=== PATIENT | female | born 1975 | race Caucasian/White ===

== ENCOUNTER 2022-05-28 02:51 | Emergency (ER) | payer OTHER, SELFPAY ==
[2022-05-28 02:59] VITALS: BP 114/67; PULSE 90; RESP 18; TEMP 36.9; O2SAT 96; BMI 31.3
[2022-05-28 05:40] VITALS: BP 116/68; PULSE 98; RESP 16; TEMP 37; O2SAT 97
--- NOTE | 2022-05-28 05:58 | ED.GENADULT ---
HPI - General Adult General Chief complaint: Skin/Abscess/Foreign Body Stated complaint: rash? itches/bumps Time Seen by Provider: 05/28/22 05:58 Source: patient Mode of arrival: ambulatory Limitations: no limitations History of Present Illness HPI narrative: pruritis all night, for 2 weeks. Patient only on albuterol. Patient recently changed laundry detergent. Onset (ago): week(s) Severity: mild Pain Consistency: intermittent Associated symptoms: denies other symptoms Related Data Previous Rx's Medication Instructions Recorded hydroxyzine HCl 25 mg tablet 25 mg PO BEDTIME #20 tabs 05/28/22 Allergies Allergy/AdvReac Type Severity Reaction Status Date / Time No Known Allergies Allergy Verified 05/28/22 02:58 [No Known Allergies*] Review of Systems Constitutional: Constitutional: Reports no additional constitutional complaints Eyes: Eyes: Reports no additional eye complaints ENT: Denies dizziness Cardiovascular: Cardiovascular: Reports no additional cardiovascular complaints Respiratory: Respiratory: Reports as per HPI Gastrointestinal: Gastrointestinal: Reports no additional gastrointestinal complaints Genitourinary: Genitourinary: Reports no additional female genitourinary complaints Musculoskeletal: Musculoskeletal: Reports no additional musculoskeletal complaints Integumentary/Breasts: Skin/Breast: Denies rash Neurologic: Reports system reviewed and no additional complaints, except as documented, Denies dizziness and Denies Sensory deficit (Neuro) Psychiatric: Psychiatric: Denies anxiety [facility] Social History Social History Advance Directives: No Physical Exam ED Vital Signs: Vital Signs - 24 hr 05/28/22 02:59 05/28/22 05:40 Temperature 98.4 F 98.6 F Pulse Rate 90 98 Respiratory Rate 18 16 Blood Pressure 114/67 116/68 Pulse Oximetry 96 97 Oxygen Delivery Method Room Air Room Air BMI result Body Mass Index 31.3 Const General: healthy appearing Nutritional Appearance: average body habitus Orientation/consciousness: oriented to person and patient oriented x3 Limitations: no limitations HENMT Head: Yes normal to inspection Ears: external ears normal General nose exam: Normal external nose present Mouth: Normal oral and palatal mucosa present and oropharynx normal Throat: Yes posterior oropharynx normal Eyes General: appearance normal, both eyes and all related structures Neck Neck: Yes normal visual inspection Chest Chest palpation & inspection: normal inspection of the chest Resp Auscultation: clear to auscultation bilaterally Cardio Jugular venous distension: no JVD Rate: regular rate Rhythm: regular rhythm Heart sounds: S1 normal heart sound present and S2 normal heart sound present GI Inspection: Yes normal to inspection Palpation (GI): Soft to palpation, nontender and No hepatosplenomegaly present Auscultation: normal bowel sounds General: Yes no CVA tenderness Back/Spine/Pelvis Back: no CVA tenderness Skin Other: scratch ohara but no lesion or erythema Neuro General: oriented to person and patient oriented x3 Cranial nerves: Yes CN's II-XII intact bilaterally Motor exam (neuro): 5/5 motor strength present throughout Sensory Exam: No Sensory deficit (Neuro) Extrem General: Yes normal to inspection Psych Appearance: grossly normal Course Reevaluation(s) Reevaluation #1: patient to have blood drawn and needs to be discharged will dc home on atarax Time: 06:07 Discharge Plan Discharge Clinical Impression: Pruritic condition Patient Disposition: Home, Self-Care Instructions: Itchy Skin (ED) Prescriptions: New hydroxyzine HCl 25 mg tablet 25 mg PO BEDTIME Qty: 20 0RF Referrals: Ranjith Leblanc MD [Primary Care Provider] - 1 week
[2022-05-28] MEDS: hydrOXYzine HCL 25 MG TABLET PO (06:21)
[2022-05-28 06:26] LABS: Appearance Urine Clear; Color Urine Yellow; Glucose Urine UA Negative (Negative); Leukocyte Esterase Urine Negative (Negative); Nitrite Urine Negative (Negative); Specific Gravity - Urine <= 1.005 (1.005-1.025); UMIC TRIGGER UACC YES; Urine Blood Negative (Negative); Urine Ketones Negative (Negative); Urine Protein Negative (Neg-Trace)
[2022-05-28 06:31] LABS: Bacteria Urine None Seen (None Seen); Hyaline Casts Urine 0-2 /LPF (0-2); RBC Urine 0-2 /HPF (0-2); Squamous Epithelial Cell Urine 0-2 /HPF (0-2); WBC Urine 0-5 /HPF (0-5)
[2022-05-28 06:50] LABS: Alanine Aminotransferase 16 U/L (0-31); Albumin Level 4.4 g/dL (3.5-5.0); Alkaline Phosphatase 98 U/L (39-117); Anion Gap 15 (12-20); Aspartate Amino Transferase 14 U/L (5-31); Bilirubin Total 0.4 mg/dL (0.0-1.0); Blood Urea Nitrogen 15 mg/dL (9-16); Calcium 9.2 mg/dL (8.4-10.2); Carbon Dioxide 24 mmol/L (22-29); Chloride 107 mmol/L (96-108); Creatinine Clr Calc Pharmacy 109.8; Estimated Glomerular Filt Rate > 60; Glucose Random 137 mg/dL (60-115); Potassium 4.5 mmol/L (3.3-5.1); Sodium 141 mmol/L (135-145); Total Protein 7.5 g/dL (6.5-8.0)
== END 2022-05-28 06:25 | disposition home or self-care (01) ==
PROVIDERS: Emergency Provider Emergency Medicine; PCP Internal Medicine
DX: L29.9 Pruritus, unspecified (principal)
CPT/HCPCS: 36415; 80053; 81001; 81003; 99283

== ENCOUNTER 2023-01-22 22:04 | Emergency (ER) | payer OTHER, SELFPAY ==
--- NOTE | ~2023-01-22 | US_ITS ---
EXAMINATION: US DIAGNOSTIC ULTRASOUND BREAST, RIGHT CLINICAL INFORMATION: 47-year-old ER patient with right breast lump, tender and warm. Patient on doxycycline for chronic skin infection. Prior history contralateral left breast cancer. COMPARISON: None available. TECHNIQUE: Ultrasound right breast is performed at time of emergency appointment. Grayscale imaging and color Doppler are performed, targeted to the area of patient symptoms. FINDINGS: The submitted images demonstrate scattered round and oval cysts in the targeted area 9:00 position. The cysts show thin wall with increased through-transmission of sound. The largest cyst resides 4 cm from the nipple 9:00 position and measures 2.8 x 1.1 x 1.1 cm. The next largest cyst measures 1.4 x 1.2 x 1.4 cm. There is no solid mass or architectural abnormality. No focal duct ectasia. No peripheral or internal color flow. No skin thickening or edema tracking in soft tissue planes. US/US breast RT limited IMPRESSION: Fibrocystic changes lateral right breast, largest cyst 2.8 cm. ASSESSMENT: BI-RADS 2: Benign RECOMMENDATION: 1. Patient should be managed based on the clinical impression. If clinically indicated, [facility] diagnostic [facility] and targeted follow-up ultrasound. 2. Otherwise, annual screening mammography. This patient's information was entered into a reminder system with a target due date for their next mammogram.
[2023-01-22 22:37] VITALS: BP 112/62; PULSE 77; RESP 16; TEMP 36.6; O2SAT 98; BMI 26.9
[2023-01-22 23:20] LABS: MANUAL DIFF FLAG NO
[2023-01-22 23:21] LABS: Basophils Absolute Auto 0.1 X10*3/uL (0.0-0.2); Basophils Percent Auto 0.7 % (0-2); Eosinophils Absolute Auto 0.1 X10*3/uL (0.0-0.4); Eosinophils Percent Auto 0.8 % (0-4); Hematocrit 46.5 % (37.0-47.0); Hemoglobin 15.4 g/dl (12.0-16.0); Imm Gran Abs Auto 0.04 X10*3/uL (0.00-0.03); Imm Gran Pct Auto 0.3 % (0.0-0.4); Lymphocytes Absolute Auto 2.5 X10*3/uL (1.2-4.9); Lymphocytes Percent Auto 16.8 % (20-40); Mean Corpuscular HGB Conc 33.1 g/dl (31.0-35.0); Mean Corpuscular Hemoglobin 29.7 pg (27.0-33.0); Mean Corpuscular Volume 89.8 fL (80.0-98.0); Mean Platelet Volume 10.9 fL (9.4-12.3); Monocytes Percent Auto 6.9 % (2-11); Neutrophils Absolute Auto 11.2 x10*3/uL (2.0-8.3); Neutrophils Percent Auto 74.5 % (45-73); Platelet Count 259 X10*3/uL (160-400); Red Blood Count 5.18 X10*6/uL (4.20-5.50); Red Cell Distribution Width 13.7 % (11.0-16.0)
[2023-01-22 23:33] LABS: Anion Gap 13 (12-20); Blood Urea Nitrogen 19 mg/dL (9-16); C Reactive Protein 0.53 mg/dL (< or = 0.50); Calcium 8.9 mg/dL (8.4-10.2); Carbon Dioxide 26 mmol/L (22-29); Chloride 104 mmol/L (96-108); Creatinine Clr Calc Pharmacy 95.7; Estimated Glomerular Filt Rate > 60; Glucose Random 144 mg/dL (60-115); Potassium 3.8 mmol/L (3.3-5.1); Sodium 139 mmol/L (135-145)
--- NOTE | 2023-01-22 23:57 | ED.GENADULT ---
HPI - General Adult General Chief complaint: General Medical Stated complaint: Huge lump on R breast, hot and painful Time Seen by Provider: 01/22/23 23:47 Source: patient Mode of arrival: ambulatory Limitations: no limitations History of Present Illness HPI narrative: Patient's history of left breast cancer on hormonal therapy comes here for lump in the right breast for last few days schedule for ultrasound but patient able to get it feels slightly more painful and mom and she came to the hospital. Patient on doxycycline and has history of polycythemia patient taking doxycycline for chronic skin infection Related Data Previous Rx's Medication Instructions Recorded hydroxyzine HCl 25 mg tablet 25 mg PO BEDTIME #20 tabs 05/28/22 Allergies Allergy/AdvReac Type Severity Reaction Status Date / Time No Known Allergies Allergy Verified 05/28/22 02:58 [No Known Allergies*] Review of Systems Review of Systems: Yes all other systems are reviewed and are negative [facility] Social History Social History Advance Directives: No Advance Directives Information Provided: Yes Physical Exam ED Vital Signs: Vital Signs - 24 hr 01/22/23 22:37 Temperature 97.9 F Pulse Rate 77 Respiratory Rate 16 Blood Pressure 112/62 Pulse Oximetry 98 Oxygen Delivery Method Room Air BMI result Body Mass Index 26.9 Const General: comfortable and no acute distress Chest Chest/axillae images: 1. Large cystic mass about 5 x 5 cm freely movable no significant tenderness slight skin erythema Medical Decision Making Medical Decision Making [facility] Narrative: Patient with cystic lesions in the right breast no signs of abscess per ultrasound discharge patient home advised to follow with breast specialist Lab Data [facility] Lab Attestation statement: I reviewed the patient's lab results. 01/22/23 22:59 01/22/23 22:59 Labs: Lab Results 01/22/23 01/22/23 01/22/23 Range/Units 22:59 22:59 22:59 WBC 15.0 H (4.8-10.8) X10*3/uL RBC 5.18 (4.20-5.50) X10*6/uL Hgb 15.4 (12.0-16.0) g/dl Hct 46.5 (37.0-47.0) % MCV 89.8 (80.0-98.0) fL MCH 29.7 (27.0-33.0) pg MCHC 33.1 (31.0-35.0) g/dl RDW 13.7 (11.0-16.0) % Plt Count 259 (160-400) X10*3/uL MPV 10.9 (9.4-12.3) fL Immature Gran % (Auto) 0.3 (0.0-0.4) % Neut % (Auto) 74.5 H (45-73) % Lymph % (Auto) 16.8 L (20-40) % [place] % (Auto) 6.9 (2-11) % Eos % (Auto) 0.8 (0-4) % Baso % (Auto) 0.7 (0-2) % Lymph # (Auto) 2.5 (1.2-4.9) X10*3/uL [place] # (Auto) 1.0 (0.1-1.2) X10*3/uL Eos # (Auto) 0.1 (0.0-0.4) X10*3/uL Baso # (Auto) 0.1 (0.0-0.2) X10*3/uL Abs Immat Gran (auto) 0.04 H (0.00-0.03) X10*3/uL Absolute Neuts (auto) 11.2 H (2.0-8.3) x10*3/uL Absolute Nucleated RBC 0.000 (0.0-0.012) X10*3/uL Nucleated RBC % (auto) 0.0 (0.0-0.2) /100WBC ESR 14 (0-20) MM/HR Sodium 139 (135-145) mmol/L Potassium 3.8 (3.3-5.1) mmol/L Chloride 104 (96-108) mmol/L Carbon Dioxide 26 (22-29) mmol/L Anion Gap 13 (12-20) BUN 19 H (9-16) mg/dL Creatinine 0.79 (0.5-1.4) mg/dL Estim Creat Clear Calc 95.7 Estimated GFR > 60 Random Glucose 144 H (60-115) mg/dL Calcium 8.9 (8.4-10.2) mg/dL C-Reactive Protein 0.53 H (< or = 0.50) mg/dL Discharge Plan Discharge Clinical Impression: Fibrocystic breast disease Patient Disposition: Home, Self-Care Instructions: Fibrocystic Breast Changes (ED) Additional Instructions: Follow-up with your breast specialist for further evaluation Prescriptions: No Action hydroxyzine HCl 25 mg tablet 25 mg PO BEDTIME Qty: 20 0RF
[2023-01-23 00:07] LABS: Erythrocyte Sedimentation Rate 14 MM/HR (0-20)
== END 2023-01-23 01:40 | disposition home or self-care (01) ==
PROVIDERS: Emergency Provider Internal Medicine; PCP Physician Assistant Medical
DX: N60.11 Diffuse cystic mastopathy of right breast (principal); Z79.899 Other long term (current) drug therapy
CPT/HCPCS: 36415; 76642; 80048; 85025; 85652; 86140; 99283; 99284

== ENCOUNTER 2025-01-23 19:29 | Emergency (ER) | payer OTHER, SELFPAY ==
--- NOTE | ~2025-01-23 | XR_ITS ---
CLINICAL HISTORY: chest pain 2 view chest x-ray Comparison: None Findings: The lungs are clear. Heart size is normal. No acute fracture. IMPRESSION: 1. No acute findings. This document has been electronically signed by: Dez Duran MD on 01/23/2025 20:41:32
[2025-01-23 19:32] VITALS: BP 121/71; PULSE 74; RESP 18; TEMP 36.3; O2SAT 100; BMI 28.6
--- NOTE | 2025-01-23 19:33 | ED_ITS ---
HPI - General Adult General Chief complaint: Dyspnea Stated complaint: trouble breathing Related Data Previous Rx's ?Medication ?Instructions ?Recorded hydroxyzine HCl 25 mg tablet 25 mg PO BEDTIME #20 tabs 05/28/22 Allergies Allergy/AdvReac Type Severity Reaction Status Date / Time No Known Allergies Allergy Verified 01/23/25 19:34 [No Known Allergies*] [facility] Social History Social History Smoked in Last 30 Days: Yes Use of substances other than those prescribed or required for medical reasons: Unknown Advance Directives: No Advance Directives Information Provided: Yes Do you have a plan to hurt others: No Plan Patient : No Physical Exam ED Vital Signs: BMI result Body Mass Index 28.6 Course Course Course Narrative: RME performed by Phyllis Carrington PA-C. Patient is a 49 year old assigned female at presenting to the emergency department with worsening shortness of breath. Patient's limited physical exam performed in triage showed an individual in no acute distress. Detailed physical exam and review of systems are deferred to the hyperbaric welder diver. EKG, labs, imaging, and swabs ordered. Patient placed back in the waiting room pending room availability and results. Patient left the department without completing treatment. Patient left the department before myself or any of the other emergency department clinicians could explain to or review with the patient; physical exam findings, test results, need or lack there of for additional testing, need or lack there of for a procedure to be performed, need or lack there of for hospital admission / transfer, need or lack there of for prescription medication, treatment options, or a treatment plan. Medical Decision Making Lab Data 01/23/25 20:18 01/23/25 20:18 Labs: Lab Results 01/23/25 Range/Units 20:18 WBC 7.9 (4.8-10.8) X10*3/uL RBC 4.90 (4.20-5.50) X10*6/uL Hgb 14.9 (12.0-16.0) g/dl Hct 44.3 (37.0-47.0) % MCV 90.4 (80.0-98.0) fL MCH 30.4 (27.0-33.0) pg MCHC 33.6 (31.0-35.0) g/dl RDW 13.7 (11.0-16.0) % Plt Count 275 (160-400) X10*3/uL MPV 10.8 (9.4-12.3) fL Immature Gran % (Auto) 0.4 (0.0-0.4) % Neut % (Auto) 52.1 (45-73) % Lymph % (Auto) 38.7 (20-40) % [place] % (Auto) 5.7 (2-11) % Eos % (Auto) 1.8 (0-4) % Baso % (Auto) 1.3 (0-2) % Lymph # (Auto) 3.0 (1.2-4.9) X10*3/uL [place] # (Auto) 0.5 (0.1-1.2) X10*3/uL Eos # (Auto) 0.1 (0.0-0.4) X10*3/uL Baso # (Auto) 0.1 (0.0-0.2) X10*3/uL Abs Immat Gran (auto) 0.03 (0.00-0.03) X10*3/uL Absolute Neuts (auto) 4.1 (2.0-8.3) x10*3/uL Absolute Nucleated RBC 0.000 (0.0-0.012) X10*3/uL Nucleated RBC % (auto) 0.0 (0.0-0.2) /100WBC PT 11.2 (10.9-12.4) SEC INR 1.0 (0.9-1.1) Sodium 142 (135-145) mmol/L Potassium 3.8 (3.3-5.1) mmol/L Chloride 108 (96-108) mmol/L Carbon Dioxide 25 (22-29) mmol/L Anion Gap 13 (12-20) BUN 8 L (9-16) mg/dL Creatinine 0.68 (0.5-1.4) mg/dL Estim Creat Clear Calc 111.9 Estimated GFR > 60 Random Glucose 94 (60-115) mg/dL Calcium 9.2 (8.4-10.2) mg/dL Magnesium 1.9 (1.6-2.6) mg/dL Total Bilirubin 0.3 (0.0-1.0) mg/dL AST 16 (5-31) U/L ALT 13 (0-31) U/L Alkaline Phosphatase 107 (39-117) U/L Troponin I High Sens < 2.7 (<3.5-17.0) ng/L Total Protein 6.9 (6.5-8.0) g/dL Albumin 4.1 (3.5-5.0) g/dL Influenza Type A (PCR) NEGATIVE (Negative) Influenza Type B (PCR) NEGATIVE (Negative) RSV RNA Qual (PCR) NEGATIVE (Negative) SARS-CoV-2 RNA (RT-PCR) NEGATIVE (Negative) Discharge Plan Discharge Clinical Impression: Chronic shortness of breath Patient Disposition: Left W/O Completing Treatment Prescriptions: No Action hydroxyzine HCl 25 mg tablet 25 mg PO BEDTIME Qty: 20 0RF Discharge Date/Time: 01/23/25 22:57
--- NOTE | 2025-01-23 19:34 | ECG_ITS ---
Test Reason : chest pain Blood Pressure : */* mmHG Vent. Rate : 69 BPM Atrial Rate : 69 BPM P-R Int : 164 ms QRS Dur : 92 ms QT Int : 426 ms P-R-T Axes : 37 86 55 degrees QTcB Int : 456 ms Normal sinus rhythm Normal ECG When compared with ECG of 23-Nov-2015 08:45, No significant change was found Referred By: Phyllis Carrington Electronically Signed By: CEDRICK GALLEGOS MD
[2025-01-23 20:35] LABS: MANUAL DIFF FLAG NO
[2025-01-23 20:37] LABS: Basophils Absolute Auto 0.1 X10*3/uL (0.0-0.2); Basophils Percent Auto 1.3 % (0-2); Eosinophils Absolute Auto 0.1 X10*3/uL (0.0-0.4); Eosinophils Percent Auto 1.8 % (0-4); Hematocrit 44.3 % (37.0-47.0); Hemoglobin 14.9 g/dl (12.0-16.0); Imm Gran Abs Auto 0.03 X10*3/uL (0.00-0.03); Imm Gran Pct Auto 0.4 % (0.0-0.4); Lymphocytes Percent Auto 38.7 % (20-40); Mean Corpuscular HGB Conc 33.6 g/dl (31.0-35.0); Mean Corpuscular Hemoglobin 30.4 pg (27.0-33.0); Mean Corpuscular Volume 90.4 fL (80.0-98.0); Mean Platelet Volume 10.8 fL (9.4-12.3); Monocytes Absolute Auto 0.5 X10*3/uL (0.1-1.2); Monocytes Percent Auto 5.7 % (2-11); Neutrophils Absolute Auto 4.1 x10*3/uL (2.0-8.3); Neutrophils Percent Auto 52.1 % (45-73); Platelet Count 275 X10*3/uL (160-400); Red Cell Distribution Width 13.7 % (11.0-16.0); White Blood Count 7.9 X10*3/uL (4.8-10.8)
[2025-01-23 20:42] LABS: Prothrombin Time 11.2 SEC (10.9-12.4)
[2025-01-23 20:54] LABS: Alanine Aminotransferase 13 U/L (0-31); Albumin Level 4.1 g/dL (3.5-5.0); Alkaline Phosphatase 107 U/L (39-117); Anion Gap 13 (12-20); Aspartate Amino Transferase 16 U/L (5-31); Bilirubin Total 0.3 mg/dL (0.0-1.0); Blood Urea Nitrogen 8 mg/dL (9-16); Calcium 9.2 mg/dL (8.4-10.2); Carbon Dioxide 25 mmol/L (22-29); Chloride 108 mmol/L (96-108); Creatinine Clr Calc Pharmacy 111.9; Estimated Glomerular Filt Rate > 60; Glucose Random 94 mg/dL (60-115); Magnesium 1.9 mg/dL (1.6-2.6); Potassium 3.8 mmol/L (3.3-5.1); Sodium 142 mmol/L (135-145); Total Protein 6.9 g/dL (6.5-8.0)
--- OUTSIDE RECORDS SUMMARY | 2025-01-23 20:58 | XMS_ITS | Clinical Summary ---
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 05/07/2023 Active tamoxifen (NOLVADEX) 10 mg tablet Take 1 Tablet by mouth daily for 360 days. 06/03/2024 05/29/20 25 Active triamcinolone (NASACORT) 55 mcg nasal inhaler 2 Sprays by Nasal route daily. 07/15/2023 Active LORazepam (ATIVAN) 1 mg tablet Take 1 Tablet by mouth Once. Take 30 minutes prior to MRI. 06/05/2023 Active lactulose (CHRONULAC) solution Take 30 mL by mouth daily. 06/05/2023 Active hydrOXYzine HCL (ATARAX) 10 mg tablet Take 1 tablet (10 mg total) by mouth 3 (three) times a day if needed. 07/15/2023 Active furosemide (LASIX) 20 mg tablet Take 1 Tablet by mouth daily. As needed for leg swelling 07/15/2023 Active doxycycline (VIBRAMYCIN) 50 mg capsule Take 1 capsule (50 mg total) by mouth 2 (two) times a day. 07/15/2023 Active cetirizine (ZyrTEC) 10 mg tablet Take 1 tablet (10 mg total) by mouth 1 (one) time each day. 07/15/2023 Active budesonide-form oteroL (Symbicort) 160-4.5 mcg/actuation inhaler Inhale 2 Puffs into the lungs every 12 hours. 07/15/2023 Active Active Problems Problem Noted Date Diagnosed Date Mass of lower inner quadrant of left breast 09/15 IFG (impaired fasting glucose) 07/24/2021 Mild persistent asthma without complication 05/2019 Abnormal CXR 03/23/2019 Leg swelling 01/28/2018 Hidradenitis 11/14/2016 Mixed hyperlipidemia 04/18/2015 Polycythemia 02/27/2015 Thyroid nodule 12/24/2010 Depression 11/19/2010 Encounters Date Type Department Care Team Description 01/22/2025 12:01 AM EDT - 01/22/2025 3:35 AM EDT Emergency [facility] Emergency [address] [place] [address] Shortness of breath (Primary Dx) Discharge Disposition: Home or Self Care from Last 3 Months Immunizations Name Administration Dates Next Due Hepatitis B (Rgnvbgb-I-Mpolo , Recombivax HB-Adult) 19yo and older 11/22/2010 Influenza Quadravalent, MDCK , 0.5ml, preservative free (Flucelvax) 6mo and older 07/24/2021,06/07/2019,08/31/2018 Influenza trivalent, 0.5mL, preservative free (Fluarix; FluLaval; Fluzone) ages 6mo and older (Afluria) 3 years and older 06/08/2015,06/15/2012,06/03/2009 PPD Test 11/19/2010 Pneumococcal conjugate 13 va lent (Prevnar 13, PCV13) 2mo and older 06/07/2019 Tdap Tetanus diptheria acell ular pertussis (Boostrix; Adacel) 7yo and older 07/21/2020,02/06/2010 Surgical History Surgery Date Site/Laterality Comments TUBAL LIGATION PROCEDURE: HISTORICAL TUBAL LIGATION OTHER SURGICAL HISTORY PROCEDURE: OH ADENOIDECTOMY PRIMARY AGE 13/> BREAST BIOPSY 2022 Bilateral PROCEDURE: BX BREAST; PERC NEEDLE CORE W/IMAG GUID Medical History Medical History Date Comments Tobacco abuse 02/06/2010 DX:Tobacco abuse Depression DX:Depression COPD (chronic obstructive pu lmonary disease) ([facility] V24, [facility] V28) Family History Medical History Relation Name Comments Breast cancer Aunt m Ovarian cancer Aunt m maternal, ova ramiro cancer, passed from [place] Coronary artery disease Father CABG at age 29 Diabetes Father CAD, CABG, colo n polyps >10 Lung cancer Maternal Grandfather hypothy roidism Breast cancer Maternal Grandmother ovaria n cancer, passed in 70s Hyperthyroidism Mother HTN, hyperch olesterolemia, rheumatoid arthritis Heart attack Paternal Grandfather diabete s Other: Lupus Paternal Grandmother rheumat oid arthritis Hyperthyroidism Sister Relation Name Status Comments Aunt m Father Alive Maternal Grandfather Maternal Grandmother Mother Alive Paternal Grandfather Paternal Grandmother Alive Sister Alive Social History Tobacco Use Types Packs/Day Years Used Date Smoking Tobacco: Every Day Cigarettes Smokeless Tobacco: Never Alcohol Use Standard Drinks/Week Comments No 0 (1 standard drink = 0.6 oz pur e alcohol) Comments Unknown Sex and Gender Information Value Date Recorded Sex Assigned at Not on file Legal Sex Female 3:11 PM EST Gender Identity Not on file Sexual Orientation Not on file Obstetrics History Last Filed Vital Signs Vital Sign Reading Time Taken Comments Blood Pressure 106/49 01/22/2025 3:19 AM EDT Pulse 75 01/22/2025 3:19 AM EDT Temperature 36.7 ??C (98 ??F) 01/22/2025 3:19 AM EDT Respiratory Rate 18 01/22/2025 3:19 AM EDT Oxygen Saturation 100% 01/22/2025 12: 48 AM EDT Inhaled Oxygen Concentration - - Weight 82.5 kg (181 lb 12.8 oz) 01/21/2025 6:59 PM EDT Height 170.2 cm (5' 7 ) 01/21/2025 6:59 PM EDT Body Mass Index 28.47 01/21/2025 6:59 PM EDT Plan of Treatment Health Maintenance Due Date Last Done Comments COVID-19 Vaccine (#1) 1981 Hepatitis B Vaccines (2 of 3 - 19+ 3-dose series) 12/20/2010 11/22/2010 Pneumococcal Vaccine: Pediatrics (0 to 5 Years) and At-Risk Patients (6 to 64 Years) (2 of 2 - PPSV23) 08/02/2019 06/07/2019 Cervical Cancer Screening: Pap Smear 01/10/2022 01/10/2017, 01/10/2017 Colorectal Cancer Screening: Colonoscopy 08/14/2022 Depression Screening 08/14/2022 HIV Screening 08/14/2022 Hepatitis C Screening 08/14/2022 Social Influencers of Health Screening 08/14/2022 Breast Cancer Screening 02/04/2025 02/05/20 24, 02/05/2024, 08/06/2023, Additional history exists Influenza Vaccine (Season Ended) 2025 07/24/2021, 06/07/2019, 08/31/2018, Additional history exists Cholesterol Screening (Lipid Panel) 07/15/2028 07/15/2023 DTaP,Tdap,and Td Vaccines (3 - Td or Tdap) 07/21/2030 07/21/2020, 02/06/2010 HIB Vaccines Aged Out No longer eligi ble based on patient's age to complete this topic HPV Vaccines Aged Out No longer eligi ble based on patient's age to complete this topic Hepatitis A Vaccines Aged Out No long er eligible based on patient's age to complete this topic IPV Vaccines Aged Out No longer eligi ble based on patient's age to complete this topic MMR Vaccines Aged Out No longer eligi ble based on patient's age to complete this topic Meningococcal ACWY Vaccine Aged Out N o longer eligible based on patient's age to complete this topic Meningococcal B Vaccine Aged Out No l onger eligible based on patient's age to complete this topic RSV Immunization Patients Under 20 months Aged Out No longer eligible based on patient's age to complete this topic Varicella Vaccines Aged Out No longer eligible based on patient's age to complete this topic Procedures Procedure Name Priority Date/Time Associated Diagnosis Comments CT ANGIO CHEST WO AND/OR W CONTRAST STAT 01/22/2025 1:54 AM EDT Shortness of breath B-TYPE NATRIURETIC PEPTIDE STAT 01/22/2025 1:05 AM EDT TROPONIN I HIGH SENSITIVITY STAT 01/21/2025 10:03 PM EDT POC , URINE DIAGNOSTIC STAT 01/21/2025 8:25 PM EDT XR CHEST 2 VIEWS STAT 01/21/2025 8:07 PM EDT CBC WITH AUTO DIFFERENTIAL STAT 01/21/2025 7:53 PM EDT MAGNESIUM STAT 01/21/2025 7:53 PM EDT LIPASE STAT 01/21/2025 7:53 PM EDT COMPREHENSIVE METABOLIC PANEL STAT 01/21/2025 7:53 PM EDT CBC AND DIFFERENTIAL STAT 01/21/2025 7:53 PM EDT TROPONIN I HIGH SENSITIVITY STAT 01/21/2025 7:53 PM EDT ECG 12-LEAD STAT 01/21/2025 6:52 PM EDT DIAGNOSTIC MAMMOGRAPHY INCLUDING CAD BILATERAL Routine 02/05/2024 3:49 PM EDT Other abnormal and inconclusive findings on diagnostic imaging of breast LIPID PANEL Routine 07/15/2023 HM HPV Routine 01/10/2017 from Last 3 Months or Most Recently Relevant to Health Maintenance Results * CT Angio Chest wo and/or w Contrast (01/22/2025 1:54 AM EDT) Anatomical Region Laterality Modality Body Computed Tomogra phy 01/22/2025 3:00 AM EDT Impressions 01/22/2025 3:00 AM EDT 1. Less than optimal pulmonary artery enhancement. No evidence of pulmonary embolism. 2. Bilateral pulmonary nodules with the largest measuring 9 mm. Follow-up per Fleischner criteria. 3. Mild mediastinal and right hilar lymphadenopathy. 4. Additional findings as above. This document has been electronically signed by: Edy Gonsalez MD on 01/22/2025 03:00:51 Narrative 01/22/2025 3:00 AM EDT INDICATION: perisstent sob x2-3 mos CTA chest with contrast. MIPs were obtained. Comparison: None FINDINGS: Heart is normal in size. Mild coronary artery calcification. No pericardial effusion. Normal aortic enhancement. No aneurysm or acute findings. Less than optimal pulmonary artery enhancement. No evidence of embolism. Esophagus is normal. Mild mediastinal and right hilar lymphadenopathy. 1.4 cm subcarinal and 1.3 cm right hilar lymph nodes. No acute soft tissue findings. Upper abdomen is unremarkable. Mild multilevel thoracic spine disc disease, small disc herniation at T7-8 and moderate-sized disc herniation at T9-10. No airway masses or bronchiectasis. Borderline bronchiectasis in the right middle lobe and lower lobes. Dependent atelectasis. No consolidation, masses or pleural effusions. Right apical paraseptal emphysema. Multiple bilateral pulmonary nodules with the largest measuring 9 mm in the posterior right lower lobe image 271 series 2. Procedure Note Edy Gonsalez MD - 01/22/2025 INDICATION: perisstent sob x2-3 mos CTA chest with contrast. MIPs were obtained. Comparison: None FINDINGS: Heart is normal in size. Mild coronary artery calcification. No pericardial effusion. Normal aortic enhancement. No aneurysm or acute findings. Less than optimal pulmonary artery enhancement. No evidence of embolism. Esophagus is normal. Mild mediastinal and right hilar lymphadenopathy.1.4 cm subcarinal and 1.3 cm right hilar lymph nodes. No acute soft tissue findings. Upper abdomen is unremarkable. Mild multilevel thoracic spine disc disease, small disc herniation atT7-8 and moderate-sized disc herniation at T9-10. No airway masses or bronchiectasis. Borderline bronchiectasis in theright middle lobe and lower lobes. Dependent atelectasis. No consolidation, masses or pleural effusions. Right apical paraseptal emphysema. Multiple bilateral pulmonary nodules with the largest measuring 9 mm in the posterior right lower lobe image 271 series 2. IMPRESSION: 1. Less than optimal pulmonary artery enhancement. No evidence of pulmonary embolism. 2. Bilateral pulmonary nodules with the largest measuring 9 mm.Follow-up per Fleischner criteria. 3. Mild mediastinal and right hilar lymphadenopathy. 4. Additional findings as above. This document has been electronically signed by: Edy Gonsalez MDon 01/22/2025 03:00:[address] PROCEDURES Final R esult * B-type natriuretic peptide (01/22/2025 1:05 AM EDT) [facility] BNP 25 <=100 pcg/mL LAB CHEMISTRY METHOD 01/22/2025 3:00 AM EDT [facility] Blood Venous blood specimen / Unknown Venipuncture / Unknown 01/22/2025 1:05 AM EDT 01/22/2025 2:12 AM EDT Isaac GAYTAN LAB BLOOD ORDERABLES [place] l Result Performing Organization Address [facility]/ZIP Co de Phone Number [facility] [address] [place] [address], * Troponin I high sensitivity (01/21/2025 10:03 PM EDT) Only the most recent of2 resultswithin the time period is included. [facility] High Sensitivity Troponin I 5 <=54 ng/L LAB CHEMISTRY METHOD 01/21/2025 10:49 PM EDT [facility] Blood Venous blood specimen / Unknown Venipuncture / Unknown 01/21/2025 10:03 PM EDT 01/21/2025 10:25 PM EDT Narrative [facility] - 01/21/2025 10:49 PM EDT High levels of biotin in samples may falsely decrease hsTroponin values. ??Use caution when interpreting hsTroponin results in patients taking biotin who exhibit renal impairment (eGFR <60) or in patients taking more than 20 mg/day of biotin. David White MD LAB BLOOD ORDERABLES Final Res ult Performing Organization Address [facility]/ZIP Co de Phone Number [facility] [address] [place] [address], * POC , urine manually resulted (01/21/2025 8:25 PM EDT) HCG, Ur POC Negative Negative POC hCG Int QC Pass? Yes Yes EXPIRATION DATE POC 06/28/2026 LOT NUMBER POC [id number] Urine Urine specimen obtained by clean catch procedure / Unknown 01/21/2025 8:25 PM EDT David White MD POINT OF CARE TEST ENTER/EDIT ORDERABLES Final Result * XR Chest 2 Views (01/21/2025 8:07 PM EDT) Anatomical Region Laterality Modality Body Radiographic Betina ging 01/22/2025 3:42 AM EDT Impressions 01/22/2025 3:43 AM EDT FINDINGS/IMPRESSION: No consolidation or effusion. ??No congestive heart failure. ??No acute fracture. -------- FINAL REPORT -------- Dictated By: Mikie West Dictated Date: 01/22/2025 03:42 ET Assigned Physician: Mikie West Reviewed and Electronically Signed By: Mikie West Signed Date: 01/22/2025 03:43 ET Workstation ID: [id number] Transcribed By: Self Edit Transcribed Date: 01/22/2025 03:42 ET Narrative 01/22/2025 3:43 AM EDT XR CHEST 2 VIEWS INDICATION: chest pain TECHNIQUE: XR CHEST 2 VIEWS COMPARISON: No priors available. Procedure Note Mikie West MD - 01/22/2025 XR CHEST 2 VIEWS INDICATION: chest pain TECHNIQUE: XR CHEST 2 VIEWS COMPARISON: No priors available. IMPRESSION: FINDINGS/IMPRESSION: No consolidation or effusion. No congestive heartfailure. No acute fracture. -------- FINAL REPORT -------- Dictated By: Mikie West Dictated Date: 01/22/2025 03:42 ET Assigned Physician: Mikie West Reviewed and Electronically Signed By: Mikie West Signed Date: 01/22/2025 03:43 ET Workstation ID: [id number] Transcribed By: Self Edit Transcribed Date: 01/22/2025 03:42 ET David White MD IMG XR PROCEDURES Final Result * (ABNORMAL) CBC auto differential (01/21/2025 7:53 PM EDT) [facility] WBC 8.5 4.8 - 10.8 K/mcL LAB HEMETOLOGY METHOD 01/21/2025 8:21 PM [facility] RBC 4.90(H) 3.80 - 4.80 M/mcL LAB HEMETOLOGY METHOD 01/21/2025 8:21 PM EDT [facility] Hemoglobin 14.8 11.5 - 16.0 g/dL LAB HEMETOLOGY METHOD 01/21/2025 8:21 PM [facility] Hematocrit 45.2 35.0 - 47.0 % LAB HEMETOLOGY METHOD 01/21/2025 8:[facility] PM [facility] MCV 91.7 79.0 - 98.0 FL LAB HEMETOLOGY METHOD 01/21/2025 8:21 PM [facility] MCH 30.0 27.0 - 32.0 pcg LAB HEMETOLOGY METHOD 01/21/2025 8:21 PM [facility] MCHC 32.7 32.0 - 37.0 g/dL LAB HEMETOLOGY METHOD 01/21/2025 8:21 PM [facility] RDW 13.6 11.0 - 15.0 % LAB HEMETOLOGY METHOD 01/21/2025 8:21 PM [facility] Platelets 267 130 - 400 K/mcL LAB HEMETOLOGY METHOD 01/21/2025 8:21 PM [facility] MPV 11.0 7.0 - 11.0 FL LAB HEMETOLOGY METHOD 01/21/2025 8:21 PM [facility] NRBC 0.0 <1.0 % LAB HEMETOLOGY METHOD 01/21/2025 8:21 PM [facility] NRBC Absolute 0.00 <0.10 K/mcL LAB HEMETOLOGY METHOD 01/21/2025 8:21 PM [facility] Neutrophils Relative 62.9 % LAB HEMETOLOGY METHOD 01/21/2025 8:21 PM [facility] Lymphocytes Relative 28.5 % LAB HEMETOLOGY METHOD 01/21/2025 8:21 PM [facility] Monocytes Relative 6.6 % LAB HEMETOLOGY METHOD 01/21/2025 8:21 PM [facility] Eosinophils Relative 0.7 % LAB HEMETOLOGY METHOD 01/21/2025 8:21 PM [facility] Basophils Relative 1.1 % LAB HEMETOLOGY METHOD 01/21/2025 8:21 PM [facility] Immature Granulocytes Relative 0.2 % LAB HEMETOLOGY METHOD 01/21/2025 8:21 PM [facility] Neutrophils Absolute 5.36 1.50 - 7.00 K/mcL LAB HEMETOLOGY METHOD 01/21/2025 8:21 PM [facility] Lymphocytes Absolute 2.43 1.00 - 5.00 K/mcL LAB HEMETOLOGY METHOD 01/21/2025 8:21 PM [facility] Monocytes Absolute 0.56 0.20 - 1.00 K/mcL LAB HEMETOLOGY METHOD 01/21/2025 8:21 PM [facility] Eosinophils Absolute 0.06 0.00 - 0.50 K/mcL LAB HEMETOLOGY METHOD 01/21/2025 8:21 PM [facility] Basophils Absolute 0.09 0.00 - 0.20 K/mcL LAB HEMETOLOGY METHOD 01/21/2025 8:21 PM [facility] Immature Granulocytes Absolute 0.02 0.00 - 0.03 K/mcL LAB HEMETOLOGY METHOD 01/21/2025 8:21 PM EDT [facility] Blood Venous blood specimen / Unknown Venipuncture / Unknown 01/21/2025 7:53 PM EDT 01/21/2025 8:12 PM EDT us David White MD LAB BLOOD ORDERABLES Final Res ult Performing Organization Address [facility]/ZIP Co de Phone Number [facility] [address] [place] [address], [place] [phone] * Magnesium (01/21/2025 7:53 PM EDT) Magnesium 1.9 1.9 - 2.6 mg/dL LAB CHEMISTRY METHOD 01/21/2025 8:44 PM EDT [facility] Blood Venous blood specimen / Unknown Venipuncture / Unknown 01/21/2025 7:53 PM EDT 01/21/2025 8:12 PM EDT us David White MD LAB BLOOD ORDERABLES Final Res ult Performing Organization Address [facility]/ZIP Co de Phone Number [facility] [address] [place] [address], [place] [phone] * Lipase (01/21/2025 7:53 PM EDT) Lipase 34 13 - 75 unit/L LAB CHEMISTRY METHOD 01/21/2025 8:44 PM EDT [facility] Blood Venous blood specimen / Unknown Venipuncture / Unknown 01/21/2025 7:53 PM EDT 01/21/2025 8:12 PM EDT us David White MD LAB BLOOD ORDERABLES Final Res ult [facility] [address] [place] [address], [place] [phone] * (ABNORMAL) Comprehensive metabolic panel (01/21/2025 7:53 PM EDT) [facility] Sodium 139 133 - 145 mmol/L LAB CHEMISTRY METHOD 01/21/2025 8:44 PM [facility] Potassium 4.0 3.5 - 5.5 mmol/L LAB CHEMISTRY METHOD 01/21/2025 8:44 PM [facility] Chloride 107 96 - 110 mmol/L LAB CHEMISTRY METHOD 01/21/2025 8:44 PM [facility] CO2 25 21 - 32 mmol/L LAB CHEMISTRY METHOD 01/21/2025 8:44 PM [facility] Anion Gap 7 3 - 11 LAB CHEMISTRY METHOD 01/21/2025 8:44 PM [facility] Glucose 119(H) 70 - 100 mg/dL LAB CHEMISTRY METHOD 01/21/2025 8:44 PM [facility] BUN 7 5 - 25 mg/dL LAB CHEMISTRY METHOD 01/21/2025 8:44 PM [facility] Creatinine 0.65 0.50 - 1.10 mg/dL LAB CHEMISTRY METHOD 01/21/2025 8:44 PM [facility] eGFR 109 >=60 mL/min/1. 73m2 LAB CHEMISTRY METHOD 01/21/2025 8:44 PM [facility] Comment:Calculation based on the Chronic Kidney Disease Epidemiology Collaboration (CKD-EPI) equation refit without adjustment for race. BUN/Creatinine Ratio 10.8 LAB CHEMISTRY METHOD 01/21/2025 8:44 PM [facility] Calcium 9.2 8.5 - 10.5 mg/dL LAB CHEMISTRY METHOD 01/21/2025 8:44 PM [facility] AST (SGOT) 8(L) 10 - 42 unit/L LAB CHEMISTRY METHOD 01/21/2025 8:44 PM [facility] ALT (SGPT) 16 10 - 60 unit/L LAB CHEMISTRY METHOD 01/21/2025 8:44 PM EDT [facility] Alkaline Phosphatase 126(H) 42 - 121 unit/L LAB CHEMISTRY METHOD 01/21/2025 8:44 PM EDT [facility] Total Protein 6.9 6.0 - 8.0 g/dL LAB CHEMISTRY METHOD 01/21/2025 8:44 PM EDT [facility] Albumin 3.7 3.2 - 5.0 g/dL LAB CHEMISTRY METHOD 01/21/2025 8:44 PM EDT [facility] Total Bilirubin 0.3 0.0 - 1.4 mg/dL LAB CHEMISTRY METHOD 01/21/2025 8:44 PM EDT [facility] Blood Venous blood specimen / Unknown Venipuncture / Unknown 01/21/2025 7:53 PM EDT 01/21/2025 8:12 PM EDT us David White MD LAB BLOOD ORDERABLES Final Res ult [facility] [address] [place] [address], * ECG 12 lead (01/21/2025 6:52 PM EDT) Ventricular Rate ECG 75 BPM GEMUSE Atrial Rate 75 BPM GEMUSE P-R Interval 194 ms GEMUSE QRS Duration 96 ms GEMUSE Q-T Interval 430 ms GEMUSE QTc 480 ms GEMUSE P Wave Edison 57 degrees GEMUSE R Edison 80 degrees GEMUSE T Edison 47 degrees GEMUSE ECG Interpretation Normal sinus rhythm Statement not found (#[id number]) Abnormal ECG When compared with ECG of 17-SEP-2014 11:15, No significant change was found Confirmed by PHUONG CASEY ([id number]) on 01/21/2025 10:24:03 PM GEMUSE 01/21/2025 6:52 PM EDT 01/21/2025 10:24 PM EDT us David White MD ECG ORDERABLES Final Result GEMUSE * DIAGNOSTIC MAMMOGRAPHY INCLUDING CAD BILATERAL (02/05/2024 3:49 PM EDT) Anatomical Region Laterality Modality Mammography 08/06/2023 4:04 PM EST Narrative 02/05/2024 4:08 PM EDT This is a summary report. The complete report is available in the patient's medical record. If you cannot access the medical record, please contact the sending organization for a detailed fax or copy. History: This is a second 6-month follow-up of multiple and bilateral grouped calcifications. Study: Diagnostic mammography with tomosynthesis and CAD Technique: Bilateral full-field digital diagnostic mammography is obtained and read in conjunction with computer aided detection. ??Tomosynthesis as well as 2D C- View imaging were obtained. ??Spot magnified compression views of both breasts were also obtained. Comparison: Comparison made to multiple prior, most recent bilateral diagnostic mammography on August 06, 2023, and most remote May 12, 2019. Breast composition: The breast tissue is heterogeneously dense, which may obscure small masses. Right breast: Diffuse and grouped calcifications are essentially unchanged from multiple prior studies, some of them layering on the 90 degrees images (which suggest benign milk of calcium). ??In particular, previously described grouped calcifications in the upper inner quadrant in the anterior and middle depth are unchanged from prior spot magnified compression views from September 2022. ??Tissue markers from previous needle core biopsies. ??No suspicious masses or other abnormalities are seen. Left breast: Diffuse and grouped calcifications are essentially unchanged from multiple prior studies. ??In particular, previously described grouped calcifications in the upper outer quadrant middle and posterior depth are unchanged from prior spot magnified compression views from September 2022. ??Tissue markers from previous needle core biopsies. ??No suspicious masses or other abnormalities are seen. IMPRESSION: Impression: Right breast: Multiple grouped calcifications, unchanged from September 2022. ??Probably benign. ??A 12-month follow-up is recommended with standard views and spot magnified compression views. Left breast: Multiple grouped calcifications, unchanged from September 2022. ??Probably benign. ??A 12-month follow-up is recommended with standard views and spot magnified compression views. BI-RADS: Category 3: Probably benign Findings and recommendations communicated to the patient via polysomnographic technologist. Procedure Note Darnell Macdonald MD - 05/03/2024 This is a summary report. The complete report is available in thepatient's medical record. If you cannot access the medical record, pleasecontact the sending organization for a detailed fax or copy. History: This is a second 6-month follow-up of multiple and bilateralgrouped calcifications. Study: Diagnostic mammography with tomosynthesis and CAD Technique: Bilateral full-field digital diagnostic mammography is obtainedand read in conjunction with computer aided detection. Tomosynthesis aswell as 2D C-View imaging were obtained. Spot magnified compression viewsof both breasts were also obtained. Comparison: Comparison made to multiple prior, most recent bilateraldiagnostic mammography on August 06, 2023, and most remote April. Breast composition: The breast tissue is heterogeneously dense, which mayobscure small masses. Right breast: Diffuse and grouped calcifications are essentially unchangedfrom multiple prior studies, some of them layering on the 90 degreesimages (which suggest benign milk of calcium). In particular, previouslydescribed grouped calcifications in the upper inner quadrant in theanterior and middle depth are unchanged from prior spot magnifiedcompression views from September 2022. Tissue markers from previous needlecore biopsies. No suspicious masses or other abnormalities are seen. Left breast: Diffuse and grouped calcifications are essentially unchangedfrom multiple prior studies. In particular, previously described groupedcalcifications in the upper outer quadrant middle and posterior depth areunchanged from prior spot magnified compression views from September 2022.Tissue markers from previous needle core biopsies. No suspicious massesor other abnormalities are seen. IMPRESSION: Impression: Right breast: Multiple grouped calcifications, unchanged from September2022. Probably benign. A 12-month follow-up is recommended with standardviews and spot magnified compression views. Left breast: Multiple grouped calcifications, unchanged from September 2022.Probably benign. A 12-month follow-up is recommended with standard viewsand spot magnified compression views. BI-RADS: Category 3: Probably benign Findings and recommendations communicated to the patient via mammographytechnologist. 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
--- OUTSIDE RECORDS SUMMARY | 2025-01-23 20:59 | XMS_ITS | Encounter Summary ---
Author Organization [facility] Address [address] [place] [address] Care Team Providers Care Informal Waiter/Waitress Name Role Phone Jerod Lopez Primary Care Provider [phone] Reason for Referral * Imaging (Routine) - Pending Review Specialty Diagnoses / Procedures Referred By Alphonse t Referred To Contact Cardiology Procedures Stress echocardiogram (TTE) exercise with contrast, bubble, strain, and 3D PRN order panel NJ ECHOCARDIOGRAPHY TRANSTHORACIC 2D REST & STRESS W INTERPRETATION/REPORT NJ ECHOCARDIOGRAPHY TRANSTHORACIC 2D REST & STRESS W/M-MODE NJ DOPPLER ECHO COMPLETE NJ ECHOCARDIOGRAPHY DOPPLER COLOR FLOW MAPPING NJ CV TMST/BIKE MAX/SUBMAX CONTINUOUS ECG MON/PHARM STRESS SUPVSR ONLY NJ TEST STRESS CARDIOVASCULAR TRACING ONLY NJ CV STRESS TEST/BIKE CONT ECG MON/PHARM STRESS INTERP & REPORT ONLY Isaac Rodríguez PA [address] [place] [address] Phone: tel: fax: [facility] Referral ID Status Reason Start Date Expiration Date V isits Requested Visits Authorized [id number] Pending Review 01/22/2025 01/22/2026 1 1 * Consultation (Routine) - Pending Review Specialty Diagnoses / Procedures Referred By Alphonse t Referred To Contact Cardiology Isaac Rodríguez PA [address] [place] [id number] Phone: tel: fax: Referral ID Status Reason Start Date Expiration Date Visits Requested Visits Authorized [id number] Pending Review Specialty Services Required 01/22/2025 01/22/2026 1 1 Reason for Visit * Reason Comments Shortness of Breath Sob x1 month worse t odayL shoulder/neck pain Encounter Details Date Type Department Care Team (Late st Contact Info) Description 01/22/2025 12:01 AM EDT - 01/22/2025 3:35 AM EDT Emergency [facility] Emergency [address] [place] [id number] Shortness of breath (Primary Dx) Discharge Disposition: Home or Self Care Social History Tobacco Use Types Packs/Day Years [...] on file Sexual Orientation Not on file documented as of this encounter Last Filed Vital Signs Vital Sign Reading [...] Mass Index 28.47 01/21/2025 6:59 PM EDT documented in this encounter Functional Status * Are you deaf or do you have serious difficulty hearing? Answer Date of Assessment Author No 01/22/2025 1:11 AM EDT Rain Boland RN * Are you blind or do you have serious difficulty seeing, even when wearing glasses? Answer Date of Assessment Author No 01/22/2025 1:11 AM EDT Rain Boland RN * Do you have serious difficulty walking or climbing stairs? Answer Date of Assessment Author No 01/22/2025 1:11 AM Rain Adams RN * Do you have serious difficulty dressing or bathing? Answer Date of Assessment Author No 01/22/2025 1:11 AM Rain Adams RN * Because of a physical, mental, or emotional condition, do you have serious difficulty doing errandsalone such as visiting the doctor? Answer Date of Assessment Author No 01/22/2025 1:11 AM Rain Adams RN documented as of this encounter Mental Status * Because of a physical, mental, or emotional condition, do you have serious difficulty concentrating, remembering, or making decisions? (5 years old or older) Answer Entry Date Author No 01/22/2025 1:11 AM Rain Adams RN documented in this encounter Discharge Instructions * Discharge Instructions* LUCILA Chase - 01/22/2025 3:17 AM EDT Your physical exam was normal. Blood work did not show any concerning findings. EKG and cardiac enzymes (troponin levels) were normal. This does not appear to be related to your heart. CT exam showed some pulmonary nodules. You should talk your primary care doctor about this and havea repeat CAT scan periodically to reassess. No evidence of a blood clot however. I have given you a referral to cardiology. Call the cardiology office to make an appointment with them to have an echocardiogram and stress test completed. Return to the ER with any new or worsening symptoms. * Attachments The following attachments cannot be sent through Care Everywhere. * SOB (Shortness of Breath) (Rwandan) documented in this encounter Medications at Time of Discharge albuterol HFA (Ventolin HFA) 90 mcg/actuation inhaler Inhale 2 Puffs into the lungs every 4 hours as needed for Cough or Wheezing. 05/07/2023 budesonide-formo teroL (Symbicort) 160-4.5 mcg/actuation inhaler Inhale 2 Puffs into the lungs every 12 hours. 07/15/2023 cetirizine (ZyrTEC) 10 mg tablet Take 1 tablet (10 mg total) by mouth 1 (one) time each day. 07/15/2023 doxycycline (VIBRAMYCIN) 50 mg capsule Take 1 capsule (50 mg total) by mouth 2 (two) times a day. 07/15/2023 furosemide (LASIX) 20 mg tablet Take 1 Tablet by mouth daily. As needed for leg swelling 07/15/2023 hydrOXYzine HCL (ATARAX) 10 mg tablet Take 1 tablet (10 mg total) by mouth 3 (three) times a day if needed. 07/15/2023 lactulose (CHRONULAC) solution Take 30 mL by mouth daily. 06/05/2023 LORazepam (ATIVAN) 1 mg tablet Take 1 Tablet by mouth Once. Take 30 minutes prior to MRI. 06/05/2023 tamoxifen (NOLVADEX) 10 mg tablet Take 1 Tablet by mouth daily for 360 days. 06/03/2024 05/29/2025 triamcinolone (NASACORT) 55 mcg nasal inhaler 2 Sprays by Nasal route daily. 07/15/2023 documented as of this encounter Discharge Disposition Disposition Code Departure Means Destination Comment s Home or Self Care documented in this encounter Progress Notes * Chelle Bosch RN - 01/21/2025 6:55 PM EDT Pt C/O SOB, new onset nausea, posterior neck aching, chest tightness and pressure, and left arm pain. Pt denies sick contacts, cardiac hx. Pt states hx of COPD. * LUCILA Chase - 01/21/2025 6:44 PM EDT [facility] Emergency Department Encounter Note Patient Name: Shaan Schneider Initial Evaluation: 01/21/2025 : 1975 Patient's PCP: LUCILA West Emergency Physician: LUCILA Virgen History of Present Illness Chief Complaint: Chief Complaint Patient presents with Shortness of Breath Sob x1 month worse today L shoulder/neck pain HPI: Shaan is a 49-year-old female with reported history of COPD, intermittent lower extremity edema on furosemide prn; presents for evaluation of progressive shortness of breath now with chest heaviness. She has felt short of breath with intermittent nonproductive coughing fits at rest but especially with exertion for the last few months now. She expresses great concern because she has a significant family history of CAD. She herself denies any personal history of CAD or hypercoagulability. Her dyspnea does not respond to usual COPD inhaler treatments. Review of EMR shows last echocardiogram from 09/29/2020 showing normal ventricular chamber size, regional wall motion, with EF 55-60%. No valvular abnormalities. ROS: I have performed a ROS with the pertinent positives and negatives documented in the history ofpresent illness. Previous History Past Medical History: Diagnosis Date COPD (chronic obstructive pulmonary disease) ([facility] V24, [facility] V28) Depression DX:Depression Tobacco abuse 02/06/2010 DX:Tobacco abuse Past Surgical History: Procedure Laterality Date BREAST BIOPSY Bilateral 2022 PROCEDURE: BX BREAST; PERC NEEDLE CORE W/IMAG GUID OTHER SURGICAL HISTORY PROCEDURE: NJ ADENOIDECTOMY PRIMARY AGE 13/> TUBAL LIGATION PROCEDURE: HISTORICAL TUBAL LIGATION Social History Tobacco Use Smoking status: Every Day Current packs/day: 1.00 Types: Cigarettes Smokeless tobacco: Never Vaping Use Vaping status: Some Days Substance Use Topics Alcohol use: No Drug use: No Family History Problem Relation Name Age of Onset Hyperthyroidism Mother HTN, hypercholesterolemia, rheumatoid arthritis Diabetes Father CAD, CABG, colon polyps >10 Coronary artery disease Father CABG at age 29 Hyperthyroidism Sister Breast cancer Maternal Grandmother 37.00 ovarian cancer, passed in 70s Lung cancer Maternal Grandfather 55.00 hypothyroidism Other (Other: Lupus) Paternal Grandmother rheumatoid arthritis Heart attack Paternal Grandfather 42.00 diabetes Breast cancer Aunt m Ovarian cancer Aunt m maternal, ovarian cancer, passed from [place] has No Known Allergies. No current facility-administered medications on file prior to encounter. Current Outpatient Medications on File Prior to Encounter Medication Sig Dispense Refill albuterol HFA (Ventolin HFA) 90 mcg/actuation inhaler Inhale 2 Puffs into the lungs every 4 hours as needed for Cough or Wheezing. budesonide-formoteroL (Symbicort) 160-4.5 mcg/actuation inhaler Inhale 2 Puffs into the lungs every12 hours. cetirizine (ZyrTEC) 10 mg tablet Take 1 tablet (10 mg total) by mouth 1 (one) time each day. doxycycline (VIBRAMYCIN) 50 mg capsule Take 1 capsule (50 mg total) by mouth 2 (two) times a day. furosemide (LASIX) 20 mg tablet Take 1 Tablet by mouth daily. As needed for leg swelling hydrOXYzine HCL (ATARAX) 10 mg tablet Take 1 tablet (10 mg total) by mouth 3 (three) times a day ifneeded. lactulose (CHRONULAC) solution Take 30 mL by mouth daily. LORazepam (ATIVAN) 1 mg tablet Take 1 Tablet by mouth Once. Take 30 minutes prior to MRI. tamoxifen (NOLVADEX) 10 mg tablet Take 1 Tablet by mouth daily for 360 days. triamcinolone (NASACORT) 55 mcg nasal inhaler 2 Sprays by Nasal route daily. Physical Exam ED Triage Vitals [01/21/25 1859] Temp Heart Rate Resp BP 36.5 ??C (97.7 ??F) 73 16 128/72 SpO2 Temp Source Heart Rate Source Patient Position 100 % Oral -- Sitting BP Location FiO2 (%) Right arm;Upper -- GENERAL: Non-toxic appearing, no acute distress. SKIN: [place], warm, dry. HEENT: EOMI. NECK: Supple, full ROM. CARDIOVASCULAR: 1+ pitting edema of the bilateral feet/ankles. Heart regular rate and rhythm. No discernible MRG. PULMONARY: Breathing adequately on room air. CTAB. ABDOMINAL: Soft, nondistended, nontender throughout. MUSCULOSKELETAL: Nonpainful and purposeful movements of all extremities bilaterally, equal strengthbilaterally NEURO: AOx3 PSYCHIATRIC: Normal affect, fluid speech, good eye contact and appropriate demeanor. Results Labs Reviewed COMPREHENSIVE METABOLIC PANEL - Abnormal Result Value Sodium 139 Potassium 4.0 Chloride 107 CO2 25 Anion Gap 7 Glucose 119 (*) BUN 7 Creatinine 0.65 eGFR 109 BUN/Creatinine Ratio 10.8 Calcium 9.2 AST (SGOT) 8 (*) ALT (SGPT) 16 Alkaline Phosphatase 126 (*) Total Protein 6.9 Albumin 3.7 Total Bilirubin 0.3 CBC WITH AUTO DIFFERENTIAL - Abnormal WBC 8.5 RBC 4.90 (*) Hemoglobin 14.8 Hematocrit 45.2 MCV 91.7 MCH 30.0 MCHC 32.7 RDW 13.6 Platelets 267 MPV 11.0 NRBC 0.0 NRBC Absolute 0.00 Neutrophils Relative 62.9 Lymphocytes Relative 28.5 Monocytes Relative 6.6 Eosinophils Relative 0.7 Basophils Relative 1.1 Immature Granulocytes Relative 0.2 Neutrophils Absolute 5.36 Lymphocytes Absolute 2.43 Monocytes Absolute 0.56 Eosinophils Absolute 0.06 Basophils Absolute 0.09 Immature Granulocytes Absolute 0.02 TROPONIN I HIGH SENSITIVITY - Normal High Sensitivity Troponin I 3 Narrative: High levels of biotin in samples may falsely decrease hsTroponin values. Use caution when interpreting hsTroponin results in patients taking biotin who exhibit renal impairment (eGFR <60) or in patients taking more than 20 mg/day of biotin. TROPONIN I HIGH SENSITIVITY - Normal High Sensitivity Troponin I 5 Narrative: High levels of biotin in samples may falsely decrease hsTroponin values. Use caution when interpreting hsTroponin results in patients taking biotin who exhibit renal impairment (eGFR <60) or in patients taking more than 20 mg/day of biotin. LIPASE - Normal Lipase 34 MAGNESIUM - Normal Magnesium 1.9 B-TYPE NATRIURETIC PEPTIDE - Normal BNP 25 POC , URINE DIAGNOSTIC - Normal HCG, Ur POC Negative POC hCG Int QC Pass? Yes EXPIRATION DATE POC 06/28/2026 LOT NUMBER POC 262320 CBC AND DIFFERENTIAL Narrative: The following orders were created for panel order CBC and differential. Procedure Abnormality Status --------- ------ CBC auto differential[[id number]] Abnormal Final result Please view results for these tests on the individual orders. Abnormal Labs Reviewed COMPREHENSIVE METABOLIC PANEL - Abnormal; Notable for the following components: Result Value Glucose 119 (*) AST (SGOT) 8 (*) Alkaline Phosphatase 126 (*) All other components within normal limits CBC WITH AUTO DIFFERENTIAL - Abnormal; Notable for the following components: RBC 4.90 (*) All other components within normal limits CT Angio Chest wo and/or w Contrast Final Result 1. Less than optimal pulmonary artery enhancement. No evidence of pulmonary embolism. 2. Bilateral pulmonary nodules with the largest measuring 9 mm. Follow-up per Fleischner criteria. 3. Mild mediastinal and right hilar lymphadenopathy. 4. Additional findings as above. This document has been electronically signed by: Edy Gonsalez MD on 01/22/2025 03:00:51 XR Chest 2 Views (Results Pending) I have discussed the incidental/abnormal imaging and/or lab abnormalities with the patient and haveinstructed them the need for further evaluation and workup with their primary care doctor. I have provided the patient with a paper copy of the abnormality. The laboratory results, imaging results and other diagnostic exam results were reviewed in the EMR. EKG Interpretation Critical Care Time None Differential Diagnosis COPD exacerbation Bacterial pneumonia-less likely Viral syndrome-less likely ACS/WA Heart failure PE ? Medical Decision Making On my exam is NAD, nontoxic-appearing, hemodynamically stable and afebrile. Overall she is clinically well-appearing. Physical exam is rather unremarkable. CXR without significant findings by my independent assessment. Laboratory workup reassuring as well. EKG nonischemic, no evidence STEMI with negative cardiac enzymes. Will add on BNP, however her mild lower extremity edema does seem consistent with what is documented in her chart, and she is prescribed Lasix as needed for this. That being said, with symptoms ongoing for several months now, unable to PERC her out because of the lower extremity edema, while well score is 0. Shared decision making at bedside, will proceed with CTA of the chest to definitively rule out pulmonary embolism. ED Course as of 01/22/25318 Sat January 22, 2025318 CTA shows no evidence of PE, some pulmonary nodules. Discussed these results, she did have routine CT monitoring. Discussed with PCP. Referral to cardiology for consideration of echocardiogram, stress test. Strict return precautions were discussed. Medically and hemodynamically stable, safe for discharge. Discussed this plan with the patient who is agreeable. Red flag symptoms and return precautions discussed, all questions asked and answered, plan for discharge with outpatient follow-up. *All documented times are approximate and may not reflect exact time of care rendered or intervention.* [RO] ED Course User Index [RO] LUCILA Chase Clinical Impressions as of 01/22/25318 Shortness of breath Medications albuterol 2.5 mg /3 mL (0.083 %) nebulizer solution 2.5 mg (2.5 mg nebulization Given 01/21/252156) nitroglycerin (NITROSTAT) SL tablet 0.4 mg (0.4 mg sublingual Given 01/22/25 0104) sodium chloride 0.9 % flush 10 mL (10 mL intravenous Given 01/22/25146) iopamidoL (ISOVUE-370) 370 mg iodine /mL (76 %) injection 90 mL (90 mL intravenous Given 01/22/25146) Procedures Procedures Diagnosis 1. Shortness of breath CT Angio Chest wo and/or w Contrast CT Angio Chest wo and/or w Contrast Disposition Discharge ED Prescriptions None Physician Attestation Electronically signed by LUCILA Virgen PA 01/22/2550 LUCILA Chase 01/22/259 Cosigned by Vicki Donovan MD at 01/22/2025 7:46 AM EDT documented in this encounter Plan of Treatment Scheduled Orders Name Type Priority Associated Diagnoses Order Schedule Stress echocardiogram (TTE) exercise with contrast, bubble, strain, and 3D PRN order panel Stress Echocardiography Routine 1 Occurrences starting 01/22/2025 until 01/22/2026 Scheduled Referrals Name Type Priority Associated Diagnoses Order Schedule Ambulatory referral to Cardiology Outpatient Referral Routine 1 Occurrence s starting 01/22/2025 until 01/22/2026 documented as of this encounter Procedures Procedure Name Priority Date/Time Associated Diagnosis Comments CT ANGIO CHEST WO AND/OR W CONTRAST STAT 01/22/2025 1:54 AM EDT Shortness of breath B-TYPE NATRIURETIC PEPTIDE STAT 01/22/2025 1:05 AM EDT TROPONIN I HIGH SENSITIVITY STAT 01/21/2025 10:03 PM EDT POC , URINE DIAGNOSTIC STAT 01/21/2025 8:25 PM EDT XR CHEST 2 VIEWS STAT 01/21/2025 8:07 PM EDT TROPONIN I HIGH SENSITIVITY STAT 01/21/2025 7:53 PM EDT CBC WITH AUTO DIFFERENTIAL STAT 01/21/2025 7:53 PM EDT CBC AND DIFFERENTIAL STAT 01/21/2025 7:53 PM EDT MAGNESIUM STAT 01/21/2025 7:53 PM EDT LIPASE STAT 01/21/2025 7:53 PM EDT COMPREHENSIVE METABOLIC PANEL STAT 01/21/2025 7:53 PM EDT ECG 12-LEAD STAT 01/21/2025 6:52 PM EDT documented in this encounter Results * CT Angio Chest wo and/or [...] This document has been electronically signed by: Charley Kidd 01/22/2025 03:00:[address] PROCEDURES Final R esult * B-type natriuretic peptide (01/22/2025 1:05 AM EDT) BNP 25 <=100 pcg/mL LAB CHEMISTRY METHOD 01/22/2025 3:[address] [facility] Blood Venous blood specimen / Unknown Venipuncture / Unknown 01/22/2025 1:05 AM EDT 01/22/2025 2:12 AM EDT Isaac GAYTAN LAB BLOOD ORDERABLES [place] l Result [facility] [address] [place] [address], [place] [phone] * Troponin I high sensitivity (01/21/2025 10:03 PM EDT) [facility] High Sensitivity Troponin I 5 <=54 ng/L LAB CHEMISTRY METHOD 01/21/2025 10:[address] [facility] Blood Venous blood specimen / Unknown Venipuncture / Unknown 01/21/2025 10:03 PM EDT 01/21/2025 10:[address] [facility] - 01/21/2025 10:49 PM EDT High levels of biotin in samples may falsely decrease hsTroponin values. ??Use caution when interpreting hsTroponin results in patients taking biotin who exhibit renal impairment (eGFR <60) or in patients taking more than 20 mg/day of biotin. us David White MD LAB BLOOD ORDERABLES Final Res ult [facility] [address] [place] [address], [place] [phone] * POC , urine manually resulted (01/21/2025 8:25 PM EDT) [facility] HCG, Ur POC Negative Negative POC hCG Int QC Pass? Yes Yes EXPIRATION DATE POC 06/28/2026 LOT NUMBER POC [id number] Urine Urine specimen obtained by clean catch procedure / Unknown 01/21/2025 8:25 PM EDT us David White MD POINT OF CARE TEST [...] Signed Date: 01/22/2025 03:43 ET Workstation ID: [id number] Transcribed By: Self Edit Transcribed Date: 01/22/2025 [...] Signed Date: 01/22/2025 03:43 ET Workstation ID: [id number] Transcribed By: Self Edit Transcribed Date: 01/22/2025 03:42 ET David White MD IMG XR PROCEDURES Final Result * (ABNORMAL) CBC auto differential (01/21/2025 7:53 PM EDT) [facility] WBC 8.5 4.8 - 10.8 K/mcL LAB HEMETOLOGY METHOD 01/21/2025 8:[address] [facility] RBC 4.90(H) 3.80 - 4.80 M/mcL LAB HEMETOLOGY METHOD 01/21/2025 8:[address] [facility] Hemoglobin 14.8 11.5 - 16.0 g/dL LAB HEMETOLOGY METHOD 01/21/2025 8:[address] [facility] Hematocrit 45.2 35.0 - 47.0 % LAB HEMETOLOGY METHOD 01/21/2025 8:[address] [facility] MCV 91.7 79.0 - 98.0 FL LAB [facility]OLOGY [facility] MCH 30.0 27.0 - 32.0 pcg LAB HEMETOLOGY METHOD 01/21/2025 8:21 PM [facility] MCHC 32.7 32.0 - 37.0 g/dL LAB HEMETOLOGY METHOD [facility]/21[facility]2025 [facility] RDW 13.6 11.0 - 15.0 % LAB HEMETOLOGY METHOD 01/21/2025 8:21 PM [facility] Platelets 267 130 - 400 K/mcL LAB HEMETOLOGY METHOD 01/21/2025 8:21 PM [facility] MPV 11.0 7.0 - 11.0 FL LAB HEMETOLOGY METHOD 01/21/2025 8:21 PM [facility] NRBC 0.0 <1.0 % LAB HEMETOLOGY METHOD 01/21/2025 8:21 PM [facility] NRBC Absolute 0.00 <0.10 K/mcL LAB HEMETOLOGY METHOD 01/21/2025 8:21 PM [facility] Neutrophils Relative 62.9 % LAB HEMETOLOGY METHOD 01/21/2025 8:21 PM [facility] Lymphocytes Relative 28.5 % LAB HEMETOLOGY METHOD 01/21/2025 8:21 PM [facility] Monocytes Relative 6.6 % LAB HEMETOLOGY METHOD 01/21/2025 8:21 PM [facility] Eosinophils Relative 0.7 % LAB HEMETOLOGY METHOD 01/21/2025 8:21 PM [facility] Basophils Relative 1.1 % LAB HEMETOLOGY METHOD 01/21/2025 8:[address] [facility] Immature Granulocytes Relative 0.2 % LAB HEMETOLOGY METHOD 01/21/2025 8:[address] [facility] Neutrophils Absolute 5.36 1.50 - 7.00 K/mcL LAB HEMETOLOGY METHOD 01/21/2025 8:[address] [facility] Lymphocytes Absolute 2.43 1.00 - 5.00 K/mcL LAB HEMETOLOGY METHOD 01/21/2025 8:[address] [facility] Monocytes Absolute 0.56 0.20 - 1.00 K/mcL LAB HEMETOLOGY METHOD 01/21/2025 8:[address] [facility] Eosinophils Absolute 0.06 0.00 - 0.50 K/mcL LAB HEMETOLOGY METHOD 01/21/2025 8:[address] [facility] Basophils Absolute 0.09 0.00 - 0.20 K/mcL LAB HEMETOLOGY METHOD 01/21/2025 8:[address] [facility] Immature Granulocytes Absolute 0.02 0.00 - 0.03 K/mcL LAB HEMETOLOGY METHOD [facility]21[facility]2025 [facility] Venous blood specimen / Unknown Venipuncture / Unknown 01/21/2025 7:53 PM EDT 01/21/2025 8:12 PM EDT us David White MD LAB BLOOD ORDERABLES Final Res ult [facility] [address] [place] [address], * Magnesium (01/21/2025 7:53 PM EDT) Magnesium 1.9 1.9 - 2.6 mg/dL LAB CHEMISTRY METHOD 01/21/2025 8:[address] [facility] Blood Venous blood specimen / Unknown Venipuncture / Unknown 01/21/2025 7:53 PM EDT 01/21/2025 8:12 PM EDT us David White MD LAB BLOOD ORDERABLES Final Res ult Performing Organization Address City/[facility]/ZIP Co de Phone Number [facility] [address] [place] [address], [place] [phone] * Lipase (01/21/2025 7:53 PM EDT) Lipase 34 13 - 75 unit/L LAB CHEMISTRY METHOD 01/21/2025 8:[address] [facility] Blood Venous blood specimen / Unknown Venipuncture / Unknown 01/21/2025 7:53 PM EDT 01/21/2025 8:12 PM EDT us David White MD LAB BLOOD ORDERABLES Final Res ult Performing Organization Address City/[facility]/ZIP Co de Phone Number [facility] [address] [place] [address], [place] [phone] * (ABNORMAL) Comprehensive metabolic panel (01/21/2025 7:53 PM EDT) Pathologist [facility] Sodium 139 133 - 145 mmol/L LAB CHEMISTRY METHOD 01/21/2025 8:[address] [facility] Potassium 4.0 3.5 - 5.5 mmol/L LAB CHEMISTRY METHOD 01/21/2025 8:[address] [facility] Chloride 107 96 - 110 mmol/L LAB CHEMISTRY METHOD 01/21/2025 8:[address] [facility] CO2 25 21 - 32 mmol/L LAB CHEMISTRY METHOD 01/21/2025 8:[address] [facility] Anion Gap 7 3 - 11 LAB CHEMISTRY METHOD 01/21/2025 8:44 PM [facility] Glucose 119(H) 70 - 100 mg/dL LAB CHEMISTRY METHOD 01/21/2025 8:44 PM [facility] BUN 7 5 - 25 mg/dL LAB CHEMISTRY METHOD 01/21/2025 8:44 PM [facility] Creatinine 0.65 0.50 - 1.10 mg/dL LAB CHEMISTRY METHOD 01/21/2025 8:44 PM [facility] eGFR 109 >=60 mL/min/1. 73m2 LAB CHEMISTRY METHOD 01/21/2025 8:44 PM [facility] Comment:Calculation based on the Chronic Kidney Disease Epidemiology Collaboration (CKD-EPI) equation refit without adjustment for race. BUN/Creatinine Ratio 10.8 LAB CHEMISTRY METHOD 01/21/2025 8:44 PM [facility] Calcium 9.2 8.5 - 10.5 mg/dL LAB CHEMISTRY METHOD 01/21/2025 8:44 PM [facility] AST (SGOT) 8(L) 10 - 42 unit/L LAB CHEMISTRY METHOD 01/21/2025 8:44 PM [facility] ALT (SGPT) 16 10 - 60 unit/L LAB CHEMISTRY METHOD 01/21/2025 8:44 PM [facility] Alkaline Phosphatase 126(H) 42 - 121 unit/L LAB CHEMISTRY METHOD 01/21/2025 8:44 PM [facility] Total Protein 6.9 6.0 - 8.0 g/dL LAB CHEMISTRY METHOD 01/21/2025 8:44 PM [facility] Albumin 3.7 3.2 - 5.0 g/dL LAB CHEMISTRY METHOD 01/21/2025 8:44 PM [facility] Total Bilirubin 0.3 0.0 - 1.4 mg/dL LAB CHEMISTRY METHOD 01/21/2025 8:44 PM [facility] Blood Venous blood specimen / Unknown Venipuncture / Unknown 01/21/2025 7:53 PM EDT 01/21/2025 8:12 PM EDT us David White MD LAB BLOOD ORDERABLES Final Res ult Performing Organization Address [facility] de Phone Number [facility] [address] [place] [address], * Troponin I high sensitivity (01/21/2025 7:53 PM EDT) [facility] High Sensitivity Troponin I 3 <=54 ng/L LAB CHEMISTRY METHOD 01/21/2025 8:[address] [facility] Blood Venous blood specimen / Unknown Venipuncture / Unknown 01/21/2025 7:53 PM EDT 01/21/2025 8:[address] [facility] - 01/21/2025 8:46 PM EDT High levels of biotin in samples may falsely decrease hsTroponin values. ??Use caution when interpreting hsTroponin results in patients taking biotin who exhibit renal impairment (eGFR <60) or in patients taking more than 20 mg/day of biotin. us David White MD LAB BLOOD ORDERABLES Final Res ult Performing Organization Address [facility] de Phone Number [facility] [address] [place] [address], * ECG 12 lead (01/21/2025 6:52 PM EDT) Ventricular Rate ECG 75 BPM GEMUSE Atrial Rate 75 BPM GEMUSE P-R Interval 194 ms GEMUSE QRS Duration 96 ms GEMUSE Q-T Interval 430 ms GEMUSE QTc 480 ms GEMUSE P Wave Emery 57 degrees GEMUSE R Emery 80 degrees GEMUSE T Emery 47 degrees GEMUSE ECG Interpretation Normal sinus rhythm Statement not found (#1146) Abnormal ECG When compared with ECG of 17-SEP-2014 11:15, No significant change was found Confirmed by PHUONG CASEY ([id number]) on 01/21/2025 10:24:03 PM GEMUSE 01/21/2025 6:52 PM EDT 01/21/2025 10:24 PM EDT us David White MD ECG ORDERABLES Final Result GEMUSE documented in this encounter Visit Diagnoses Diagnosis Shortness of breath- Primary documented in this encounter Administered Medications Inactive Administered Medications - up to 3 most recent administrations Medication Order MAR Action Action Date Dose Rate Site albuterol 2.5 mg /3 mL (0.083 %) nebulizer solution 2.5 mg 2.5 mg, nebulization, Once as needed, wheezing, Starting on Fri01/21/25 at 2154, For 1 dose Given 01/21/2025 9:57 PM EDT 2.5 mg iopamidoL (ISOVUE-370) 370 mg iodine /mL (76 %) injection 90 mL 90 mL, intravenous, Once in imaging, Starting on 01/22/25 at 0147, For 1 dose Given 01/22/2025 1:47 AM EDT 90 mL nitroglycerin (NITROSTAT) SL tablet 0.4 mg 0.4 mg, sublingual, Once, On 01/22/25 at 0053, For 1 dose, Give every 5 minutes as needed for chest pain to a maximum of 3 doses. Notify MD to obtain an order for an EKG if no relief after 3 doses or chest pain recurs. HOLD and notify MD if SBP less than 90 mmHg. Do not give if nitroglycerin infusion running concurrently. Do not give within 24 hours of sildenafil citrate (Viagra) or vardenafil (Levitra) use, or within 48 hours of tadalafil (Cialis) use. Given 01/22/2025 1:04 AM EDT 0.4 mg sodium chloride 0.9 % flush 10 mL 10 mL, intravenous, Once, On 01/22/25 at 0148, For 1 dose Given 01/22/2025 1:47 AM EDT 10 mL documented in this encounter Active and Recently Administered Medications Times are shown in EDT. Scheduled Medication Order 01/20/2025 01/21/2025 01/22/2025 iopamidoL (ISOVUE-370) 370 mg iodine /mL (76 %) injection 90 mL (COMPLETED) 90 mL, intravenous, Once in imaging, Starting on 01/22/25 at 0147, For 1 dose 0147 (Given - Provid er: Sayda Luke) nitroglycerin (NITROSTAT) SL tablet 0.4 mg (COMPLETED) 0.4 mg, sublingual, Once, On 01/22/25 at 0053, For 1 dose, Give every 5 minutes as needed for chest pain to a maximum of 3 doses. Notify MD to obtain an order for an EKG if no relief after 3 doses or chest pain recurs. HOLD and notify MD if SBP less than 90 mmHg. Do not give if nitroglycerin infusion running concurrently. Do not give within 24 hours of sildenafil citrate (Viagra) or vardenafil (Levitra) use, or within 48 hours of tadalafil (Cialis) use. 0104 (Given - Provid er: Sara Aburto RN) sodium chloride 0.9 % flush 10 mL (COMPLETED) 10 mL, intravenous, Once, On 01/22/25 at 0148, For 1 dose 0147 (Given - Provid er: Sayda Luke) PRN Medication Order 01/20/2025 01/21/2025 01/22/2025 albuterol 2.5 mg /3 mL (0.083 %) nebulizer solution 2.5 mg (COMPLETED) 2.5 mg, nebulization, Once as needed, wheezing, Starting on 01/21/25 at 2154, For 1 dose 2157 (Given - Provider: Liliana Bosch, EVA) documented in this encounter Care Teams Informal Waiter/Waitress Relationship Specialty Start Date End Date Jerod Lopez PA [address] [place] [id number] PCP - General Internal Medicine 07/24/21 documented as of this encounter
[2025-01-23 21:10] LABS: Troponin-I High Sensitivity < 2.7 ng/L (<3.5-17.0)
[2025-01-23 21:17] LABS: Influenza A PCR NEGATIVE (Negative); Influenza B PCR NEGATIVE (Negative); Resp Syncy Virus RNA Qual PCR NEGATIVE (Negative); SARS COV2 PCR INHOUSE NEGATIVE (Negative)
== END 2025-01-23 22:57 | disposition left against medical advice (07) ==
PROVIDERS: Physician Assistant Medical; Emergency Provider Emergency Medicine
DX: R06.02 Shortness of breath (principal); R07.89 Other chest pain; Z03.818 Encounter for observation for suspected exposure to other biological agents ruled out
CPT/HCPCS: 0241U; 71046; 80053; 83735; 84484; 85025; 85610; 93005; 99283; 99284

== ENCOUNTER → 2025-01-23 19:34 | Outpatient (BNV) | payer OTHER, SELFPAY | PROVIDERS: Emergency Provider Emergency Medicine; Visit Provider Internal Medicine Cardiovascular Disease | DX: R07.9 Chest pain, unspecified (principal) | CPT/HCPCS: 93010 ==

== ENCOUNTER → 2025-01-23 19:34 | Outpatient (BNV) | payer OTHER, SELFPAY | PROVIDERS: Visit Provider Student in an Organized Health Care Education/Training Program | DX: R06.02 Shortness of breath (principal) | CPT/HCPCS: 71046 ==

== ENCOUNTER 2025-03-23 21:02 | Emergency (ER) | payer OTHER, SELFPAY ==
[2025-03-23 21:09] VITALS: BP 115/70; PULSE 74; RESP 20; TEMP 36.3; O2SAT 97; BMI 28.7
--- NOTE | 2025-03-23 22:09 | PC.NURSE ---
Saw pt outside prior to them leaving, stated its going to take too long Ambulated to parking lot with steady gait in no acute distress.
--- OUTSIDE RECORDS SUMMARY | 2025-03-23 22:15 | XMS_ITS | Clinical Summary ---
Author Organization [facility] Address [address] [place] [address] Phone Care Team Providers Care Or Manager Name Role Phone Jerod Lopez Primary Care Provider [phone] Allergies No known active allergies Medications tamoxifen (NOLVADEX) 10 mg tablet Take 1 Tablet by mouth daily for 360 days. 06/03/20 24 025 Active LORazepam (ATIVAN) 1 mg tablet Take 1 Tablet by mouth Once. Take 30 minutes prior to MRI. 06/05/20 23 Active hydrOXYzine HCL (ATARAX) 10 mg tablet Take 1 tablet (10 mg total) by mouth 3 (three) times a day if needed. 07/15/20 23 Active lactulose (CHRONULAC) solution Take 30 mL (20 g total) by mouth 1 (one) time each day. Take 30 mL by mouth daily. 900 mL 02/02/20 25 Active albuterol HFA (Ventolin HFA) 90 mcg/actuation inhaler Inhale 2 puffs by mouth every 4 (four) hours if needed for wheezing. 6.7 g 02/02/20 Active doxycycline (VIBRAMYCIN) 50 mg capsule Take 1 capsule (50 mg total) by mouth 2 (two) times a day. 180 capsule 02/02/20 25 Active fluticasone furoate-vilan teroL (Breo Ellipta) 100-25 mcg/dose inhaler Inhale 1 puff by mouth 1 (one) time each day. 1 each 02/02/20 25 Active furosemide (LASIX) 20 mg tablet Take 1 tablet (20 mg total) by mouth 1 (one) time each day. 90 tablet 3 02/02/20 25 Active inhalational spacing device (Aerochamber MV) inhaler Use as instructed 1 each 02/02/20 25 Active Allergy Relief, cetirizine, 10 mg tablet Take 1 tablet by mouth once daily 90 tablet 02/26/20 25 Active atorvastatin (LIPITOR) 40 mg tablet Take 1 tablet (40 mg total) by mouth 1 (one) time each day. 30 each 11 03/14/20 25 Active umeclidinium (Incruse Ellipta) 62.5 mcg/actuation inhalationInd ications:SOB (shortness of breath) Inhale 1 puff by mouth 1 (one) time each day. 3 each 4 03/14/20 25 Active ipratropium-a lbuteroL (DUONEB) 0.5-2.5 mg/3 mL nebulizer solutionIndic ations:SOB (shortness of breath) Take 3 mL by nebulization every 6 (six) hours. 360 mL 1 03/14/20 25 Active Symbicort 160-4.5 mcg/actuation inhaler INHALE 2 PUFFS BY MOUTH EVERY 12 HOURS 11 g 03/17/20 25 Active triamcinolone (NASACORT) 55 mcg nasal inhaler USE 2 SPRAY(S) INTRANASALLY ONCE DAILY 51 g 03/23/20 25 Active triamcinolone (NASACORT) 55 mcg nasal inhaler 2 Sprays by Nasal route daily. 07/15/20 025 Discontinued cetirizine (ZyrTEC) 10 mg tablet Take 1 tablet (10 mg total) by mouth 1 (one) time each day. 07/15/20 025 Discontinued budesonide-fo rmoteroL (Symbicort) 160-4.5 mcg/actuation inhaler Inhale 2 Puffs into the lungs every 12 hours. 07/15/20 025 Discontinued predniSONE (DELTASONE) 20 mg tablet Take 3 tabs (60mg) daily for 3 days, then take 2 tabs (40mg) daily for 3 days, then take 1 tab (20mg) daily for 3 days. 18 tablet 02/15/20 25 025 triamcinolone (NASACORT) 55 mcg nasal inhaler USE 2 SPRAY(S) INTRANASALLY ONCE DAILY 17 g 02/26/20 25 025 Discontinued(R eorder) triamcinolone (NASACORT) 55 mcg nasal inhaler USE 2 SPRAY(S) INTRANASALLY ONCE DAILY 17 g 03/23/20 25 025 Discontinued(R eorder) Active Problems Problem Noted Date Diagnosed Date Chest pressure 03/14/2025 Claudication (CMS/HCC V24) 03/14/2025 History of smoking 03/14/2025 Chronic shortness of breath 03/08/2025 Mass of lower inner quadrant of left breast 09/15 IFG (impaired fasting glucose) 07/24/2021 Mild persistent asthma without complication 05/2019 Abnormal CXR 03/23/2019 Leg swelling 01/28/2018 Hidradenitis 11/14/2016 Mixed hyperlipidemia 04/18/2015 Polycythemia 02/27/2015 Thyroid nodule 12/24/2010 Depression 11/19/2010 Encounters Date Type Department Care Team Description 03/23/2025 Telephone Adult Medicine [address] [phone] Jerod Lopez PA Respiratory Distress 03/23/[address] [phone] Madeleine Pizano NP [facility] [address] [phone] Mariam Doll MA nebulizer, acapella, over night 03/14/2025 3:10 PM EDT Consult [address] [phone] Madeleine Pizano NP SOB (shortness of breath) (Primary Dx); Unilateral emphysema (CMS/HCC V24, CMS/HCC V28); Polycythemia; History of smoking; Overweight (BMI 25.0-29.9) 03/14/2025 12:30 PM EDT Clinical Support Pulmonolgy - [place] 175 [facility] [address] [place] [phone] SOB (shortness of breath) 03/14/2025 11:30 AM EDT Lab Draw Station [address] Mixed hyperlipidemia; Chronic shortness of breath; Chest pressure; Claudication (CMS/HCC V24); History of smoking; SOB (shortness of breath); Impaired fasting blood sugar 03/14/2025 8:20 AM EDT [facility] Visit [facility] [address] [facility] [address] [place] [phone] Moises Finley MD Chest pressure (Primary Dx); Mixed hyperlipidemia; Chronic shortness of breath; Claudication (CMS/HCC V24); History of smoking 03/14/2025 Telephone [facility] 154 300 [facility] [address] [place] [phone] Moises Finley MD hospital procedure (cath) 02/18/2025 12:21 PM EDT - 02/18/2025 11:59 PM EDT Hospital Encounter [facility] [address] [place] [phone] Discharge Disposition: Home or Self Care 02/14/2025 Telephone Adult Medicine [address] [phone] Jerod Lopez PA referral 02/14/2025 Telephone [facility] Cardiology [address] [place] [phone] Jerod Lopez PA Scheduling 02/10/2025 Telephone Adult Medicine [address] [phone] Jerod Lopez PA Med Refill 02/09/2025 2:30 PM EDT Ancillary Procedure [facility] [address] [facility] [address] [place] [address] Shortness of breath 02/01/2025 2:00 PM EDT Office Visit Adult Medicine [address] [phone] Jerod Lopez PA Hospital discharge follow-up (Primary Dx); SOB (shortness of breath); Impaired fasting blood sugar; Mild persistent asthma without complication 01/24/2025 Telephone Adult Medicine [address] [phone] Jerod Lopez PA Hospital Follow-up 01/22/2025 12:01 AM EDT - 01/22/2025 3:35 AM EDT Emergency [facility] Emergency [address] [place] [address] Shortness of breath (Primary Dx) Discharge Disposition: Home or Self Care from Last 3 Months Immunizations Name Administration Dates Next Due Hepatitis B (Tnhfmpk-[id number]-Kgwsd , Recombivax HB-Adult) 19yo and older 11/22/2010 [...] HISTORICAL TUBAL LIGATION OTHER SURGICAL HISTORY PROCEDURE: NM ADENOIDECTOMY PRIMARY AGE 13/> BREAST BIOPSY 2022 Bilateral PROCEDURE: BX BREAST; PERC NEEDLE CORE W/IMAG GUID Medical History Medical History Date Comments Tobacco abuse 02/06/2010 DX:Tobacco abuse Depression DX:Depression COPD (chronic obstructive pu lmonary disease) ([facility] V24, [facility] V28) Family History Medical History Relation Name Comments Breast cancer Aunt m Ovarian cancer Aunt m maternal, ova ramiro cancer, passed from [place] Coronary artery disease Father CABG at age [...] Tobacco: Every Day Cigarettes Smokeless Tobacco: Never Tobacco Cessation:Ready to Q uit: Not Asked; Counseling Given: Not Answered Alcohol Use Standard Drinks/Week Comments No 0 (1 standard drink = 0.6 oz pur e alcohol) Comments Unknown Sex and Gender Information Value Date Recorded Sex Assigned at Not on file Legal Sex Female 3:11 PM EST Gender Identity Not on file Sexual Orientation Not on file Obstetrics History Last Filed Vital Signs Vital Sign Reading Time Taken Comments Blood Pressure 120/60 03/14/2025 2:53 PM EDT Pulse 70 03/14/2025 2:53 PM EDT Temperature 35.8 C (96.4 F) 03/14/2025 2:53 PM EDT Respiratory Rate 16 03/14/2025 2:53 PM EDT Oxygen Saturation 96% 03/14/2025 2:53 PM EDT Inhaled Oxygen Concentration - - Weight 83.4 kg (183 lb 12.8 oz) 03/14/2025 2:53 PM EDT Height 170.2 cm (5' 7 ) 03/14/2025 2:53 PM EDT Body Mass Index 28.79 03/14/2025 2:53 PM EDT Plan of Treatment Upcoming Encounters Date Type Department Care Team (Late st Contact Info) Description 04/14/2025 7:00 AM EDT Ancillary Procedure [facility] [address] [place] [address] 04/19/2025 12:40 PM EDT Office Visit [facility] [address] [place] [phone] Keren Ortega, DENYS [address] [place] [address] 05/03/2025 10:10 AM EDT Office Visit Pulmonolgy - [place] [address] [facility] [address] [place] [phone] Madeleine Pizano NP [address] [facility] [address] [place] [address] Health Maintenance Due Date Last Done Comments Hepatitis B Vaccines (2 of 3 - 19+ 3-dose series) 12/20/2010 11/22/2010 Pneumococcal Vaccine: Pediatrics (0 to 5 Years) and At-Risk Patients (6 to 49 Years) (2 of 2 - PPSV23) 08/02/2019 06/07/2019 Cervical Cancer Screening: Pap Smear 01/10/2022 01/10/2017, 01/10/2017 Colorectal Cancer Screening: Colonoscopy 08/14/2022 Depression Screening 08/14/2022 HIV Screening 08/14/2022 Hepatitis C Screening 08/14/2022 Social Influencers of Health Screening 08/14/2022 COVID-19 Vaccine ( season) 2024 Breast Cancer Screening 02/04/2025 02/05/20 24, 02/05/2024, 08/06/2023, Additional history exists Influenza Vaccine (#1) 2025 , 06/07/2019, 08/31/2018, Additional history exists Cholesterol Screening [...] Procedure Name Priority Date/Time Associated Diagnosis Comments OVERNIGHT PULSE OXIMETRY Routine 03/17/2025 12:00 AM EDT SOB (shortness of breath) SIX MINUTE WALK TEST Routine 03/14/2025 4:55 PM EDT SOB (shortness of breath) CBC WITH AUTO DIFFERENTIAL Routine 03/14/2025 11:46 AM EDT Mixed hyperlipidemia Chronic shortness of breath Chest pressure Claudication (CMS/HCC V24) History of smoking HEMOGLOBIN A1C Routine 03/14/2025 11:46 AM EDT SOB (shortness of breath) Impaired fasting blood sugar BASIC METABOLIC PANEL Routine 03/14/2025 11:46 AM EDT Mixed hyperlipidemia Chronic shortness of breath Chest pressure Claudication (CMS/HCC V24) History of smoking CBC AND DIFFERENTIAL Routine 03/14/2025 11:46 AM EDT Mixed hyperlipidemia Chronic shortness of breath Chest pressure Claudication (CMS/HCC V24) History of smoking PROTHROMBIN TIME WITH INR Routine 03/14/2025 11:46 AM EDT Mixed hyperlipidemia Chronic shortness of breath Chest pressure Claudication (CMS/HCC V24) History of smoking HC SPIROMETRY BRONCHODILATION RESPONSIVENESS PRE/POST BRONCHODILATOR ADMINISTRATION Routine 02/18/2025 1:34 PM EDT SOB (shortness of breath) STRESS ECHOCARDIOGRAM EXERCISE Routine 02/09/2025 3:19 PM EDT Shortness of breath ECG ANNOTATED 01/24/2025 CT ANGIO CHEST WO AND/OR W CONTRAST [...] Recently Relevant to Health Maintenance Results * Overnight Pulse Oximetry (03/17/2025 12:00 AM EDT) Madeleine Piazno ASSISTANT DIRECTOR OF RESIDENCE LIFE RESPIRATORY CARE ORDERA BLES Edited Result - Final * 6 minute walk test (03/14/2025 4:55 PM EDT) Rodriguez Dempsey MD - 03/14/2025 4:55 PM EDT Walked six minutes covering (152m/500ft) without Leg Fatigue, Mild SOB Lowest oxygen saturation was 95%. Returned to PFT lab for Rest & Recovery. After 1 min RaSpO2 = 97% HR = 70; After 2 min RaSpO2 = 98% HR = 64. No indication for supplemental Oxygen for activity. Madeleine Pizano ASSISTANT DIRECTOR OF RESIDENCE LIFE IN CLINIC/BEDSIDE ORDER VENKATESH Final Result * (ABNORMAL) CBC auto differential (03/14/2025 11:46 AM EDT) Only the most recent of2 resultswithin the time period is included. WBC 11.6(H) 4.8 - 10.8 K/mcL LAB HEMETOLOGY METHOD 03/14/2025 2:59 PM EDT [facility] RBC 4.90(H) 3.80 - 4.80 M/mcL LAB HEMETOLOGY METHOD 03/14/2025 2:59 PM EDT [facility] Hemoglobin 14.8 11.5 - 16.0 g/dL LAB HEMETOLOGY METHOD 03/14/2025 2:59 PM EDT [facility] Hematocrit 45.2 35.0 - 47.0 % LAB HEMETOLOGY METHOD 03/14/2025 2:59 PM EDT [facility] MCV 92.1 79.0 - 98.0 FL LAB HEMETOLOGY METHOD 03/14/2025 2:59 PM EDT [facility] MCH 30.1 27.0 - 32.0 pcg LAB HEMETOLOGY METHOD 03/14/2025 2:59 PM EDT [facility] MCHC 32.7 32.0 - 37.0 g/dL LAB HEMETOLOGY METHOD 03/14/2025 2:59 PM EDT [facility] RDW 13.3 11.0 - 15.0 % LAB HEMETOLOGY METHOD 03/14/2025 2:59 PM EDT [facility] Platelets 274 130 - 400 K/mcL LAB HEMETOLOGY METHOD 03/14/2025 2:59 PM [facility] MPV 11.4(H) 7.0 - 11.0 FL LAB HEMETOLOGY METHOD 03/14/2025 2:59 PM [facility] NRBC 0.0 <1.0 % LAB HEMETOLOGY METHOD 03/14/2025 2:59 PM [facility] NRBC Absolute 0.00 <0.10 K/mcL LAB HEMETOLOGY METHOD 03/14/2025 2:59 PM [facility] Neutrophils Relative 70.7 % LAB HEMETOLOGY METHOD 03/14/2025 2:59 PM [facility] Lymphocytes Relative 21.4 % LAB HEMETOLOGY METHOD 03/14/2025 2:59 PM [facility] Monocytes Relative 4.8 % LAB HEMETOLOGY METHOD 03/14/2025 2:59 PM [facility] Eosinophils Relative 1.9 % LAB HEMETOLOGY METHOD 03/14/2025 2:59 PM [facility] Basophils Relative 0.9 % LAB HEMETOLOGY METHOD 03/14/2025 2:59 PM [facility] Immature Granulocytes Relative 0.3 % LAB HEMETOLOGY METHOD 03/14/2025 2:59 PM [facility] Neutrophils Absolute 8.16(H) 1.50 - 7.00 K/mcL LAB HEMETOLOGY METHOD 03/14/2025 2:59 PM [facility] Lymphocytes Absolute 2.47 1.00 - 5.00 K/mcL LAB HEMETOLOGY METHOD 03/14/2025 2:59 PM EDT [facility] Monocytes Absolute 0.56 0.20 - 1.00 K/mcL LAB HEMETOLOGY METHOD 03/14/2025 2:59 PM EDT [facility] Eosinophils Absolute 0.22 0.00 - 0.50 K/[facility] LAB HEMETOLOGY METHOD 03/14/2025 2:59 PM EDT [facility] Basophils Absolute 0.10 0.00 - 0.20 K/[facility] LAB HEMETOLOGY METHOD 03/14/2025 2:59 PM EDT [facility] Immature Granulocytes Absolute 0.04(H) 0.00 - 0.03 K/[facility] LAB HEMETOLOGY METHOD 03/14/2025 2:59 PM EDT [facility] Blood Venous blood specimen / Unknown Venipuncture / Unknown 03/14/2025 11:46 AM EDT 03/14/2025 11:46 AM EDT us Moises Finley MD LAB BLOOD ORDERABLES Final Resu lt [facility] [address] [place] [address], * Protime-INR (03/14/2025 11:46 AM EDT) Protime 11.9 10.6 - 13.9 sec LAB COAGULATION METHOD 03/14/2025 3:13 PM EDT [facility] INR 0.9 LAB COAGULATION METHOD 03/14/2025 3:13 PM EDT [facility] Blood Venous blood specimen / Unknown Venipuncture / Unknown 03/14/2025 11:46 AM EDT 03/14/2025 11:46 AM EDT us Moises Finley MD LAB BLOOD ORDERABLES Final Resu lt [facility] [address] [place] [address], * Hemoglobin A1c (03/14/2025 11:46 AM EDT) [facility] Hemoglobin A1C 5.8 <6.5 % LAB CHEMISTRY METHOD 03/14/2025 9:07 PM EDT [facility] Mean Bld Glu Estim. 120 mg/dL LAB CHEMISTRY METHOD 03/14/2025 9:07 PM EDT [facility] Blood Venous blood specimen / Unknown Venipuncture / Unknown 03/14/2025 11:46 AM EDT 03/14/2025 11:46 AM EDT Jerod GAYTAN LAB BLOOD ORDERABLES [place] l Result [facility] [address] [place] [address], * Basic metabolic panel (03/14/2025 11:46 AM EDT) [facility] Sodium 139 133 - 145 mmol/L LAB CHEMISTRY METHOD 03/14/2025 3:20 PM [facility] Potassium 3.8 3.5 - 5.5 mmol/L LAB CHEMISTRY METHOD 03/14/2025 3:20 PM [facility] Chloride 104 96 - 110 mmol/L LAB CHEMISTRY METHOD 03/14/2025 3:20 PM T [facility] CO2 27 21 - 32 mmol/L LAB CHEMISTRY METHOD 03/14/2025 3:20 PM T [facility] Anion Gap 8 3 - 11 LAB CHEMISTRY METHOD 03/14/2025 3:20 PM [facility] Glucose 88 70 - 100 mg/dL LAB CHEMISTRY METHOD 03/14/2025 3:20 PM [facility] BUN 9 5 - 25 mg/dL LAB CHEMISTRY METHOD 03/14/2025 3:20 PM EDT [facility] Creatinine 0.79 0.50 - 1.10 mg/dL LAB CHEMISTRY METHOD 03/14/2025 3:20 PM EDT [facility] eGFR 92 >=60 mL/min/1. 73m2 LAB CHEMISTRY METHOD 03/14/2025 3:20 PM EDT [facility] Comment:Calculation based on the Chronic Kidney Disease Epidemiology Collaboration (CKD-EPI) equation refit without adjustment for race. BUN/Creatinine Ratio 11.4 LAB CHEMISTRY METHOD 03/14/2025 3:20 PM EDT [facility] Calcium 8.7 8.5 - 10.5 mg/dL LAB CHEMISTRY METHOD 03/14/2025 3:20 PM EDT [facility] Blood Venous blood specimen / Unknown Venipuncture / Unknown 03/14/2025 11:46 AM EDT 03/14/2025 11:46 AM EDT us Moises Finley MD LAB BLOOD ORDERABLES Final Resu lt [facility] [address] [place] [address], * Pulmonary function testing: Spirometry with Bronchodilator, Spirometry (02/18/2025 1:34 PM EDT) Narrative Rodriguez Garg MD - 02/22/2025 5:38 PM EDT Table formatting from the original result was not included. Images from the original result were not included. [facility] [address] [place] [address] Pulmonary Functions Report Date of service: 02/18/25 Patient Name: Kim Schneider Date of : 1975 Age: 49 y.o. Gender: female Ordering Provider: LUCILA Sorensen Diagnosis listed on Order: SOB (shortness of breath) Reason for Exam: Order Questions Answers Reason for Exam: PFTs Which PFTs would you like to perform? Spirometry with Bronchodilator,Spirometry SPIROMETRY: FEV1 is 100 % predicted and an FVC is 101 % predicted. The FEV1/FVC ratio is 100% of normal, no response to bronchodilators noted. LUNG VOLUMES: Total lung capacity (TLC): 91% predicted. Residual volume (RV): 92% predicted RV/TLC ratio is 102% of normal DIFFUSION CAPACITY: DLCO 74% predicted. DlCO/VA 78% of predicted COMPARISONS: INTERPRETATION: This pulmonary function test shows Normal spirometry with slight acid reduction diffusion capacity. The diffusion impairment could be due to the patient's smoking history, please correlate clinically Rodriguez Garg MD Jerod GAYTAN PFT ORDERABLES Final Res ult * STRESS ECHOCARDIOGRAM EXERCISE (02/09/2025 3:19 PM EDT) BSA 1.99 m2 CV PACS STRESS Exercise/inject ion duration (min) 9 CV PACS STRESS Exercise/inject ion duration (sec) 0 CV PACS STRESS Peak SBP 140 mmHg CV PACS STRESS Peak DBP 60 mmHg CV PACS STRESS Peak HR 133 bpm CV PACS STRESS Baseline HR 76 bpm CV PACS STRESS Baseline SBP 90 mmHg CV PACS STRESS Baseline DBP 50 mmHg CV PACS STRESS Estimated workload 10.1 METS CV PACS STRESS Percent HR 77 % CV PACS STRESS Rate Pressure Product 18,620.0 mmHg*bpm CV PACS STRESS Target HR 146 [address] CV PACS STRESS [address] Depression (mm) 0 mm CV PACS STRESS Anatomical Region Laterality Modality Ultrasound 02/09/2025 2:44 PM EDT 02/09/2025 3:21 PM EDT Narrative 02/28/2025 12:03 PM EDT Exercise stress test was performed. Exercise capacity was average. Normal blood pressure response. Stress: Heart rate demonstrated a blunted response not on AV node blocking therapy. Only achieved 77% MPHR. The patient reported dyspnea during the stress test that resolved quickly in recovery. ECG: The result of the stress ECG was negative for ischemia but at a submaximal heart rate achieved- 77% MPHR. There was no evidence of ischemia at a submaximal heart rate. The patient did exercise well going for just over 9 minutes. LV contractility improved in all wall segments and cavity dimensions decreased appropriately. Left Ventricle Left ventricle cavity size is normal. Wall thickness is normal. Systolic function is normal with an ejection fraction of 55-60%. There are no regional LV wall motion abnormalities. Unable to assess diastolic function. Right Ventricle Right ventricle cavity appears normal. Systolic function is normal. Left Atrium Left atrium cavity size is normal. Right Atrium Right atrium cavity is normal. Mitral Valve Mitral valve structure is normal. There is trace regurgitation. There is no evidence of mitral valve stenosis. Tricuspid Valve Tricuspid valve structure is normal. There is no regurgitation or stenosis. Aortic Valve Number of aortic valve cusps cannot be determined. There is no regurgitation or stenosis. Pulmonic Valve Pulmonic valve not assessed due to limited exam. Pulmonic valve stenosis not assessed due to limited exam. Ascending Aorta The aorta was not well visualized. Pericardium Pericardium appears normal. Study Details Overall the study quality was adequate. Stress Findings A Jorge protocol stress test was performed. Overall, the patient's exercise capacity was average. Total stress time was 9 min and 0 sec. The test was stopped because the patient experienced fatigue/ unable to keep up on treadmill. The patient's hemodynamic response was adequate for diagnosis. Blood pressure demonstrated a normal response. Heart rate demonstrated a blunted response not on AV node blocking therapy. Only achieved 77% MPHR. The patient reported dyspnea during the stress test that resolved quickly in recovery. ECG 49 yo female with shortness of breath. Hx of smoking and asthma. The ECG shows normal sinus rhythm. There were no arrhythmias during stress. There is no ST segment changes during stress. There were no arrhythmias during recovery. The result of the stress ECG was negative for ischemia but at a submaximal heart rate achieved- 77% MPHR. Echo Post Stress Left ventricular cavity size decreased from baseline. Left ventricular systolic function improved from baseline. us Isaac GAYTAN CV ECHO PROCEDURES Final Result * ECG-Annotated (01/24/2025) us Provider Onbase MD ECG ORDERABLES Final Result * CT Angio Chest wo and/or w [...] B-type natriuretic peptide (01/22/2025 1:05 AM EDT) [facility] BNP 25 <=100 pcg/mL LAB CHEMISTRY METHOD 01/22/2025 3:00 AM EDT [facility] Blood Venous blood specimen / Unknown Venipuncture / Unknown 01/22/2025 1:05 AM EDT 01/22/2025 2:12 AM EDT Isaac GAYTAN LAB BLOOD ORDERABLES [place] l Result [facility] [address] [place] [address], * Troponin I high sensitivity (01/21/2025 10:03 PM EDT) Only the most recent of2 resultswithin the time period is included. [facility] High Sensitivity Troponin I 5 <=54 ng/L LAB CHEMISTRY METHOD 01/21/2025 10:49 PM EDT [facility] Blood Venous blood specimen / Unknown Venipuncture / Unknown 01/21/2025 10:03 PM EDT 01/21/2025 10:25 PM EDT Narrative [facility] - 01/21/2025 10:49 PM EDT High levels of biotin in samples may falsely decrease hsTroponin values. Use caution when interpreting hsTroponin results in patients taking biotin who exhibit renal impairment (eGFR <60) or in patients taking more than 20 mg/day of biotin. us David White MD LAB BLOOD ORDERABLES Final Res ult [facility] ([facility]) [facility] [address] [place] [address], [place] [phone] * POC , urine manually resulted (01/21/2025 8:25 PM EDT) HCG, Ur POC Negative Negative POC hCG Int QC Pass? Yes Yes EXPIRATION DATE POC 06/28/2026 LOT NUMBER POC [id number] Urine Urine specimen obtained by clean catch procedure / Unknown 01/21/2025 8:25 PM EDT us David White MD POINT OF CARE TEST ENTER/EDIT ORDERABLES Final Result * XR Chest 2 Views (01/21/2025 8:07 PM EDT) Anatomical Region Laterality Modality Body Radiographic Betina ging 01/22/2025 3:42 AM EDT Impressions 01/22/2025 3:43 AM EDT FINDINGS/IMPRESSION: No consolidation or effusion. No congestive heart failure. No acute fracture. -------- FINAL REPORT -------- Dictated By: Mikie West Dictated Date: 01/22/2025 03:42 ET Assigned Physician: Mikie West Reviewed and Electronically Signed By: Mikie West Signed Date: 01/22/2025 03:43 ET Workstation ID: [id number] Transcribed By: Self Edit Transcribed Date: 01/22/2025 [...] Signed Date: 01/22/2025 03:43 ET Workstation ID: [id number] Transcribed By: Self Edit Transcribed Date: 01/22/2025 03:42 ET us David White MD IMG XR PROCEDURES Final Result * Magnesium (01/21/2025 7:53 PM EDT) [facility] Magnesium 1.9 1.9 - 2.6 mg/dL LAB CHEMISTRY METHOD 01/21/2025 8:44 PM EDT [facility] Blood Venous blood specimen / Unknown Venipuncture / Unknown 01/21/2025 7:53 PM EDT 01/21/2025 8:12 PM EDT David White MD LAB BLOOD ORDERABLES Final Res ult Performing Organization Address [facility]/ZIP Co de Phone Number [facility] [address] [place] [address], [place] [phone] * Lipase (01/21/2025 7:53 PM EDT) Pathologist [facility] [place] Lipase 34 13 - 75 unit/L LAB CHEMISTRY METHOD 01/21/2025 8:44 PM EDT [facility] Blood Venous blood specimen / Unknown Venipuncture / Unknown 01/21/2025 7:53 PM EDT 01/21/2025 8:12 PM EDT us David White MD LAB BLOOD ORDERABLES Final Res ult Performing Organization Address City/[facility]/ZIP Co de Phone Number [facility] [address] [place] [address], [place] [phone] * (ABNORMAL) Comprehensive metabolic panel (01/21/2025 7:53 PM EDT) [facility] Signature Sodium 139 133 - 145 mmol/L LAB CHEMISTRY METHOD 01/21/2025 8:44 PM [facility] Potassium 4.0 3.5 - 5.5 mmol/L LAB CHEMISTRY METHOD 01/21/2025 8:44 PM [facility] Chloride 107 96 - 110 mmol/L LAB CHEMISTRY METHOD 01/21/2025 8:44 PM [facility] CO2 25 21 - 32 mmol/L LAB CHEMISTRY METHOD 01/21/2025 8:44 PM [facility] Anion Gap 7 3 - 11 LAB CHEMISTRY METHOD 01/21/2025 8:44 PM [facility] Glucose 119(H) 70 - 100 mg/dL LAB CHEMISTRY METHOD 01/21/2025 8:44 PM [facility] BUN 7 5 - 25 mg/dL LAB CHEMISTRY METHOD 01/21/2025 8:44 PM [facility] Creatinine 0.65 0.50 - 1.10 mg/dL LAB CHEMISTRY METHOD 01/21/2025 8:44 PM [facility] eGFR 109 >=60 mL/min/1. 73m2 LAB CHEMISTRY METHOD 01/21/2025 8:44 PM [facility] Comment:Calculation based on the Chronic Kidney Disease Epidemiology Collaboration (CKD-EPI) equation refit without adjustment for race. BUN/Creatinine Ratio 10.8 LAB CHEMISTRY METHOD 01/21/2025 8:44 PM [facility] Calcium 9.2 8.5 - 10.5 mg/dL LAB CHEMISTRY METHOD 01/21/2025 8:44 PM [facility] AST (SGOT) 8(L) 10 - 42 unit/L LAB CHEMISTRY METHOD 01/21/2025 8:44 PM [facility] ALT (SGPT) 16 10 - 60 unit/L LAB CHEMISTRY METHOD 01/21/2025 8:44 PM EDT [facility] Alkaline Phosphatase 126(H) 42 - 121 unit/L LAB CHEMISTRY METHOD 01/21/2025 8:44 PM EDT [facility] Total Protein 6.9 6.0 - 8.0 g/dL LAB CHEMISTRY METHOD 01/21/2025 8:44 PM EDT [facility] Albumin 3.7 3.2 - 5.0 g/dL LAB CHEMISTRY METHOD 01/21/2025 8:44 PM EDT [facility] Total Bilirubin 0.3 0.0 - 1.4 mg/dL LAB CHEMISTRY METHOD 01/21/2025 8:44 PM EDT [facility] Blood Venous blood specimen / Unknown Venipuncture / Unknown 01/21/2025 7:53 PM EDT 01/21/2025 8:12 PM EDT us David White MD LAB BLOOD ORDERABLES Final Res ult [facility] [address] [place] [address], * ECG 12 lead (01/21/2025 6:52 PM EDT) Ventricular Rate ECG 75 BPM GEMUSE Atrial Rate 75 BPM GEMUSE P-R Interval 194 ms GEMUSE QRS Duration 96 ms GEMUSE Q-T Interval 430 ms GEMUSE QTc 480 ms GEMUSE P Wave [place] 57 degrees GEMUSE R [place] 80 degrees GEMUSE T [place] 47 degrees GEMUSE ECG Interpretation Normal sinus [...] in conjunction with computer aided detection. Tomosynthesis as well as 2D C-View imaging were obtained. Spot magnified compression views of both breasts were [...] images (which suggest benign milk of calcium). In particular, previously described grouped calcifications in the upper inner quadrant in the anterior and middle depth are unchanged from prior spot magnified compression views from September 2022. Tissue markers from previous needle core biopsies. No suspicious masses or other abnormalities are seen. Left breast: Diffuse and grouped calcifications are essentially unchanged from multiple prior studies. In particular, previously described grouped calcifications in the upper outer quadrant middle and posterior depth are unchanged from prior spot magnified compression views from September 2022. Tissue markers from previous needle core biopsies. No suspicious masses or other abnormalities are seen. IMPRESSION: Impression: Right breast: Multiple grouped calcifications, unchanged from September 2022. Probably benign. A 12-month follow-up is recommended with standard views and spot magnified compression views. Left breast: Multiple grouped calcifications, unchanged from September 2022. Probably benign. A 12-month follow-up is recommended with standard views and spot magnified compression views. BI-RADS: Category 3: Probably benign Findings and recommendations communicated to the patient via ocular care technologist. Procedure Note Darnell Macdonald MD - [...] the patient via mammographytechnologist. us Jerod GAYTAN IMKenya BI PROCEDURES Final R esult * (ABNORMAL) Lipid panel (07/15/2023) LDL/HDL Ratio 6(A) 0 - 4 Triglycerides 196(A) 0 - 150 mg/dL Cholesterol 231(A) 0 - 200 mg/dL HDL 40 >=40 mg/dL LDL Cholesterol 150(A) 0 - 100 mg/dL Blood Venous blood specimen / Unknown us Historical Provider MD LAB BLOOD ORDERABLES [place] l Result * Cervical Cancer Screening: HPV (01/10/2017) Cervical Cancer Screening: HPV negative abstracted us Historical Provider HEALTH MAINTENANCE Final Result from Last 3 Months or Most Recently Relevant to Health Maintenance Insurance [facility] [place] [address] Care Teams Or Manager Relationship Specialty Start Date End Date Jerod Loepz PA [address] [place] [id number] PCP - General Internal Medicine 07/24/21
== END 2025-03-23 22:13 | disposition left against medical advice (07) ==
PROVIDERS: Emergency Provider Emergency Medicine
DX: S40.022A Contusion of left upper arm, initial encounter (principal); X58.XXXA Exposure to other specified factors, initial encounter; Y93.9 Activity, unspecified; Y92.9 Unspecified place or not applicable; Y99.8 Other external cause status
CPT/HCPCS: 99281

== ENCOUNTER 2025-04-12 02:43 | Emergency (ER) | payer OTHER, SELFPAY ==
--- NOTE | ~2025-04-12 | CT_ITS ---
EXAMINATION: CT HEAD WITHOUT CONTRAST CLINICAL INFORMATION: headaches, blurred vision, left arm tingling COMPARISON: None available. TECHNIQUE: Contiguous axial imaging was performed from the skull base to vertex without intravenous administration of contrast. This CT examination was performed using dose optimization techniques as appropriate, variously including the following: *Automated exposure control *Adjustment of mA and/or kV according to patient size (this includes techniques or standardized protocols for targeted exams where dose is matched to indication/reason for exam; i.e. extremities or head) *Use of iterative reconstruction technique DLP: 661 mGy-cm FINDINGS: No acute intracranial hemorrhage, mass effect, midline shift, hydrocephalus or herniation. Prominence of the extra-axial CSF spaces cerebral sulci involving bifrontoparietal lobes. Ortiz-white matter differentiation is normal. Posterior cranial fossa contents demonstrated no acute intracranial hemorrhage or mass effect. Sellar/suprasellar region demonstrated no gross masses. Normal position of the cerebellar tonsils. No air-fluid levels in the paranasal sinuses. Tympanic cavities and mastoid air cells are aerated with poor pneumatization of the mastoid air cells. 2 mm calcification superficial right parotid gland. Old traumatic deformity, nasal bones. CT/CT head/brain wo IV con IMPRESSION: No acute brain abnormality by CT. Bifrontal biparietal lobe atrophy, mild. Probable sialolithiasis, superficial right parotid gland. Electronically signed by: Ranjit Fitzgerald MD 04/12/2025 09:28 AM EDT
--- NOTE | ~2025-04-12 | XR_ITS ---
EXAMINATION: XR CHEST CLINICAL INFORMATION: SOB COMPARISON: January 23, 2025. TECHNIQUE: 2 views of the chest were obtained. FINDINGS: Pulmonary reticular pattern. Hyperinflated lungs. No consolidation, pleural effusion or pneumothorax. Cardiomediastinal silhouette size is normal. Multilevel thoracic process. XR/XR chest 2V IMPRESSION: Concerning chronic interstitial lung disease without acute airspace disease. Electronically signed by: Ranjit Fitzgerald MD 04/12/2025 09:17 AM EDT
[2025-04-12 02:45] VITALS: BP 137/62; PULSE 71; RESP 18; TEMP 36.2; O2SAT 98; BMI 28.2
[2025-04-12 03:09] LABS: MANUAL DIFF FLAG NO
[2025-04-12 03:10] LABS: Hematocrit 42.5 % (37.0-47.0); Hemoglobin 14.6 g/dl (12.0-16.0); Imm Gran Abs Auto 0.02 X10*3/uL (0.00-0.03); Imm Gran Pct Auto 0.3 % (0.0-0.4); Lymphocytes Absolute Auto 2.4 X10*3/uL (1.2-4.9); Mean Corpuscular HGB Conc 34.4 g/dl (31.0-35.0); Mean Corpuscular Hemoglobin 30.7 pg (27.0-33.0); Mean Corpuscular Volume 89.5 fL (80.0-98.0); NRBC Abs Auto 0.000 X10*3/uL (0.0-0.012); NRBC Pct Auto 0.0 /100WBC (0.0-0.2); Platelet Count 272 X10*3/uL (160-400); Red Blood Count 4.75 X10*6/uL (4.20-5.50); White Blood Count 7.6 X10*3/uL (4.8-10.8)
[2025-04-12 03:25] LABS: Alanine Aminotransferase 17 U/L (0-31); Albumin Level 4.2 g/dL (3.5-5.0); Alkaline Phosphatase 84 U/L (39-117); Anion Gap 13 (12-20); Aspartate Amino Transferase 15 U/L (5-31); Blood Urea Nitrogen 8 mg/dL (9-16); Calcium 8.6 mg/dL (8.4-10.2); Carbon Dioxide 24 mmol/L (22-29); Chloride 109 mmol/L (96-108); Creatinine Clr Calc Pharmacy 98.4; Estimated Glomerular Filt Rate > 60; Potassium 3.8 mmol/L (3.3-5.1); Sodium 142 mmol/L (135-145); Total Protein 6.8 g/dL (6.5-8.0)
[2025-04-12 03:54] VITALS: BP 117/69; PULSE 70; RESP 16; TEMP 36
--- NOTE | 2025-04-12 03:59 | ECG_ITS ---
Test Reason : CP Blood Pressure : */* mmHG Vent. Rate : 66 BPM Atrial Rate : 66 BPM P-R Int : 172 ms QRS Dur : 96 ms QT Int : 428 ms P-R-T Axes : 62 85 69 degrees QTcB Int : 448 ms Normal sinus rhythm Normal ECG When compared with ECG of 23-Jan-2025 20:09, No significant change was found Referred By: Generic ED Physician Electronically Signed By: CEDRICK GALLEGOS MD
[2025-04-12 04:28] LABS: Troponin-I High Sensitivity < 2.7 ng/L (<3.5-17.0)
--- OUTSIDE RECORDS SUMMARY | 2025-04-12 06:07 | XMS_ITS ---
Author Name [facility] Organization Unknown Care Team Organization Name Specialty Phone Email Start Date End Da jadiel [facility] Jerod Lopez Primary Care 07/23/2022
--- OUTSIDE RECORDS SUMMARY | 2025-04-12 06:07 | XMS_ITS | Encounter Summary ---
Author Organization [facility] Address [address] [place] [address] Care Team Providers Care Hogshead Inspector Name Role Phone Jerod Lopez Primary Care Provider [phone] Reason for Visit * Reason Onset Date Comments Respiratory Distress 03/23/2025 Encounter Details Date Type Department Care Team (Late st Contact Info) Description 03/23/2025 Telephone Adult Medicine [facility] [address] [place] [address] Jerod Lopez PA [address], [place] [phone] Respiratory Distress Social History Tobacco Use Types Packs/Day Years [...] on file documented as of this encounter Functional Status * Are you deaf or do you have serious difficulty hearing? 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 Patient Active Problem List Diagnosis Thyroid nodule Polycythemia Mixed hyperlipidemia Mild persistent asthma without complication Mass of lower inner quadrant of left breast Leg swelling IFG (impaired fasting glucose) Hidradenitis Depression Abnormal CXR Chronic shortness of breath Chest pressure Claudication (CMS/HCC V24) History of smoking Patient has no known allergies. We spoke about the dander from cats and , suggestions to remedy around the house, wear a mask and gloves when brushing the cats, and cleaning, such as dusting or mopping the floors. She also spoke talking to a therapist,? Anxiety. She will call her ins co. To see where she can be seen. If referral needed she will call * LUCILA Sorensen - 03/23/2025 8:57 PM EDT Looks like sleep study is recommended by pulmonary we can see what allergy says as well * Ramonita Mcallister RN - 03/23/2025 3:46 PM EDT Spoke with the pt 01/20 sent to pulmo and cardiology Cardiac cath Both say its not heart and not lungs Was doing ok in the hospital but now that she is back home she is having difficulty again. Took some zyrtec and gargles with salt water and using allergy nasal sprays and not helping. Started the salt water today Asking if there is something else she can do Stating that nasacort needs to be a 3 month supply Referral to allergy was sent yesterday Coughing up a lot of thick mucous, problem is mostly during the day. Is ok at night when sleeping * Elyse Rosado - 03/23/2025 3:34 PM EDT Patient call requires triage: Symptoms patient is presenting: c/o difficulty breathing she would like to speak with triage and she states no I do not need to go to the hospital its probably allergies How long has patient had these symptoms?: months For ALL patients calling to schedule any appointment (routine, sick visit, follow up, consult, etc.) in the outpatient setting please ask the following questions: Do you have fever of higher than 101, sore throat with difficulty swallowing or severe shortness ofbreath? no If YES to any of these above symptoms, send a message to triage and do not book. Red dot. If no, an audio or video visit should be booked. Have you had close contact with someone with Coronavirus in the last 14 days? no Have you traveled abroad? no Have you traveled recently to another state outside of [place], [place], [place], [place], [place], [place], [place]? no o If yes, did you quarantine for 14 days or have a negative covid test? no If yes to any of the above, patient is not to be scheduled in office until after 14 day quarantine or negative covid test. If pain or injury related was it due to an accident at work or from a motor vehicle accident? If yes, date of accident/Injury: No If yes, gather 3rd alliance party insurance information Third Libertarian Information: not applicable PCP: LUCILA West Payor: [facility] PLAN / Plan: [facility] MEDICAID / Product Type: *No Product type* / documented in this encounter Plan of Treatment Upcoming Encounters Date Type Department Care Team (Late st Contact Info) Description 04/19/2025 12:40 PM EDT Office Visit [facility] Cardiology [facility] [address] [facility] [address] [place] [phone] Keren Ortega NP [address] [place] [address] 04/22/2025 11:15 AM EDT Office Visit Adult Medicine [facility] [address], [place] [phone] Ping King PA [address] [place], [place] 05/03/2025 10:10 AM EDT Office Visit Pulmonolgy - [place] [address] [facility] [address] [place] [phone] Madeleine Pizano NP [address] [facility] [address] [place] [address] 06/07/2025 7:00 AM EDT Ancillary Procedure [facility] Cardiology [facility] [address] [facility] [address] [place] [phone] documented as of this encounter Visit Diagnoses Not on filedocumented in this encounter Discontinued Medications Medication Sig Discontinue Reason Start Date End Da te triamcinolone (NASACORT) 55 mcg nasal inhaler USE 2 SPRAY(S) INTRANASALLY ONCE DAILY Reorder 03/23/2025 03/23/2025 documented as of this encounter Care Teams Hogshead Inspector Relationship Specialty Start Date End Date Jerod Lopez PA [address] [place] [address] PCP - General Internal Medicine 07/24/21 documented as of this encounter
[2025-04-12 07:34] VITALS: BP 117/58; PULSE 68; RESP 16; O2SAT 98
--- NOTE | 2025-04-12 07:36 | PC.NURSE ---
Spoke at length with this patient. She has had lab work and Cardiac cath recently for her sxs. SHe describes anxiety like sxs but is requesting several dx testing. Pt is awaiting provider assessment
--- NOTE | 2025-04-12 08:10 | ED_ITS ---
HPI - General Adult General Chief complaint: General Medical Stated complaint: Anxiety/Panic Attack Time Seen by Provider: 04/12/25 08:05 Source: patient Mode of arrival: ambulatory Limitations: no limitations History of Present Illness ED Provider: Angelica Aldana PA-C HPI narrative: 50 yo female with history of emphysema, active smoker who presents to the ER for evaluation of 2 weeks of anxiety and panic attacks. Patient presents with her daughter who helps provide history. They report that about 2 weeks ago patient started having involuntary screaming episodes where she would scream uncontrollably into a pillow. Patient states she could not control this and has never had anything happen like this before. Her daughter describes it as a ?mental breakdown. ? Patient started her menstrual cycle on of last week and thinks it may be related. She saw her primary care doctor and had multiple hormonal studies done. She was also seen in the [facility] ER where she had a negative CTA of the chest. She has been reporting chest tightness and shortness of Breath for the duration of the symptoms. She has been trying to quit smoking, so started vaping instead. She has been on Breo with no relief. She states for the last 2 nights she has been unable to sleep at all and is desperate for some relief or answers. Denies any associated chest pain. Patient does endorse headaches and intermittent vision changes. She reports she needs to get new glasses. She states she has had blurred vision in both eyes that has been consistent, mild, does not very or change. She also reports left arm tingling and left shoulder pain. She has had some gait instability and periods where she zones out and can not talk. These episodes last about 40 seconds and then resolve. She recalls them and has no memory loss. She is not suicidal or homicidal. She denies any hallucinations. She denies any substance or alcohol use. No history of similar episodes in the past. She was seen by [facility] on Friday who told her it was all anxiety. complaint: mental health evaluation Onset (ago): week(s) Pain Consistency: intermittent Relieving factors: none Exacerbating factors: none Treatments prior to arrival: none Related Data Previous Rx's ?Medication ?Instructions ?Recorded hydroxyzine HCl 25 mg tablet 25 mg PO BEDTIME #20 tabs 05/28/22 hydroxyzine HCl 10 mg tablet 10 mg PO Q8H PRN anxiety #14 tabs 04/12/25 Allergies Allergy/AdvReac Type Severity Reaction Status Date / Time No Known Allergies (No Known Allergy Verified 04/12/25 02:47 Allergies*) Review of Systems 2 Review of Systems: Yes all other systems are reviewed and are negative Physical Exam ED Exam Exam: Appearance: Alert. Oriented X3. No acute distress. Head: normocephalic, atraumatic. Eyes: Pupils equal, round and reactive to light. ENT: Pharynx normal. No tonsillar swelling or exudate. Neck: Normal inspection. Neck supple. CVS: Normal heart rate and rhythm. Pulses normal. Respiratory: No respiratory distress. Breath sounds normal. Abdomen: Soft and nontender. +BS x4 Skin: Skin warm and dry. Normal skin color. Normal skin turgor. No rashes. Extremities: No lower extremity edema. No joint swelling. Neuro/psych: Oriented X 3. No motor deficit. No sensory deficit. CN II-XII intact. Nonfocal. Normal speech and cognition. Good insight and judgment. Anxious. Vital Signs: Vital Signs - 24 hr 04/12/25 02:45 04/12/25 03:54 04/12/25 07:34 Temperature 97.1 F 96.8 F Pulse Rate 71 70 68 Respiratory Rate 18 16 16 Blood Pressure 137/62 117/69 117/58 L Pulse Oximetry 98 98 Oxygen Delivery Method Room Air Room Air Room Air 04/12/25 10:02 04/12/25 11:34 Temperature 97.4 F 97.4 F Pulse Rate 66 66 Respiratory Rate 18 18 Blood Pressure 110/59 L 110/59 L Pulse Oximetry 98 98 Oxygen Delivery Method Room Air Room Air BMI result Body Mass Index 28.2 Course Reevaluation(s) Reevaluation #1: Physician observation discontinued. Patient was seen by the crisis team and determined not to require inpatient level of care. Partial hospitalization program was recommended along with [facility]. Patient is agreement with this. She is requesting some anxiety medication, will prescribe low-dose hydroxyzine. She will follow up with her primary care doctor for possible Wellbutrin or Chantix to help her stop smoking. Recommend follow-up with outpatient Gynecology for further evaluation of possible hormonal disturbances, premenstrual dysphoric disorder is a possibility. She has a primary care doctor she can also follow up with. She does not required medical admission to the hospital at this time and she is stable for discharge home with her daughter. Patient agrees with plan all questions were answered. Time: 11:14 Medications Administered Discontinued Medications Generic Name Dose Route Start Last Admin Trade Name Shelly PRN Reason Stop Dose Admin Hydroxyzine HCl 10 mg 04/12/25 08:42 04/12/25 09:15 Hydroxyzine Hcl 10 Mg Tablet PO 04/12/25 08:43 10 mg ONCE ONE Administration Medical Decision Making Medical Decision Making [facility] Narrative: 50-year-old female presents to the ER for evaluation of multiple complaints including anxiety, panic, insomnia, shortness of breath, headaches, visual disturbances, and ?mental breakdown. ? she has been seen by her PCP and had multiple hormonal studies that were drawn and largely unremarkable. She has also seen at [facility] ER and had a complete workup for her shortness of breath including a negative CTA. On arrival to the ER she is hemodynamically stable, her physical exam is unremarkable. She is neurologically intact. She has good insight and judgment. CT scan of her head was done to rule out organic cause in her brain which is unremarkable. Her labs are normal. Her symptoms are overall resolving as her mental cycle is progressing. Concern this may be hormonal related. She does not have a speech pathology teacher. She is requesting to see crisis for further evaluation. Physician observation started at 04/12 @ 10am. . Patient placed in physician observation because patient is awaiting CARE team evaluation for the possible need of inpatient psych admission. At the time observation was started patient's vital signs were stable. Patient is alert and oriented. Neuro exam is non-focal. CV: RRR and lungs are clear. Will continue to monitor. Differential Diagnosis Differential Diagnoses: The differential diagnosis associated with the presentation includes substance induced mood disorder, acute psychosis, organic central cause, major depression with psychotic features, hormonal imbalance, PMDD Admission/Observation Consideration of admission/observation: Escalation of care including admission/observation considered Lab Data [facility] Lab Attestation statement: I reviewed the patient's lab results. Negative troponin, no major metabolic derangement 04/12/25 02:56 04/12/25 02:56 Labs: Lab Results 04/12/25 Range/Units 02:56 WBC 7.6 (4.8-10.8) X10*3/uL RBC 4.75 (4.20-5.50) X10*6/uL Hgb 14.6 (12.0-16.0) g/dl Hct 42.5 (37.0-47.0) % MCV 89.5 (80.0-98.0) fL MCH 30.7 (27.0-33.0) pg MCHC 34.4 (31.0-35.0) g/dl RDW 13.0 (11.0-16.0) % Plt Count 272 (160-400) X10*3/uL MPV 10.2 (9.4-12.3) fL Immature Gran % (Auto) 0.3 (0.0-0.4) % Neut % (Auto) 55.4 (45-73) % Lymph % (Auto) 31.4 (20-40) % [place] % (Auto) 8.6 (2-11) % Eos % (Auto) 2.6 (0-4) % Baso % (Auto) 1.7 (0-2) % Lymph # (Auto) 2.4 (1.2-4.9) X10*3/uL [place] # (Auto) 0.7 (0.1-1.2) X10*3/uL Eos # (Auto) 0.2 (0.0-0.4) X10*3/uL Baso # (Auto) 0.1 (0.0-0.2) X10*3/uL Abs Immat Gran (auto) 0.02 (0.00-0.03) X10*3/uL Absolute Neuts (auto) 4.2 (2.0-8.3) x10*3/uL Absolute Nucleated RBC 0.000 (0.0-0.012) X10*3/uL Nucleated RBC % (auto) 0.0 (0.0-0.2) /100WBC Sodium 142 (135-145) mmol/L Potassium 3.8 (3.3-5.1) mmol/L Chloride 109 H (96-108) mmol/L Carbon Dioxide 24 (22-29) mmol/L Anion Gap 13 (12-20) BUN 8 L (9-16) mg/dL Creatinine 0.76 (0.5-1.4) mg/dL Estim Creat Clear Calc 98.4 Estimated GFR > 60 Random Glucose 115 (60-115) mg/dL Calcium 8.6 D (8.4-10.2) mg/dL Total Bilirubin 0.4 (0.0-1.0) mg/dL Direct Bilirubin 0.1 (0.0-0.5) mg/dL AST 15 (5-31) U/L ALT 17 (0-31) U/L Alkaline Phosphatase 84 (39-117) U/L Troponin I High Sens < 2.7 (<3.5-17.0) ng/L Total Protein 6.8 (6.5-8.0) g/dL Albumin 4.2 (3.5-5.0) g/dL Independent Interpretation I performed an independent interpretation of an: CT Scan Interpretation: CT head without acute edema, no mass Radiology Impression Discussion of test interpretation with radiology: I have reviewed the radiologist's reading. Radiologist Impression: CT/CT head/brain wo IV con IMPRESSION: No acute brain abnormality by CT. Bifrontal biparietal lobe atrophy, mild. Probable sialolithiasis, superficial right parotid gland. Independent Historian Clinical information obtained from an independent historian. History obtained from or confirmed by: Other (adult daughter at the bedside ) External Record Review External record reviewed: Outpatient record, Prior outpatient labs, Prior outpatient radiology and Outside ED record Prescription Management I considered prescription management with: Pain Medication and Other (anxiolytic ) Discharge Plan Discharge Clinical Impression: Anxiety Patient Disposition: Home, Self-Care Instructions: Anxiety (ED) Additional Instructions: Your medical workup today was unremarkable and reassuring. Recommend taking the prescribed hydroxyzine as needed for anxiety, you can cut this in half if you need to. It is a very low dose Recommend partial program as recommended by the crisis team here. Recommend following up with a therapist. Recommend following up with gynecology for further evaluation of possible hormonal issues related with your menstrual cycle. Recommend following up with an leather goods ii assembler for additional hormonal workup. Follow-up with your primary care doctor as soon as possible. If you develop new or worsening symptoms call 911 or come back to the ER for further evaluation. Prescriptions: New hydroxyzine HCl 10 mg tablet 10 mg PO Q8H PRN (Reason: anxiety) Qty: 14 0RF No Action hydroxyzine HCl 25 mg tablet 25 mg PO BEDTIME Qty: 20 0RF Referrals: [facility] Endocrinology [Provider Group] [facility] Women's Services [Provider Group] Stand Alone Forms: Work/School Release Interventions: ED Discharge Assessment Last Done: 04/12/25 11:34 Discharge Date/Time: 04/12/25 11:34 Print Language: Croatian
--- NOTE | 2025-04-12 09:05 | PC.NURSE ---
Patient away for CT scan. Will administer ordered medication (Hydroxyzine Hydrochloride 10mg PO) upon return. Visitor (daughter) remains at bedside.
[2025-04-12 10:02] VITALS: BP 110/59; PULSE 66; RESP 18; TEMP 36.3; O2SAT 98
--- NOTE | 2025-04-12 10:21 | PC.NURSE ---
Ana (CARE team) at bedside speaking with patient & daughter at this time.
--- NOTE | 2025-04-12 11:29 | MHC.CARE ---
Patient evaluated by the CARE Team, she does not need an inpatient psychiatric admission for symptom management and is clear to discharge with resources. Provider LUCILA Whitmore consulted and in agreement with plan.
[2025-04-12 11:34] VITALS: BP 110/59; PULSE 66; RESP 18; TEMP 36.3; O2SAT 98
--- NOTE | 2025-04-12 15:15 | MHC.CARE ---
RAD Team sent referral for PHP and [facility] for this pt, will follow up tomorrow
== END 2025-04-12 11:34 | disposition home or self-care (01) ==
PROVIDERS: Emergency Provider Emergency Medicine
DX: F41.9 Anxiety disorder, unspecified (principal); R07.9 Chest pain, unspecified; R06.02 Shortness of breath; H53.8 Other visual disturbances; Z79.899 Other long term (current) drug therapy
CPT/HCPCS: 36415; 70450; 71046; 80048; 80076; 84484; 85025; 93005; 99284; S9485

== ENCOUNTER → 2025-04-12 03:59 | Outpatient (BNV) | payer OTHER, SELFPAY | PROVIDERS: Emergency Provider Emergency Medicine; Visit Provider Internal Medicine Cardiovascular Disease | DX: R07.89 Other chest pain (principal) | CPT/HCPCS: 93010 ==

== ENCOUNTER → 2025-04-12 08:42 | Outpatient (BNV) | payer OTHER, SELFPAY | PROVIDERS: Emergency Provider Emergency Medicine; Visit Provider Radiology Diagnostic Radiology | DX: G31.1 Senile degeneration of brain, not elsewhere classified (principal); R06.02 Shortness of breath | CPT/HCPCS: 70450; 71046 ==

== ENCOUNTER 2025-05-16 06:37 | Emergency (ER) | payer OTHER, SELFPAY ==
--- OUTSIDE RECORDS SUMMARY | 2025-05-02 08:30 | XMS_ITS | Encounter Summary ---
Author Organization [facility] Address [address] [place] [address] Care Team Providers Care Telephone Operators Supervisor Name Role Phone Jerod Lopez Primary Care Provider [phone] Reason for Referral * Imaging (Routine) - Pending Review Specialty Diagnoses / Procedures Referred By Contac t Referred To Contact Radiology Diagnoses Thyroid nodule Procedures US Head Neck Soft Tissue Norma Vee MD [address] [place] [address] Phone: tel: fax: [address] Phone: tel: Referral ID Status Reason Start Date Expiration Date V isits Requested Visits Authorized [id number] Pending Review 05/13/2025 05/13/2026 1 1 * Imaging (Routine) - Pending Review Specialty Diagnoses / Procedures Referred By Contcarlos t Referred To Contact Radiology Diagnoses Thyroid nodule Procedures US Head Neck Soft Tissue Norma Vee MD [address] [place] [address] Phone: tel: fax: [address] Phone: tel: Referral ID Status Reason Start Date Expiration Date V isits Requested Visits Authorized [id number] Pending Review 05/02/2025 05/02/2026 1 1 Reason for Visit * Reason Comments Thyroid Problem Consult for thyroid nodules * Consultation (Routine) - Closed Specialty Diagnoses / Procedures Referred By Contac t Referred To Contact Endocrinology Diagnoses Thyroid nodule Depression, unspecified depression type Jerod Lopez, PA [address] [place] [address] Phone: tel: fax: Referral ID Status Reason Start Date Expiration Date V isits Requested Visits Authorized [id number] Closed Specialty Services Required 04/12/2025 04/12/2026 1 1 Encounter Details Date Type Department Care Team (Late st Contact Info) Description 05/02/2025 8:30 AM EDT Consult Endocrinology - [address] [id number] Norma Vee MD [address] [place] [id number] Thyroid nodule Social History Tobacco Use Types Packs/Day Years Used Date Smoking Tobacco: Every Day Cigarettes Smokeless Tobacco: Never Alcohol Use Standard Drinks/Week Comments No 0 (1 standard drink = 0.6 oz pur e alcohol) Housing Instability Answer Date Recorde d Are you worried that in the next 2 months you may not have stable housing? No 04/28/2025 Food Access & Nutrition Answer Date Rec orded Do you have access to a vari ety of food including fruits and vegetables? Yes 04/28/2025 Health Literacy Answer Date Recorded How often do you need to hav e someone help you when you read instructions, pamphlets, or other written material from your doctor or pharmacy? Never 04/28/2025 Caregiver: How often do you need to have someone help you when you read instructions, pamphlets, or other written material from your doctor or pharmacy? Not on file 04/28/2025 Financial Risk Answer Date Recorded How hard is it for you to pa y for the very basics like food, housing, medical care, and air conditioning / heating? Not very hard 04/28/2025 Transportation Answer Date Recorded Has the lack of transportati on kept you from meetings, work, or from getting things needed for daily living? No Has the lack of transportati on kept you from medical appointments or from getting medications? No 04/28/2025 Social Isolation Answer Date Recorded How often do you feel lonely or isolated from th ose around you? Never 04/28/2025 Food Risk Answer Date Recorded Within the past 12 months we worried whether our food would run out before we got money to buy more. Never true 04/28/2025 Within the past 12 months th e food we bought just didn t last and we didn t have money to get more. Not on file 04/28/2025 Dependent Care Answer Date Recorded Do you need help finding or paying for care for your loved ones. For example, child day care provider or elderly care for an older adult? No 04/28/2025 Education Answer Date Recorded Do you think completing more education or training, like finishing a GED, going to college, or learning a trade, would be helpful for you? No 04/28/2025 Employment and Income Answer Date Recor ded During the last four weeks, have you been actively looking for work? No 04/28/2025 Living Situation Answer Date Recorded What is your living situation? 0 04/28/2025 Comments No Sex and Gender Information Value Date Recorded Sex Assigned at Female 05/03/2025 2:38 PM EDT Legal Sex Female 3:11 PM EST Gender Identity Female 05/03/2025 2:38 PM EDT Sexual Orientation Straight 05/03/2025 2: 38 PM EDT documented as of this encounter Last Filed Vital Signs Vital Sign Reading Time Taken Comments Blood Pressure 91/54 05/02/2025 8:26 AM EDT Pulse 74 05/02/2025 8:26 AM EDT Temperature - - Respiratory Rate 13 05/02/2025 8:26 AM EDT Oxygen Saturation - - Inhaled Oxygen Concentration - - Weight 81.2 kg (179 lb) 05/02/2025 8:26 AM EDT Height 170.2 cm (5' 7 ) 05/02/2025 8:26 AM EDT Body Mass Index 28.04 05/02/2025 8:26 AM EDT documented in this encounter Functional Status [...] of Assessment Author No 01/22/2025 1:11 AM EDRain Talley RN * Do you have serious difficulty [...] Rain Adams RN documented in this encounter Progress Notes * Norma Vee MD - 05/02/2025 8:30 AM EDT Schedule US thyroid. * Norma Vee MD - 05/02/2025 8:30 AM EDTAddended by: NORMA VEE on: 05/13/2025 08:06 AM Modules accepted: Orders * Norma Vee MD - 05/02/2025 8:30 AM EDT CHIEF COMPLAINT: Thyroid Problem (Consult for thyroid nodules) IDENTIFIER: Shaan Schneider is a 50 y.o. old female. REFERRING PROVIDER: Jerod Lopez PA HPI: Pt referred for question of thyroid nodules. Without thyroid medication on board Has complaints tightness on neck, some difficulty swallowing, since 01/22/2025. She had an anxiety attck? Per pt but neck sx have persisted. She did have an US thyroid in 2019, no nodules. Has PND, no GERD. Compressive sx: as noted above. FH is positive for thyroid disorder, multiple family members have hypothyroidism. No h/o thyroid CA. 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[facility] V24) 04/28/2025 Vision disturbance 04/28/2025 Current every day smoker 04/28/2025 Coronary artery disease involving campo coronary artery of campo heart without angina pectoris 04/19/2025 Chest pressure 03/14/2025 Claudication ([facility] V24) 03/14/2025 History of smoking 03/14/2025 Chronic shortness of breath 03/08/2025 Mass of lower inner quadrant of left breast 09/25/2022 IFG (impaired fasting glucose) 07/24/2021 Mild persistent asthma without complication 03/23/2019 Abnormal CXR 03/23/2019 Leg swelling 01/28/2018 Hidradenitis 11/14/2016 Mixed hyperlipidemia 04/18/2015 Polycythemia 02/27/2015 Thyroid nodule 12/24/2010 Depression 11/19/2010 Past Surgical History: Procedure Laterality Date BREAST BIOPSY Bilateral 2022 PROCEDURE: BX BREAST; PERC NEEDLE CORE W/IMAG GUID CARDIAC CATHETERIZATION DONE ON 03/22/2025 AT [facility] INDICATIONS: Chest tightness and Shortness of breath. OTHER SURGICAL HISTORY PROCEDURE: IA ADENOIDECTOMY PRIMARY AGE 13/> TUBAL LIGATION PROCEDURE: HISTORICAL TUBAL LIGATION SOCIAL HISTORY: Social History Tobacco Use Smoking status: Every Day Current packs/day: 1.00 Types: Cigarettes Smokeless tobacco: Never Substance Use Topics Alcohol use: No FAMILY HISTORY: Family History Problem Relation Name Age of [...] Aunt m maternal, ovarian cancer, passed from [place] Family Status Relation Name Status Mother Alive Father Alive Sister Alive MGM MGF PGM Alive PGF Aunt m No partnership data on file MEDICATIONS DISCONTINUED/REORDERED: There are no discontinued medications. ACTIVE MEDICATIONS: Outpatient Medications Marked as Taking for the 05/02/25 encounter (Consult) with Norma Vee MD Medication Sig Dispense Refill albuterol HFA (Ventolin HFA) 90 mcg/actuation inhaler Inhale 2 puffs by mouth every 4 (four) hours if needed for wheezing. 6.7 g 11 Allergy Relief, cetirizine, 10 mg tablet Take 1 tablet by mouth once daily 90 tablet 0 atorvastatin (LIPITOR) 40 mg tablet Take 1 tablet (40 mg total) by mouth 1 (one) time each day. 30 each 11 fluticasone furoate-vilanteroL (Breo Ellipta) 100-25 mcg/dose inhaler Inhale 1 puff by mouth 1 (one) time each day. 1 each 12 furosemide (LASIX) 20 mg tablet Take 1 tablet (20 mg total) by mouth 1 (one) time each day. 90 tablet 3 hydrOXYzine HCL (ATARAX) 10 mg tablet Take 1 tablet (10 mg total) by mouth 3 (three) times a day ifneeded. ipratropium-albuteroL (DUONEB) 0.5-2.5 mg/3 mL nebulizer solution Take 3 mL by nebulization every 6(six) hours. 360 mL 1 lactulose (CHRONULAC) solution Take 30 mL (20 g total) by mouth 1 (one) time each day. Take 30 mL by mouth daily. 900 mL 11 sertraline (ZOLOFT) 25 mg tablet Take 0.5 tablets (12.5 mg total) by mouth 1 (one) time each day. ALLERGIES: No Known Allergies PHYSICAL EXAM: Visit Vitals BP 91/54 Pulse 74 Resp 13 Ht 1.702 m (67 ) Wt 81.2 kg (179 lb) BMI 28.04 kg/m?? OB Status Perimenopausal Smoking Status Every Day BSA 1.93 m?? APPEARANCE: Alert and in no acute distress EYES: EOMI HEART: RRR with normal S1 and S2, no murmurs, no gallops, NECK: Thyroid is palpable. no adenopathy. LUNG: clear to auscultation ABDOMEN: Soft, non-tender NEURO: Awake, alert. LABS: Lab Results Component Value Date TSH 0.68 04/11/2025 No results found for: FT4 IMAGING: @VALERIA@ IMPRESSION: 1. Thyroid nodule PLAN: Had a detailed discussion, has a h/o thyroid nodule? Last US 6 years ago did not show any nodules. Plan to repeat US thyroid, discussed possible results and plan afterwards. All questions answered. Medication and lab orders: Orders Placed This Encounter Procedures US Head Neck Soft Tissue Other orders: AMB REFERRAL TO ENDOCRINOLOGY US HEAD NECK SOFT TISSUE Norma Vee MD on 05/02/2025 at 8:51 AM EDT documented in this encounter Plan of Treatment Upcoming Encounters Date Type Department Care Team (Late st Contact Info) Description 06/07/2025 7:00 AM EDT Ancillary Procedure [facility] [address] [place] [address] [place] [phone] 06/09/2025 1:15 PM EDT Office Visit Adult Medicine [facility] [address] [place] [id number] Ping King PA [address] [place] [phone] 08/04/2025 10:15 AM EST Appointment [facility] [address] [place] [address] Scheduled Orders Name Type Priority Associated Diagnoses Orde r Schedule US Head Neck Soft Tissue Imaging Routine Thyroid nodule Expected: 11/12/2025, Expires: 05/13/2026 documented as of this encounter Results * US Head Neck Soft Tissue (05/02/2025 5:02 PM EDT) Anatomical Region Laterality Modality Head and Neck Ultrasound 05/02/2025 5:10 PM EDT Narrative 05/02/2025 5:12 PM EDT Thyroid ultrasound. HISTORY: Rule out thyroid nodule. Comparison with previous study from 05/12/2019. Thyroid gland was visualized with normal flow on color Doppler examination and normal echogenicity. Right thyroid lobe measures 5 x 1.6 x 1.7 cm. There is circumscribed mixed echogenicity nodule in the upper pole measuring 0.5 x 0.3 x 0.4 cm. There is arm hypoechoic nodule in the lower pole measuring 0.3 x 0.4 x 0.3 cm. Left thyroid lobe was visualized measuring 5.2 x 1.3 x 1.6 cm. No focal abnormalities were identified in the left thyroid lobe. Isthmus measures 5 mm. CONCLUSIONS: 2 small nodules in the right thyroid lobe as detailed, new since previous study. -------- FINAL REPORT -------- Dictated By: Eli Mortensen Dictated Date: 05/02/2025 17:10 ET Assigned Physician: Eli Mortensen Reviewed and Electronically Signed By: Eli Mortensen Signed Date: 05/02/2025 17:12 ET Workstation ID: [id number] Transcribed By: Self Edit Transcribed Date: 05/02/2025 17:10 ET Procedure Note Eli Mortensen MD - 05/02/2025 Thyroid ultrasound. HISTORY: Rule out thyroid nodule. Comparison with previous study from 05/12/2019. Thyroid gland was visualized with normal flow on color Doppler examinationand normal echogenicity. Right thyroid lobe measures 5 x 1.6 x 1.7 cm. There is circumscribed mixedechogenicity nodule in the upper pole measuring 0.5 x 0.3 x 0.4 cm. Thereis arm hypoechoic nodule in the lower pole measuring 0.3 x 0.4 x 0.3 cm. Left thyroid lobe was visualized measuring 5.2 x 1.3 x 1.6 cm. No focalabnormalities were identified in the left thyroid lobe. Isthmus measures 5 mm. CONCLUSIONS: 2 small nodules in the right thyroid lobe as detailed, newsince previous study. -------- FINAL REPORT -------- Dictated By: Eli Mortensen Dictated Date: 05/02/2025 17:10 ET Assigned Physician: Eli Mortensen Reviewed and Electronically Signed By: Eli Mortensen Signed Date: 05/02/2025 17:12 ET Workstation ID: [id number] Transcribed By: Self Edit Transcribed Date: 05/02/2025 17:10 ET us Norma Vee MD IMG US PROCEDURES Final Result documented in this encounter Visit Diagnoses Diagnosis Thyroid nodule Nontoxic uninodular goiter Thyroid nodule Nontoxic uninodular goiter documented in this encounter Orders Outpatient Referral Count Last Ordered Date Fir st Ordered Date AMB REFERRAL TO ENDOCRINOLOGY 1 05/02/2025 documented in this encounter Additional Health Concerns Assessment Noted Time PHQ-9 Depression Total Score: 17 025 9:25 AM EDT documented as of this encounter Care Teams Telephone Operators Supervisor Relationship Specialty Start Date End Date Jerod Lopez PA [address] [place] [address] PCP - General Internal Medicine 07/24/21 documented as of this encounter
--- NOTE | 2025-05-16 | ECG_ITS ---
Test Reason : SOB Blood Pressure : */* mmHG Vent. Rate : 62 BPM Atrial Rate : 62 BPM P-R Int : 194 ms QRS Dur : 96 ms QT Int : 444 ms P-R-T Axes : 47 79 40 degrees QTcB Int : 450 ms Normal sinus rhythm Normal ECG When compared with ECG of 12-Apr-2025 04:00, No significant change was found Referred By: Alisha Woodall Electronically Signed By: El Newell
--- NOTE | ~2025-05-16 | XR_ITS ---
CLINICAL HISTORY: cough Chest radiograph AP view Comparison: CR/SR - XR CHEST 2 VIEWS - 04/12/25 09:15 EDT Findings: Cardiomediastinal silhouette normal. No consolidations. No pleural effusion. No pneumothorax. No acute fracture. Soft tissue is unremarkable. Impression: No acute cardiopulmonary finding. This document has been electronically signed by: Nila Caba MD on 05/16/2025 08:14:31
[2025-05-16 06:57] VITALS: BP 113/65; PULSE 69; RESP 18; TEMP 36.1; O2SAT 98; BMI 30.2
--- OUTSIDE RECORDS SUMMARY | 2025-05-16 07:10 | XMS_ITS | Clinical Summary ---
Author Organization [facility] Address [address] [place] [address] Phone Care Team Providers Care Childcare Aide Name Role Phone Jerod Lopez Primary Care Provider [phone] Allergies No known active allergies Medications hydrOXYzine HCL (ATARAX) 10 mg tablet Take 1 tablet (10 mg total) by mouth 3 (three) times a day if needed. 07/15/20 23 Active lactulose (CHRONULAC) solution Take 30 mL (20 g total) by mouth 1 (one) time each day. Take 30 mL by mouth daily. 900 mL 11 02/02/20 25 Active albuterol HFA (Ventolin HFA) 90 mcg/actuation inhaler Inhale 2 puffs by mouth every 4 (four) hours if needed for wheezing. 6.7 g 11 02/02/20 25 Active doxycycline (VIBRAMYCIN) 50 mg capsule Take 1 capsule (50 mg total) by mouth 2 (two) times a day. 180 capsule 02/02/20 25 Active Additional Information Patient not taking.Reported on 05/02/2025 fluticasone furoate-vilan teroL (Breo Ellipta) 100-25 mcg/dose inhaler Inhale 1 puff by mouth 1 (one) time each day. 1 each 12 02/02/20 25 05 026 Active furosemide (LASIX) 20 mg tablet Take 1 tablet (20 mg total) by mouth 1 (one) time each day. 90 tablet 3 02/02/20 25 Active atorvastatin (LIPITOR) 40 mg tablet Take 1 tablet (40 mg total) by mouth 1 (one) time each day. 30 each 11 03/14/20 25 026 Active ipratropium-a lbuteroL (DUONEB) 0.5-2.5 mg/3 mL nebulizer solutionIndic ations:SOB (shortness of breath) Take 3 mL by nebulization every 6 (six) hours. 360 mL 1 03/14/20 25 026 Active blood pressure test kit-medium (WatchBP Home BP Monitor) kit 1 kit 1 (one) time each day if needed (symptoms). 1 kit 05/03/20 25 Active cetirizine (Allergy Relief, cetirizine,) 10 mg tablet Take 1 tablet (10 mg total) by mouth 1 (one) time each day. 90 tablet 1 05/06/20 25 Active triamcinolone (NASACORT) 55 mcg nasal inhaler USE 2 SPRAY(S) INTRANASALLY ONCE DAILY 51 g 1 05/06/20 25 Active tamoxifen (NOLVADEX) 10 mg tablet 06/03/20 24 025 Discontinued(N on-compliance) inhalational spacing device (Aerochamber MV) inhaler Use as instructed 1 each 02/02/20 25 025 Discontinued(N on-compliance) Allergy Relief, cetirizine, 10 mg tablet Take 1 tablet by mouth once daily 90 tablet 02/26/20 25 025 Discontinued(R eorder) umeclidinium (Incruse Ellipta) 62.5 mcg/actuation inhalationInd ications:SOB (shortness of breath) Inhale 1 puff by mouth 1 (one) time each day. 3 each 4 03/14/20 25 025 Discontinued(A lternate therapy) Symbicort 160-4.5 mcg/actuation inhaler INHALE 2 PUFFS BY MOUTH EVERY 12 HOURS 11 g 03/17/20 25 025 Discontinued(T herapy completed) triamcinolone (NASACORT) 55 mcg nasal inhaler USE 2 SPRAY(S) INTRANASALLY ONCE DAILY 51 g 03/23/20 25 025 Discontinued(R eorder) sertraline (ZOLOFT) 25 mg tablet Take 1 tablet (25 mg total) by mouth 1 (one) time each day. 30 each 5 04/14/20 25 025 Discontinued sertraline (ZOLOFT) 25 mg tablet Take 0.5 tablets (12.5 mg total) by mouth 1 (one) time each day. 04/28/20 25 025 Discontinued(P rescriber Discontinued) Active Problems Problem Noted Date Diagnosed Date Frontoparietal cerebral atrophy (CMS/HCC V24) Vision disturbance 04/28/2025 Current every day smoker 04/28/2025 Coronary artery disease invo lving [place] coronary artery of [place] heart without angina pectoris 04/19/2025 Overview (04/19/2025): - cardiac catheterization 03/22/2025 which showed ostial left main 30%, minimal luminal regularities of the LAD and circumflex, mid RCA mid subsection 40% stenosis, therefore no obstructive cardiac lesions to explain her symptoms and recommendation for evaluation of non-cardiac symptoms. Assessment & Plan (04/19/2025 1:14 PM EDT): The patient continues with constant chest discomfort. Her cardiac catheterization does not show any obstructive CAD. She does have measurable CAD despite her young age, likely combination of her hyperlipidemia and smoking. We discussed this today. We discussed how smoking affects her vasculature and as always, the recommendation for smoking cessation. Once her anxiety is improved, she certainly has the goal to quit smoking. I commended her for any effort towards reducing her smoking. In terms of her hyperlipidemia, we discussed how medications like her atorvastatin help to reduce plaque and protect her blood vessels. After she left the office, I noticed that her lipid profile is outdated. I have sent her a Consumer Agent Portal (CAP) message requesting that she update her cholesterol at her convenience. It does not have to be fasting as we can measure her direct LDL. Would consider noncardiac causes of her chest discomfort aside from her anxiety. Certainly, her anxiety could explain her discomfort in her chest. Hopefully, with longer duration on her Zoloft and her therapy, her symptoms improve. Should they not, would recommend PCP evaluation and consideration for other etiologies. Chest pressure 03/14/2025 Overview (04/19/2025): Non-cardiac Nonobstructive CAD on cardiac catheterization Assessment & Plan (04/19/2025 1:12 PM EDT): See below under CAD Claudication (CMS/HCC V24) 03/14/2025 History of smoking 03/14/2025 Chronic shortness of breath 03/08/2025 Mass of lower inner quadrant of left breast 09/15 IFG (impaired fasting glucose) 07/24/2021 Mild persistent asthma without complication 05/2019 Abnormal CXR 03/23/2019 Leg swelling 01/28/2018 Hidradenitis 11/14/2016 Mixed hyperlipidemia 04/18/2015 Overview (04/19/2025): Goal LDL less than 70, closer to 55 if able Assessment & Plan (04/19/2025 1:15 PM EDT): The patient does have nonobstructive CAD at a young age. As such, would be aggressive and modifying her cholesterol. She is on moderate to high intensity statin with Lipitor 40 mg daily. I noticed after she left our office visit today that her cholesterol profile is outdated. Have asked that she update her cholesterol profile as soon as she can. Certainly, would drive her LDL as close to 70 as possible, ideally less than 55 has been shown through the literature to be helpful in mitigating future coronary events. Polycythemia 02/27/2015 Thyroid nodule 12/24/2010 Depression 11/19/2010 Encounters Date Type Department Care Team Description 05/10/2025 9:00 AM EDT Ancillary Procedure [facility] - [address] [place] [address] Palpitations 05/02/2025 4:52 PM EDT - 05/02/2025 11:59 PM EDT Hospital Encounter Radiology Department - [facility] [address] [place] [phone] Thyroid nodule Discharge Disposition: Home or Self Care 05/02/2025 8:30 AM EDT Consult Endocrinology - [address] [phone] Laurence Vee MD Thyroid nodule 04/29/2025 Telephone [facility] - [facility] [address] [facility] 154 [place] [phone] Moises Finley MD 04/29/2025 Telephone Adult [address] [phone] Jerod Lopez, PA 04/28/2025 9:30 AM EDT Office Visit [address] [phone] Luci Mcmahan PA Throat irritation (Primary Dx); Dysphagia, unspecified type; Current every day smoker; Mild persistent asthma without complication; Chronic obstructive pulmonary disease, unspecified COPD type (CMS/HCC V24, CMS/HCC V28); Vision disturbance; Frontoparietal cerebral atrophy (CMS/HCC V24); Anxiety and depression 04/27/[address] [phone] Jerod Lopez PA 04/19/2025 12:40 PM EDT Office Visit [facility] [address] [facility] 102 [place] [phone] Keren Ortega NP Mixed hyperlipidemia (Primary Dx); Coronary artery disease involving [place] coronary artery of [place] heart without angina pectoris; Chest pressure 04/14/2025 8:30 AM EDT Office Visit [address] [phone] Ping King PA Anxiety and depression (Primary Dx) 04/13[facility]20[facility] 200 [place] [phone] Madeleine Pizano NP 04/11/2025 Nurse Triage [address] [phone] Jerod Lopez LUCILA 04/08/2025 Telephone [facility]monolgy - [place] [address] [phone] Madeleine Pizano NP 03/25/2025 Telephone [facility] - [place] [address] [phone] Mariam Doll [place] 03/24/2025 Telephone [facility] - [place] [address] [phone] Madeleine Pizano NP 03/23/2025 Telephone Adult Medicine [address] [phone] Jerod Lopez PA 03/23/2025 Telephone [facility]mon[facility] - [place] [address] [phone] Madeleine Pizano NP 03/16/2025 Telephone [facility] - [place] [address] [phone] Mariam Doll [place] 03/14/2025 3:10 PM EDT Consult Pulmonol - [address] [phone] Madeleine Pizano, DENYS SOB (shortness of breath) (Primary Dx); Unilateral emphysema (CMS/HCC V24, CMS/HCC V28); Polycythemia; History of smoking; Overweight (BMI 25.0-29.9) 03/14/2025 12:30 PM EDT Clinical Support [address] [address] SOB (shortness of breath) 03/14/2025 11:30 AM EDT Lab Draw Station - [address] Mixed hyperlipidemia; Chronic shortness of breath; Chest pressure; Claudication (CMS/HCC V24); History of smoking; SOB (shortness of breath); Impaired fasting blood sugar 03/14/2025 8:20 AM EDT Office Visit [facility] - [address] [place] [phone] Moises Finley MD Chest pressure (Primary Dx); Mixed hyperlipidemia; Chronic shortness of breath; Claudication (CMS/HCC V24); History of smoking 03/14/2025 Telephone [facility] [address] [place] [phone] Moises Finley MD 02/18/2025 12:21 PM EDT - 02/18/2025 11:59 PM EDT Hospital Encounter [facility] [address] [place] [address] Discharge Disposition: Home or Self Care 02/14/2025 Telephone Adult Medicine [facility] [address] [place] [address] Jerod Lopez, PA 02/14/[address] [facility] [address] [place] [phone] Jerod Lopez, PA from Last 3 Months Immunizations Name Administration Dates Next Due Hepatitis B ([id number]-Afbxb , Recombivax HB-Adult) 19yo and older 11/22/2010 [...] HISTORICAL TUBAL LIGATION OTHER SURGICAL HISTORY PROCEDURE: MT ADENOIDECTOMY PRIMARY AGE 13/> BREAST BIOPSY 2022 Bilateral PROCEDURE: BX BREAST; PERC NEEDLE CORE W/IMAG GUID CARDIAC CATHETERIZATION DONE ON 03/22/2025 AT [facility] INDICATIONS: Chest tightness and Shortness of breath. Medical History Medical History Date Comments Tobacco abuse 02/06/2010 DX:Tobacco abuse Depression DX:Depression COPD (chronic obstructive pu lmonary disease) ([facility] V24, [facility] V28) Family History Medical History Relation Name Comments Breast cancer Aunt m Ovarian cancer Aunt m maternal, ova ramiro cancer, passed from [place] Coronary artery disease Father CABG at age [...] care for your loved ones. For example, director child or elderly care for an older adult? [...] Orientation Straight 05/03/2025 2: 38 PM EDT Obstetrics History Last Filed Vital Signs Vital Sign Reading Time Taken Comments Blood Pressure 91/54 05/02/2025 8:26 AM EDT Pulse 74 05/02/2025 8:26 AM EDT Temperature 36.6 C (97.8 F) 04/28/2025 9:25 AM EDT Respiratory Rate 13 05/02/2025 8:26 AM EDT Oxygen Saturation 97% 04/28/2025 9:25 AM EDT Inhaled Oxygen Concentration - - Weight 81.2 kg (179 lb) 05/02/2025 8:26 AM EDT Height 170.2 cm (5' 7 ) 05/02/2025 8:26 AM EDT Body Mass Index 28.04 05/02/2025 8:26 AM EDT Plan of Treatment Upcoming Encounters Date Type Department Care Team (Late st Contact Info) Description 06/07/2025 7:00 AM EDT Ancillary Procedure [facility] - [address] [place] [phone] 06/09/2025 1:15 PM EDT Office Visit Adult Medicine [facility] [address] [place] [address] Ping King PA [address], [place] 08/04/2025 10:[address] [facility] [address] [place] [phone] Health Maintenance Due Date Last Done Comments Hepatitis B Vaccines (2 of 3 - 19+ 3-dose series) 12/20/2010 11/22/2010 Pneumococcal Vaccine: Pediatrics (0 to 5 Years) and At-Risk Patients (6 to 49 Years) (2 of 2 - PPSV23) 08/02/2019 06/07/2019 Cervical Cancer Screening: Pap Smear 01/10/2022 01/10/2017, 01/10/2017 Colorectal Cancer Screening: Colonoscopy 08/14/2022 HIV Screening 08/14/2022 Hepatitis C Screening 08/14/2022 COVID-19 Vaccine ( season) 2024 Breast Cancer Screening 02/04/2025 02/05/20 24, 02/05/2024, 08/06/2023, Additional history exists Influenza Vaccine (#1) 2025 , 06/07/2019, 08/31/2018, Additional history exists Hypertension/CHF/CAD Annual BMP Blood Test 04/11/2026 04/11/2025, 03/14/2025, 01/21/2025, Additional history exists Social Influencers of Health Screening 04/28/2026 04/28/2025 Cholesterol Screening (Lipid Panel) 07/15/2028 07/15/2023 DTaP,Tdap,and Td Vaccines (3 - Td or Tdap) 07/21/2030 07/21/2020, 02/06/2010 Depression Screening Completed 04/28/2025 HIB Vaccines Aged Out No longer eligi [...] Procedure Name Priority Date/Time Associated Diagnosis Comments US HEAD NECK SOFT TISSUE Routine 05/02/2025 5:02 PM EDT Thyroid nodule CBC WITH AUTO DIFFERENTIAL Routine 04/11/2025 2:50 PM EDT Thyroid nodule Polycythemia Mixed hyperlipidemia Mild persistent asthma without complication Chronic shortness of breath CBC AND DIFFERENTIAL Routine 04/11/2025 2:50 PM EDT Thyroid nodule Polycythemia Mixed hyperlipidemia Mild persistent asthma without complication Chronic shortness of breath COMPREHENSIVE METABOLIC PANEL Routine 04/11/2025 2:50 PM EDT Thyroid nodule Polycythemia Mixed hyperlipidemia Mild persistent asthma without complication Chronic shortness of breath VITAMIN B12 Routine 04/11/2025 2:50 PM EDT Thyroid nodule Polycythemia Mixed hyperlipidemia Mild persistent asthma without complication Chronic shortness of breath VITAMIN D 25 HYDROXY Routine 04/11/2025 2:50 PM EDT Thyroid nodule Polycythemia Mixed hyperlipidemia Mild persistent asthma without complication Chronic shortness of breath IRON AND TIBC Routine 04/11/2025 2:50 PM EDT Thyroid nodule Polycythemia Mixed hyperlipidemia Mild persistent asthma without complication Chronic shortness of breath MAGNESIUM Routine 04/11/2025 2:50 PM EDT Thyroid nodule Polycythemia Mixed hyperlipidemia Mild persistent asthma without complication Chronic shortness of breath ESTRADIOL Routine 04/11/2025 2:50 PM EDT Menopause TESTOSTERONE, TOTAL Routine 04/11/2025 2 :50 PM EDT Menopause LUTEINIZING HORMONE Routine 04/11/2025 2 :50 PM EDT Menopause FOLLICLE STIMULATING HORMONE Routine 04/11/2025 2:50 PM EDT Menopause THYROID STIMULATING HORMONE WITH REFLEX TO FREE T4 AND FREE T3 Routine 04/11/2025 2:50 PM EDT Menopause PROLACTIN Routine 04/11/2025 2:50 PM EDT Menopause OVERNIGHT PULSE OXIMETRY Routine 03/17/2025 12:00 AM [...] 1:34 PM EDT SOB (shortness of breath) DIAGNOSTIC MAMMOGRAPHY INCLUDING CAD BILATERAL Routine 02/05/2024 3:49 PM EDT Other abnormal and inconclusive findings on diagnostic imaging of breast LIPID PANEL Routine 07/15/2023 HM HPV Routine 01/10/2017 from Last 3 Months or Most Recently Relevant to Health Maintenance Results * US Head Neck Soft Tissue [...] Signed Date: 05/02/2025 17:12 ET Workstation ID: [id number] Transcribed By: Self Edit Transcribed Date: 05/02/2025 [...] Signed Date: 05/02/2025 17:12 ET Workstation ID: [id number] Transcribed By: Self Edit Transcribed Date: 05/02/2025 17:10 ET Laurence Vee MD IMG US PROCEDURES Final Result * Thyroid stimulating hormone with reflex to free t4 and free t3 (04/11/2025 2:50 PM EDT) TSH 0.68 0.40 - 4.00 mcIU/mL LAB CHEMISTRY METHOD 04/11/2025 8:35 PM EDT [facility] Blood Venous blood specimen / Unknown Venipuncture / Unknown 04/11/2025 2:50 PM EDT 04/11/2025 2:50 PM EDT Jerod GAYTAN LAB BLOOD ORDERABLES [place] hernadez Result [facility] [address] [place] [address], [place] [phone] * CBC auto differential (04/11/2025 2:50 PM EDT) Only the most recent of2 resultswithin the time period is included. [facility] Signature WBC 7.1 4.8 - 10.8 K/mcL LAB HEMETOLOGY METHOD 04/11/2025 4:21 PM EDT [facility] RBC 4.70 3.80 - 4.80 M/mcL LAB [facility] Hemoglobin 14.3 11.5 - 16.0 g/dL LAB HEMETOLOGY METHOD 04/11/2025 4:21 PM [facility] Hematocrit 42.0 35.0 - 47.0 % LAB HEMETOLOGY METHOD 04/11/2025 4:21 PM [facility] MCV 90.3 79.0 - 98.0 FL LAB HEMETOLOGY METHOD [facility]2025 [facility] MCH 30.8 27.0 - 32.0 pcg LAB HEMETOLOGY METHOD 04/11/2025 4:21 PM [facility] MCHC 34.0 32.0 - 37.0 g/dL LAB HEMETOLOGY METHOD 04/11/2025 4:21 PM [facility] RDW 13.1 11.0 - 15.0 % LAB HEMETOLOGY METHOD 04/11/2025 4:21 PM [facility] Platelets 290 130 - 400 K/mcL LAB HEMETOLOGY METHOD 04/11[facility]2025 4[facility] MPV 10.6 7.0 - 11.0 FL LAB HEMETOLOGY METHOD 04/11/2025 4:[facility] NRBC 0.0 <1.0 % LAB HEMETOLOGY METHOD 04/11/2025 4:21 PM [facility] NRBC Absolute 0.00 <0.10 K/mcL LAB HEMETOLOGY METHOD 04/11/2025 4:21 PM [facility] Neutrophils Relative 49.6 % LAB HEMETOLOGY METHOD 04/11/2025 4:21 PM [facility] Lymphocytes Relative 38.5 % LAB HEMETOLOGY METHOD 04/11/2025 4:21 PM [facility] Monocytes Relative 8.0 % LAB HEMETOLOGY METHOD 04/11/2025 4:21 PM [facility] Eosinophils Relative 1.8 % LAB HEMETOLOGY METHOD 04/11/2025 4:21 PM [facility] Basophils Relative 1.8 % LAB HEMETOLOGY METHOD 04/11/2025 4:21 PM [facility] Immature Granulocytes Relative 0.3 % LAB HEMETOLOGY METHOD 04/11/2025 4:21 PM [facility] Neutrophils Absolute 3.51 1.50 - 7.00 K/mcL LAB HEMETOLOGY METHOD 04/11/2025 4:21 PM [facility] Lymphocytes Absolute 2.73 1.00 - 5.00 K/mcL LAB HEMETOLOGY METHOD 04/11/2025 4:21 PM [facility] Monocytes Absolute 0.57 0.20 - 1.00 K/mcL LAB HEMETOLOGY METHOD 04/11/2025 4:21 PM [facility] Eosinophils Absolute 0.13 0.00 - 0.50 K/mcL LAB HEMETOLOGY METHOD 04/11/2025 4:21 PM [facility] Basophils Absolute 0.13 0.00 - 0.20 K/mcL LAB HEMETOLOGY METHOD 04/11/2025 4:21 PM [facility] Immature Granulocytes Absolute 0.02 0.00 - 0.03 K/mcL LAB HEMETOLOGY METHOD 04/11/2025 4:21 PM EDT [facility] Blood Venous blood specimen / Unknown Venipuncture / Unknown 04/11/2025 2:50 PM EDT 04/11/2025 2:50 PM EDT Jerod GAYTAN LAB BLOOD ORDERABLES [place] l Result [facility] [address] [place] [address], [place] [phone] * Iron and TIBC (04/11/2025 2:50 PM EDT) [facility] Iron 68 40 - 150 mcg/dL LAB CHEMISTRY METHOD 04/11/2025 7:22 PM EDT [facility] TIBC 259 250 - 450 mcg/dL LAB CHEMISTRY METHOD 04/11/2025 7:22 PM EDT [facility] Iron Saturation 26 15 - 50 % LAB CHEMISTRY METHOD 04/11/2025 7:22 PM EDT [facility] Blood Venous blood specimen / Unknown Venipuncture / Unknown 04/11/2025 2:50 PM EDT 04/11/2025 2:50 PM EDT Jerod GAYTAN LAB BLOOD ORDERABLES [place] l Result Performing Organization Address City/[facility]/ZIP Co de Phone Number [facility] [address] [place] [address], [place] [phone] * Vitamin D 25 hydroxy (04/11/2025 2:50 PM EDT) Vit D, 25-Hydroxy 40.7 30.0 - 80.0 ng/mL LAB CHEMISTRY METHOD 04/11/2025 8:34 PM EDT [facility] Blood Venous blood specimen / Unknown Venipuncture / Unknown 04/11/2025 2:50 PM EDT 04/11/2025 2:50 PM EDT Jerod GAYTAN LAB BLOOD ORDERABLES [place] l Result Performing Organization Address [facility]/ZIP Co de Phone Number [facility] [address] [place] [address], [place] [phone] * Prolactin (04/11/2025 2:50 PM EDT) [facility] Prolactin 10.00 See Comment ng/mL LAB CHEMISTRY METHOD 04/11/2025 7:22 PM EDT [facility] Comment: Prolactin Reference Ranges (ng/mL) Non 2.2 - 30.3 8.1 - 347.6 Postmenopausal 0.7 - 31.5 Blood Venous blood specimen / Unknown Venipuncture / Unknown 04/11/2025 2:50 PM EDT 04/11/2025 2:50 PM EDT Jerod GAYTAN LAB BLOOD ORDERABLES [place] l Result Performing Organization Address [facility]/ZIP Co de Phone Number [facility] [address] [place] [address], [place] [phone] * Estradiol (04/11/2025 2:50 PM EDT) [facility] Estradiol 36 See below pcg/mL LAB CHEMISTRY METHOD 04/11/2025 7:22 PM EDT [facility] Comment: ESTRADIOL REFERENCE RANGES (PG/ML) FEMALES NORMALLY MENSTRUATING: FOLLICULAR PHASE 21.4 - 164.8 MIDCYCLE PEAK 49.9 - 367.2 LUTEAL PHASE 40.2 - 259.0 POSTMENOPAUSAL: ON HRT <11 - 462.1 UNTREATED <11 - 58.3 Fulvestrant has been shown to cross-react with the estradiol assay and cause falsely elevated results. For patients being treated with fulvestrant, Estradiol ultrasensitive should be ordered. This test is performed by LC/MS and is not expected to show cross reactivity to fulvestrant. Blood Venous blood specimen / Unknown Venipuncture / Unknown 04/11/2025 2:50 PM EDT 04/11/2025 2:50 PM EDT [facility] Cassie Lopez [place] LAB BLOOD ORDERABLES [place] l Result Performing Organization Address City/[facility]/ZIP Co de Phone Number [facility] [address] [place] [address], [place] [phone] * Testosterone, total (04/11/2025 2:50 PM EDT) Testosterone 24 9 - 48 ng/dL LAB CHEMISTRY METHOD 04/11/2025 8:34 PM EDT [facility] Blood Venous blood specimen / Unknown Venipuncture / Unknown 04/11/2025 2:50 PM EDT 04/11/2025 2:50 PM EDT [facility] Cassie Lopez [place] LAB BLOOD ORDERABLES [place] l Result Performing Organization Address [facility]/ZIP Co de Phone Number [facility] [address] [place] [address], [place] [phone] * Magnesium (04/11/2025 2:50 PM EDT) Pathologist [facility] Magnesium 2.1 1.9 - 2.6 mg/dL LAB CHEMISTRY METHOD 04/11/2025 7:00 PM EDT [facility] Blood Venous blood specimen / Unknown Venipuncture / Unknown 04/11/2025 2:50 PM EDT 04/11/2025 2:50 PM EDT [facility] Cassie Lopez [place] LAB BLOOD ORDERABLES [place] l Result [facility] [address] [place] [address], [place] [phone] * Luteinizing hormone (04/11/2025 2:50 PM EDT) Pathologist [facility] Luteinizing Hormone 6.3 See Comment mIU/mL LAB CHEMISTRY METHOD 04/11/2025 7:22 PM EDT [facility] Blood Venous blood specimen / Unknown Venipuncture / Unknown 04/11/2025 2:50 PM EDT 04/11/2025 2:50 PM EDT Narrative [facility] - 04/11/2025 7:22 PM EDT LH REFERENCE RANGES (MIU/ML) FEMALES NORMALLY MENSTRUATING: FOLLICULAR PHASE 1.9 - 12.8 MIDCYCLE PEAK 22.8 - 76.1 LUTEAL PHASE 0.6 - 13.5 POSTMENOPAUSAL: ON HRT 1.1 - 52.4 UNTREATED 8.6 - 61.8 Jerod GAYTAN LAB BLOOD ORDERABLES [place] l Result Performing Organization Address City/[facility]/ZIP Co de Phone Number [facility] [address] [place] [address], [place] [phone] * Follicle stimulating hormone (04/11/2025 2:50 PM EDT) [facility] Children Follicle Stimulating Hormone 9.5 See Comment mIU/mL LAB CHEMISTRY METHOD 04/11/2025 7:22 PM EDT [facility] Comment: FSH REFERENCE RANGES (MIU/ML) FEMALES NORMALLY MENSTRUATING: FOLLICULAR PHASE 2.3 - 12.6 MIDCYCLE PEAK 5.2 - 17.5 LUTEAL PHASE 1.7 - 9.5 POSTMENOPAUSAL: ON HRT 5.9 - 72.8 UNTREATED 12.7 - 132.2 Blood Venous blood specimen / Unknown Venipuncture / Unknown 04/11/2025 2:50 PM EDT 04/11/2025 2:50 PM EDT Jerod GAYTAN LAB BLOOD ORDERABLES [place] l Result Performing Organization Address City/[facility]/ZIP Co de Phone Number [facility] [address] [place] [address], [place] [phone] * Vitamin B12 (04/11/2025 2:50 PM EDT) Pathologist [facility] Vitamin B-12 646 250 - 900 pcg/mL LAB CHEMISTRY METHOD 04/11/2025 7:22 PM [facility] Blood Venous blood specimen / Unknown Venipuncture / Unknown 04/11/2025 2:50 PM EDT 04/11/2025 2:50 PM EDT Jerod GAYTAN LAB BLOOD ORDERABLES India l Result [facility] [address] [place] [address], [place] [phone] * (ABNORMAL) Comprehensive metabolic panel (04/11/2025 2:50 PM EDT) [facility] Sodium 138 133 - 145 mmol/L LAB CHEMISTRY METHOD 04/11/2025 7:22 PM [facility] Potassium 4.0 3.5 - 5.5 mmol/L LAB CHEMISTRY METHOD 04/11/2025 7:22 PM [facility] Chloride 106 96 - 110 mmol/L LAB CHEMISTRY METHOD 04/11/2025 7:22 PM [facility] CO2 28 21 - 32 mmol/L LAB CHEMISTRY METHOD 04/11/2025 7:22 PM [facility] Anion Gap 4 3 - 11 LAB CHEMISTRY METHOD 04/11/2025 7:22 PM [facility] Glucose 122(H) 70 - 100 mg/dL LAB CHEMISTRY METHOD 04/11/2025 7:22 PM [facility] BUN 10 5 - 25 mg/dL LAB CHEMISTRY METHOD 04/11/2025 7:22 PM [facility] Creatinine 0.84 0.50 - 1.10 mg/dL LAB CHEMISTRY METHOD [facility] e[facility] 85 >=60 mL/min/1. 73m2 LAB CHEMISTRY METHOD 04/11/2025 7:22 PM [facility] Comment:Calculation based on the Chronic Kidney Disease Epidemiology Collaboration (CKD-EPI) equation refit without adjustment for race. BUN/Creatinine Ratio 11.9 LAB CHEMISTRY METHOD 04/11/2025 7:22 PM [facility] Calcium 9.4 8.5 - 10.5 mg/dL LAB CHEMISTRY METHOD 04/11/2025 7:22 PM [facility] AST (SGOT) 5(L) 10 - 42 unit/L LAB CHEMISTRY METHOD 04/11/2025 7:22 PM [facility] ALT (SGPT) 26 10 - 60 unit/L LAB CHEMISTRY METHOD 04/11/2025 7:22 PM [facility] Alkaline Phosphatase 91 42 - 121 unit/L LAB CHEMISTRY METHOD 04/11/2025 7:22 PM [facility] Total Protein 6.8 6.0 - 8.0 g/dL LAB CHEMISTRY METHOD 04/11/2025 7:22 PM [facility] Albumin 3.9 3.2 - 5.0 g/dL LAB CHEMISTRY METHOD 04/11/2025 7:22 PM [facility] Total Bilirubin 0.4 0.0 - 1.4 mg/dL LAB CHEMISTRY METHOD 04/11/2025 7:22 PM [facility] Blood Venous blood specimen / Unknown Venipuncture / Unknown 04/11/2025 2:50 PM EDT 04/11/2025 2:50 PM EDT us Jerod GAYTAN LAB BLOOD ORDERABLES [place] hernadez Result [facility] [address] [place] [address], * Overnight Pulse Oximetry (03/17/2025 12:00 AM EDT) Madeleine iPzano FIRE ALARM TECHNICIAN RESPIRATORY CARE ORDERA BLES Edited Result - [...] for supplemental Oxygen for activity. Madeleine Pizano FIRE ALARM TECHNICIAN IN CLINIC/BEDSIDE ORDER VENKATESH Final Result * Protime-INR (03/14/2025 11:46 AM EDT) [facility] Protime 11.9 10.6 - 13.9 sec LAB COAGULATION METHOD 03/14/2025 3:13 PM EDT [facility] INR 0.9 LAB COAGULATION METHOD 03/14/2025 3:13 PM EDT [facility] Blood Venous blood specimen / Unknown Venipuncture / Unknown 03/14/2025 11:46 AM EDT 03/14/2025 11:46 AM EDT Moises Finley MD LAB BLOOD ORDERABLES Final Resu lt [facility] [address] [place] [address], [place] [phone] * Hemoglobin A1c (03/14/2025 11:46 AM EDT) [facility] Hemoglobin A1C 5.8 <6.5 % LAB CHEMISTRY METHOD 03/14/2025 9:07 PM EDT [facility] Mean Bld Glu Estim. 120 mg/dL LAB CHEMISTRY METHOD 03/14/2025 9:07 PM EDT [facility] Blood Venous blood specimen / Unknown Venipuncture / Unknown 03/14/2025 11:46 AM EDT 03/14/2025 11:46 AM EDT Jerod GAYTAN LAB BLOOD ORDERABLES [place] l Result [facility] [address] [place] [address], * Basic metabolic panel (03/14/2025 11:46 AM EDT) Sodium 139 133 - 145 mmol/L LAB CHEMISTRY METHOD 03/14/2025 3:20 PM [facility] Potassium 3.8 3.5 - 5.5 mmol/L LAB CHEMISTRY METHOD 03/14/2025 3:20 PM [facility] Chloride 104 96 - 110 mmol/L LAB CHEMISTRY METHOD 03/14/2025 3:20 PM [facility] CO2 27 21 - 32 mmol/L LAB CHEMISTRY METHOD 03/14/2025 3:20 PM [facility] Anion Gap 8 3 - 11 LAB CHEMISTRY METHOD 03/14/2025 3:20 PM [facility] Glucose 88 70 - 100 mg/dL LAB CHEMISTRY METHOD 03/14/2025 3:20 PM [facility] BUN 9 5 - 25 mg/dL LAB CHEMISTRY METHOD 03/14/2025 3:20 PM [facility] Creatinine 0.79 0.50 - 1.10 mg/dL LAB CHEMISTRY METHOD 03/14/2025 3:20 PM [facility] eGFR 92 >=60 mL/min/1. 73m2 LAB CHEMISTRY METHOD 03/14/2025 3:20 PM [facility] Comment:Calculation based on the Chronic Kidney Disease Epidemiology Collaboration (CKD-EPI) equation refit without adjustment for race. BUN/Creatinine Ratio 11.4 LAB CHEMISTRY METHOD 03/14/2025 3:20 PM EDT [facility] Calcium 8.7 8.5 - 10.5 mg/dL LAB CHEMISTRY METHOD 03/14/2025 3:20 PM EDT [facility] Blood Venous blood specimen / Unknown Venipuncture / Unknown 03/14/2025 11:46 AM EDT 03/14/2025 11:46 AM EDT us Moises Finley MD LAB BLOOD ORDERABLES Final Resu lt [facility] [address] [place] [address], * Pulmonary function testing: Spirometry with Bronchodilator, Spirometry (02/18/2025 1:34 PM EDT) Narrative Rodriguez Garg MD - 02/22/2025 5:38 PM EDT Table formatting from the original result was not included. Images from the original result were not included. [facility] [address] [place] [address] Pulmonary Functions Report Date of service: 02/18/25 [...] history, please correlate clinically Rodriguez Garg MD us Jerod GAYTAN PFT ORDERABLES Final Res ult * DIAGNOSTIC MAMMOGRAPHY INCLUDING CAD BILATERAL (02/05/2024 [...] and recommendations communicated to the patient via cardiovascular technologist. Procedure Note Darnell Macdonald MD - [...] recommendations communicated to the patient via mammographytechnologist. Jerod GAYTAN IM BI PROCEDURES Final R esult * (ABNORMAL) Lipid panel (07/15/2023) LDL/HDL Ratio 6(A) 0 - 4 Triglycerides 196(A) 0 - 150 mg/dL Cholesterol 231(A) 0 - 200 mg/dL HDL 40 >=40 mg/dL LDL Cholesterol 150(A) 0 - 100 mg/dL Blood Venous blood specimen / Unknown us Historical Provider LAB BLOOD ORDERABLES [place] l Result * Cervical Cancer Screening: HPV (01/10/2017) Pathologist [facility] Cervical Cancer Screening: HPV negative abstracted Historical Provider HEALTH MAINTENANCE Final Result from Last 3 Months or Most Recently Relevant to Health Maintenance Insurance [facility] [employer] Care Teams Childcare Aide Relationship Specialty Start Date End Date Jerod Lopez PA [address] [place] [address] PCP - General Internal Medicine 07/24/21
--- OUTSIDE RECORDS SUMMARY | 2025-05-16 07:10 | XMS_ITS | Encounter Summary ---
Author Organization [facility] Address [address] [place] [address] Care Team Providers Care Science Writer Name Role Phone Jerod Lopez Primary Care Provider [phone] Reason for Referral * Consultation (Routine) - Closed Specialty Diagnoses / Procedures Referred By Contac t Referred To Contact Obstetrics and Gynecology Diagnoses Perimenopause Jerod Lopez PA [address] [place] [address] Phone: tel: fax: Carson Barrett MD [address] [place] [phone] Phone: tel: fax: Referral ID Status Reason Start Date Expiration Date V isits Requested Visits Authorized [id number] Closed Specialty Services Required 04/29/2025 04/29/2026 1 1 Reason for Visit * Reason Onset Date Comments Referral 04/29/2025 Dr Carson Shah ald - OBGYN Encounter Details Date Type Department Care Team (Late st Contact Info) Description 04/29/2025 Telephone Adult Medicine [facility] [address] [place] [phone] Jerod Lopez PA [address] [place] [address] Social History Tobacco Use Types Packs/Day Years [...] care for your loved ones. For example, care process manager or elderly care for an older adult? [...] PM EDT documented as of this encounter Functional Status [...] documented in this encounter Progress Notes * Haritha Malave MA - 05/11/2025 2:00 PM EDT Letter faxed to dr barrett office as requested * LUCILA Sorensen - 05/11/2025 11:30 AM EDT Okay I will try again * Haritha Malave MA - 05/11/2025 11:04 AM EDT Jak please redo letter as there is information missing below as stated in pt s message * LUCILA Sorensen - 04/29/2025 8:15 PM EDT Will print plz fax * Rigo Myles RN - 04/29/2025 2:03 PM EDT Called and spoke with pt. Pt sts has been having on going sob chest pressure and anxiety has seen cardiology pulmonary and psych and everyone keeps telling her perimenopause. Pt sts spoke with dr barrett office and advised doesn't need referral needs a letter from pcp stating urgency for pt to be seen And needs to state new patient and faxed to [phone]. Please review and advise * Lily Crisostomo - 04/29/2025 1:18 PM EDT Patient wants to speak to Nurse * Rigo Myles RN - 04/29/2025 11:52 AM EDT Pt seen yesterday ov sts follow with a therapist Pt requesting urgent referral * Malu Coto - 04/29/2025 11:32 AM EDT Patient states she called [facility] and was told they will only see patient's by referral. Patient states Jak told her she could just call any office and make an appt but found that that wasn'tthe case. States she would need this referral to be marked as URGENT stating she is per-menopause and is having some psyche issues along with it. Referral Request: What insurance does the patient have today? [facility] / Plan: [facility] MEDICAID/ Product Type: *No Product type* / Referrals cannot be processed if the insurance is not accurate. If the insurance listed above in red is NO BILLING INFORMATION FOUND FOR THIS ENCOUTNER The patients correct insurance must be obtained and registered in [facility] or their referral can not be processed. Who is calling to request this referral? The patient If the caller is not the patient, what is their name? not applicable Ask the patient WHO referred them to this specialty: Patient saw Jak lopez at [facility] for the problem and was told if symptoms did not resolve or worsen they would refer them to this specialty FIRST and LAST NAME of SPECIALIST PATIENT is seeing: Dr Carson Barrett What specialty is this? obgyn DIAGNOSIS Patient is being seen for (Not a body part or a procedure): [place]-menopause Have you seen this SPECIALIST for this PROBLEM/DX before? If YES, when? No Have you checked REVIEW or the APPT DESK to see if this referral has already been done or has visits left? yes Is this visit: Initial Visit Address of Specialist: [address] [place] [address] Phone # of Specialist: [phone] Fax #: (if applicable): [phone] Does patient have an appointment scheduled?: no Date of appointment- (including a retro-request): to be determined Is this appointment related to: n/a documented in this encounter Plan of Treatment Upcoming Encounters Date Type Department Care Team (Late st Contact Info) Description 06/07/2025 7:00 AM EDT Ancillary Procedure [facility] [address] [place] [phone] 06/09/2025 1:15 PM EDT Office Visit Adult Medicine [address] [phone] Ping King PA [address] [place] [address] 08/04/2025 10:15 AM EST Appointment [facility] [address] [place] [address] Scheduled Referrals Name Type Priority Associated Diagnoses Order Schedule Ambulatory referral to Obstetrics / Gynecology Outpatient Referral Routine Perimenopause 1 Occurrences starting 04/29/2025 until 04/29/2026 documented as of this encounter Visit Diagnoses Diagnosis Perimenopause- Primary Symptomatic menopausal or female climacteric states documented in this encounter Additional Health Concerns Assessment Noted Time PHQ-9 Depression Total Score: 17 025 9:25 AM EDT documented as of this encounter Care Teams Science Writer Relationship Specialty Start Date End Date Jerod Lopez PA [address] [place] [address] PCP - General Internal Medicine 07/24/21 documented as of this encounter
--- NOTE | 2025-05-16 07:37 | ED.GENADULT ---
HPI - General Adult General Chief complaint: General Medical Stated complaint: sob + Dizziness Time Seen by Provider: 05/16/25 07:37 Source: patient, RN notes reviewed and old records reviewed Mode of arrival: ambulatory Limitations: no limitations History of Present Illness ED Provider: Talisha Brito PA-C HPI narrative: 50-year-old female with medical history of anxiety presents to the ED due to multiple complaints. Patient states she started experiencing some shortness of breath approximately 1 month ago while on a phone call with her family member that her cousin had . Since then patient states shortness of breath and chest heaviness occurs around events that give her anxiety. Patient follows therapy and PCP who has prescribed sertraline for management of PEARL however patient states she started experiencing ?bright lights in my head? and knew she had to ?stop taking this medication immediately? as ?something was wrong? and stopped taking this medication 3 days ago. Patient also states she recently saw her obgyn hospitalist physician who started her on progesterone for perimenopause, however patient is questionable of this as she states the doctor did not test her hormones and stopped taking the medication 1 week after being prescribed. Patient states she has had increased life stressors including her adult children moving out of the house, finding out there has been infidelity in her relationship of 30 years. Additionally patient states she has severe postnasal drip, takes Nasacort but feels as if she has a lot of phlegm. Denies chest pain, abdominal pain, vomiting, diarrhea, SI, HI, headache, visual changes, cough, Related Data Previous Rx's ?Medication ?Instructions ?Recorded hydroxyzine HCl 25 mg tablet 25 mg PO BEDTIME #20 tabs 05/28/22 hydroxyzine HCl 10 mg tablet 10 mg PO Q8H PRN anxiety #14 tabs 04/12/25 lorazepam 1 mg tablet (Ativan) 1 mg PO DAILY PRN anxiety #10 tabs 05/16/25 Allergies Allergy/AdvReac Type Severity Reaction Status Date / Time No Known Allergies (No Known Allergy Verified 05/16/25 06:58 Allergies*) Review of Systems Review of Systems: CONST: Negative for fever, body aches and chills. HENT: Negative for neck pain/stiffness, headache, congestion, sore throat, swelling. EYES: Negative for discharge/pain or vision changes. RESP: Negative for cough/hemoptysis and shortness of breath. CV: Negative chest pain, difficulty breathing, palpitations. POS difficulty breathing ABD: Negative pain, nausea, vomiting. : Negative increase frequency, dysuria, blood in urine or stool. MUSC: Negative for muscle aches, edema. SKIN: Negative rash, lesions/sores. NEURO: Negative headache, dizziness, weakness. PSYCH: POS anxiety Yes all other systems are reviewed and are negative Physical Exam ED Vital Signs: Vital Signs - 24 hr 05/16/25 06:57 05/16/25 09:01 05/16/25 10:21 Temperature 97 F Pulse Rate 69 66 64 Respiratory Rate 18 16 23 H Blood Pressure 113/65 101/51 L 109/49 L Pulse Oximetry 98 99 94 Oxygen Delivery Method Room Air Room Air Room Air 05/16/25 12:20 Temperature 97.6 F Pulse Rate 64 Respiratory Rate 20 Blood Pressure 109/49 L Pulse Oximetry 94 Oxygen Delivery Method Room Air BMI result Body Mass Index 30.2 GENERAL APPEARANCE: ?AxOx4, generally well-appearing, no acute distress. HEENT: ?NC, AT. MMM. EOMI, clear conjunctiva, oropharynx clear. NECK: ?Supple without lymphadenopathy.? No stiffness or restricted ROM. HEART:? Normal rate and regular rhythm, normal S1/S2, no m/r/g LUNGS:? CTAB, moving air well. No crackles or wheezes are heard. ABDOMEN: ?Soft, nontender, nondistended with good bowel sounds heard. BACK: No CVAT, no obvious deformity. EXTREMITIES: ?Without cyanosis, clubbing or edema. NEUROLOGICAL: ?Grossly nonfocal. Alert and oriented, moving all 4 extremities. Observed to ambulate with normal gait. Skin: ?Warm and dry without any rash. PSYCH: increased anxiety, no SI/HI/AH/VH Medications Administered Discontinued Medications Generic Name Dose Route Start Last Admin Trade Name Freq PRN Reason Stop Dose Admin Lorazepam 1 mg 05/16/25 08:17 05/16/25 08:39 Lorazepam 1 Mg Tablet PO 05/16/25 08:18 1 mg ONCE ONE Administration Medical Decision Making Medical Decision Making [facility] Narrative: 50-year-old female with medical history of anxiety comes into the department with multiple complaints today, with most significant shortness of breath and difficulty breathing so which started 1 month ago while on the phone with a family member finding out that her cousin had . Patient states she has history of anxiety, has felt her anxiety worsening over the past few months. Patient is very concerned as she does not want to be on medication to control her anxiety. Patient explains that her life has increased stressors including her adult children moving out of the house, and infidelity in her relationship of 30 years. Patient states her primary care doctor has tried to control her anxiety using sertraline, however patient did not want to take this medication as she is afraid these meds will harm her. Patient states she has had a hard time controlling and managing her anxiety over the past few months. Plan: Labs, EKG, UA, BURKETT, CXR, viral serology Course 12:30- Labs revealed leukocytosis of 14.0, H&H stable, no electrolyte abnormality. EKG reveals normal sinus rhythm without ST-elevation/depression, T-wave abnormality, arrhythmia, patient without chest pain, initial troponin undetectable at <2.7- less likely ACS. UA negative for blood or infection, BURKETT negative. Viral serology negative. CXR without cardiomegaly, pleural effusions, pulmonary edema, infiltrates or consolidations- less likely viral illness I had a [id number] with the patient, patient states she has had increased anxiety after multiple life stressors including her grown children leaving the house, and finding out infidelity in her 30 year relationship. Patient has had challenging time managing her anxiety with therapist, and her primary care doctor. Patient states her primary care doctor who started her on sertraline for management of anxiety however she has been very afraid of this medication and feels like these medications are going to ?kill her?. Patient states her father was medicated for psychiatric issues and developed tardive dyskinesia and she is very concerned about developing this herself. Patient states she does not want to be on medications for anxiety and hopes that the anxiety we will just go away. I counseled patient to follow up with her primary care doctor and voices concerns with them for closer observation and management of her anxiety medications. I counseled patient that SSRIs like sertraline can take 4-6 weeks before symptoms are relieved, and sometimes it takes different trials of medications to find something that is effective. Patient seemed responsive to our conversation. I was not able to find an emergent cause for her symptoms today. I counseled patient to follow up with her primary care provider for referral for Psychiatry. Patient states she feels okay to go home for self-care, I counseled patient on strict return precautions including decompensating mental health. Differential Diagnosis Differential Diagnoses: The differential diagnosis associated with the presentation includes ACS Dysrhythmia Electrolyte abnormality Pneumonia viral illness Anxiety Admission/Observation Consideration of admission/observation: Escalation of care including admission/observation considered Lab Data MDM Lab Attestation statement: I reviewed the patient's lab results. 05/16/25 08:21 05/16/25 08:21 Labs: Lab Results 05/16/25 05/16/25 05/16/25 Range/Units 07:56 08:21 10:40 WBC 14.0 H (4.8-10.8) X10*3/uL RBC 4.95 (4.20-5.50) X10*6/uL Hgb 15.4 (12.0-16.0) g/dl Hct 43.9 (37.0-47.0) % MCV 88.7 (80.0-98.0) fL MCH 31.1 (27.0-33.0) pg MCHC 35.1 H (31.0-35.0) g/dl RDW 13.0 (11.0-16.0) % Plt Count 283 (160-400) X10*3/uL MPV 10.3 (9.4-12.3) fL Immature Gran % (Auto) 0.4 (0.0-0.4) % Neut % (Auto) 76.8 H (45-73) % Lymph % (Auto) 15.8 L (20-40) % Gooding % (Auto) 5.8 (2-11) % Eos % (Auto) 0.5 (0-4) % Baso % (Auto) 0.7 (0-2) % Lymph # (Auto) 2.2 (1.2-4.9) X10*3/uL Gooding # (Auto) 0.8 (0.1-1.2) X10*3/uL Eos # (Auto) 0.1 (0.0-0.4) X10*3/uL Baso # (Auto) 0.1 (0.0-0.2) X10*3/uL Abs Immat Gran (auto) 0.06 H (0.00-0.03) X10*3/uL Absolute Neuts (auto) 10.7 H (2.0-8.3) x10*3/uL Absolute Nucleated RBC 0.000 (0.0-0.012) X10*3/uL Nucleated RBC % (auto) 0.0 (0.0-0.2) /100WBC Sodium 143 (135-145) mmol/L Potassium 4.0 (3.3-5.1) mmol/L Chloride 108 (96-108) mmol/L Carbon Dioxide 25 (22-29) mmol/L Anion Gap 14 (12-20) BUN 8 L (9-16) mg/dL Creatinine 0.68 (0.5-1.4) mg/dL Estim Creat Clear Calc 102.3 Estimated GFR > 60 Random Glucose 98 (60-115) mg/dL Calcium 9.5 D (8.4-10.2) mg/dL Magnesium 1.9 (1.6-2.6) mg/dL Total Bilirubin 0.4 (0.0-1.0) mg/dL AST 18 (5-31) U/L ALT 9 (0-31) U/L Alkaline Phosphatase 87 (39-117) U/L Ammonia 20 (13-55) umol/L Troponin I High Sens < 2.7 (<3.5-17.0) ng/L Total Protein 6.8 (6.5-8.0) g/dL Albumin 4.3 (3.5-5.0) g/dL Urine Color Yellow Urine Appearance Clear Urine pH 5.5 (5.0-9.0) Ur Specific [place] 1.010 (1.005-1.025) Urine Protein Negative (Neg-Trace) mg/dL Urine Glucose (UA) Negative (Negative) mg/dL Urine Ketones Negative (Negative) mg/dL Urine Blood Negative (Negative) Urine Nitrite Negative (Negative) Ur Leukocyte Esterase Negative (Negative) Urine RBC 0-2 (0-2) /HPF Urine WBC 0-5 (0-5) /HPF Ur Squamous Epith Cells 0-2 (0-2) /HPF Urine Bacteria None Seen (None Seen) Hyaline Casts 0-2 (0-2) /LPF Urine Opiates Screen Not Detected (Not Detect) Ur Buprenorphine Scrn Not Detected (Not Detect) ng/mL Ur Oxycodone Screen Not Detected (Not Detect) ng/mL Urine Methadone Screen Not Detected (Not Detect) ng/mL Urine Fentanyl Screen Not Detected (Not Detect) Ur Barbiturates Screen Not Detected (Not Detect) Ur Phencyclidine Scrn Not Detected (Not Detect) Ur Amphetamines Screen Not Detected (Not Detect) U Benzodiazepines Scrn Not Detected (Not Detect) Urine Cocaine Screen Not Detected (Not Detect) U Marijuana (THC) Screen Not Detected (Not Detect) Ethyl Alcohol < 10 mg/dL COVID-19 (STONE) Negative (Negative) COVID-19 Clin Com See Note Influenza Type A (TEJAL) Negative (Negative) Influenza Type B (TEJAL) Negative (Negative) Influenza A & B Note See Note Independent Interpretation I performed an independent interpretation of an: EKG Interpretation: I personally interpreted the EKG which reveals normal sinus rhythm without ST-elevation/depression, T-wave abnormality Vent. Rate : 62 BPM Atrial Rate : 62 BPM P-R Int : 194 ms QRS Dur : 96 ms QT Int : 444 ms P-R-T Axes : 47 79 40 degrees QTcB Int : 450 ms Normal sinus rhythm Normal ECG When compared with ECG of 12-Apr-2025 04:00, No significant change was found I personally interpreted the CXR which did not reveal cardiomegaly, pleural effusions, pulmonary edema, infiltrates, consolidation, I agree with the radiologist's interpretation Radiology Impression Discussion of test interpretation with radiology: I have reviewed the radiologist's reading. Radiologist Impression: CXR Findings: Cardiomediastinal silhouette normal. No consolidations. No pleural effusion. No pneumothorax. No acute fracture. Soft tissue is unremarkable. Impression: No acute cardiopulmonary finding. This document has been electronically signed by: Nila Caba MD on 05/16/2025 08:14:31 Dictated By: Nila Caba MD Signed By: <Electronically signed by Nila Caba MD in OV> 05/16/25 0815 External Record Review External record reviewed: Inpatient record, Office record and Outpatient record Chronic Conditions Patient?s care impacted by: Other (Anxiety) Discharge Plan Discharge Clinical Impression: Anxiety Patient Disposition: Home, Self-Care Instructions: Panic Disorder (ED), Anxiety (ED) Additional Instructions: You were evaluated in the ED today due to difficulty breathing, chest discomfort. Your lab work did have a mild elevation in white blood cells of 14 however this could be elevated due to stress, or postnasal drip. There was no evidence of electrolyte abnormality. Your EKG revealed a normal sinus rhythm, normal EKG without emergent cardiac abnormalities. Your troponin which is an enzyme that the heart gives off when under stress or damage was undetectable at <2.7. Your chest x-ray was negative for infection, masses or nodules. Your urine was negative for blood or infection. Your flu/COVID tests were negative. You were medicated with 1 mg of Ativan today which had good effect on your symptoms. After our discussion today, I clinically suspect anxiety is causing your symptoms. I encourage you to contact your primary care doctor for further evaluation and management of your anxiety. I encourage you to stay on any of the medications that your primary care doctor trials with you for at least 4-6 weeks as this is how long it takes for the medications to get into your system and provide relief. I also recommend that you follow up with your primary care doctor to ensure that your white blood cell count returns back to normal. You stated you were having difficulty with postnasal drip even using Nasacort, I encourage you to take a daily Zyrtec or Claritin as this can help dry up postnasal drip. I will prescribe you 10 pills of Ativan that you can use in extreme cases of anxiety. This medication is a benzodiazepine, it has a risks of dependence, and can make you drowsy. Only use this medication extreme moments of anxiety/panic attack. I encourage you to follow up with your therapist for additional help in managing your anxiety. If you have trouble finding a therapist you can reach out to [address] [phone] The National Suicide and Crisis Lifeline can be reached 7 days a week 24 hours a day.? Call 988 to speak with someone.? Please return to the emergency department if you experience fevers over 100.4?, worsening shortness of breath or difficulty breathing, worsening anxiety symptoms, feelings of harming or killing yourself or others, worsening mental health or any new/concerning/worsening symptoms. Prescriptions: New lorazepam [Ativan] 1 mg tablet 1 mg PO DAILY PRN (Reason: anxiety) Qty: 10 0RF No Action hydroxyzine HCl 25 mg tablet 25 mg PO BEDTIME Qty: 20 0RF hydroxyzine HCl 10 mg tablet 10 mg PO Q8H PRN (Reason: anxiety) Qty: 14 0RF Interventions: ED Discharge Assessment Last Done: 05/16/25 12:20 Discharge Date/Time: 05/16/25 12:21 Print Language: Greenlandic
--- NOTE | 2025-05-16 08:00 | PC.NURSE ---
ambulated with steady gait to bathroom to provide urine sample. provider at bedside
[2025-05-16 08:05] LABS: Appearance Urine Clear; Glucose Urine UA Negative (Negative); PH 5.5 (5.0-9.0); Specific Gravity - Urine 1.010 (1.005-1.025)
[2025-05-16 08:20] LABS: Cannabinoid Screen Urine Not Detected (Not Detect)
[2025-05-16 08:27] LABS: MANUAL DIFF FLAG NO
[2025-05-16 08:28] LABS: Hematocrit 43.9 % (37.0-47.0); Hemoglobin 15.4 g/dl (12.0-16.0); Imm Gran Abs Auto 0.06 X10*3/uL (0.00-0.03); Imm Gran Pct Auto 0.4 % (0.0-0.4); Lymphocytes Absolute Auto 2.2 X10*3/uL (1.2-4.9); Mean Corpuscular HGB Conc 35.1 g/dl (31.0-35.0); Mean Corpuscular Hemoglobin 31.1 pg (27.0-33.0); Mean Corpuscular Volume 88.7 fL (80.0-98.0); NRBC Abs Auto 0.000 X10*3/uL (0.0-0.012); NRBC Pct Auto 0.0 /100WBC (0.0-0.2); Platelet Count 283 X10*3/uL (160-400); Red Blood Count 4.95 X10*6/uL (4.20-5.50); White Blood Count 14.0 X10*3/uL (4.8-10.8)
[2025-05-16 09:01] VITALS: BP 101/51; PULSE 66; RESP 16; O2SAT 99
[2025-05-16 09:14] LABS: Alanine Aminotransferase 9 U/L (0-31); Albumin Level 4.3 g/dL (3.5-5.0); Alkaline Phosphatase 87 U/L (39-117); Anion Gap 14 (12-20); Aspartate Amino Transferase 18 U/L (5-31); Blood Urea Nitrogen 8 mg/dL (9-16); Calcium 9.5 mg/dL (8.4-10.2); Carbon Dioxide 25 mmol/L (22-29); Chloride 108 mmol/L (96-108); Creatinine Clr Calc Pharmacy 102.3; Estimated Glomerular Filt Rate > 60; Magnesium 1.9 mg/dL (1.6-2.6); Potassium 4.0 mmol/L (3.3-5.1); Sodium 143 mmol/L (135-145); Total Protein 6.8 g/dL (6.5-8.0)
--- NOTE | 2025-05-16 09:14 | ECG_ITS ---
Test Reason : DIZZINESS Blood Pressure : */* mmHG Vent. Rate : 76 BPM Atrial Rate : 76 BPM P-R Int : 158 ms QRS Dur : 94 ms QT Int : 406 ms P-R-T Axes : 56 73 46 degrees QTcB Int : 456 ms Normal sinus rhythm Normal ECG When compared to the previous EKG of No significant changes seen Referred By: Alisha Woodall Electronically Signed By: El Newell
[2025-05-16 09:15] LABS: Troponin-I High Sensitivity < 2.7 ng/L (<3.5-17.0)
[2025-05-16 09:23] LABS: COVID-19 Test Negative (Negative); IDNOW Serial# 55D5AD1C
[2025-05-16 09:24] LABS: IDNOW Serial# 58CA691E; Influenza B2 Negative (Negative)
[2025-05-16 10:21] VITALS: BP 109/49; PULSE 64; RESP 23; O2SAT 94
[2025-05-16 11:01] LABS: Ammonia 20 umol/L (13-55)
[2025-05-16 12:20] VITALS: BP 109/49; PULSE 64; RESP 20; TEMP 36.4; O2SAT 94
== END 2025-05-16 12:21 | disposition home or self-care (01) ==
PROVIDERS: Emergency Provider Emergency Medicine
DX: F41.9 Anxiety disorder, unspecified (principal); R06.02 Shortness of breath; R05.9 Cough, unspecified; R42 Dizziness and giddiness
CPT/HCPCS: 71045; 80053; 80307; 81001; 82140; 83735; 84484; 85025; 87502; 87635; 93005; 99284

== ENCOUNTER → 2025-05-16 07:10 | Outpatient (BNV) | payer OTHER, SELFPAY | PROVIDERS: Emergency Provider Emergency Medicine; Visit Provider Radiology Diagnostic Radiology | DX: R05.9 Cough, unspecified (principal) | CPT/HCPCS: 71045 ==

== ENCOUNTER → 2025-05-16 09:25 | Outpatient (BNV) | payer OTHER, SELFPAY | PROVIDERS: Emergency Provider Emergency Medicine; Visit Provider Internal Medicine Cardiovascular Disease | DX: R06.02 Shortness of breath (principal); R42 Dizziness and giddiness | CPT/HCPCS: 93010 ==

== ENCOUNTER 2025-07-18 08:38 | Outpatient (AMB) | payer OTHER, SELFPAY ==
[2025-07-18 08:47] VITALS: BP 118/76; PULSE 79; RESP 16; O2SAT 99; BMI 27.4
--- NOTE | 2025-07-18 08:47 | A.OFFVIS_ITS ---
Vital Signs 07/18/25 08:47 Height 5 ft 7 in Weight 175 lb BMI 27.4 BP 118/76 Blood Pressure Location Lt brachial Position Sitting Respiration 16 Pulse 79 Pulse Source Pulse Oximeter Pulse Oximetry (%) 99 Oxygen Delivery Method Room Air Intake Visit Reasons: headache and vision disturbance Allergies No Known Allergies (No Known Allergies*) Allergy (Verified 05/16/25 06:58) HPI Comments Details: Naresh is a 50-year-old female patient with a past medical history of anxiety, depression, asthma, and COPD who is here today for an evaluation of several new neurological symptoms. She presents to [facility] Emergency room on 04/12/2025 reporting headaches, blurred vision, and left arm tingling. 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 Her routine eye exams has been up-to-date. According to the patient today, in March, not long after recieving some horroble news , she had an event where she fell to the ground and was screaming and was confused. She was home alone at the time of her initial fall and when her daughter found her, she was still screaming and confused. She went to the ER and she developed a headache and double vision as well as chest pain. Since her time in the emergency department, she has had intermittent episodes of headache, double vision, dizziness, and chest pains. She also has been crying intermittently throughout the day for a few sec at a time which is seemingly unprovoked. She also mentions a few times throughout the day smelling smoke as if there has been a campfire. She also endorses some light sensitivity and halos in her vision. She feels a sense of generalized weakness. Over the course of the last couple of months, she has also noticed some difficulty in swallowing solid foods. She has no difficulty swallowing liquids and has no difficulty with speech or drooling. Her symptoms are often worse in the morning. She did have a recent sleep study with [facility]. Her home sleep study was negative for LENA though there was note of nocturnal hypoxia. Prior workup: CT brain March 2025: No acute findings, bifrontal parietal atrophy noted (I did review the imaging and agree with the report) Sleep study 05/02/2025: Nocturnal hypoxemia but no sleep apnea Was started on sertraline and Buproprion for presumed psychiatric symptoms and this caused flashes of light and vertigo. She denies any prior history or family history of epilespy She does mentioned that her father has a history of psychological or perhaps a neurological disorder. She can not elaborate on this. 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 Tobacco: 2-3 packs per day ETOH- None PFSH Medical History (Updated 07/18/25 @ 09:19 by Genesis Buckner CNP) Vision disturbance Headache Depression Polycythemia Thyroid nodule Review of Systems Const All systems reviewed & are unremarkable except as noted in HPI and below Physical Exam Vital Signs: Last Vital Signs Pulse 79 07/18/25 08:47 Resp 16 07/18/25 08:47 BP 118/76 07/18/25 08:47 Pulse Ox 99 07/18/25 08:47 Oxygen Delivery Method Room Air 07/18/25 08:47 BMI result Body Mass Index 27.4 Const General: cooperative, healthy appearing, comfortable and no acute distress Nutritional Appearance: well nourished Orientation/consciousness: patient oriented x3 Limitations: no limitations HEENT Head: Yes normal to inspection and Yes normocephalic Eyes General: appearance normal, both eyes and all related structures Visual Camilo: normal visual camilo by confrontation Alignment and Position: alignment normal Periorbital: periorbital findings normal Eyelids: Yes eyelids normal Conjunctivae: conjunctivae normal Sclerae: sclerae normal Neck Neck: Yes normal visual inspection and Yes full ROM General: Yes no CVA tenderness Back/Spine/Pelvis Back: no CVA tenderness Cervical Spine: normal cervical lordosis Thoracic/Lumbar Spine: thoracic and lumbar spine normal to inspection Neuro General: patient oriented x3, tone normal and deep tendon reflexes 2+ bilaterally Cranial nerves: Yes CN's II-XII intact bilaterally and Yes Facial sensation intact/muscles of mastication intact Cognition (Neuro): normal cognition Gait exam (Neuro): Normal gait present Motor exam (neuro): 5/5 motor strength present throughout and no tremor noted Sensory Exam: double simultaneous stimulation for sensation normal Romberg Test: Negative Pupils: Normal pupillary reactivity/response: bilateral Psych Other: Intermittent, sudden, and seemingly unprovoked episodes of crying that lasts a few seconds and resolves. Affect: Anxious affect present Assessment & Plan Assessment & Plan (1) Phantosmia: Code(s): R44.2 - Other hallucinations Category: Medical (2) Worsening headaches: Code(s): R51.9 - Headache, unspecified Category: Medical (3) Vertigo: Code(s): R42 - Dizziness and giddiness Category: Medical (4) Crying for unknown reason: Code(s): R45.83 - Excessive crying of child, adolescent or adult Category: Medical Plan Naresh is a 50-year-old female patient with a past medical history of anxiety, depression, asthma, and COPD who is here today for an evaluation of several new neurological symptoms. These symptoms seemingly occurred after an event that happened in March which she describes as sudden screaming and change in moods, confusion, and falling to the floor. She can not recall much of this event though does note that this was the start of her continued symptoms which have included dizziness, changes in vision, headaches, phantosmia, and sudden episodes of unprovoked crying episodes. This all happened not long after she received some ?horrible news?. She does not elaborate on this further. In general, she is somewhat of a poor historian. She is accompanied by her and son today who do help in providing some of the history though are also somewhat vague on what she has been experiencing. Based on what she has shared with me today, I can not exclude the possibility of seizure disorder. I will obtain an EEG. I did recommend an MRI of the brain with and without contrast however she has had reactions to MRI contrast in the past and therefore we can proceed without contrast for now. We did discuss the possibility of her symptoms being related to her mental health/other psychiatric causes though we must rule out neurological causes. Unprovoked and inappropriate episodes of crying has been associated with neurological conditions such as epilepsy and ALS. Her physical neurological exam was overall reassuring I did advise against driving until her workup has been completed. She agrees to hold off on driving until we can rule out seizure activity. -MRI brain with and without -routine EEG Orders: Orders MR head/brain wo con Today R42 - Dizziness and giddiness, R44.2 - Other hallucinations, R45.83 - Excessive crying of child, adolescent or adult, R51.9 - Headache, unspecified EEG Routine Today R42 - Dizziness and giddiness, R44.2 - Other hallucinations, R45.83 - Excessive crying of child, adolescent or adult, R51.9 - Headache, unspecified Coding Level of Care Code New Pt Level 4 (05762) Diagnoses Phantosmia R44.2 Worsening headaches R51.9 Vertigo R42 Crying for unknown reason R45.83
== END 2025-07-18 09:37 | disposition home or self-care (01) ==
LOC: HO.HSM 08:39
PROVIDERS: Visit Provider Nurse Practitioner
DX: R44.2 Other hallucinations (principal); R51.9 Headache, unspecified; R42 Dizziness and giddiness; R45.83 Excessive crying of child, adolescent or adult
CPT/HCPCS: 99204

== ENCOUNTER → 2025-07-18 08:38 | Outpatient (BNVA) | payer OTHER, SELFPAY | PROVIDERS: Visit Provider Nurse Practitioner | DX: R44.2 Other hallucinations (principal); R51.9 Headache, unspecified; R42 Dizziness and giddiness; R45.83 Excessive crying of child, adolescent or adult | CPT/HCPCS: 99202 ==

== ENCOUNTER 2025-08-03 13:12 | Emergency (ER) | payer OTHER, SELFPAY ==
--- NOTE | 2025-08-03 13:16 | MHC.CARE ---
Pt seen by [facility] for crisis assessment in the community and will be a inpatient Adult bed search.
[2025-08-03 13:37] VITALS: BP 120/70; PULSE 85; O2SAT 99; BMI 28.2
[2025-08-03 14:00] VITALS: BP 110/76; PULSE 78; RESP 18; TEMP 36.1; O2SAT 100
--- NOTE | 2025-08-03 14:20 | ED.PSYCH ---
HPI - Psych General Chief Complaint: Psychiatric Symptoms Stated Complaint: Crisis Eval: Depression Time Seen by Provider: 08/03/25 13:58 Source: patient Mode of arrival: ambulatory Limitations: no limitations History of Present Illness ED Provider: DR. Stewart HPI Narrative: 50-year-old female PMH ex anxiety, depression, asthma, and COPD, active cigarette smoker, patient has been diagnosed with anxiety since last March with multiple ED visit related to her anxiety symptoms, patient also has been evaluated by neurologist and in the process of getting MRI of the brain and EEG, returned today for period of crying and screaming and feeling depressed, no SI, no HI, but patient feel very anxious and panicky. Patient's symptoms was precipitated few months ago after she found out that her partner was cheating on her. Patient declined using any recreational drug or using alcohol. Related Data Home Medications ?Medication ?Instructions ?Recorded ?Confirmed albuterol sulfate 90 mcg/actuation 2 puff inhalation Q4H PRN wheezing 08/03/25 08/04/25 aerosol inhaler (Ventolin HFA) escitalopram oxalate 5 mg tablet 5 mg PO DAILY 08/03/25 08/04/25 cetirizine 10 mg tablet 10 mg PO DAILY 08/04/25 08/04/25 diclofenac sodium 1 % topical gel 4 g topical TID PRN pain 08/04/25 08/04/25 (Arthritis Pain (diclofenac)) estradiol 0.01% (0.1 mg/gram) 1 g vaginal 2XW 08/04/25 08/04/25 vaginal cream furosemide 20 mg tablet 20 mg PO DAILY PRN Swelling 08/04/25 08/04/25 lactulose 10 gram/15 mL oral 30 ml PO DAILY PRN Constipation 08/04/25 08/04/25 solution lorazepam 0.5 mg tablet 0.5 mg PO DAILY PRN anxiety 08/04/25 08/04/25 multivitamin 1 tab PO DAILY 08/04/25 08/04/25 triamcinolone acetonide 55 mcg 2 spray intranasal DAILY 08/04/25 08/04/25 nasal spray aerosol Allergies Allergy/AdvReac Type Severity Reaction Status Date / Time No Known Allergies (No Known Allergy Verified 08/03/25 13:40 Allergies*) Review of Systems Review of Systems: All other systems are reviewed and are negative Constitutional: Reports as per HPI and Reports no additional constitutional complaints Eyes: Reports as per HPI and Reports no additional eye complaints Reports system reviewed and no additional complaints, except as documented Cardiovascular: Reports as per HPI and Reports no additional cardiovascular complaints Respiratory: Reports as per HPI and Reports no additional respiratory complaints Gastrointestinal: Reports as per HPI and Reports no additional gastrointestinal complaints Genitourinary: Reports no additional female genitourinary complaints Musculoskeletal: Reports no additional musculoskeletal complaints Skin/Breast: Reports system reviewed and no additional complaints, except as docu Psychiatric: Reports no additional psychiatric complaints Endocrine: Reports no additional endocrine complaints Hematologic/Lymphatic: Reports no additional hematologic/lymphatic complaints Allergic/Immunologic: Reports no additional allergic/immunologic complaints Reports system reviewed and no additional complaints, except as documented and Reports Abnormal speech present [facility] Past Medical History Medical History Vision disturbance Headache Depression Polycythemia Thyroid nodule Social History Social History Advance Directives: No Advance Directives Information Provided: Yes Do you have a plan to hurt others: No Plan Patient : No Physical Exam Vital Signs: Vital Signs: Last Vital Signs Temp 97.9 F 08/04/25 04:51 Pulse 73 08/04/25 04:51 Resp 16 08/04/25 04:51 BP 107/60 08/04/25 04:51 Pulse Ox 98 08/04/25 04:51 O2 Del Method Room Air 08/04/25 04:51 BMI result Body Mass Index 28.2 Vital signs have been reviewed and appear to be correct. Blood pressure elevated. Heart rate normal. Respiratory rate normal. Temperature normal. Oxygen saturation normal. Appearance: Alert. Oriented X3. No acute distress. Head: Normal external exam. Normocephalic. Atraumatic. No Cottrell signs noted. No raccoon eyes noted Eyes: PERRLA. EOMI. Conjunctiva and sclera normal. Eyelids normal. ENT: TM's Normal. Pharynx normal. Uvula midline. Moist mucous membranes. No trismus noted. No drooling noted. No muffled voice noted. Neck: Normal inspection. Neck supple. FROM. No adenopathy. Thyroid Normal. No meningeal signs. No neck mass noted. CVS: Normal heart rate and rhythm. Heart sound normal. No murmurs noted. Pulses normal throughout. Respiratory: No respiratory distress. Painless inspiration. Breath sounds normal. No wheezes/rales/rhonchi noted. Chest nontender. No accessory muscle usage noted or decreased air movement noted. Abdomen: Soft and nontender. Bowel sounds normal in all 4 quadrants. No distention noted. No organomegaly noted. No visible injury noted. Back: No CVA tenderness. Full range of motion noted. Skin: Skin warm and dry. Normal skin color. Normal skin turgor. No rashes/lesions/lacerations noted. Extremities: No lower extremity edema. Extremities exhibit normal range of motion. Extremities nontender. Neuro: Mental status: Normal attention, orientation, memory, and affect. Cranial nerves: Pupils are equal, round and reactive to light, EOMI, visual camilo are fall, face is symmetric, facial sensations are normal. Motor examination normal muscle tone, strength to 4 extremities. DTR are +2, planter's are flexor. Sensory exam; normal coordination, no ataxia, gait stable. Cerebellar exam: Pruunh-ru-[id number] and mclg-xu-xklo is normal. Extrapyramidal system: No tremors, no rigidity with normal facial expressions. Pronator drift not present. Mental exam: Patient Orientation: Person, Place, Time and Situation, okay hygiene and grooming. Fair eye contact, attentive, no tics or tremors. Level of Consciousness: Awake, Appropriate and Alert Patient Behavior: Appropriate, Guarded, Cooperative and Anxious Mood Description: Constricted, Blunted and Apprehensive Affect Description: Constricted, Blunted and Apprehensive Patient Cognition Impaired: No Ability to Follow Directions: Excellent Speech Pattern: Clear, Appropriate and Spontaneous Speech, nonpressured, spontaneous with regular rate and rhythm, normal volume and prosody. No dysarthria. Memory Description: Intact, Immediate Intact and Short Term Intact Hallucinations: None Delusions: Not Present Thought Process: Intact Thought Content: positive for Intact, positive for Logical, denies Suicidal Ideation and denies Homicidal Ideation. Depressive Symptoms: Not present. Judgement and Insight: Limited but adequate. Course Reevaluation(s) Reevaluation #1: 50-year-old female recently diagnosed with new onset of anxiety presented with feeling anxious and depressed, no active SI or HI, reviewed the labs mild heme concentration patient is willing to drink oral fluids, otherwise medically cleared now, will start physician observation, await for care team evaluation. Time: 14:31 Reevaluation #2: Time: 08:14 Date: 08/04/25 Provider: Vish Lopez MD Patient in physician observation for psychiatric evaluation.? No acute events reported overnight. No current complaints. VS stable.? Patient is in bed search status. Will continue to monitor. Reevaluation #3: Time: 13:32 Date: 08/04/25 Provider: Vish Lopez MD Physician observation ended at 13:30. Arrangements has been made for the patient to be transferred to a psychiatric hospital for ongoing inpatient care. The patient will be transferred by ambulance to Medications Administered Generic Name Dose Route Start Last Admin Trade Name Freq PRN Reason Stop Dose Admin Escitalopram Oxalate 5 mg 08/04/25 09:00 08/04/25 08:52 Escitalopram Oxalate 5 Mg Tablet PO 5 mg DAILY TANYA Administration Loratadine 10 mg 08/04/25 09:00 08/04/25 08:52 Loratadine 10 Mg Tablet PO 10 mg DAILY TANYA Administration Nicotine Polacrilex 2 mg 08/03/25 18:31 08/04/25 12:37 Nicotine Polacrilex 2 Mg Gum BUCCAL 2 mg Q2H PRN Administration Nicotine Cravings Discontinued Medications Generic Name Dose Route Start Last Admin Trade Name Freq PRN Reason Stop Dose Admin Acetaminophen 650 mg 08/04/25 04:47 08/04/25 04:51 Acetaminophen 325 Mg Tablet PO 08/04/25 04:48 650 mg ONCE ONE Administration Lorazepam 2 mg 08/03/25 14:19 08/03/25 14:38 Lorazepam 1 Mg Tablet PO 08/03/25 14:20 2 mg ONCE ONE Administration Lorazepam 1 mg 08/04/25 08:54 08/04/25 09:11 Lorazepam 1 Mg Tablet PO 08/04/25 08:55 1 mg ONCE ONE Administration Nicotine 21 mg 08/03/25 18:30 08/03/25 18:40 Nicotine 21 Mg Patch.Td24 TRANSDERMA 08/03/25 18:31 21 mg ONCE ONE Administration Medical Decision Making Differential Diagnosis Differential Diagnoses: The differential diagnosis associated with the presentation includes (SI, HI, hallucination, acute psychosis, medical clearance, severe anemia, electrolyte derangement.) Admission/Observation Consideration of admission/observation: Escalation of care including admission/observation considered Lab Data [facility] Lab Attestation statement: I reviewed the patient's lab results. 08/03/25 14:13 08/03/25 14:13 Labs: Lab Results 08/03/25 08/03/25 Range/Units 13:56 14:13 WBC 9.8 (4.8-10.8) X10*3/uL RBC 5.29 (4.20-5.50) X10*6/uL Hgb 16.1 H (12.0-16.0) g/dl Hct 47.7 H (37.0-47.0) % MCV 90.2 (80.0-98.0) fL MCH 30.4 (27.0-33.0) pg MCHC 33.8 (31.0-35.0) g/dl RDW 13.3 (11.0-16.0) % Plt Count 278 (160-400) X10*3/uL MPV 11.0 (9.4-12.3) fL Immature Gran % (Auto) 0.2 (0.0-0.4) % Neut % (Auto) 62.4 (45-73) % Lymph % (Auto) 31.0 (20-40) % [place] % (Auto) 4.8 (2-11) % Eos % (Auto) 0.8 (0-4) % Baso % (Auto) 0.8 (0-2) % Lymph # (Auto) 3.0 (1.2-4.9) X10*3/uL [place] # (Auto) 0.5 (0.1-1.2) X10*3/uL Eos # (Auto) 0.1 (0.0-0.4) X10*3/uL Baso # (Auto) 0.1 (0.0-0.2) X10*3/uL Abs Immat Gran (auto) 0.02 (0.00-0.03) X10*3/uL Absolute Neuts (auto) 6.1 (2.0-8.3) x10*3/uL Absolute Nucleated RBC 0.000 (0.0-0.012) X10*3/uL Nucleated RBC % (auto) 0.0 (0.0-0.2) /100WBC Sodium 139 (135-145) mmol/L Potassium 4.1 (3.3-5.1) mmol/L Chloride 104 (96-108) mmol/L Carbon Dioxide 28 (22-29) mmol/L Anion Gap 11 L (12-20) BUN 11 (9-16) mg/dL Creatinine 0.75 (0.5-1.4) mg/dL Estim Creat Clear Calc 99.7 Estimated GFR > 60 Random Glucose 105 (60-115) mg/dL Calcium 9.2 (8.4-10.2) mg/dL Total Bilirubin 0.4 (0.0-1.0) mg/dL AST 14 (5-31) U/L ALT 14 (0-31) U/L Alkaline Phosphatase 90 (39-117) U/L Total Protein 7.1 (6.5-8.0) g/dL Albumin 4.5 (3.5-5.0) g/dL Urine Color Dark Yellow Urine Appearance Turbid Urine pH 5.5 (5.0-9.0) Ur Specific [place] >= 1.030 H (1.005-1.025) Urine Protein Trace (Neg-Trace) mg/dL Urine Glucose (UA) Negative (Negative) mg/dL Urine Ketones Trace (Negative) mg/dL Urine Blood Negative (Negative) Urine Nitrite Negative (Negative) Ur Leukocyte Esterase Trace H (Negative) Urine RBC 0-2 (0-2) /HPF Urine WBC 6-10 H (0-5) /HPF Ur Squamous Epith Cells >20 (0-2) /HPF Urine Bacteria 1+ (None Seen) Hyaline Casts 3-5 (0-2) /LPF Urine Test NEGATIVE (NEGATIVE) Urine Opiates Screen Not Detected (Not Detect) Ur Buprenorphine Scrn Not Detected (Not Detect) ng/mL Ur Oxycodone Screen Not Detected (Not Detect) ng/mL Urine Methadone Screen Not Detected (Not Detect) ng/mL Urine Fentanyl Screen Not Detected (Not Detect) Ur Barbiturates Screen Not Detected (Not Detect) Ur Phencyclidine Scrn Not Detected (Not Detect) Ur Amphetamines Screen Not Detected (Not Detect) U Benzodiazepines Scrn Not Detected (Not Detect) Urine Cocaine Screen Not Detected (Not Detect) U Marijuana (THC) Screen Not Detected (Not Detect) Ethyl Alcohol 12 mg/dL Discharge Plan Discharge Clinical Impression: Acute anxiety Patient Disposition: Xfer Psychiatric Hosp Transfer Details: Prescriptions: No Action albuterol sulfate [Ventolin HFA] 90 mcg/actuation HFA aerosol inhaler 2 puff INHALATION Q4H PRN (Reason: wheezing) escitalopram oxalate 5 mg tablet 5 mg PO DAILY cetirizine 10 mg tablet 10 mg PO DAILY lorazepam 0.5 mg tablet 0.5 mg PO DAILY PRN (Reason: anxiety) triamcinolone acetonide 55 mcg aerosol,spray 2 spray intranasal DAILY furosemide 20 mg tablet 20 mg PO DAILY PRN (Reason: Swelling) lactulose 10 gram/15 mL solution 30 ml PO DAILY PRN (Reason: Constipation) diclofenac sodium [Arthritis Pain (diclofenac)] 1 % gel 4 g topical TID PRN (Reason: pain) multivitamin Tablet 1 tab PO DAILY estradiol 0.01 % (0.1 mg/gram) cream 1 g vaginal 2XW Interventions: Early-Suicide Risk Severity Scale Last Done: 08/03/25 13:59 Print Language: Khmer
[2025-08-03 14:21] LABS: MANUAL DIFF FLAG NO
[2025-08-03 14:22] LABS: Hematocrit 47.7 % (37.0-47.0); Hemoglobin 16.1 g/dl (12.0-16.0); Imm Gran Abs Auto 0.02 X10*3/uL (0.00-0.03); Imm Gran Pct Auto 0.2 % (0.0-0.4); Lymphocytes Absolute Auto 3.0 X10*3/uL (1.2-4.9); Mean Corpuscular HGB Conc 33.8 g/dl (31.0-35.0); Mean Corpuscular Hemoglobin 30.4 pg (27.0-33.0); Mean Corpuscular Volume 90.2 fL (80.0-98.0); NRBC Abs Auto 0.000 X10*3/uL (0.0-0.012); NRBC Pct Auto 0.0 /100WBC (0.0-0.2); Platelet Count 278 X10*3/uL (160-400); Red Blood Count 5.29 X10*6/uL (4.20-5.50); White Blood Count 9.8 X10*3/uL (4.8-10.8)
[2025-08-03 14:38] LABS: Cannabinoid Screen Urine Not Detected (Not Detect); UPreg QC Valid YES
[2025-08-03 14:45] LABS: Alanine Aminotransferase 14 U/L (0-31); Albumin Level 4.5 g/dL (3.5-5.0); Alkaline Phosphatase 90 U/L (39-117); Anion Gap 11 (12-20); Aspartate Amino Transferase 14 U/L (5-31); Blood Urea Nitrogen 11 mg/dL (9-16); Calcium 9.2 mg/dL (8.4-10.2); Carbon Dioxide 28 mmol/L (22-29); Chloride 104 mmol/L (96-108); Creatinine Clr Calc Pharmacy 99.7; Estimated Glomerular Filt Rate > 60; Potassium 4.1 mmol/L (3.3-5.1); Sodium 139 mmol/L (135-145); Total Protein 7.1 g/dL (6.5-8.0)
[2025-08-03 15:42] LABS: Appearance Urine Turbid; Glucose Urine UA Negative (Negative); PH 5.5 (5.0-9.0); Specific Gravity - Urine >= 1.030 (1.005-1.025); UMIC TRIGGER UACC YES
[2025-08-03 16:01] LABS: UACC Culture Trigger YES
[2025-08-03] MEDS: Nicotine 21 MG PATCH.TD24 TRANSDERMA (18:40)
--- NOTE | 2025-08-03 23:45 | PC.NURSE ---
Took over care at 23:00. Pt requesting tv off, blanket and pillow, medication to settle down.
--- NOTE | 2025-08-04 02:20 | PC.NURSE ---
took over care at 23:00, pt sleeping at this time. no sign of distress.
[2025-08-04 04:51] VITALS: BP 107/60; PULSE 73; RESP 16; TEMP 36.6; O2SAT 98
--- NOTE | 2025-08-04 04:54 | PC.NURSE ---
pt medicated per nov for headache.
--- NOTE | 2025-08-04 07:29 | PC.NURSE ---
Assumed care of patient at 0645, patient appears to be in no apparent distress this am, calm and cooperative, offering no complaints to this RN. Continue plan of care for IPLOC
--- NOTE | 2025-08-04 11:23 | PHA.MEDREC ---
Addendum entered by Luisa Flores [facility] 08/04/25 11:42: REVIEWED BY PHARMACIST Original Note: Pharmacy Consult ? Medication Reconciliation Pharmacy reviewed med rec done by nursing. Spoke with pt and she confirmed her medications. Pt just started the Escitalopram 5mg tabs once daily 3 days ago; claims has it written 06/16 for 30 daily, she states she has the Estradiol cream but states she us unsure how she is suppose to be taking it, pt never started the Breo Ellipta; stating she was scared to try it, she uses Furosemide only as needed for fluid retention/swelling, and she is taking a Magnesium and Vitamin D3 tabs once daily but doesn't remember the dose of them at this time.
--- NOTE | 2025-08-04 13:03 | MHC.CARE ---
Pt has been accepted to [facility]. ETA is anytime after 4pm. No n2n is required. The accepting provider is Dr. Boogie and the address is [address] [place] [address]. CARE team has been notified and will do the 12.
[2025-08-04 14:00] VITALS: BP 117/74; PULSE 71; RESP 16; TEMP 36.4; O2SAT 100
[2025-08-04] MEDS: Nicotine 21 MG PATCH.TD24 TRANSDERMA (16:17)
[2025-08-04 17:58] VITALS: BP 117/74; PULSE 71; RESP 16; TEMP 36.4; O2SAT 100
== END 2025-08-04 17:59 ==
PROVIDERS: Emergency Provider Emergency Medicine; PCP Physician Assistant Medical
DX: F41.9 Anxiety disorder, unspecified (principal); F32.A Depression, unspecified; J45.909 Unspecified asthma, uncomplicated; J44.9 Chronic obstructive pulmonary disease, unspecified; F17.200 Nicotine dependence, unspecified, uncomplicated; Z79.899 Other long term (current) drug therapy; Z71.6 Tobacco abuse counseling
CPT/HCPCS: 36415; 80053; 80307; 81001; 81025; 85025; 87086; 99285; S9485

== ENCOUNTER → 2025-08-21 11:24 | Outpatient (BNV) | payer OTHER, SELFPAY | PROVIDERS: PCP Physician Assistant Medical; Visit Provider Radiology Diagnostic Radiology | DX: G31.9 Degenerative disease of nervous system, unspecified (principal) | CPT/HCPCS: 70551 ==

== ENCOUNTER 2025-08-21 11:27 | Outpatient (REF) | payer OTHER, SELFPAY ==
--- NOTE | ~2025-08-21 | MR_ITS ---
EXAMINATION: MR BRAIN WITHOUT CONTRAST CLINICAL INFORMATION: R 44.2. Other hallucinations. Worsening headache. COMPARISON: Correlated to CT dated April 03, 2025. TECHNIQUE: MRI of the brain was obtained using routine sequences without contrast. FINDINGS: No restricted diffusion. No acute intracranial hemorrhage, mass effect, midline shift, hydrocephalus or herniation. Ortiz-white matter differentiation is normal. Posterior cranial fossa contents demonstrated no signal abnormality or mass effect. Craniocervical junction is intact with normal position of the cerebellar tonsils. Sellar/suprasellar region is normal. Flow-void signal within the main cerebral vessels is normal. Mild prominence of the extra-axial CSF spaces cerebral sulci in the bifrontal biparietal lobes. MR/MR head/brain wo con IMPRESSION: No acute brain abnormality. Bifrontal parietal lobe atrophy, mild. Electronically signed by: Ranjit Fitzgerald MD 08/22/2025 06:40 AM EST
--- OUTSIDE RECORDS SUMMARY | 2025-08-21 11:31 | XMS_ITS | Encounter Summary ---
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 Name Role Phone José Manuel Reyez MD Unavailable [phone] Jerod Lopez PA-C Primary Care Provider [phone] Jerod Lopez PA-C Primary Care Provider [phone] Reason for Visit * Reason Onset Date Comments refill request 06/20/2021 Encounter Details Date Type Department Care Team Description 06/20/2021 Refill Pulmonology - [place] [address] [phone] Madeleine Pizano APRN [address] [phone] refill request Social History Tobacco Use Types Packs/Day Years Used Date Smoking Tobacco: Every Day Cigarettes 1 28 Smokeless Tobacco: Never Alcohol Use Standard Drinks/Week Comments No 0 (1 standard drink = 0.6 oz pur e alcohol) Sex Assigned at Date Recorded Not on file Job Start Date Occupation Industry Not on file Not on file Not on file documented as of this encounter Miscellaneous Notes * Telephone Encounter - Lorraine Bone - 06/20/2021 3:16 PM EDT Patient would like script to be: E-PRESCRIBED/FAXED TO PHARMACY WHEN WAS THE PATIENT'S LAST APPOINTMENT IN ADULT MEDICINE? 12/08/20 WHEN WAS THE LAST TIME THE PATIENT SAW THEIR PCP? Same as above Does patient have an upcoming appointment? Yes 08/27/21 (THE MEDICATION REQUESTED IS ON THE MED LIST ABOVE) All of the medications requested were on the CURRENT MEDS list Did you check the Pharmacy information above?: YES Patient wants: 30 -day supply Is this a mail order prescription request ? NO If the refill is from a FAXED refill request what is the RX # listed on the fax? 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
--- OUTSIDE RECORDS SUMMARY | 2025-08-21 11:32 | XMS_ITS | Encounter Summary ---
Author Organization [facility] Prior to 07/16/2024 Address [address] [place] [address] Care Team Providers Care Drug Safety Specialist Name Role Phone Ranjith Leblanc MD Primary Care Provider [phone] José Manuel Reyez MD Unavailable [phone] Jerod Lopez PA-C Primary Care Provider [phone] Jerod Lopez PA-C Primary Care Provider [phone] Reason for Visit * Reason Comments E-prescribe Rx Request Encounter Details Date Type Department Care Team Description 12/09/2017 Refill Adult Medicine [facility] [address] [place] [address] Ranjith Leblanc MD [address] [place] [address] E-prescribe Rx Request Social History Tobacco Use Types Packs/Day Years Used Date Smoking Tobacco: Every Day Cigarettes 1 28 Smokeless Tobacco: Current Comments:she is advised she should stop smoking. Alcohol Use Standard Drinks/Week Comments No 0 (1 standard drink = 0.6 oz pur e alcohol) Sex Assigned at Date Recorded Not on file Job Start Date Occupation Industry Not on file Not on file Not on file documented as of this encounter Miscellaneous Notes * Telephone Encounter - Lia Sterling - 12/09/2017 2:17 PM EDT Patient would like script to be: E-PRESCRIBED/FAXED TO PHARMACY WHEN WAS THE PATIENT'S LAST APPOINTMENT IN ADULT MEDICINE? 03/14/2017 WHEN WAS THE LAST TIME THE PATIENT SAW THEIR PCP? Has never seen pcp Does patient have an upcoming appointment? Yes 01/28/2018 (THE MEDICATION REQUESTED IS ON THE MED LIST ABOVE) All of the medications requested were on the CURRENT MEDS list Did you check the Pharmacy information above?: YES Patient wants: 30 -day supply Is this a mail order prescription request ? NO Patients current insurance carrier is: Payor: [employer] PL[employer] / Plan: [employer] $0 [id number] / Product Type: MEDICAID [id number] documented in this encounter Plan of Treatment Not on file documented as of this encounter Visit Diagnoses Not on filedocumented in this encounter Care Teams Drug Safety Specialist Relationship Specialty Start Date End Date Ranjith Leblanc MD [address] [place] [address] PCP - General Internal Medicine 08/27/11 11/15/20 Jerod Lopez PA-C [address] [place] [address] PCP - General Internal Medicine 11/16/20 07/23/21 Jerod Lopez PA-C [address] [place] [address] PCP - General Internal Medicine 07/24/21 José Manuel Reyez MD Medical [facility] [address] [place] [address] Specialist Cardiovascular Disease 10/05/20 documented as of this encounter
--- OUTSIDE RECORDS SUMMARY | 2025-08-21 11:32 | XMS_ITS | Encounter Summary ---
Author Organization [facility] Prior to 07/16/[address] [place] [address] Care Team Providers Care Freelance Designer Name Role Phone José Manuel Reyez MD Unavailable [phone] Jerod Lopez PA-C Primary Care Provider [phone] Encounter Details Date Type Department Care Team Description 06/05/2023 Orders Only General Surgery - [place] 175 [facility] [address] [place] [phone] Yanci Pitts MD [address] [facility] 110 [facility] [place] [address] Social History Tobacco Use Types Packs/Day Years Used Date Smoking Tobacco: Every Day Cigarettes 1 28 Smokeless Tobacco: Never Alcohol Use Standard Drinks/Week Comments No 0 (1 standard drink = 0.6 oz pur e alcohol) Sex Assigned at Date Recorded Not on file Job Start Date Occupation Industry Not on file Not on file Not on file documented as of this encounter Plan of Treatment Not on file documented as of this encounter Visit Diagnoses Not on filedocumented in this encounter Care Teams Freelance Designer Relationship Specialty Start Date End Date Jerod Lopez PA-C [address] [place] [address] PCP - General Internal Medicine 07/24/21 José Manuel Reyez MD [address] [place] [address] Specialist Cardiovascular Disease 10/05/20 documented as of this encounter
--- OUTSIDE RECORDS SUMMARY | 2025-08-21 11:32 | XMS_ITS | Encounter Summary ---
Author Organization [facility] Prior to 07/16/2024 Address [address] [place] [address] Care Team Providers Care Deli Cook Name Role Phone José Manuel Reyez MD Unavailable [phone] Jerod Lopez PA-C Primary Care Provider [phone] Reason for Visit * Reason Onset Date Comments radiology 05/08/2023 Mri guiided biop sy order cancelled Encounter Details Date Type Department Care Team Description 05/08/2023 Telephone Radiology - [place] [address] [place] [address] Yanci Pitts MD [address] [place] [address] [address] [facility] [place] [address] radiology (Mri guiided biopsy order cancelled) Social History Tobacco Use Types Packs/Day Years Used Date Smoking Tobacco: Every Day Cigarettes 1 28 Smokeless Tobacco: Never Alcohol Use Standard Drinks/Week Comments No 0 (1 standard drink = 0.6 oz pur e alcohol) Sex Assigned at Date Recorded Not on file Job Start Date Occupation Industry Not on file Not on file Not on file COVID-19 Exposure Response Date Recorded In the last 10 days, have yo u been in contact with someone who was confirmed or suspected to have Coronavirus/COVID-19? No / Unsure 04/22/2023 2:44 PM EDT documented as of this encounter Miscellaneous Notes * Telephone Encounter - Tamera Antoine M.A. - 06/04/2023 9:[address] Pitts spoke with the radiologist, this patient should be scheduled. Thank you * Telephone Encounter - Jada Chan - 05/08/2023 12:21 PM EDT The radiologists, Dr. Main and Dr. Moore are stating this is not necessary. In the order of events in her care the area was biopsied under ultrasound on March 07. The addendum listed as reason for exam was from February 25. Please contact either radiologist if you have any questions Jose David [phone] Oscar [phone] Thank you documented in this encounter Plan of Treatment Not on file documented as of this encounter Visit Diagnoses Not on filedocumented in this encounter Care Teams Deli Cook Relationship Specialty Start Date End Date Jerod Lopez PA-C [address] [place] [address] PCP - General Internal Medicine 07/24/21 José Manuel Reyez MD Medical [facility] [address] [place] [address] Specialist Cardiovascular Disease 10/05/20 documented as of this encounter
--- OUTSIDE RECORDS SUMMARY | 2025-08-21 11:32 | XMS_ITS | Encounter Summary ---
Author Organization [facility] [employer] [facility] [employer] [facility] Prior to 07/16/2024 Address [address] [place] [address] Care Team Providers Care Tow Motor Driver Name Role Phone Ranjith Leblanc MD Primary Care Provider + [phone] José Manuel Reyez MD Unavailable [phone] Jerod Lopez PA-C Primary Care Provider [phone] Jerod Lopez PA-C Primary Care Provider +[phone] Reason for Visit * Reason Comments E-prescribe Rx Request Encounter Details Date Type Department Care Team Description 10/19/2017 Refill Adult Medicine [address] [phone] Jerod Lopez PA-C [address] [place] [address] [phone] E-prescribe Rx Request Social History Tobacco Use [...] encounter Miscellaneous Notes * Telephone Encounter - Senia Webb - 10/20/2017 3:24 PM EST Patient would like script to be: E-PRESCRIBED/FAXED TO PHARMACY WHEN WAS THE PATIENT'S LAST APPOINTMENT IN ADULT MEDICINE? 03/14/17 WHEN WAS THE LAST TIME THE PATIENT SAW THEIR PCP? 04/18/15 Does patient have an upcoming appointment? Yes 11/10/17 (THE MEDICATION REQUESTED IS ON THE MED LIST ABOVE) All of the medications requested were on the CURRENT MEDS list Did you check the Pharmacy information above?: YES Patient wants: 30 -day supply Is this a mail order prescription request ? NO Patients current insurance carrier is: Payor: [employer] / Plan: [employer] $0 TRINY [id number] / Product Type: MEDICAID [id number] documented in this encounter Plan of Treatment Not on file documented as of this encounter Visit Diagnoses Diagnosis Mixed hyperlipidemia Hidradenitis Tobacco abuse Tobacco use disorder documented in this encounter Care Teams Tow Motor Driver Relationship Specialty Start Date End Date Ranjith Leblanc MD [address] [place] [address] PCP - General Internal Medicine 08/27/11 11/15/20 Jerod Lopez PA-C [address] [place] [address] 49178 PCP - General Internal Medicine 11/16/20 07/23/21 Jerod Lopez PA-C [address] [place] [address] 40858 PCP - General Internal Medicine 07/24/21 José Manuel Reyez MD [address] [place] [address] [place] [address] Specialist Cardiovascular Disease 10/05/20 documented as of this encounter
--- OUTSIDE RECORDS SUMMARY | 2025-08-21 11:32 | XMS_ITS | Encounter Summary ---
Author Organization [facility] Prior to 07/16/[address] [place] [address] Care Team Providers Care Onion Tier Name Role Phone José Manuel Reyez MD Unavailable [phone] Jerod Lopez PA-C Primary Care Provider [phone] Reason for Visit * Reason Comments E-prescribe Rx Request Encounter Details Date Type Department Care Team Description 10/11/2021 Refill Pulmonology - [place] 175 [facility] [address] [place] [address] Rodriguez Garg MD [address] [place] [address] E-prescribe Rx Request Social History Tobacco Use [...] * Telephone Encounter - Lorraine Bone - 10/12/2021 2:51 PM EST Patient would like script to be: E-PRESCRIBED/FAXED TO PHARMACY WHEN WAS THE PATIENT'S LAST APPOINTMENT IN ADULT MEDICINE? 08/27/21 WHEN WAS THE LAST TIME THE PATIENT SAW THEIR PCP? Same as above Does patient have an upcoming appointment? No, unable to leave voicemail. Ring then busy. Appt due 02/25/22 (THE MEDICATION REQUESTED IS ON THE MED [...] N/A Patients current insurance carrier is: Payor: [email or web address] FFS / Plan: [employer] [place] / Product Type: MEDICAID RISK documented in this encounter Plan of Treatment Not on file documented as of this encounter Visit Diagnoses Not on filedocumented in this encounter Care Teams Onion Tier Relationship Specialty Start Date End Date Jerod Lopez PA-C [address] [place] [address] PCP - General Internal Medicine 07/24/21 José Manuel Reyez MD [address] [place] [address] Specialist Cardiovascular Disease 10/05/20 documented as of this encounter
--- OUTSIDE RECORDS SUMMARY | 2025-08-21 11:32 | XMS_ITS | Encounter Summary ---
Author Organization [facility] Prior to 07/16/[address] [place] [address] Care Team Providers Care Waterproofer Helper Name Role Phone José Manuel Reyez MD Unavailable [phone] Jerod Lopez PA-C Primary Care Provider [phone] Encounter Details Date Type Department Care Team Description 01/21/2023 Telephone Adult Medicine [address] [address] Jerod Lopez PA-C [address] [place] [address] Social History Tobacco Use Types Packs/Day Years [...] suspected to have Coronavirus/COVID-19? No / Unsure 01/24/2023 11:27 AM EDT documented as of this encounter Miscellaneous Notes * Telephone Encounter - Belle Dominique - 01/21/2023 10:35 AM EDT documented in this encounter Plan of Treatment Not on file documented as of this encounter Visit Diagnoses Not on filedocumented in this encounter Care Teams Waterproofer Helper Relationship Specialty Start Date End Date Jerod Lopez PA-C [address] [place] [address] PCP - General Internal Medicine 07/24/21 José Manuel Reyez MD Medical [facility] [address] [place] [address] Specialist Cardiovascular Disease 10/05/20 documented as of this encounter
--- OUTSIDE RECORDS SUMMARY | 2025-08-21 11:32 | XMS_ITS | Encounter Summary ---
Author Organization [facility] Prior to 07/16/2024 Address [address] [place] [address] Care Team Providers Care Electromechanical Assembly Technician Name Role Phone Ranjith Leblanc MD Primary Care Provider + [phone] José Manuel Reyez MD Unavailable [phone] Jerod Lopez PA-C Primary Care Provider [phone] Jerod Lopez PA-C Primary Care Provider [phone] Reason for Visit * Reason Comments E-prescribe Rx Request Encounter Details Date Type Department Care Team Description 08/16/2016 Refill Adult Medicine [facility] [address] [place] [address] Ranjith Leblanc MD [address] [place] [address] E-prescribe Rx Request Social History Tobacco Use [...] encounter Miscellaneous Notes * Telephone Encounter - Beata Heredia - 08/16/2016 9:17 AM EST Patient would like script to be: E-PRESCRIBED/FAXED TO PHARMACY WHEN WAS THE PATIENT'S LAST APPOINTMENT IN ADULT MEDICINE? 04/18/15 WHEN WAS THE LAST TIME THE PATIENT SAW THEIR PCP? Same as above Does patient have an upcoming appointment? No-[facility] due to refill request. Appt due aug 2016 (THE MEDICATION REQUESTED IS ON THE MED LIST ABOVE) All of the medications requested were on the CURRENT MEDS list Did you check the Pharmacy information above?: YES Patient wants: 30 -day supply Is this a mail order prescription request ? NO Patients current insurance carrier is: No billing information found for this encounter. documented in this encounter Plan of Treatment Not on file documented as of this encounter Visit Diagnoses Not on filedocumented in this encounter Care Teams Electromechanical Assembly Technician Relationship Specialty Start Date End Date Ranjith Leblanc MD [address] [place] [address] PCP - General Internal Medicine 08/27/11 11/15/20 Jerod Lopez PA-C [address] [place] [address] PCP - General Internal Medicine 11/16/20 07/23/21 Jerod Lopez PA-C [address] [place] [address] PCP - General Internal Medicine 07/24/21 José Manuel Reyez MD Medical [facility] [address] [place] [address] Specialist Cardiovascular Disease 10/05/20 documented as of this encounter
--- OUTSIDE RECORDS SUMMARY | 2025-08-21 11:32 | XMS_ITS | Encounter Summary ---
Author Organization [facility] Prior to 07/16/2024 Address [address] [place] [address] Care Team Providers Care Printing Plate Clerk Name Role Phone Ranjith Leblanc MD Primary Care Provider + [phone] José Manuel Reyez MD Unavailable [phone] Jerod Lopez PA-C Primary Care Provider [phone] Jerod Lopez PA-C Primary Care Provider [phone] Encounter Details Date Type Department Care Team Description 12/03/2019 Telephone Adult Medicine [address] [address] Ranjith Leblanc MD [address] [place] [address] [phone] Social History Tobacco Use Types Packs/Day Years [...] on filedocumented in this encounter Care Teams Printing Plate Clerk Relationship Specialty Start Date End Date Ranjith Leblanc MD [address] [place] [address] PCP - General Internal Medicine 08/27/11 11/15/20 Jerod Lopez PA-C [address] [place] [address] PCP - General Internal Medicine 11/16/20 07/23/21 Jerod Lopez PA-C [address] [place] [address] PCP - General Internal Medicine 07/24/21 José Manuel Reyez MD [address] [place] [address] Specialist Cardiovascular Disease 10/05/20 documented as of this encounter
--- OUTSIDE RECORDS SUMMARY | 2025-08-21 11:32 | XMS_ITS | Encounter Summary ---
Author Organization [facility] Prior to 07/16/[address] [place] [address] Care Team Providers Care Hose Stripper Name Role Phone José Manuel Reyez MD Unavailable [phone] Jerod Lopez PA-C Primary Care Provider [phone] Encounter Details Date Type Department Care Team Description 02/21/2023 Orders Only Radiology - [place] [address] [place] [address] Jacqueline Main MD [address] [place] [address] Social History Tobacco Use Types Packs/Day Years [...] suspected to have Coronavirus/COVID-19? No / Unsure 02/21/2023 12:40 PM EDT documented as of this encounter Plan of Treatment Not on file documented as of this encounter Visit Diagnoses Not on filedocumented in this encounter Care Teams Hose Stripper Relationship Specialty Start Date End Date Jerod Lopez PA-C [address] [place] [address] PCP - General Internal Medicine 07/24/21 José Manuel Reyez MD [address] [place] [address] Specialist Cardiovascular Disease 10/05/20 documented as of this encounter
--- OUTSIDE RECORDS SUMMARY | 2025-08-21 11:32 | XMS_ITS | Encounter Summary ---
Author Organization [facility] Prior to 07/16/[address] [place] [address] Care Team Providers Care Director Of Business Operations Name Role Phone José Manuel Reyez MD Unavailable [phone] Jerod Lopez PA-C Primary Care Provider [phone] Reason for Visit * Reason Onset Date Comments Breast Lump 01/20/2023 Encounter Details Date Type Department Care Team Description 01/20/2023 Telephone Adult Medicine [address] [address] Jerod Lopez PA-C [address] [place] [address] [phone] Breast Lump Social History Tobacco Use Types Packs/Day Years [...] Recorded In the last 10 days, have nabeel u been in contact with someone who was confirmed or suspected to have Coronavirus/COVID-19? No / Unsure 01/21/2023 2:37 PM EDT documented as of this encounter Miscellaneous Notes * Telephone Encounter - Libertad Duarte RN - 01/20/2023 1:10 PM EDT I left a message for the patient to return my call. * Telephone Encounter - Emilie Mariee - 01/20/2023 12:20 PM EDT Symptoms patient is presenting: Patient state she has a lump on both her breast, states it has beenin pain for the last week, please advise. For ALL patients calling to schedule any appointment (routine, sick visit, follow up, consult, etc.) in the outpatient setting please ask the following questions: ?? Do you have fever of higher than 101, sore throat with difficulty swallowing or severe shortnessof breath? NO If YES to any of these above symptoms, send a message to triage and do not book. Red dot. If no, an audio or video visit should be booked. ?? Have you had close contact with someone with Coronavirus in the last 14 days? NO ?? Have you traveled abroad? NO ?? Have you traveled recently to another state outside of [place], [place], [place], [place], [place], [place], [place]? NO o If yes, did you quarantine for 14 days or have a negative covid test? NO If yes to any of the above, patient is not to be scheduled in office until after 14 day quarantine or negative covid test. If pain or injury related was it due to an accident at work or from a motor vehicle accident? NO If yes, gather 3rd constitution party insurance information Date of accident/Injury: How long has patient had these symptoms?: 1 week PCP: Jerod Lopez Payor: [facility] FFS / Plan: [facility] [employer] / Product Type: MEDICAID RISK documented in this encounter Plan of Treatment Not on file documented as of this encounter Visit Diagnoses Not on filedocumented in this encounter Care Teams Director Of Business Operations Relationship Specialty Start Date End Date Jerod Lopez PA-C [address] [place] [address] PCP - General Internal Medicine 07/24/21 José Manuel Reyez MD [address] [place] [address] Specialist Cardiovascular Disease 10/05/20 documented as of this encounter
--- OUTSIDE RECORDS SUMMARY | 2025-08-21 11:32 | XMS_ITS | Encounter Summary ---
Author Organization [facility] Prior to 07/16/2024 Address [address] [place] [address] Care Team Providers Care City Bus Driver Name Role Phone Edy Still MD Primary Care Provider [phone] Ranjith Leblanc MD Primary Care Provider + [phone] José Manuel Reyez MD Unavailable [phone] Jerod Lopez PA-C Primary Care Provider [phone] Jerod Lopez PA-C Primary Care Provider [phone] Encounter Details Date Type Department Care Team Description 08/22/2011 Release of Information Medical Records [address] [place] [address] Abstract, Provider Social History Tobacco Use Types Packs/Day Years Used Date Smoking Tobacco: Every Day Cigarettes 1.5 Smokeless Tobacco: Never Comments:she is advised she should stop smoking. [...] on filedocumented in this encounter Care Teams City Bus Driver Relationship Specialty Start Date End Date Edy Still MD [address] [place] [address] [phone] PCP - General 02/27/09 08/26/11 Ranjith Leblanc MD [address] [place] [address] [phone] PCP - General Internal Medicine 08/27/11 11/15/20 Jerod Lopez PA-C [address] [place] [address] PCP - General Internal Medicine 11/16/20 07/23/21 Jerod Lopez PA-C [address] [place] [address] PCP - General Internal Medicine 07/24/21 José Manuel Reyez MD [address] [place] [address] [place] [address] Specialist Cardiovascular Disease 10/05/20 documented as of this encounter
--- OUTSIDE RECORDS SUMMARY | 2025-08-21 11:32 | XMS_ITS | Encounter Summary ---
Author Organization [facility] [employer] [facility] Prior to 07/16/2024 Address [address] [place] [address] Care Team Providers Care Charge Entry Specialist Name Role Phone Ranjith Leblanc MD Primary Care Provider + [phone] José Manuel Reyez MD Unavailable [phone] Jerod Lopez PA-C Primary Care Provider [phone] Jerod Lopez PA-C Primary Care Provider [phone] Encounter Details Date Type Department Care Team Description 02/24/2019 Telephone Adult Medicine [address] [phone] Luci Mcmahan PA [address] [place] [address] [phone] Social History Tobacco Use Types Packs/Day Years [...] encounter Miscellaneous Notes * Telephone Encounter - LUCILA Nunez - 02/24/2019 3:01 PM EDT Foster thank you. * Telephone Encounter - Edith Farrell M.A. - 02/24/2019 10:17 AM EDT Patient called / offered to transfer patient to [facility] to schedule mammo and ultrasound but she declined / states she will call back nicholas to Luci * Telephone Encounter - LUCILA Nunez - 02/24/2019 8:11 AM EDT At office visit on 02/22/19 patient stated she did not need me to order Mammo as her OB had already done this. It looks like patient missed Mammo appointment on 02/11. Please follow up with her and ensure she will follow up with OB for Mammo and routine screening. Thank you. documented in this encounter Plan of Treatment Not on file documented as of this encounter Visit Diagnoses Not on filedocumented in this encounter Care Teams Charge Entry Specialist Relationship Specialty Start Date End Date Ranjith Leblanc MD [address] [place] [address] PCP - General Internal Medicine 08/27/11 11/15/20 Jerod Lopez PA-C [address] [place] [address]85 PCP - General Internal Medicine 11/16/20 07/23/21 Jerod Lopez PA-C [address] [place] [address]77 PCP - General Internal Medicine 07/24/21 José Manuel Reyez MD [address] [place] [address] Specialist Cardiovascular Disease 10/05/20 documented as of this encounter
--- OUTSIDE RECORDS SUMMARY | 2025-08-21 11:32 | XMS_ITS | Encounter Summary ---
Author Organization [facility] Prior to 07/16/2024 Address [address] [place] [address] Care Team Providers Care Animal Stunner Name Role Phone Ranjith Leblanc MD Primary Care Provider + [phone] José Manuel Reyez MD Unavailable [phone] Jerod Lopez PA-C Primary Care Provider [phone] Jerod Lopez PA-C Primary Care Provider [phone] Reason for Visit * Reason Comments Encounter Details Date Type Department Care Team Description 01/31/2012 Telephone Adult Medicine [address] [phone] Virginia Polk PA-C Social History Tobacco Use Types Packs/Day Years [...] as of this encounter Visit Diagnoses Diagnosis Hyperlipidemia- Primary Other and unspecified hyperlipidemia documented in this encounter Care Teams Animal Stunner Relationship Specialty Start Date End Date Ranjith Leblanc MD [address] [place] [address] [phone] PCP - General Internal Medicine 08/27/11 11/15/20 Jerod Lopez PA-C [address] [place] [address] [phone] PCP - General Internal Medicine 11/16/20 07/23/21 Jerod Lopez PA-C [address] [place] [address] PCP - General Internal Medicine 07/24/21 José Manuel Reyez MD Medical [facility] [address] [place] [address] Specialist Cardiovascular Disease 10/05/20 documented as of this encounter
--- OUTSIDE RECORDS SUMMARY | 2025-08-21 11:32 | XMS_ITS | Encounter Summary ---
Author Organization [facility] Prior to 07/16/[address] [place] [address] Care Team Providers Care Bulk Station Agent Name Role Phone José Manuel Reyez MD Unavailable [phone] Jerod Lopez PA-C Primary Care Provider [phone] Reason for Visit * Reason Comments E-prescribe Rx Request Encounter Details Date Type Department Care Team Description 08/11/2021 Refill Pulmonology - [place] 175 [facility] [address] [place] [phone] Rodriguez Garg MD [address] [place] [address] E-prescribe Rx Request Social History [...] Exposure Response Date Recorded In the last month, have you been in contact with someone who was confirmed or suspected to have Coronavirus / COVID-19? No / Unsure 07/24/2021 11:20 AM EST documented as of this encounter Miscellaneous Notes * Telephone Encounter - Hal Velez - 08/13/2021 11:08 AM EST BERTO 12/08/20 NOV 08/27/21 documented in this encounter Plan of Treatment Not on file documented as of this encounter Visit Diagnoses Not on filedocumented in this encounter Care Teams Bulk Station Agent Relationship Specialty Start Date End Date Jerod Lopez PA-C [address] [place] [address] PCP - General Internal Medicine 07/24/21 José Manuel Reyez MD Medical [facility] [address] [place] [address] Specialist Cardiovascular Disease 10/05/20 documented as of this encounter
--- OUTSIDE RECORDS SUMMARY | 2025-08-21 11:32 | XMS_ITS | Encounter Summary ---
Author Organization [facility] Prior to 07/16/2024 Address [address] [place] [address] Care Team Providers Care Warehouse Material Handler Name Role Phone Ranjith Leblanc MD Primary Care Provider + [phone] José Manuel Reyez MD Unavailable [phone] Jerod Lopez PA-C Primary Care Provider [phone] Jerod Lopez PA-C Primary Care Provider [phone] Reason for Visit * Reason Onset Date Comments refill request 07/17/2020 Encounter Details Date Type Department Care Team Description 07/17/2020 Refill Pulmonology - [place] 175 [facility] [address] [place] [address] Joshua Bennett MD [address] [facility] [address] [place] [address] refill request Social History Tobacco Use Types [...] encounter Miscellaneous Notes * Telephone Encounter - Fay Braga - 07/17/2020 1:32 PM EST Patient would like script to be: E-PRESCRIBED/FAXED TO PHARMACY WHEN WAS THE PATIENT'S LAST APPOINTMENT WITH THE PRESCRIBING PROVIDER? 12-07-2019 Does patient have an upcoming appointment? Yes 08-02-2020 (THE MEDICATION REQUESTED IS ON THE MED LIST ABOVE) Did you check the Pharmacy information above?: YES Patient wants: 90 -day supply Is this a mail order prescription request ? NO Patients current insurance carrier is: Payor: [employer] FFS / Plan: [employer] / Product Type: MEDICAID RISK documented in this encounter Plan of Treatment Not on file documented as of this encounter Visit Diagnoses Not on filedocumented in this encounter Care Teams Warehouse Material Handler Relationship Specialty Start Date End Date Ranjith Leblanc MD [address] [place] [address] PCP - General Internal Medicine 08/27/11 11/15/20 Jerod Lopez PA-C [address] [place] [address] PCP - General Internal Medicine 11/16/20 07/23/21 Jerod Lopez PA-C [address] [place] [address] PCP - General Internal Medicine 07/24/21 José Manuel Reyez MD [address] [place] [address] Specialist Cardiovascular Disease 10/05/20 documented as of this encounter
--- OUTSIDE RECORDS SUMMARY | 2025-08-21 11:32 | XMS_ITS | Encounter Summary ---
Author Organization [facility] Prior to 07/16/2024 Address [address] [place] [address] Care Team Providers Care Adjunct Professor Name Role Phone José Manuel Reyez MD Unavailable [phone] Jerod Lopez PA-C Primary Care Provider [phone] Jerod Lopez PA-C Primary Care Provider [phone] Reason for Visit * Reason Onset Date Comments refill request 03/15/2021 Encounter Details Date Type Department Care Team Description 03/15/2021 Refill Pulmonology - [place] [address] [address] Joshua Bennett MD [address] [address] refill request Social History Tobacco Use [...] encounter Miscellaneous Notes * Telephone Encounter - Callie Huddleston - 03/15/2021 9:31 AM EDT Patient would like script to be: E-PRESCRIBED/FAXED TO PHARMACY WHEN WAS THE PATIENT'S LAST APPOINTMENT IN ADULT MEDICINE? 12/08/20 WHEN WAS THE LAST TIME THE PATIENT SAW THEIR PCP? Same as above Does patient have an upcoming appointment? Yes 03/29/21 (THE MEDICATION REQUESTED IS ON THE MED [...] N/A Patients current insurance carrier is: Payor: [employer] / Plan: [employer] / Product Type: MEDICAID RISK documented in this encounter Plan of Treatment Not on file documented as of this encounter Visit Diagnoses Not on filedocumented in this encounter Care Teams Adjunct Professor Relationship Specialty Start Date End Date Jerod Lopez PA-C [address] [place] [address] PCP - General Internal Medicine 11/16/20 07/23/21 Jerod Lopez PA-C [address] [place] [address] PCP - General Internal Medicine 07/24/21 José Manuel Reyez MD [address] [place] [address] Specialist Cardiovascular Disease 10/05/20 documented as of this encounter
--- OUTSIDE RECORDS SUMMARY | 2025-08-21 11:32 | XMS_ITS | Clinical Summary ---
Author Organization [facility] Prior to 07/16/2024 Address [address] [place] [address] Care Team Providers Care Delivery Helper Name Role Phone José Manuel Reyez MD Unavailable [phone] Jerod Lopez PA-C Primary Care Provider [phone] Allergies No known active allergies Medications Medication Sig Dispensed Refills Start Date End Date Status Ventolin HFA 108 (90 Base) MCG/ACT Aero Soln Inhale 2 Puffs into the lungs every 4 hours as needed for Cough or Wheezing. 8.5 g 5 05/07/2023 Active lorazepam (Ativan) 1 MG tablet Take 1 Tablet by mouth Once. Take 30 minutes prior to MRI. 1 Tablet 0 06/05/2023 Active albuterol (PROVENTIL) (2.5 MG/3ML) 0.083% nebulizer solutionIndication s:Asthma-COPD overlap syndrome (HCC) Take 1 Vial by nebulization every 6 hours as needed for Wheezing or Shortness of Breath for up to 180 days. 270 mL 5 06/05/2023 Active lactulose (CHRONULAC) 10 GM/15ML solution Take 30 mL by mouth daily. 300 mL 4 06/05/2023 Active doxycycline (VIBRAMYCIN) 50 MG capsuleIndications :Mixed hyperlipidemia,Tob acco abuse,Hidradenitis Take 1 Capsule by mouth 2 times daily. 60 Capsule 2 07/15/2023 Active Symbicort 160-4.5 MCG/ACT inhalerIndications :Tobacco abuse,Asthma-COPD overlap syndrome (HCC),Post-nasal drainage Inhale 2 Puffs into the lungs every 12 hours. 6.9 g 5 07/15/2023 Active furosemide (LASIX) 20 MG tablet Take 1 Tablet by mouth daily. As needed for leg swelling 90 Tablet 1 07/15/2023 Active Triamcinolone Acetonide 55 MCG/ACT AerosolIndications :Tobacco abuse,Post-nasal drainage 2 Sprays by Nasal route daily. 1 g 5 07/15/2023 Active cetirizine (ZYRTEC) 10 MG tablet Take 1 Tablet by mouth daily. 90 Tablet 1 07/15/2023 Active hydrOXYzine (ATARAX) 10 MG tablet Take 1 Tablet by mouth 3 times daily as needed for Anxiety. 30 Tablet 0 07/15/2023 Active tamoxifen (NOLVADEX) 10 MG tablet Take 1 Tablet by mouth daily for 360 days. 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 09/25/2022 IFG (impaired fasting glucose) Mild persistent asthma without complicat ion 03/23/2019 Abnormal CXR 03/23/2019 Leg swelling 01/28/2018 Hidradenitis 11/14/2016 Mixed hyperlipidemia 04/18/2015 Polycythemia 02/27/2015 Thyroid nodule 12/24/2010 Depression 11/19/2010 Tobacco abuse 02/06/2010 Resolved Problems Problem Noted Date Resolved Date COPD suggested by initial evaluation 03/23/2019 06/07/2019 Immunizations Name Administration Dates Next Due Hepatitis B > 19yrs 11/22/2010 Influenza (> 6 Months) 06/15/2012,06/03/2009 Influenza (>6 Months) Split Preservative Free 06/08/2015 Influenza Vaccine-preservati ve Free-quadrivalent 4 Years 07/24/2021,06/07/2019,08/31/2018 PPD-RBMG 11/19/2010 Pneumococcal Conjugate PCV-13 06/07/2019 Tdap 07/21/2020,02/06/2010 Family History Medical History Relation Name Comments CA Breast Aunt m CA Ovarian Aunt m maternal, ovari an cancer, passed from [place] CAD Father CABG at age 29 Diabetes Father CAD, CABG, colo n polyps >10 Cancer of the Lung Maternal Grandfather h ypothyroidism CA Breast Maternal Grandmother ovarian cancer, passed in 70s Hypothyroid Mother HTN, hyperchole sterolemia, rheumatoid arthritis PR Paternal Grandfather diabete s Lupus Paternal Grandmother rheumat oid arthritis Hypothyroid Sister Relation Name Status Comments Aunt m Father Alive Maternal Grandfather Maternal Grandmother Mother Alive Paternal Grandfather Paternal Grandmother Alive Sister Alive Social History Tobacco Use Types Packs/Day Years Used Date Smoking Tobacco: Every Day Cigarettes 1 28 Smokeless Tobacco: Never Tobacco Cessation:Ready to Q uit: Not Asked; Counseling Given: Not Answered Alcohol Use Standard Drinks/Week Comments No 0 (1 standard drink = 0.6 oz pur e alcohol) Sex Assigned at Date Recorded Not on file Job Start Date Occupation Industry Not on file Not on file Not on file Last Filed Vital Signs Vital Sign Reading Time Taken Comments Blood Pressure 110/76 02/24/2024 3:45 PM EDT Pulse 64 02/24/2024 3:45 PM EDT Temperature 36.2 C (97.2 F) 02/24/2024 3:45 PM EDT Respiratory Rate 16 07/15/2023 3:06 PM EDT Oxygen Saturation 97% 07/15/2023 3:06 PM EDT Inhaled Oxygen Concentration - - Weight 79.8 kg (176 lb) 02/24/2024 3:45 PM EDT Height 170.2 cm (5' 7 ) 07/15/2023 3:06 PM EDT Body Mass Index 27.57 07/15/2023 3:06 PM EDT Plan of Treatment Health Maintenance Due Date Last Done Comments Covid-19 Vaccine (#1) 1975 CERVICAL CANCER SCREENING 01/11/2020 01/10/2017, BASELINE HEALTH EXAM 40-64 07/24/202307/24, 07/21/2020, 02/22/2019, Additional history exists TOBACCO CHECK/ADVISE 11/18/2023 11/17/2021, 10/22/2021, 10/11/2021, Additional history exists BMI CHECK/ADVISE 09/15/2024 07/15/2023, 02/2022, 08/27/2021, Additional history exists DEPRESSION SCREENING/FOLLOWUP 09/15/2024, 12/19/2021, 12/19/2021, Additional history exists SOCIAL NEEDS SCREENING 09/15/2024 , 07/15/2023, 07/24/2021 (Completed), Additional history exists MAMMOGRAM 02/04/2025 02/05/2024, 07/17, 03/07/2023, Additional history exists INFLUENZA (#1) 2025 07/24/2021, 05/17, 08/31/2018, Additional history exists CHOLESTEROL SCREENING 07/15/2028 07/15/2023 , 12/19/2021, 12/07/2020, Additional history exists DTAP/TDAP/TD (3 - Td or Tdap) 07/21/2030 (Completed), 07/21/2020, 02/06/2010 PNEUMOCOCCAL VACCINE FOR HIG H RISK PATIENTS (#2) 2041 06/07/2019 Care Teams Delivery Helper Relationship Specialty Start Date End Date Jerod Lopez PA-C [address], [place] PCP - General Internal Medicine 07/24/21 José Manuel Reyez MD Medical [facility] [address] [place] [address] Specialist Cardiovascular Disease 10/05/20
== END 2025-08-21 11:28 | disposition home or self-care (01) ==
LOC: HO.MRI 11:27
PROVIDERS: PCP Physician Assistant Medical; Visit Provider Nurse Practitioner
DX: R44.2 Other hallucinations (principal); R51.9 Headache, unspecified; R42 Dizziness and giddiness; R45.83 Excessive crying of child, adolescent or adult
CPT/HCPCS: 70551

== ENCOUNTER 2025-08-22 09:01 | Outpatient (AMB) | payer OTHER, SELFPAY ==
--- NOTE | 2025-08-22 09:01 | MHC.OFFVIS ---
Vital Signs 08/22/25 09:07 Height 5 ft 7 in Weight 170 lb BMI 26.6 BP 116/70 Blood Pressure Location Rt brachial Position Sitting Respiration 16 Pulse 69 Pulse Source Pulse Oximeter Pulse Oximetry (%) 98 Oxygen Delivery Method Room Air Intake Visit Reasons: 1M Accompanied by: Spouse Allergies No Known Allergies (No Known Allergies*) Allergy (Verified 08/22/25 09:11) HPI Comments Details: Naresh is a 50-year-old female patient with a past medical history of anxiety, depression, asthma, and COPD who is here today for a follow up visit regarding several new arising neurological symptoms. She presented to [facility] Emergency room on 04/12/2025 reporting headaches, blurred vision, and left arm tingling. A CT of her head did not show any acute findings however did show bifrontal parietal atrophy . Her routine eye exams has been up-to-date. In March, not long after recieving some horroble news , she had an event where she fell to the ground and was screaming and was confused. She was home alone at the time of her initial fall and when her daughter found her, she was still screaming and confused. She went to the ER and she developed a headache and double vision as well as chest pain. Since her time in the emergency department, she has had intermittent episodes of headache, double vision, dizziness, and chest pains. She also has been crying intermittently throughout the day for a few sec at a time which is seemingly unprovoked. She also mentioned throughout the day smelling smoke as if there has been a campfire. She has also been experiencing some light sensitivity and sensation weakness. She also mentioned some difficulties with swallowing solid foods but denied any difficulty swallowing liquids. She noted no difficulties speech or drooling. Her symptoms are often worse in the morning. She did have a recent sleep study with [facility]. Her home sleep study was negative for LENA though there was note of nocturnal hypoxia. Prior workup: CT brain March 2025: No acute findings, bifrontal parietal atrophy noted (I did review the imaging and agree with the report) Sleep study 05/02/2025: Nocturnal hypoxemia but no sleep apnea Was started on sertraline and Buproprion for presumed psychiatric symptoms and this caused flashes of light and vertigo. She tells me today that overall symptoms has been perhaps better but still ongoing as described above. Her has been also notes that her symptoms in general are less severe than what she described at last visit. She recently (yesterday) started on Lexapro. At time of last visit, I did order an MRI of the brain. This was performed 08/21/2025 noting once again that she does have bifrontotemporal atrophy. I did review these images with Dr. Gant. Both of us agree that areas of atrophy are most pronounced in the parietal lobes high cortically but no obvious significant frontal atrophy. She did have to cancel her initial EEG appointment and it is rescheduled for 10/03/2024. 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 Tobacco: 2-3 packs per day ETOH- None PFSH Medical History Vision disturbance Headache Depression Polycythemia Thyroid nodule Review of Systems Const All systems reviewed & are unremarkable except as noted in HPI and below Physical Exam Vital Signs: Last Vital Signs Pulse 69 08/22/25 09:07 Resp 16 08/22/25 09:07 BP 116/70 08/22/25 09:07 Pulse Ox 98 08/22/25 09:07 Oxygen Delivery Method Room Air 08/22/25 09:07 BMI result Body Mass Index 26.6 Const General: cooperative, healthy appearing, comfortable and no acute distress Nutritional Appearance: well nourished Orientation/consciousness: patient oriented x3 Limitations: no limitations HEENT Head: Yes normal to inspection and Yes normocephalic Eyes General: appearance normal, both eyes and all related structures Visual Camilo: normal visual camilo by confrontation Alignment and Position: alignment normal Periorbital: periorbital findings normal Eyelids: Yes eyelids normal Conjunctivae: conjunctivae normal Sclerae: sclerae normal Neck Neck: Yes normal visual inspection and Yes full ROM General: Yes no CVA tenderness Back/Spine/Pelvis Back: no CVA tenderness Cervical Spine: normal cervical lordosis Thoracic/Lumbar Spine: thoracic and lumbar spine normal to inspection Neuro General: patient oriented x3, tone normal and deep tendon reflexes 2+ bilaterally Cranial nerves: Yes CN's II-XII intact bilaterally and Yes Facial sensation intact/muscles of mastication intact Cognition (Neuro): normal cognition Gait exam (Neuro): Normal gait present Motor exam (neuro): 5/5 motor strength present throughout and no tremor noted Sensory Exam: double simultaneous stimulation for sensation normal Romberg Test: Negative Pupils: Normal pupillary reactivity/response: bilateral Psych Affect: Anxious affect present Assessment & Plan Assessment & Plan (1) Memory change: Code(s): R41.3 - Other amnesia Category: Medical (2) Memory change: Code(s): R41.3 - Other amnesia Category: Medical Plan Naresh is a 50-year-old female patient with a past medical history of anxiety, depression, asthma, and COPD who is here today for a follow up visit regarding several new arising neurological symptoms. Most concerning are her behavioral changes that seemed to be fluctuating and very sudden and at times she will have of crying for no provoked reason. She does have some atrophy on her imaging including both the CT scan and MRI notably to her parietal areas bilaterally high cortically. There was mentioned of frontal atrophy though this is not evident from what I can see. We are awaiting an EEG for concern of possible epilepsy. She does also have an abnormal sleep study which was performed at her home. We will follow up with an in-lab sleep study as her previous study was negative for LENA but did show some possible nighttime hypoxia. Memory seems to be somewhat of a concern and therefore we will order a TSH level, B12 level and include an amyloidosis interpretation given the areas of atrophy seen on her imaging. -labs: TSH, B12, and amyloid doses interpretation (these orders were printed and provided to the patient as she does have labs she will beginning today at [facility] and wishes to do them all in 1 place) -sleep study in lab here at [facility] -EEG is scheduled for 10/03/2024 -Follow-up after EEG Orders: Orders Vitamin B12 Today R41.3 - Other amnesia ABeta 42/40 p-tau 217 Eval Today R41.3 - Other amnesia TSH reflex Free T4 Today R41.3 - Other amnesia Coding Level of Care Code Est Pt Level 4 (14921) Diagnoses Memory change R41.3
[2025-08-22 09:07] VITALS: BP 116/70; PULSE 69; RESP 16; O2SAT 98; BMI 26.6
== END 2025-08-22 09:44 | disposition home or self-care (01) ==
LOC: HO.HSM 09:01
PROVIDERS: PCP Physician Assistant Medical; Visit Provider Nurse Practitioner
DX: R41.3 Other amnesia (principal)
CPT/HCPCS: 99214

== ENCOUNTER → 2025-08-22 09:01 | Outpatient (BNVA) | payer OTHER, SELFPAY | PROVIDERS: PCP Physician Assistant Medical; Visit Provider Nurse Practitioner | DX: R41.3 Other amnesia (principal) | CPT/HCPCS: 99212 ==

== ENCOUNTER 2025-08-25 08:25 | Outpatient (REF) | payer OTHER, SELFPAY ==
--- NOTE | 2025-08-25 10:00 | EEG_ITS ---
History: 50-year-old female patient with a past medical history of anxiety, depression, asthma, and COPD who is here today for a follow up visit regarding several new arising neurological symptoms. Most concerning are her behavioral changes that seemed to be fluctuating and very sudden and at times she will have of crying for no provoked reason. She does have some atrophy on her imaging including both the CT scan and MRI notably to her parietal areas bilaterally high cortically. Medication: albuterol sulfate, cetirizine, diclofenac sodium, escitalopram oxalate, estradiol, furosemide, lactulose, lorazepam, multivitamin, triamcinolone acetonide Technical Description Photic Stimulation: completed Hyperventilation: omitted Behavioral State: pleasant, cooperative, moments of brief emotional changes State of Consciousness: awake and drowsy Skull Defect: none Sedation: none Handedness: right Duration: 31 min 18 sec Web Development Intern Comments Last Meal: 08/24/25 Time / date of last symptom: during recording Description: This is a 16 channel EEG with an EKG lead. Patient is reported awake and drowsy during the tracing. Background EEG rhythm is mixed theta beta with occasional asymmetric right hemispheric sharply controlled theta range slowing. Rare left frontotemporal sharp waves were also noted. Photic stimulation did not produce any significant driving. Hyperventilation was not performed. Cardiac lead did not reveal any significant abnormality. 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
== END 2025-08-25 08:26 | disposition home or self-care (01) ==
LOC: HO.NEURO 08:25
PROVIDERS: PCP Physician Assistant Medical; Visit Provider Nurse Practitioner
DX: R44.2 Other hallucinations (principal); R45.83 Excessive crying of child, adolescent or adult; R42 Dizziness and giddiness; R51.9 Headache, unspecified
CPT/HCPCS: 95816

== ENCOUNTER → 2025-08-25 10:00 | Outpatient (BNV) | payer OTHER, SELFPAY | PROVIDERS: PCP Physician Assistant Medical; Visit Provider Psychiatry & Neurology Neurology | DX: R44.2 Other hallucinations (principal) | CPT/HCPCS: 95816 ==

== ENCOUNTER 2025-09-05 17:44 | Observation (INO) | payer OTHER, SELFPAY ==
--- OUTSIDE RECORDS SUMMARY | 2025-09-05 09:20 | XMS_ITS | Encounter Summary ---
Author Organization [facility] Address [address] [place] [address] Care Team Providers Care Bowling Alley Mechanic Name Role Phone Jerod Lopez Primary Care Provider [phone] Reason for Visit * Imaging (Routine) - Authorized Specialty Diagnoses / Procedures Referred By Alphonse armando Referred To Contact Radiology Diagnoses Mass of breast, unspecified laterality Procedures MG Mammo Digital Diagnostic w Franky bilat MG Mammo Digital Diagnostic bilJerod Pinedo PA [address] [place] [phone] Phone: tel: fax: [address] Phone: tel: Referral ID Status Reason Start Date Expiration Date V isits Requested Visits Authorized [id number] Authorized 08/01/2025 08/01/2026 1 1 Encounter Details Date Type Department Care Team (Latest Contact Info) Description 09/05/2025 9:20 AM [facility] Encounter Radiology Department - [address] [phone] Mass of breast, unspecified laterality Social History Tobacco Use Types Packs/Day Years Used Date Smoking Tobacco: Former Cigarettes Smokeless Tobacco: Never Alcohol Use Standard [...] for your loved ones. 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 [...] Date Recorded What is your living situation? Unrecognized valu e 04/28/2025 Comments No Sex and Gender Information [...] Rain Adams RN documented in this encounter Plan of Treatment Upcoming Encounters Date Type Department Care Team (Late st Contact Info) Description 09/12/2025 4:25 PM EST Office Visit Pulmonology - [place] [address] [facility] [address] [place] [phone] Madeleine Pizano NP [address] [place] [phone] 09/13/2025 3:20 PM EST Consult Gastroenterology - [address] [facility] [address] [facility] [address] [place] [phone] Mary Alfonso PA [address] [facility] [address] [place] [address] 10/03/2025 3:30 PM EST Office Visit [facility] Hematology Oncology [address] [place] [phone] Suzanne Mejia PA [address] [place] [address] 03/06/2026 1:45 PM EDT Appointment Radiology Department - [address] [phone] documented as of this encounter Procedures Procedure Name Priority Date/Time Associated Diagnosis Comments MG MAMMO DIGITAL DIAGNOSTIC W FRANKY BILAT Routine 09/05/2025 9:59 AM EST Mass of breast, unspecified laterality documented in this encounter Results * MG Mammo Digital Diagnostic w Franky bilat (09/05/2025 9:59 AM EST) Anatomical Region Laterality Modality Breast Bilateral Mammography 09/05/2025 10:0 1 AM EST Impressions 09/05/2025 10:17 AM EST 1. Left: No mammographic evidence of malignancy, no sonographic abnormality in area of clinical concern 2. Right: Area of clinical concern corresponds to 9:00 retroareolar probably benign lesion 3. Heterogeneously dense Findings and recommendations were conveyed to the patient. BI-RADS CATEGORY: 3 - PROBABLY BENIGN RECOMMENDATION: Diagnostic Ultrasound in 6 Months is recommended for the Right Breast. Diagnostic Ultrasound in 6 Months is recommended for the Right Breast. Targeted right breast ultrasound at 9:00 retroareolar in 6 months Mammo Location: [facility], [address] [place] [address], [address], . -------- FINAL REPORT -------- Dictated By: Leonardo Moore Dictated Date: 09/05/2025 10:01 ET Assigned Physician: Leonardo Moore Reviewed and Electronically Signed By: Leonardo Moore Signed Date: 09/05/2025 10:17 ET Workstation ID: [id number] Transcribed By: Self Edit Transcribed Date: 09/05/2025 10:10 ET Narrative 09/05/2025 10:17 AM EST BILATERALDIGITAL DIAGNOSTIC 3D MAMMOGRAPHY HISTORY: Workup for bilateral retroareolar palpable abnormalities as per patient. Follow-up for bilateral breast calcifications. Personal history of breast cancer in grandmother and aunt COMPARISON: Multiple mammograms dating back to 05/12/2019 Technique: Bilateral CC and MLO magnification views, bilateral ML magnification views FINDINGS: Right: Multiple groups of upper inner anterior/middle depth calcifications are morphologically stable No new suspicious masses, microcalcifications or areas of architectural distortion. Lateral breast biopsy markers. Left: Upper outer posterior depth calcifications at middle depth calcifications are grossly stable. No new suspicious masses, microcalcifications or areas of architectural distortion. Multiple lateral breast biopsy markers BREAST DENSITY: C - The breasts are heterogeneously dense which may obscure small masses. EXAM: BILATERAL BREAST TARGETED ULTRASOUND EVALUATION HISTORY: Workup for bilateral palpable abnormalities/pulling sensation in the retroareolar region as per patient TECHNIQUE: Ultrasonographic examination is performed using a linear array transducer. Targeted bilateral breast ultrasound in the retroareolar region to correspond to area of clinical concern. Real-time sonographic scanning was also performed by the radiologist FINDINGS: Right: At retroareolar 12:00, there is an anechoic thin-walled cyst measuring 1.4 x 1.2 x 0.7 cm. At retroareolar 9:00, there is an ovoid cystic lesion with a solid portion measuring 0.5 x 0.6 x 0.5 cm with posterior acoustic enhancement and no vascularity which is probably benign. Left: Within the retroareolar region, no focal abnormality or sonographic evidence of malignancy is present to correspond to area of clinical concern. Procedure Note Leonardo Moore MD - 09/05/2025 BILATERALDIGITAL DIAGNOSTIC 3D MAMMOGRAPHY HISTORY: Workup for bilateral retroareolar palpable abnormalities as perpatient. Follow-up for bilateral breast calcifications. Personal historyof breast cancer in grandmother and aunt COMPARISON: Multiple mammograms dating back to 05/12/2019 Technique: Bilateral CC and MLO magnification views, bilateral MLmagnification views FINDINGS: Right: Multiple groups of upper inner anterior/middle depth calcifications aremorphologically stable No new suspicious masses, microcalcifications or areas of architecturaldistortion. Lateral breast biopsy markers. Left: Upper outer posterior depth calcifications at middle depth calcificationsare grossly stable. No new suspicious masses, microcalcifications or areas of architecturaldistortion. Multiple lateral breast biopsy markers BREAST DENSITY: C - The breasts are heterogeneously dense which mayobscure small masses. EXAM: BILATERAL BREAST TARGETED ULTRASOUND EVALUATION HISTORY: Workup for bilateral palpable abnormalities/pulling sensation inthe retroareolar region as per patient TECHNIQUE: Ultrasonographic examination is performed using a linear arraytransducer. Targeted bilateral breast ultrasound in the retroareolarregion to correspond to area of clinical concern. Real-time sonographicscanning was also performed by the radiologist FINDINGS: Right: At retroareolar 12:00, there is an anechoic thin-walled cyst measuring 1.4x 1.2 x 0.7 cm. At retroareolar 9:00, there is an ovoid cystic lesion with a solid portionmeasuring 0.5 x 0.6 x 0.5 cm with posterior acoustic enhancement and novascularity which is probably benign. Left: Within the retroareolar region, no focal abnormality or sonographicevidence of malignancy is present to correspond to area of clinicalconcern. IMPRESSION: 1. Left: No mammographic evidence of malignancy, no sonographicabnormality in area of clinical concern 2. Right: Area of clinical concern corresponds to 9:00 retroareolarprobably benign lesion 3. Heterogeneously dense Findings and recommendations were conveyed to the patient. BI-RADS CATEGORY: 3 - PROBABLY BENIGN RECOMMENDATION: Diagnostic Ultrasound in 6 Months is recommended for the Right Breast.Diagnostic Ultrasound in 6 Months is recommended for the Right Breast.Targeted right breast ultrasound at 9:00 retroareolar in 6 months Mammo Location: [facility], [address] [place] [address], [id number], . -------- FINAL REPORT -------- Dictated By: Leonardo Moore Dictated Date: 09/05/2025 10:01 ET Assigned Physician: Leonardo Moore Reviewed and Electronically Signed By: Leonardo Moore Signed Date: 09/05/2025 10:17 ET Workstation ID: [id number] Transcribed By: Self Edit Transcribed Date: 09/05/2025 10:10 ET Jerod GAYTAN IMG BI PROCEDURES Final R esult documented in this encounter Visit Diagnoses Diagnosis Mass of breast, unspecified laterality documented in this encounter Additional Health Concerns Assessment Noted Time PHQ-9 Depression Total Score: 17 04/28/ 025 9:25 AM EDT documented as of this encounter Care Teams Bowling Alley Mechanic Relationship Specialty Start Date End Date Jerod Lopez, LUCILA [address] [place] [address] PCP - General Internal Medicine 07/24/21 documented as of this encounter
--- OUTSIDE RECORDS SUMMARY | 2025-09-05 09:20 | XMS_ITS | Encounter Summary ---
Author Organization [facility] Address [address] [place] [address] Care Team Providers Care Music Instructor Name Role Phone Jerod Lopez Primary Care Provider [phone] Reason for Referral * Imaging (Routine) - Authorized Specialty Diagnoses / Procedures Referred By Contac t Referred To Contact Radiology Diagnoses Breast lump Procedures US Breast Limited Jerod Dyson PA [address] [place] [phone] Phone: tel: fax: [facility] Referral ID Status Reason Start Date Expiration Date V isits Requested Visits Authorized [id number] Authorized 08/01/2025 08/01/2026 1 1 Reason for Visit * Imaging (Routine) - Authorized Specialty Diagnoses / Procedures Referred By Contac t Referred To Contact Radiology Diagnoses Breast lump Procedures US Breast Limited Jerod Dyson PA [address] [place] [id number] Phone: tel: fax: [facility] Referral ID Status Reason Start Date Expiration Date V isits Requested Visits Authorized [id number] Authorized 08/01/2025 08/01/2026 1 1 Encounter Details Date Type Department Care Team (Late st Contact Info) Description 09/05/2025 9:20 AM EST Hospital Encounter Radiology Department - [facility] [address] [place] [phone] Breast lump Social History Tobacco Use Types Packs/Day Years [...] care for your loved ones. For example, children's institution attendant or elderly care for an older adult? [...] 4:25 PM EST Office Visit Pulmonology - [facility] [address] [facility] [address] [place] [address] Madeleine Pizano NP [address] [place] [phone] 09/13/2025 3:20 PM EST Consult Gastroenterology - [address] [place] [address] Mary Alfonso PA [address] [facility] [address] [place] [address] 10/03/2025 3:30 PM EST Office Visit [facility] Hematology Oncology [address] [place] [address] Suzanne Mejia PA [address] [place] [address] 03/06/2026 1:45 PM EDT Appointment Radiology Department - [address] [phone] documented as of this encounter Procedures Procedure Name Priority Date/Time Associated Diagnosis Comments US BREAST LIMITED BILAT Routine 09/05/2025 10:05 AM EST Breast lump documented in this encounter Results * US Breast Limited bilat (09/05/2025 10:05 AM EST) Anatomical Region Laterality Modality Breast Bilateral Ultrasound 09/05/2025 10:0 1 AM EST Impressions 09/05/2025 [...] 9:00 retroareolar in 6 months Mammo Location: [facility], [address] [place] [address], [phone], . -------- FINAL REPORT -------- Dictated By: Leonardo Moore Dictated Date: 09/05/2025 10:01 ET Assigned Physician: Leonardo Moore Reviewed and Electronically Signed By: Leonardo Moore Signed Date: 09/05/2025 10:17 ET Workstation ID: [id number] Transcribed By: Self Edit Transcribed Date: 09/05/2025 [...] 9:00 retroareolar in 6 months Mammo Location: [facility], [address] [place] [address], [id number], . -------- FINAL REPORT -------- Dictated By: Leonardo Moore Dictated Date: 09/05/2025 10:01 ET Assigned Physician: Leonardo Moore Reviewed and Electronically Signed By: Leonardo Moore Signed Date: 09/05/2025 10:17 ET Workstation ID: [id number] Transcribed By: Self Edit Transcribed Date: 09/05/2025 10:10 ET us Jerod GAYTAN IMG US PROCEDURES Final R esult documented in this encounter Visit Diagnoses Diagnosis Breast lump Lump or mass in breast documented in this encounter Additional Health Concerns Assessment Noted Time PHQ-9 Depression Total Score: 17 04/28/ 025 9:25 AM EDT documented as of this encounter Care Teams Music Instructor Relationship Specialty Start Date End Date Jerod Lopez PA [address] [place] [address] PCP - General Internal Medicine 07/24/21 documented as of this encounter
[2025-09-05 17:47] VITALS: BP 133/72; PULSE 72; RESP 18; TEMP 36.6; O2SAT 98; BMI 27.1
--- NOTE | 2025-09-05 17:54 | ED.GENADULT ---
HPI - General Adult General Chief complaint: General Medical Stated complaint: allergic reaction Time Seen by Provider: 09/05/25 21:38 Source: patient and family Mode of arrival: ambulatory Limitations: no limitations History of Present Illness ED Provider: Dr. Sinai Freitas HPI narrative: Patient comes to the emergency room complaining of neurological symptoms that have been ongoing for about 5 months now and now complaining of neck weakness complaining of leg weakness. Patient states that the weakness started a proximally a week ago. Patient has had for the last month intermittent symptoms including behavioral changes, crying for unknown reason, for several months patient has had intermittent headaches, blurred vision, arm tingling. Related Data Home Medications ?Medication ?Instructions ?Recorded ?Confirmed albuterol sulfate 90 mcg/actuation 2 puff inhalation Q4H PRN wheezing 08/03/25 09/06/25 aerosol inhaler (Ventolin HFA) cetirizine 10 mg tablet 10 mg PO DAILY 08/04/25 09/06/25 diclofenac sodium 1 % topical gel 4 g topical TID PRN pain 08/04/25 09/06/25 (Arthritis Pain (diclofenac)) furosemide 20 mg tablet 20 mg PO DAILY PRN Swelling 08/04/25 09/06/25 lactulose 10 gram/15 mL oral 30 ml PO DAILY PRN Constipation 08/04/25 09/06/25 solution lorazepam 0.5 mg tablet 0.5 mg PO BID PRN anxiety 08/04/25 09/06/25 multivitamin 1 tab PO DAILY 08/04/25 09/06/25 triamcinolone acetonide 55 mcg 2 spray intranasal DAILY 08/04/25 09/06/25 nasal spray aerosol doxycycline hyclate 50 mg capsule 50 mg PO BID PRN cysts 09/06/25 09/06/25 hydroxyzine pamoate 50 mg capsule 50 mg PO Q6H PRN anxiety 09/06/25 09/06/25 nicotine (polacrilex) 2 mg gum 2 mg PO Q2H PRN Nicotine Cravings 09/06/25 09/06/25 nicotine 14 mg/24 hr daily 1 patch topical DAILY 09/06/25 09/06/25 transdermal patch Allergies Allergy/AdvReac Type Severity Reaction Status Date / Time iodine Allergy Unknown Verified 09/05/25 17:50 Review of Systems Review of Systems: Constitutional : No Weight loss, No Fever, No Chills, No Night Sweats, No Fatigue, No Malaise ENT/Mouth : No Hearing loss, No Ear Pain, No Nasal Congestion, No Sinus Pain, No Hoarseness, No sore throat, No Rhinorrhea, No Swallowing Difficulty Eyes: No Eye Pain, No Swelling, No Redness, No Foreign Body, No Discharge, No Vision Changes Cardiovascular : No Chest Pain, No SOB, No Dyspnea on Exertion, No Orthopnea, No Edema, No Palpitations Respiratory : No Cough, No Sputum, No Wheezing, No Smoke Exposure, No Dyspnea Gastrointestinal : No Nausea, No Vomiting, No Diarrhea, No Constipation, No abdominal Pain, No Hematochezia, No Melena Genitourinary : no irregular bleeding, No Dysuria, No Urinary Frequency, No Hematuria, No Urinary Incontinence, No Urgency, No Flank Pain, No Urinary Flow Changes, No Hesitancy Musculoskeletal : Complaining of neck weakness and leg weakness No Myalgias, No Joint Swelling Skin : No Skin Lesions, No rash Neuro : No Weakness, No Numbness, No Paresthesias, No Loss of Consciousness, No Dizziness, No Headache Psych : No Anxiety/Panic, No Depression, No SI/HI/AH/VH, No Social Issues, Heme/Lymph: No Bruising, No Bleeding,No Lymphadenopathy Endocrine : No Polyuria, No Polydipsia, No Temperature Intolerance [facility] Past Medical History Medical History Vision disturbance Headache Depression Polycythemia Thyroid nodule Social History Social History Patient Tobacco Use Status: Current everyday Tobacco user Tobacco use type: Cigarette Cigarette Packs Per Day: 1 Cigarettes Per Day: 20.0 Years Smoked: many e-Cigarette/Vaping Use: Never Used Second Hand Smoke Exposure: No service: No Physical Exam ED Exam Exam: Appearance: Alert. Oriented X3. No acute distress. Eyes: Pupils equal, round and reactive to light. ENT: Pharynx normal. Neck: Normal inspection. Neck supple. No lymph nodes noted. No crepitus CVS: Normal heart rate and rhythm. Pulses normal. Normal S1 and S2 Respiratory: No respiratory distress. Breath sounds normal. No Wheezing. No rales Abdomen: Soft and nontender. No rigidity. No distention. Skin: Skin warm and dry. Normal skin color. Normal skin turgor. Extremities: No lower extremity edema patient is ambulatory with normal steady gait. Of note, when patient was wandering in the hallway, she had normal steady gait and patient was holding her head fairly well of right. However, when I went to the physical examined the patient's room, patient was holding her head in an awkward position Neuro: Oriented X 3. No motor deficit. No sensory deficit. Moving all extremities. No slurred speech. CN 2 through 12 grossly intact Psych: Anxious, crying Vital Signs: Vital Signs - 24 hr 09/05/25 17:47 09/05/25 18:03 09/05/25 20:21 Temperature 98 F 98.1 F Pulse Rate 72 71 76 Respiratory Rate 18 18 18 Blood Pressure 133/72 119/79 101/49 L Pulse Oximetry 98 98 96 Oxygen Delivery Method Room Air Room Air Room Air BMI result Body Mass Index 27.1 Course Course Course Narrative: RmE: 50-year-old female presents to ED for inability to hold up her neck since being on lamotrigine which she started this past Friday. Patient states slowly her neck muscles has began a week ago but now she is leaning her head to the left side due to inability to hold up neck. Her neurologist and P told her it might be due to medication. Patient presents to ED brought back to the ER. Medications Administered Discontinued Medications Generic Name Dose Route Start Last Admin Trade Name Inocencioq PRN Reason Stop Dose Admin Baclofen 10 mg 09/05/25 23:10 09/06/25 07:47 Baclofen 10 Mg Tablet PO Not Given BID TANYA Diphenhydramine HCl 50 mg 09/05/25 21:58 09/05/25 22:55 Diphenhydramine Hcl 50 Mg/Ml Vial IVPUSH 09/05/25 21:59 50 mg ONCE ONE Administration Enoxaparin Sodium 40 mg 09/05/25 23:15 09/05/25 23:42 Enoxaparin Sodium 40 Mg/0.4 Ml Syringe SUBCUT 40 mg Q24H TANYA Administration Nicotine 14 mg 09/05/25 23:10 09/06/25 07:47 Nicotine 14 Mg Patch.Td24 TRANSDERMA 14 mg DAILY TANYA Administration Senna 17.2 mg 09/05/25 23:10 09/05/25 23:42 Sennosides 8.6 Mg Tablet PO 17.2 mg BEDTIME TANYA Administration Sodium Chloride 3 ml 09/06/25 00:00 09/06/25 07:47 0.9 % Sodium Chloride Flush 3 Ml Syringe IVFLUSH 3 ml QSHIFT TANYA Administration Medical Decision Making Medical Decision Making [facility] Narrative: My interpretation of labs: No significant abnormality in patient's hematology or chemistry, normal LFTs, normal albumin. Pending: Serology for influenza and COVID and urinalysis and urine toxicology I reviewed patient's records, the 1st time that the patient was seen in July of 2025. Patient states that her symptoms started in March. Per Neurology report, in March, no longer after receiving horrible news , patient had an event where she fell to the ground and was screaming and confused, was found by her daughter and then was brought to the emergency room. That they when patient arrived, she was already complaining of headache, double vision, dizziness chest pains crying intermittently. Also reports smelling smoke as if she has been in a camp fire. Patient also endorsed some light sensitivity, halos in her vision, generalized weakness. Then, patient was started on sertraline and bupropion for presumed psychiatric symptoms Few months later, patient was able to get an EEG and an MRI of the brain. 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 Patient was started on lamotrigine 25 mg daily, with 25 mg titration plan every 2 weeks up to a goal of 100 mg twice a day. On physical exam, patient has self-inflicted scratches. Patient states that she has a rash. The rash is barely noticeable. Patient states that she believes it is Anup Nestor syndrome. Fortunately, this is not the case. Patient was given Benadryl to help with the symptoms Of note, earlier today, patient was seen wandering around the hallways here in the emergency department, patient was holding her head up in a fairly normal position. However, when I saw the patient in her room, patient was up, normal steady gait, holding her head in an awkward position. This is not have she was holding her head when she was walking in the hallway. Since patient does have some changes, I spoke with our hospitalist Dr. Burrell, it is possible that patient may benefit from MRI imaging from the cervical/thoracic spine. However, this decision may be taken by Neurology. Patient may also benefit from a behavioral health consult for her severe anxiety Differential Diagnosis Differential Diagnoses: The differential diagnosis associated with the presentation includes (Myasthenia gravis, multiple sclerosis, conversion disorder, partial seizures, anxiety) Admission/Observation Consideration of admission/observation: Escalation of care including admission/observation considered Consult Healthcare Provider Management of the patient was discussed with: Hospitalist Lab Data MDM Lab Attestation statement: I reviewed the patient's lab results. 09/05/25 18:09 09/05/25 18:09 Labs: Lab Results 09/05/25 Range/Units 18:09 WBC 8.4 (4.8-10.8) X10*3/uL RBC 5.06 (4.20-5.50) X10*6/uL Hgb 15.5 (12.0-16.0) g/dl Hct 45.8 (37.0-47.0) % MCV 90.5 (80.0-98.0) fL MCH 30.6 (27.0-33.0) pg MCHC 33.8 (31.0-35.0) g/dl RDW 13.5 (11.0-16.0) % Plt Count 252 (160-400) X10*3/uL MPV 10.5 (9.4-12.3) fL Immature Gran % (Auto) 0.2 (0.0-0.4) % Neut % (Auto) 47.6 (45-73) % Lymph % (Auto) 41.2 H (20-40) % Heard % (Auto) 7.2 (2-11) % Eos % (Auto) 2.5 (0-4) % Baso % (Auto) 1.3 (0-2) % Lymph # (Auto) 3.5 (1.2-4.9) X10*3/uL Heard # (Auto) 0.6 (0.1-1.2) X10*3/uL Eos # (Auto) 0.2 (0.0-0.4) X10*3/uL Baso # (Auto) 0.1 (0.0-0.2) X10*3/uL Abs Immat Gran (auto) 0.02 (0.00-0.03) X10*3/uL Absolute Neuts (auto) 4.0 (2.0-8.3) x10*3/uL Absolute Nucleated RBC 0.000 (0.0-0.012) X10*3/uL Nucleated RBC % (auto) 0.0 (0.0-0.2) /100WBC Sodium 141 (135-145) mmol/L Potassium 4.1 (3.3-5.1) mmol/L Chloride 108 (96-108) mmol/L Carbon Dioxide 25 (22-29) mmol/L Anion Gap 12 (12-20) BUN 13 (9-16) mg/dL Creatinine 0.75 (0.5-1.4) mg/dL Estim Creat Clear Calc 97.8 Estimated GFR > 60 Random Glucose 100 (60-115) mg/dL Calcium 9.0 (8.4-10.2) mg/dL Magnesium 1.9 (1.6-2.6) mg/dL Total Bilirubin 0.2 (0.0-1.0) mg/dL AST 15 (5-31) U/L ALT 11 (0-31) U/L Alkaline Phosphatase 92 (39-117) U/L Total Creatine Kinase 55 (26-140) U/L Total Protein 6.7 (6.5-8.0) g/dL Albumin 4.2 (3.5-5.0) g/dL Critical Care Time Critical Care Time Critical Care Time: Yes Total Critical Care Time: 60 Attestation: I have personally provided critical care time. Time includes review of lab data, radiology results, discussion with consultants, and monitoring for potential decompensation. Intervention performed as documented. Discharge Plan Discharge Clinical Impression: Muscle weakness, Anxiety Patient Disposition: Admitted as Observation Interventions: Admission Worksheet (ED) Last Done: 09/06/25 02:57 Discharge Date/Time: 09/06/25 04:17
[2025-09-05 18:03] VITALS: BP 119/79; PULSE 71; RESP 18; O2SAT 98
[2025-09-05 18:12] LABS: MANUAL DIFF FLAG NO
[2025-09-05 18:16] LABS: Hematocrit 45.8 % (37.0-47.0); Hemoglobin 15.5 g/dl (12.0-16.0); Imm Gran Abs Auto 0.02 X10*3/uL (0.00-0.03); Imm Gran Pct Auto 0.2 % (0.0-0.4); Lymphocytes Absolute Auto 3.5 X10*3/uL (1.2-4.9); Mean Corpuscular HGB Conc 33.8 g/dl (31.0-35.0); Mean Corpuscular Hemoglobin 30.6 pg (27.0-33.0); Mean Corpuscular Volume 90.5 fL (80.0-98.0); NRBC Abs Auto 0.000 X10*3/uL (0.0-0.012); NRBC Pct Auto 0.0 /100WBC (0.0-0.2); Platelet Count 252 X10*3/uL (160-400); Red Blood Count 5.06 X10*6/uL (4.20-5.50); White Blood Count 8.4 X10*3/uL (4.8-10.8)
[2025-09-05 18:29] LABS: Alanine Aminotransferase 11 U/L (0-31); Albumin Level 4.2 g/dL (3.5-5.0); Alkaline Phosphatase 92 U/L (39-117); Anion Gap 12 (12-20); Aspartate Amino Transferase 15 U/L (5-31); Blood Urea Nitrogen 13 mg/dL (9-16); Calcium 9.0 mg/dL (8.4-10.2); Carbon Dioxide 25 mmol/L (22-29); Chloride 108 mmol/L (96-108); Creatinine Clr Calc Pharmacy 97.8; Estimated Glomerular Filt Rate > 60; Magnesium 1.9 mg/dL (1.6-2.6); Potassium 4.1 mmol/L (3.3-5.1); Sodium 141 mmol/L (135-145); Total Protein 6.7 g/dL (6.5-8.0)
--- OUTSIDE RECORDS SUMMARY | 2025-09-05 19:03 | XMS_ITS | Clinical Summary ---
Author Organization [facility] Address [address] [place] [address] Phone Care Team Providers Care Personnel Officer Name Role Phone Jerod Lopez Primary Care Provider [phone] Allergies Active Allergy Reactions Criticality Noted Date Comments Iodine Shortness of breath High 08/01/2025 Medications lactulose (CHRONULAC) solution Take 30 mL (20 g total) by mouth 1 (one) time each day. Take 30 mL by mouth daily. 900 mL 11 5 Active albuterol HFA (Ventolin HFA) 90 mcg/actuation inhaler Inhale 2 puffs by mouth every 4 (four) hours if needed for wheezing. 6.7 g 11 5 Active furosemide (LASIX) 20 mg tablet Take 1 tablet (20 mg total) by mouth 1 (one) time each day. 90 tablet 3 5 Active ipratropium-alb uteroL (DUONEB) 0.5-2.5 mg/3 mL nebulizer solutionIndicat ions:SOB (shortness of breath) Take 3 mL by nebulization every 6 (six) hours. 360 mL 1 5 03/14/20 26 Active cetirizine (Allergy Relief, cetirizine,) 10 mg tablet Take 1 tablet (10 mg total) by mouth 1 (one) time each day. 90 tablet 1 5 Active doxycycline (VIBRAMYCIN) 50 mg capsule Take 1 capsule (50 mg total) by mouth 2 (two) times a day. 180 capsule 5 Active diclofenac (VOLTAREN) 1 % topical gel Apply 4 g topically 3 (three) times a day if needed (pain). 100 g 2 5 Active Additional Information Patient not taking.Reported on 08/01/2025 triamcinolone (NASACORT) 55 mcg nasal inhaler USE 2 SPRAY(S) INTRANASALLY ONCE DAILY 51 g 1 5 Active hydrOXYzine pamoate (VISTARIL) 50 mg capsule Take 1 capsule (50 mg total) by mouth every 6 (six) hours if needed. for anxiety Active nicotine polacrilex (Nicorette) [address] 1 each (2 mg total) into mouth between cheek and gum every 2 (two) hours if needed for smoking cessation. 120 each 1 5 Active LORazepam (ATIVAN) 0.5 mg tablet Take 1 tablet (0.5 mg total) by mouth 2 (two) times a day if needed for anxiety. 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 I have sent her a [employer] message requesting that she update her cholesterol [...] PM EDT): See below under CAD Claudication 03/14/2025 History of smoking 03/14/2025 Chronic shortness [...] Encounters Date Type Department Care Team Description 09/05/2025 9:20 AM EST Hospital Encounter Radiology Department - [address] [phone] Breast lump 09/05/2025 9:20 AM EST Hospital Encounter Radiology Department - [address] [phone] Mass of breast, unspecified laterality 09/01/2025 Telephone Adult Medicine [address] [phone] Silvia Uribe MA 08/30/2025 Telephone Adult Medicine [address] [phone] Jerod Lopez, PA 08/26/2025 Telephone [facility] Cardiology [address] [place] [address] Provider, Not In System 08/25/2025 Telephone Adult Medicine [address] [phone] Jerod Lopez, PA 08/25/2025 Results Follow-Up Adult Medicine [address] [phone] Judah Mckenzie MD 08/24/2025 3:00 PM EST Clinical Support [facility] Cardiology [facility] [address] [place] [phone] Chest pressure (Primary Dx) 08/24/2025 Telephone [facility] [address] [place] [address] Oralia Vázquez MA 08/23/2025 Telephone [facility] [address] [place] [phone] Moises Finley MD 08/22/2025 10:35 AM EST Lab Draw Station - [address] [facility] [address] [facility] [place] [phone] Other amnesia (Primary Dx); Hospital discharge follow-up; Anxiety; Frontoparietal cerebral atrophy (CMS/HCC V24); Abnormal brain CT; Polycythemia; Coronary artery disease involving [place] coronary artery of [place] heart without angina pectoris; History of smoking; Current every day smoker; Constipation, unspecified constipation type 08/22/2025 Telephone Pulmonology [facility] [address] [facility] [address] [place] [phone] Madeleine Pizano NP 08/16/2025 Results Follow-Up [address] [phone] Jerod Lopez PA 08/15/2025 2:00 PM EST Office Visit Adult [address] [phone] Jerod Lopez PA Hospital discharge follow-up (Primary Dx); Anxiety; Frontoparietal cerebral atrophy (CMS/HCC V24); Abnormal brain CT; Polycythemia; Coronary artery disease involving [place] coronary artery of [place] heart without angina pectoris; History of smoking; Current every day smoker; Constipation, unspecified constipation type 08/15/2025 11:15 AM EST - 08/15/2025 11:59 PM EST Hospital Encounter CT Scan [address] [phone] SOB (shortness of breath) Discharge Disposition: Home or Self Care 08/09/2025 Telephone Adult [address] [phone] Jerod Lopez, PA 08/01/2025 11:00 AM EST Office Visit Endocrinology [address] [phone] Abundio Bello MD Anxiety (Primary Dx) 07/12/2025 Telephone Adult Medicine [address] [phone] Judah Mckenzie MD 07/12/2025 Results Follow-Up [address] [phone] Judah Mckenzie MD 07/05/2025 12:00 PM EDT Office Visit Adult Medicine [address] [phone] Judah cMkenzie MD Frontoparietal cerebral atrophy (CMS/HCC V24) (Primary Dx); Encounter for vitamin deficiency screening; Anxiety; Leukocytosis, unspecified type; Current smoker 07/04/2025 10:00 AM EDT Office Visit [address] [phone] Laurence Vee MD Palpitations (Primary Dx); Thyroid nodule 06/30/2025 2:45 PM EDT Office Visit Pulmonology - [place] [address] [phone] Madeleine Pizano NP Subacute cough (Primary Dx); Nocturnal hypoxia; Snoring; Polycythemia; PND (paroxysmal nocturnal dyspnea); Overweight (BMI 25.0-29.9) 06/30/2025 Telephone Pulmonology - [place] 299 [facility] 410 [place] [phone] Mariam Doll MA 06/29/2025 Results Follow-Up [facility] - [facility] [address] [facility] 102 [place] [phone] Keren Ortega NP 06/29/2025 Telephone Pulmonology - [place] 175 [facility] 200 [place] [phone] Madeleine Pizano NP 06/28/2025 Results Follow-Up Adult Medicine [address] [phone] Ping King PA 06/27/2025 Telephone Adult Medicine [address] [phone] Jerod Lopez PA 06/23/2025 Telephone Adult Medicine [address] [phone] Jerod Lopez PA 06/13/2025 2:30 PM EDT Office Visit Endocrinology [address] [phone] Laurence Vee MD Palpitations (Primary Dx) 06/06/2025 Telephone Adult Medicine [address] [phone] Jerod Lopez PA from Last 3 Months Immunizations Immunization Administration Dates Next Due Hepatitis B (Cyhddkc-Z-Zzuzr , Recombivax HB-Adult) 19yo and older 11/22/2010 [...] HISTORICAL TUBAL LIGATION OTHER SURGICAL HISTORY PROCEDURE: CA ADENOIDECTOMY PRIMARY AGE 13/> BREAST BIOPSY 2022 Bilateral PROCEDURE: BX BREAST; PERC NEEDLE CORE W/IMAG GUID CARDIAC CATHETERIZATION DONE ON 03/22/2025 AT [facility] INDICATIONS: Chest tightness and Shortness of breath. Medical History Medical History Date Comments Tobacco abuse 02/06/2010 DX:Tobacco abuse Depression DX:Depression COPD (chronic obstructive pu lmonary disease) ([facility] V24, [facility] V28) Family History Medical History Relation Name Comments Breast cancer Aunt m Ovarian cancer Aunt m maternal, ova ramiro cancer, passed from [place] Coronary artery disease Father CABG at age [...] Smoking Tobacco: Former Cigarettes Smokeless Tobacco: Never Tobacco Cessation:Counseling Given: Not Answered Alcohol Use Standard Drinks/Week [...] for your loved ones. For example, child guidance counselor or elderly care for an older adult? [...] 05/03/2025 2: 38 PM EDT Obstetrics History Para Term AB IAB SAB Ectopic Multiple Livin g Live Births 3 3 3 3 Date Outcome GA Total Labor Labor/2nd/3rd Weight Sex Type Anes PTL Mariam A1 A5 Name Clin Term Term Term Last Filed Vital Signs Vital Sign Reading Time Taken Comments Blood Pressure 94/55 08/15/2025 2:19 PM EST Pulse 63 08/15/2025 2:19 PM EST Temperature 35.8 C (96.5 F) 08/15/2025 2:19 PM EST Respiratory Rate 14 08/15/2025 2:19 PM EST Oxygen Saturation 98% 08/15/2025 2:19 PM EST Inhaled Oxygen Concentration - - Weight 79 kg (174 lb 3.2 oz) 08/15/2025 2:19 PM EST Height 170.2 cm (5' 7 ) 08/15/2025 2:19 PM EST Body Mass Index 27.28 08/15/2025 2:19 PM EST Plan of Treatment Upcoming Encounters Date Type Department Care Team (Late st Contact Info) Description 09/12/2025 4:25 PM EST Office Visit Pulmonology - [place] 175 [facility] 200 [place] [phone] Madeleine Pizano NP [address] [place] [phone] 09/13/2025 3:20 PM EST Consult Gastroenterology - [address] [facility] 299 [facility] [address] [place] [phone] Mary Alfonso PA [address] [facility] [address] [place] [address] 10/03/2025 3:30 PM EST Office Visit [facility] Hematology Oncology [address] [place] [phone] Suzanne Mejia PA [address] [place] [address] 03/06/2026 1:45 PM EDT Appointment Radiology Department [address] [phone] Health Maintenance Due Date Last Done Comments Colorectal Cancer Screening: Colonoscopy 1975 Drug Screen 1976 Non-Opioid Controlled Substance Agreement 1976 Hepatitis B Vaccines (2 of 3 - 19+ 3-dose series) 12/20/2010 11/22/2010 Pneumococcal Vaccine: Pediatrics (0 to 5 Years) and At-Risk Patients (6 to 49 Years) (2 of 2 - PPSV23, PCV20, or PCV21) 08/02/2019 06/07/2019 Cervical Cancer Screening: Pap Smear 01/10/2022 01/10/2017 HIV Screening 08/14/2022 Hepatitis C Screening 08/14/2022 COVID-19 Vaccine ( season) 2025 Social Influencers of Health Screening 04/28/2026 04/28/2025 Hypertension/CHF/CAD Annual BMP Blood Test 08/22/2026 08/22/2025, 07/11/2025, 04/11/2025, Additional history exists Breast Cancer Screening 09/05/2026 09/05/20 25, 02/05/2024, 02/05/2024, Additional history exists Cholesterol Screening (Lipid Panel) 06/28/2030 06/28/2025, 07/15/2023 DTaP,Tdap,and Td Vaccines (3 - Td or Tdap) 07/21/2030 07/21/2020, 02/06/2010 RSV Immunization Adult Patients (1 - 1-dose 75+ series) 2051 Influenza Vaccine Discontinued 07/24/2021, , 08/31/2018, Additional history exists Depression Screening Completed 04/28/2025 HIB Vaccines Aged [...] Routine 09/05/2025 10:05 AM EST Breast lump MG MAMMO DIGITAL DIAGNOSTIC W FRANKY BILAT Routine 09/05/2025 9:59 AM EST Mass of breast, unspecified laterality EXTERNAL NEUROLOGY REPORT 08/25/2025 ECG 12-LEAD Routine 08/24/2025 3:07 PM EST Chest pressure [id number] ERATION PROFILE Routine 08/22/2025 10:52 AM EST Other amnesia MISCELLANEOUS LAB TEST STAT 10:52 AM EST Other amnesia BETA AMYLOID 42-40 RATIO Routine 08/22/2025 10:51 AM EST Other amnesia CBC WITH AUTO DIFFERENTIAL Routine 08/22/2025 10:51 AM EST Hospital discharge follow-up Anxiety Frontoparietal cerebral atrophy (CMS/HCC V24) Abnormal brain CT Polycythemia Coronary artery disease involving [place] coronary artery of [place] heart without angina pectoris History of smoking Current every day smoker Constipation, unspecified constipation type FOLLICLE STIMULATING HORMONE Routine 08/22/2025 10:51 AM EST Hospital discharge follow-up Anxiety Frontoparietal cerebral atrophy (CMS/HCC V24) Abnormal brain CT Polycythemia Coronary artery disease involving [place] coronary artery of [place] heart without angina pectoris History of smoking Current every day smoker Constipation, unspecified constipation type LUTEINIZING HORMONE Routine 08/22/2025 1 0:51 AM EST Hospital discharge follow-up Anxiety Frontoparietal cerebral atrophy (CMS/HCC V24) Abnormal brain CT Polycythemia Coronary artery disease involving [place] coronary artery of [place] heart without angina pectoris History of smoking Current every day smoker Constipation, unspecified constipation type PROLACTIN Routine 08/22/2025 10:51 AM EST Hospital discharge follow-up Anxiety Frontoparietal cerebral atrophy (CMS/HCC V24) Abnormal brain CT Polycythemia Coronary artery disease involving [place] coronary artery of [place] heart without angina pectoris History of smoking Current every day smoker Constipation, unspecified constipation type PROGESTERONE Routine 08/22/2025 10:51 AM EST Hospital discharge follow-up Anxiety Frontoparietal cerebral atrophy (CMS/HCC V24) Abnormal brain CT Polycythemia Coronary artery disease involving [place] coronary artery of [place] heart without angina pectoris History of smoking Current every day smoker Constipation, unspecified constipation type ESTROGENS, TOTAL AND FRACTIONATED Routine 08/22/2025 10:51 AM EST Hospital discharge follow-up Anxiety Frontoparietal cerebral atrophy (CMS/HCC V24) Abnormal brain CT Polycythemia Coronary artery disease involving [place] coronary artery of [place] heart without angina pectoris History of smoking Current every day smoker Constipation, unspecified constipation type CBC AND DIFFERENTIAL Routine 08/22/2025 10:51 AM EST Hospital discharge follow-up Anxiety Frontoparietal cerebral atrophy (CMS/HCC V24) Abnormal brain CT Polycythemia Coronary artery disease involving [place] coronary artery of [place] heart without angina pectoris History of smoking Current every day smoker Constipation, unspecified constipation type COMPREHENSIVE METABOLIC PANEL Routine 08/22/2025 10:51 AM EST Hospital discharge follow-up Anxiety Frontoparietal cerebral atrophy (CMS/HCC V24) Abnormal brain CT Polycythemia Coronary artery disease involving [place] coronary artery of [place] heart without angina pectoris History of smoking Current every day smoker Constipation, unspecified constipation type CORTISOL Routine 08/22/2025 10:51 AM EST Hospital discharge follow-up Anxiety Frontoparietal cerebral atrophy (CMS/HCC V24) Abnormal brain CT Polycythemia Coronary artery disease involving [place] coronary artery of [place] heart without angina pectoris History of smoking Current every day smoker Constipation, unspecified constipation type MISCELLANEOUS LAB TEST Routine 10:51 AM EST Other amnesia THYROID STIMULATING HORMONE WITH REFLEX TO FREE T4 AND FREE T3 Routine 08/22/2025 10:51 AM EST Other amnesia VITAMIN B12 Routine 08/22/2025 10:51 AM EST Other amnesia ACTH Routine 08/22/2025 10:51 AM EST Hospital discharge follow-up Anxiety Frontoparietal cerebral atrophy (CMS/HCC V24) Abnormal brain CT Polycythemia Coronary artery disease involving [place] coronary artery of [place] heart without angina pectoris History of smoking Current every day smoker Constipation, unspecified constipation type VITAMIN B6 Routine 08/22/2025 10:51 AM EST Encounter for vitamin deficiency screening MISCELLANEOUS LAB TEST Routine 10:50 AM EST Other amnesia EXTERNAL MRI REPORT 08/21/2025 CT CHEST WO CONTRAST Routine 08/15/2025 11:25 AM EST SOB (shortness of breath) INTERFERON GAMMA INTERPRETATION Routine 07/11/2025 1:06 PM EDT Palpitations Subacute cough Frontoparietal cerebral atrophy (CMS/HCC V24) Encounter for vitamin deficiency screening CBC WITH AUTO DIFFERENTIAL Routine 07/11/2025 1:06 PM EDT Palpitations Subacute cough Frontoparietal cerebral atrophy (CMS/HCC V24) Encounter for vitamin deficiency screening INTERFERON GAMMA ANTIGEN 2 Routine 07/11/2025 1:06 PM EDT Palpitations Subacute cough Frontoparietal cerebral atrophy (CMS/HCC V24) Encounter for vitamin deficiency screening INTERFERON GAMMA ANTIGEN 1 Routine 07/11/2025 1:06 PM EDT Palpitations Subacute cough Frontoparietal cerebral atrophy (CMS/HCC V24) Encounter for vitamin deficiency screening INTERFERON GAMMA MITOGEN Routine 07/11/2025 1:06 PM EDT Palpitations Subacute cough Frontoparietal cerebral atrophy (CMS/HCC V24) Encounter for vitamin deficiency screening INTERFERON GAMMA NIL Routine 07/11/2025 1:06 PM EDT Palpitations Subacute cough Frontoparietal cerebral atrophy (CMS/HCC V24) Encounter for vitamin deficiency screening CBC AND DIFFERENTIAL Routine 07/11/2025 1:06 PM EDT Palpitations Subacute cough Frontoparietal cerebral atrophy (CMS/HCC V24) Encounter for vitamin deficiency screening VITAMIN B12 AND FOLATE Routine 1:06 PM EDT Palpitations Subacute cough Frontoparietal cerebral atrophy (CMS/HCC V24) Encounter for vitamin deficiency screening VITAMIN D 25 HYDROXY Routine 07/11/2025 1:06 PM EDT Palpitations Subacute cough Frontoparietal cerebral atrophy (CMS/HCC V24) Encounter for vitamin deficiency screening COMPREHENSIVE METABOLIC PANEL Routine 07/11/2025 1:06 PM EDT Palpitations Subacute cough Frontoparietal cerebral atrophy (CMS/HCC V24) Encounter for vitamin deficiency screening INTERFERON GAMMA FOR TB, QUALITATIVE Routine 07/11/2025 1:06 PM EDT Palpitations Subacute cough Frontoparietal cerebral atrophy (CMS/HCC V24) Encounter for vitamin deficiency screening CORTISOL Routine 07/11/2025 1:06 PM EDT Palpitations Subacute cough Frontoparietal cerebral atrophy (CMS/HCC V24) Encounter for vitamin deficiency screening ACTH Routine 07/11/2025 1:06 PM EDT Palpitations Subacute cough Frontoparietal cerebral atrophy (CMS/HCC V24) Encounter for vitamin deficiency screening CORTISOL, URINE, 24H Routine 07/11/2025 12:54 PM EDT Palpitations FUNGAL ANTIBODIES Routine 06/30/2025 4:4 2 PM EDT Subacute cough CBC WITH AUTO DIFFERENTIAL Routine 06/28/2025 7:36 AM EDT Palpitations Leukocytosis, unspecified type Anxiety and depression Mixed hyperlipidemia Coronary artery disease involving [place] coronary artery of [place] heart without angina pectoris CBC AND DIFFERENTIAL Routine 06/28/2025 7:36 AM EDT Palpitations Leukocytosis, unspecified type Anxiety and depression Mixed hyperlipidemia Coronary artery disease involving [place] coronary artery of [place] heart without angina pectoris LIPID PANEL WITH REFLEX TO DIRECT LDL Routine 06/28/2025 7:36 AM EDT Palpitations Leukocytosis, unspecified type Anxiety and depression Mixed hyperlipidemia Coronary artery disease involving [place] coronary artery of [place] heart without angina pectoris SEROTONIN SERUM Routine 06/28/2025 7:36 AM EDT Palpitations Leukocytosis, unspecified type Anxiety and depression Mixed hyperlipidemia Coronary artery disease involving [place] coronary artery of [place] heart without angina pectoris CORTISOL Routine 06/28/2025 7:36 AM EDT Palpitations Leukocytosis, unspecified type Anxiety and depression Mixed hyperlipidemia Coronary artery disease involving [place] coronary artery of [place] heart without angina pectoris HM PAP SMEAR Routine 01/10/2017 from Last 3 Months or Most Recently Relevant to Health Maintenance Results * US Breast Limited bilat (09/05/2025 [...] 9:00 retroareolar in 6 months Mammo Location: [facility], [address] [place] [address], [phone], . -------- FINAL REPORT -------- Dictated By: Leonardo Moore Dictated Date: 09/05/2025 10:01 ET Assigned Physician: Leonardo Moore Reviewed and Electronically Signed By: Leonardo Moore Signed Date: 09/05/2025 10:17 ET Workstation ID: [id number] Transcribed By: Self Edit Transcribed Date: 09/05/2025 [...] 9:00 retroareolar in 6 months Mammo Location: [facility], [address] [place] [address], [address], . -------- FINAL REPORT -------- Dictated By: Leonardo Moore Dictated Date: 09/05/2025 10:01 ET Assigned Physician: Leonardo Moore Reviewed and Electronically Signed By: Leonardo Moore Signed Date: 09/05/2025 10:17 ET Workstation ID: [id number] Transcribed By: Self Edit Transcribed Date: 09/05/2025 10:10 ET us Jerod GAYTAN IMG US PROCEDURES Final R esult * MG Mammo Digital Diagnostic w Franky [...] 9:00 retroareolar in 6 months Mammo Location: [facility], [address] [place] [address], [address], . -------- FINAL REPORT -------- Dictated By: Leonardo Moore Dictated Date: 09/05/2025 10:01 ET Assigned Physician: Leonardo Moore Reviewed and Electronically Signed By: Leonardo Moore Signed Date: 09/05/2025 10:17 ET Workstation ID: [id number] Transcribed By: Self Edit Transcribed Date: 09/05/2025 [...] 9:00 retroareolar in 6 months Mammo Location: [facility], [address] [place] [address], [address], . -------- FINAL REPORT -------- Dictated By: Leonardo Moore Dictated Date: 09/05/2025 10:01 ET Assigned Physician: Leonardo Moore Reviewed and Electronically Signed By: Leonardo Moore Signed Date: 09/05/2025 10:17 ET Workstation ID: [id number] Transcribed By: Self Edit Transcribed Date: 09/05/2025 10:10 ET Jerod GAYTAN IMG BI PROCEDURES Final R esult * External Neurology Report (08/25/2025) Provider [facility] NEUROLOGY ORDERABLES Fin al Result * (ABNORMAL) Jlkxcse-nne-brrquhuiwucwridmh profile (08/22/2025 10:52 AM EST) BETA-AMYLOID 42/40 RATIO 0.114 >0.102 08/30/2025 4:05 AM EST [facility] BETA-AMYLOID 42 17.91 pg/mL 4:05 AM EST [facility] BETA-AMYLOID 40 156.76 pg/mL 4:05 AM EST [facility] P-TAU 181 0.44 0.00 - 0.95 pg/mL 08/30/2025 4:05 AM EST [facility] NFL, PLASMA 1.78(H) 0.00 - 1.69 pg/mL 08/30/2025 4:05 AM EST [facility] ATTN SUMMARY A- T- N+ 08/30/2025 4:05 AM EST [facility] Comment: A high NfL concentration was observed. A normal beta-amyloid 42/40 ratio and normal [id number] concentration were observed at this time. These results are not consistent with the presence of Alzheimer's- related pathology, but may indicate pathology of another condition. Additional assessments may be necessary. These tests are intended to be used only in the context of clinical care. INFORMATION Note 08/30/2025 4:05 AM EST [facility] Comment: Beta-amyloid 42 and Beta-amyloid 40: Plasma beta-amyloid 1-42/1-40 ratios less than or equal to 0.102 suggest a higher probability of a patient being clinically diagnosed with Alzheimer's Disease (AD), while values above 0.102 suggest a lower probability of AD diagnosis. Precise plasma testing of Beta-amyloid 42 and Beta-amyloid 40 has demonstrated comparable effectiveness to traditional cerebrospinal fluid testing and amyloid positron emission tomography (PET) scans. When assessing the risk of AD pathology as the underlying cause for mild cognitive impairment (MCI) or dementia, it is important to consider various factors such as medical and family history, nutritional deficiency biomarkers, neuroimaging, and physical, neurological, and neuropsychological examinations. These tests were developed and their performance characteristics determined by [employer]. They have not been cleared or approved by the Food and Drug Administration. * METHODOLOGY: Beta-amyloid 42/40 Ratio: [employer] Chemiluminescence Enzyme Immunoassay (CLEIA) NfL and [id number]: Tests performed by [facility] Electrochemiluminescence Immunoassay (ECLIA). Values obtained with different methods cannot be used interchangeable. These tests were developed and their performance characteristics determined by [facility]. They have not been cleared or approved by the Food and Drug Administration. * [id number] INFORMATION: For individual 0-55 years of age: 0.00-0.95 pg/mL Reference interval is based on a population of ostensibly healthy individuals aged 20 to 55 years For individual greater than 55 years of age: 0.00-0.97 pg/mL Results greater than the clinical cut-off of 0.97 pg/mL in patients greater than 55 years of age are correlated with Abeta amyloid pathology as determined by amyloid PET imaging. * 1. Interpretation comments are based on a consensus between National [place] for Age and the Internation Working Group recommendations for ATN panel interpretation published by Miki et al 2018 and updated in Clark et al 2020. * Clark H, Terry J, Prabhjot Berkowitz, Todd P, Miki ORTEZ Jr, Mahi A. Developing the ATX(N) classification for use across the Alzheimer disease continiuum. Ninfa Rev Neurol. 2020;17(9):580-589. Miki ORTEZ Jr, Roosevelt HOUGH, Prabhjot Berkowitz, et al. A/T/N: An unbiased descriptive classification scheme for Alzheimer disease biomarkers. Neurology. 2016 Apr 2;87(5):539-547. Blood Venous blood specimen / Unknown Venipuncture / Unknown 08/22/2025 10:52 AM EST 08/22/2025 11:45 AM EST Narrative [facility] - 08/30/2025 4:05 AM EST Performed at: [address] [id number] General Ii Farmworker: Horacio uH MD, Phone: [phone] Genesis Buckner INDUSTRIAL EDUCATION INSTRUCTOR LAB BLOOD ORDERABLES India l Result Performing Organization Address City/[facility]/ZIP Co de Phone Number [facility] * p-tau 217 evaluation 2 full lav centrifuge within 40 minutes of collection - Miscellaneous Test (08/22/2025 10:52 AM EST) Only the most recent of3 resultswithin the time period is included. [facility] Miscellaneous Test COMMENT 2024 8:06 AM EST [facility] Blood Venipuncture / Unknown 08/22/2025 10:52 AM EST 08/22/2025 11:45 AM EST Narrative [facility] - 08/25/2025 8:06 AM EST Performed At: [place] [address], [address] [place], [place] [id number] Billy Zhang MD Ph:[phone] Genesis Buckner NP LAB BLOOD ORDERABLES India l Result Performing Organization Address [facility] Co de Phone Number [facility] * Estrogens, total and fractionated (08/22/2025 10:51 AM EST) Pathologist [facility] Estrone 44 pg/mL 08/26/2025 7:59 AM EST [facility] Comment: Early Follicular <150 Late Follicular 100-250 Luteal <200 Post-menopausal 3-32 Estradiol 76 pg/mL 08/26/2025 7:59 AM EST [facility] Comment: Early Follicular 30-100 Late Follicular 100-400 Luteal 50-150 Post-menopausal 2-21 Estrogens, Total, Calculation 120 pg/mL 08/26/2025 7:59 AM EST [facility] Comment: Early Follicular 30-250 Late Follicular 200-650 Luteal 50-350 Post-menopausal 5-52 Note that total estrogens from estrone plus estradiol are not valid in due to presence of estriol at significant levels. This test was developed and its performance characteristics determined by [facility] in a manner consistent with CLIA requirements. This test has not been cleared or approved by the U.S. Food and Drug Administration. This test is used for patient testing purposes. It should not be regarded as investigational or for research. Test performed at [facility], [address] , [place] [address] Orquidea Gomez MD, PhD - Gasoline Service Attendant Blood Venous blood specimen / Unknown Venipuncture / Unknown 08/22/2025 10:51 AM EST 08/22/2025 11:46 AM EST Jerod GAYTAN LAB BLOOD ORDERABLES [place] hernadez Result [facility] [address] [place] [address] * Beta amyloid 42-40 ratio (08/22/2025 10:51 AM EST) Beta-amyloid 42/40 Ratio 0.139 >0.102 08/25/2025 3:05 PM EST [facility] Beta-amyloid 42 11.83 pg/mL 5 3:05 PM EST [facility] Beta-amyloid 40 85.37 pg/mL 5 3:05 PM EST [facility] Comment: Plasma beta-amyloid 1-42/1-40 ratios less than or equal to 0.102 suggest a higher probability of a patient being clinically diagnosed with Alzheimer's Disease (AD), while values above 0.102 suggest a lower probability of AD diagnosis. Precise plasma testing of Beta Amyloid 42 and Beta Amyloid 40 has demonstrated comparable effectiveness to traditional cerebrospinal fluid testing and amyloid positron emission tomography (PET) scans. When assessing the risk of AD pathology as the underlying cause for mild cognitive impairment (MCI) or dementia, it is important to consider various factors such as medical and family history, nutritional deficiency biomarkers, neuroimaging, and physical, neurological, and neuropsychological examinations. ..... Methodology: [employer] Chemiluminescence Enzyme Immunoassay (CLEIA). Values obtained with different methods cannot be used interchangeably. Blood Venous blood specimen / Unknown Venipuncture / Unknown 08/22/2025 10:51 AM EST 08/22/2025 11:47 AM EST Narrative [facility] - 08/25/2025 3:05 PM EST Test(s) 022744-Eqgf-sxueeui 42/40 Ratio; [id number]-Gzwr-sxaaxte 42; [id number]-Fljy-sbrohxm 40 was developed and its performance characteristics determined by [facility]. It has not been cleared or approved by the Food and Drug Administration. [facility] LAB BLOOD ORDERABLES India l Result Performing Organization Address City/[facility]/ZIP Co de Phone Number [facility] * Thyroid stimulating hormone with reflex to free t4 and free t3 (08/22/2025 10:51 AM EST) TSH 0.85 0.40 - 4.00 mcIU/mL 08/22/2025 3:14 PM EST [facility] Blood Venous blood specimen / Unknown Venipuncture / Unknown 08/22/2025 10:51 AM EST 08/22/2025 11:47 AM EST [facility] LAB BLOOD ORDERABLES India l Result Performing Organization Address City/[facility]/ZIP Co de Phone Number [facility] [address] [place] [address], [place] [phone] * (ABNORMAL) CBC auto differential (08/22/2025 10:51 AM EST) Only the most recent of3 resultswithin the time period is included. WBC 9.9 4.8 - 10.8 K/mcL LAB HEMETOLOGY METHOD 08/22/2025 1:11 PM EST [facility] RBC 5.10(H) 3.80 - 4.80 M/mcL LAB HEMETOLOGY METHOD 08/22/2025 1:11 PM EST [facility] Hemoglobin 15.4 11.5 - 16.0 g/dL LAB HEMETOLOGY METHOD 08/22/2025 1:[address] [facility] Hematocrit 46.7 35.0 - 47.0 % LAB HEMETOLOGY METHOD 08/22/2025 1:[address] [facility] MCV 91.4 79.0 - 98.0 FL LAB HEMETOLOGY METHOD 08/22/2025 1:[address] [facility] MCH 30.1 27.0 - 32.0 pcg LAB HEMETOLOGY METHOD 08/22/2025 1:[address] [facility] MCHC 33.0 32.0 - 37.0 g/dL LAB HEMETOLOGY METHOD 08/22/2025 1:[address] [facility] RDW 13.2 11.0 - 15.0 % LAB HEMETOLOGY METHOD 08/22/2025 1:[address] [facility] Platelets 276 130 - 400 K/mcL LAB HEMETOLOGY METHOD 08/22/2025 1:[address] [facility] MPV 11.1(H) 7.0 - 11.0 FL LAB HEMETOLOGY METHOD 08/22/2025 1:[address] [facility] NRBC 0.0 <1.0 % LAB HEMETOLOGY METHOD 08/22/2025 1:[address] [facility] NRBC Absolute 0.00 <0.10 K/mcL LAB HEMETOLOGY METHOD 08/22/2025 1:[address] [facility] Neutrophils Relative 63.3 % LAB HEMETOLOGY METHOD 08/22/2025 1:[address] [facility] Lymphocytes Relative 28.8 % LAB HEMETOLOGY METHOD 08/22/2025 1:[address] [facility] Monocytes Relative 5.0 % LAB HEMETOLOGY METHOD 08/22/2025 1:[address] [facility] Eosinophils Relative 1.5 % LAB HEMETOLOGY METHOD 08/22/2025 1:11 PM EST [facility] Basophils Relative 1.1 % LAB HEMETOLOGY METHOD 08/22/2025 1:[address] [facility] Immature Granulocytes Relative 0.3 % LAB HEMETOLOGY METHOD 08/22/2025 1:[address] [facility] Neutrophils Absolute 6.26 1.50 - 7.00 K/mcL LAB HEMETOLOGY METHOD 08/22/2025 1:11 PM EST [facility] Lymphocytes Absolute 2.85 1.00 - 5.00 K/mcL LAB HEMETOLOGY METHOD 08/22/2025 1:[address] [facility] Monocytes Absolute 0.49 0.20 - 1.00 K/mcL LAB HEMETOLOGY METHOD 08/22/2025 1:[address] [facility] Eosinophils Absolute 0.15 0.00 - 0.50 K/mcL LAB HEMETOLOGY METHOD 08/22/2025 1:[address] [facility] Basophils Absolute 0.11 0.00 - 0.20 K/mcL LAB HEMETOLOGY METHOD 08/22/2025 1:[address] [facility] Immature Granulocytes Absolute 0.03 0.00 - 0.03 K/mcL LAB HEMETOLOGY METHOD 08/22/2025 1:[address] [facility] Blood Venous blood specimen / Unknown Venipuncture / Unknown 08/22/2025 10:51 AM EST 08/22/2025 11:47 AM EST Jerod GAYTAN LAB BLOOD ORDERABLES [place] hernadez Result [facility] [address] [place] [address], * Prolactin (08/22/2025 10:51 AM EST) Prolactin 5.50 See Comment ng/mL 08/22/2025 3:16 PM EST [facility] Blood Venous blood specimen / Unknown Venipuncture / Unknown 08/22/2025 10:51 AM EST 08/22/2025 11:47 AM EST [facility] - 08/22/2025 3:16 PM EST Prolactin Female Reference Ranges (ng/mL): Non: 2.8 - 29.2 : 9.7 - >200.0 Postmenopausal: 1.8 - 20.3 Jerod GAYTAN LAB BLOOD ORDERABLES India l Result [facility] [address] [place] [address], * Progesterone (08/22/2025 10:51 AM EST) Pathologist [facility] Progesterone 0.6 See comment ng/mL 08/22/2025 3:18 PM EST [facility] Blood Venous blood specimen / Unknown Venipuncture / Unknown 08/22/2025 10:51 AM EST 08/22/2025 11:47 AM EST [facility] - 08/22/2025 3:18 PM EST Progesterone Female Reference Ranges (ng/mL) Normally Menstruating: Follicular phase: 0.2 - 1.4 Mid-cycle phase: 3.3 - 25.6 Luteal phase: 4.4 - 28.0 Post-menopausal: 0.7 or less : First trimester: 11.2 - 90.0 Second trimester: 25.6 - 89.4 Third trimester: 48.4 - 422.5 This assay should not be used in patients taking DHEA supplements as part of IVF treatment. A metabolite (DHEA-S) of this supplement has been shown to cross-react with the progesterone assay and cause falsely elevated results. Jerod GAYTAN LAB BLOOD ORDERABLES India l Result Performing Organization Address City/[facility]/ZIP Co de Phone Number [facility] [address] [place] [address], [place] [phone] * ACTH (08/22/2025 10:51 AM EST) Only the most recent of2 resultswithin the time period is included. Adrenocorticotropic Hormone (ACTH) 15 <=46 pg/mL 08/24/2025 2:58 PM EST [facility] Comment: Test performed at [facility], [address] [place] [address] Orquidea Gomez MD, PhD - Gasoline Service Attendant Blood Venous blood specimen / Unknown Venipuncture / Unknown 08/22/2025 10:51 AM EST 08/22/2025 11:47 AM EST Jerod GAYTAN LAB BLOOD ORDERABLES India l Result Performing Organization Address City/[facility] Co de Phone Number [facility] [address] [place] [address] * Vitamin B6 (08/22/2025 10:51 AM EST) Vitamin B6 (Pyridoxine) Level 14 5 - 50 ug/L 08/25/2025 7:05 AM EST [facility] Comment: This test was developed and the performance characteristics determined by [facility]. It has not been cleared or approved by the FDA. The laboratory is regulated under CLIA as qualified to perform high-complexity testing. This test is used for patient testing purposes. It should not be regarded as investigational or for research. Test performed at [facility], [address] , [place] [address] Orquidea Gomez MD, PhD - Gasoline Service Attendant Blood Venous blood specimen / Unknown Venipuncture / Unknown 08/22/2025 10:51 AM EST 08/22/2025 11:46 AM EST Judah Mckenzie MD LAB BLOOD ORDERABLES F inal Result [facility] [address] [place] [address] * Luteinizing hormone (08/22/2025 10:51 AM EST) Luteinizing Hormone 5.4 See Comment mIU/mL 08/22/2025 3:16 PM EST [facility] Blood Venous blood specimen / Unknown Venipuncture / Unknown 08/22/2025 10:51 AM EST 08/22/2025 11:47 AM EST [facility] - 08/22/2025 3:16 PM EST LH Female Reference Ranges (mIU/mL): Menstruating: Follicular phase: 1.9 - 12.5 Mid-cycle phase: 8.7 - 76.3 Luteal phase 0.5 - 16.9 Post-menopausal: 5.0 - 55.2 : < 0.1 - 1.5 Jerod GAYTAN LAB BLOOD ORDERABLES India l Result [facility] [address] [place] [address], * Follicle stimulating hormone (08/22/2025 10:51 AM EST) Follicle Stimulating Hormone 8.0 See Comment mIU/mL 08/22/2025 3:17 PM EST [facility] Blood Venous blood specimen / Unknown Venipuncture / Unknown 08/22/2025 10:51 AM EST 08/22/2025 11:47 AM EST [facility] - 08/22/2025 3:17 PM EST [facility] Female Reference Ranges (mIU/mL): Menstruating: Follicular phase: 2.5 - 10.2 Mid-cycle phase: 3.4 - 33.4 Luteal phase: 1.5 - 9.1 Post-menopausal: 23.0 - 116.3 : < 0.3 Jerod GAYTAN LAB BLOOD ORDERABLES India l Result Performing Organization Address City/[facility]/ZIP Co de Phone Number [facility] [address] [place] [address], * Vitamin B12 (08/22/2025 10:51 AM EST) Vitamin B-12 378 211 - 911 pcg/mL 08/22/2025 3:17 PM EST [facility] Blood Venous blood specimen / Unknown Venipuncture / Unknown 08/22/2025 10:51 AM EST 08/22/2025 11:47 AM EST Genesis Buckner NP LAB BLOOD ORDERABLES India l Result Performing Organization Address [facility]/ZIP Co de Phone Number [facility] [address] [place] [address], * Cortisol (08/22/2025 10:51 AM EST) Only the most recent of3 resultswithin the time period is included. Cortisol 11.4 mcg/dL 08/22/2025 3:11 PM EST [facility] Blood Venous blood specimen / Unknown Venipuncture / Unknown 08/22/2025 10:51 AM EST 08/22/2025 11:47 AM EST Narrative [facility] - 08/22/2025 3:11 PM EST CORTISOL REFERENCE RANGE 8 AM SPEC: 5.0-23.0 mcg/dL 4 PM SPEC: 3.0-16.0 mcg/dL 8 PM SPEC: <5.0 mcg/dL Jerod GAYTAN LAB BLOOD ORDERABLES India l Result Performing Organization Address City/[facility]/ZIP Co de Phone Number [facility] [address] [place] [address], [place] [phone] * Comprehensive metabolic panel (08/22/2025 10:51 AM EST) Only the most recent of2 resultswithin the time period is included. Sodium 138 133 - 145 mmol/L 08/22/2025 3:[address] [facility] Potassium 4.4 3.5 - 5.5 mmol/L 08/22/2025 3:[address] [facility] Chloride 102 96 - 110 mmol/L 08/22/2025 3:[address] [facility] CO2 30 21 - 32 mmol/L 08/22/2025 3:[address] [facility] Anion Gap 6 3 - 11 08/22/2025 3:[address] [facility] Glucose 83 70 - 100 mg/dL 08/22/2025 3:[address] [facility] BUN 17 5 - 25 mg/dL 08/22/2025 3:[address] [facility] Creatinine 0.77 0.50 - 1.10 mg/dL 08/22/2025 3:[address] [facility] eGFR 95 >=60 mL/min/1. 73m2 08/22/2025 3:[address] [facility] Comment:Calculation based on the Chronic Kidney Disease Epidemiology Collaboration (CKD-EPI) equation refit without adjustment for race. BUN/Creatinine Ratio 22.1 08/22/2025 3:[address] [facility] Calcium 8.8 8.5 - 10.5 mg/dL 08/22/2025 3:[address] [facility] AST (SGOT) 11 10 - 42 unit/L 08/22/2025 3:[address] [facility] ALT (SGPT) 16 10 - 60 unit/L 08/22/2025 3:[address] [facility] Alkaline Phosphatase 107 42 - 121 unit/L 08/22/2025 3:20 PM EST [facility] Total Protein 6.7 6.0 - 8.0 g/dL 08/22/2025 3:20 PM EST [facility] Albumin 4.1 3.2 - 5.0 g/dL 08/22/2025 3:20 PM EST [facility] Total Bilirubin 0.3 0.0 - 1.4 mg/dL 08/22/2025 3:20 PM EST [facility] Blood Venous blood specimen / Unknown Venipuncture / Unknown 08/22/2025 10:51 AM EST 08/22/2025 11:47 AM EST Jerod GAYTAN LAB BLOOD ORDERABLES India l Result [facility] [address] [place] [address], * External MRI Report (08/21/2025) Anatomical Region Laterality Modality Magnetic Resonan ce Provider [facility] MRI PROCEDURES Final Result * CT Chest wo Contrast (08/15/2025 11:25 AM EST) Anatomical Region Laterality Modality Body Computed Tomogra phy 08/15/2025 8:36 PM EST Impressions 08/15/2025 8:56 PM EST New 0.3 cm subpleural nodule right lower lobe. Other pulmonary nodules are stable. Subcarinal lymphadenopathy is unchanged. Right hilar lymphadenopathy is difficult to evaluate due to lack of intravenous contrast. No follow-up needed if patient is low-risk. Non-contrast chest CT can be considered in 12 months if patient is high-risk (Per Fleischner Society guidelines). -------- FINAL REPORT -------- Dictated By: Jacqueline Main Dictated Date: 08/15/2025 20:36 ET Assigned Physician: Jacqueline Main Reviewed and Electronically Signed By: Jacqueline Main Signed Date: 08/15/2025 20:56 ET Workstation ID: [id number] Transcribed By: Self Edit Transcribed Date: 08/15/2025 20:36 ET Narrative 08/15/2025 8:[address] CHEST WITHOUT CONTRAST HISTORY: Lung nodule greater than 8 mm. Follow-up 6 months. COMPARISON: CTA chest 01/22/2025. Chest CT 01/09/2021 and 10/06/2019. TECHNIQUE: Multidetector CT is obtained from lung apex to base without IV contrast. Sagittal and coronal reformatted images obtained. Automated exposure control utilized. FINDINGS: Lungs/pleura: There is paraseptal emphysema and centrilobular emphysema. There are multiple bilateral pulmonary nodules, with the largest largest juxtapleural nodule in the right lower lobe on image 217 measuring 0.9 cm, unchanged from 2019. There is a new 0.3 cm subpleural nodule right lower lobe on image 203. No mass or infiltrate. No pleural effusions. Lymph nodes: Sensitivity for lymphadenopathy is limited without IV contrast. Subcarinal lymphadenopathy is again noted. However, the right hilar lymphadenopathy identified on the previous study is difficult to evaluate due to lack of intravenous contrast. Cardiovascular: No cardiomegaly, pericardial effusion, or thoracic aortic aneurysm. There is faint calcification of the coronary arteries. Soft tissues: Thyroid gland is not enlarged. No esophageal abnormality. Upper abdomen: No adrenal mass. Bones: Unremarkable. Procedure Note Jacqueline Main MD - 08/15/2025 CT CHEST WITHOUT CONTRAST HISTORY: Lung nodule greater than 8 mm. Follow-up 6 months. COMPARISON: CTA chest 01/22/2025. Chest CT 01/09/2021 and 10/06/2019. TECHNIQUE: Multidetector CT is obtained from lung apex to base without IVcontrast. Sagittal and coronal reformatted images obtained. Automatedexposure control utilized. FINDINGS: Lungs/pleura: There is paraseptal emphysema and centrilobular emphysema.There are multiple bilateral pulmonary nodules, with the largest largestjuxtapleural nodule in the right lower lobe on image 217 measuring 0.9 cm,unchanged from 2020. There is a new 0.3 cm subpleural nodule right lowerlobe on image 203. No mass or infiltrate. No pleural effusions. Lymph nodes: Sensitivity for lymphadenopathy is limited without IVcontrast. Subcarinal lymphadenopathy is again noted. However, the righthilar lymphadenopathy identified on the previous study is difficult toevaluate due to lack of intravenous contrast. Cardiovascular: No cardiomegaly, pericardial effusion, or thoracic aorticaneurysm. There is faint calcification of the coronary arteries. Soft tissues: Thyroid gland is not enlarged. No esophageal abnormality. Upper abdomen: No adrenal mass. Bones: Unremarkable. IMPRESSION: New 0.3 cm subpleural nodule right lower lobe. Other pulmonary nodules arestable. Subcarinal lymphadenopathy is unchanged. Right hilarlymphadenopathy is difficult to evaluate due to lack of intravenouscontrast. No follow-up needed if patient is low-risk. Non-contrast chestCT can be considered in 12 months if patient is high-risk (Per [facility] guidelines). -------- FINAL REPORT -------- Dictated By: Jacqueline Main Dictated Date: 08/15/2025 20:36 ET Assigned Physician: Jacqueline Main Reviewed and Electronically Signed By: Jacqueline Main Signed Date: 08/15/2025 20:56 ET Workstation ID: [id number] Transcribed By: Self Edit Transcribed Date: 08/15/2025 20:36 ET Jerod GAYTAN IMG CT PROCEDURES Final R esult * Interferon gamma interpretation (07/11/2025 1:06 PM EDT) Quantiferon Plus Interpretation Negative Negative LAB CHEMISTRY METHOD 07/12/2025 9:03 AM EDT [facility] Blood Venous blood specimen / Unknown Venipuncture / Unknown 07/11/2025 1:06 PM EDT 07/11/2025 2:19 PM EDT Madeleine Pizano INDUSTRIAL EDUCATION INSTRUCTOR LAB BLOOD ORDERABLES Fi nal Result [facility] [address] [place] [address], * Interferon gamma antigen 2 (07/11/2025 1:06 PM EDT) Blood Venous blood specimen / Unknown Venipuncture / Unknown 07/11/2025 1:06 PM EDT 07/11/2025 2:19 PM EDT Madeleine Pizano INDUSTRIAL EDUCATION INSTRUCTOR LAB BLOOD ORDERABLES Fi nal Result Performing Organization Address City/[facility]/ZIP Co de Phone Number [facility] [address] [place] [address], [place] [phone] * Interferon gamma antigen 1 (07/11/2025 1:06 PM EDT) Blood Venous blood specimen / Unknown Venipuncture / Unknown 07/11/2025 1:06 PM EDT 07/11/2025 2:19 PM EDT Madeleine Pizano INDUSTRIAL EDUCATION INSTRUCTOR LAB BLOOD ORDERABLES Fi nal Result Performing Organization Address City/[facility] Co de Phone Number [facility] [address] [place] [address], [place] [phone] * Interferon gamma mitogen (07/11/2025 1:06 PM EDT) Blood Venous blood specimen / Unknown Venipuncture / Unknown 07/11/2025 1:06 PM EDT 07/11/2025 2:19 PM EDT Madeleine Pizano INDUSTRIAL EDUCATION INSTRUCTOR LAB BLOOD ORDERABLES Fi nal Result Performing Organization Address City/[facility] Co de Phone Number [facility] [address] [place] [address], [place] [phone] * Interferon gamma NIL (07/11/2025 1:06 PM EDT) Blood Venous blood specimen / Unknown Venipuncture / Unknown 07/11/2025 1:06 PM EDT 07/11/2025 2:19 PM EDT Madeleine Pizano INDUSTRIAL EDUCATION INSTRUCTOR LAB BLOOD ORDERABLES Fi nal Result Performing Organization Address City/[facility]/ZIP Co de Phone Number [facility] [address] [place] [address], [place] [phone] * (ABNORMAL) Vitamin B12 and folate (07/11/2025 1:06 PM EDT) [facility] Vitamin B-12 697 250 - 900 pcg/mL LAB CHEMISTRY METHOD 07/11/2025 4:50 PM EDT [facility] Folate 19.7(H) 2.8 - 17.0 ng/ml LAB CHEMISTRY METHOD 07/11/2025 4:50 PM EDT [facility] Blood Venous blood specimen / Unknown Venipuncture / Unknown 07/11/2025 1:06 PM EDT 07/11/2025 2:19 PM EDT us Judah Mckenzie MD LAB BLOOD ORDERABLES F inal Result Performing Organization Address [facility] Co de Phone Number [facility] [address] [place] [address], [place] [phone] * Vitamin D 25 hydroxy (07/11/2025 1:06 PM EDT) [facility] Vit D, 25-Hydroxy 40.2 30.0 - 80.0 ng/mL LAB CHEMISTRY METHOD 07/11/2025 5:22 PM EDT [facility] Blood Venous blood specimen / Unknown Venipuncture / Unknown 07/11/2025 1:06 PM EDT 07/11/2025 2:19 PM EDT us Judah Mckenzie MD LAB BLOOD ORDERABLES F inal Result Performing Organization Address City/[facility]/ZIP Co de Phone Number [facility] [address] [place] [address], [place] [phone] * Cortisol, urine, 24H (07/11/2025 12:54 PM EDT) [facility] Urine Volume 1,450 600 - 2000 mL 07/15/2025 8:34 AM EDT [facility] Cortisol Free Urine 18.6 ug/L 07/15 8:34 AM EDT [facility] Cortisol Free 24 Hr Urine 27.0 <45.0 ug/day 07/15/2025 8:34 AM EDT [facility] Comment: AGE GENDER REFERENCE RANGE 0-2 years: Female and Male Not established 3-8 years: Female and Male <18 ug/24 hour 9-12 years: Female and Male <37 ug/24 hour 13-17 years: Female and Male <56 ug/24 hour >=18 years: Female <45 ug/24 hour >=18 years: Male <60 ug/24 hour If applicable, any drug confirmation testing reported here was developed and the performance characteristics determined by [facility]. This confirmation testing has not been cleared or approved by the FDA. The laboratory is regulated under CLIA as qualified to perform high-complexity testing. This test is used for patient testing purposes. It should not be regarded as investigational or for research. Test performed at [facility], [address] [place] [address] Orquidea Gomez MD, PhD - Gasoline Service Attendant Urine Urine specimen from urethra / Unknown Non-blood Collection / Unknown 07/11/2025 12:54 PM EDT 07/11/2025 12:54 PM EDT Laurence Vee MD LAB URINE ORDERABLES Final Resul t [facility] [address] [place] [address] * Fungal antibodies (06/30/2025 4:42 PM EDT) [facility] Aspergillus Antibody ID Not Detected Not Detected 07/08/2025 7:04 PM EDT [facility] Comment: No Aspergillus antibodies were detected. This result does not exclude Aspergillus infection. Blastomyces Ab (ID) Not Detected Not Detected 07/08/2025 7:04 PM EDT [facility] Comment: No Blastomyces antibodies were detected. This result does not exclude Blastomyces infection. Coccidioides Ab (ID) Not Detected Not Detected 07/08/2025 7:04 PM EDT [facility] Comment: Clinical Interpretation: No Coccidioides antibodies (ie, IDTP (IgM), IDCF (IgG)) were detected. This result does not exclude Coccidioides infection. Performed By: [address] [place] [id number] Clasp Machine Operator: Edmond Mcmahon MD, PhD CLIA Number: [id number] Histoplasma Abs (ID) Not Detected Not Detected 07/08/2025 7:04 PM EDT [facility] Comment: No Histoplasma antibodies were detected. This result does not exclude Histoplasma infection. Blood Venous blood specimen / Unknown Venipuncture / Unknown 06/30/2025 4:42 PM EDT 06/30/2025 4:42 PM EDT us Madeleine Pizano INDUSTRIAL EDUCATION INSTRUCTOR LAB BLOOD ORDERABLES Fi nal Result [facility] [address] [place] [address] * (ABNORMAL) Lipid panel with reflex to direct LDL (06/28/2025 7:36 AM EDT) Cholesterol 236(H) 0 - 200 mg/dL LAB CHEMISTRY METHOD 06/28/2025 1:07 PM EDT [facility] Triglycerides 106 0 - 150 mg/dL LAB CHEMISTRY METHOD 06/28/2025 1:07 PM EDT [facility] HDL 47 >=40 mg/dL LAB CHEMISTRY METHOD 06/28/2025 1:07 PM EDT [facility] LDL Calculated 168(H) 0 - 100 mg/dL LAB CHEMISTRY METHOD 06/28/2025 1:07 PM EDT [facility] Comment:Estimated LDL Calcul ated using equation: Total cholesterol - HDL cholesterol - (Triglycerides/5) VLDL Cholesterol Diego 21.2 mg/dL LAB CHEMISTRY METHOD 06/28/2025 1:07 PM EDT [facility] Non HDL Chol. (LDL+VLDL) 189(H) <145 mg/dL LAB CHEMISTRY METHOD 06/28/2025 1:07 PM EDT [facility] Chol/HDL Ratio 5.0(H) 0.0 - 4.4 LAB CHEMISTRY METHOD 06/28/2025 1:07 PM EDT [facility] Blood Venous blood specimen / Unknown Venipuncture / Unknown 06/28/2025 7:36 AM EDT 06/28/2025 7:36 AM EDT Keren Ortega INDUSTRIAL EDUCATION INSTRUCTOR LAB BLOOD ORDERABLES Final Resu lt [facility] [address] [place] [address], * Serotonin serum (06/28/2025 7:36 AM EDT) Serotonin Serum 80 56 - 244 ng/mL 07/08/2025 4:37 PM EDT [facility] Comment: This test was developed and its analytical performance characteristics have been determined by [facility]. It has not been cleared or approved by the FDA. This assay has been validated pursuant to the CLIA regulations and is used for clinical purposes. Test Performed at: [facility] [address] [address] Nedra Stanley MD, PhD, HEATHER Blood Venous blood specimen / Unknown Venipuncture / Unknown 06/28/2025 7:36 AM EDT 06/28/2025 7:36 AM EDT Jerod [facility] LAB BLOOD ORDERABLES India l Result [facility] [address] [place] [address] * Hm Pap Smear (01/10/2017) HM Pap smear negative abstracted Historical Provider HEALTH MAINTENANCE Final Result from Last 3 Months or Most Recently Relevant to Health Maintenance Insurance [facility] Care Teams Personnel Officer Relationship Specialty Start Date End Date Jerod Lopez PA [address] [place] [address] PCP - General Internal Medicine 07/24/21
--- OUTSIDE RECORDS SUMMARY | 2025-09-05 19:03 | XMS_ITS | Encounter Summary ---
Author Organization [facility] Address [address] [place] [address] Care Team Providers Care Drift Miner Name Role Phone Jerod Lopez Primary Care Provider +1 [phone] Encounter Details Date Type Department Care Team (Late st Contact Info) Description 08/16/2025 Results Follow-Up Adult Medicine [address] [phone] Jerod Lpoez PA [address] [place] [phone] Social History Tobacco Use Types Packs/Day Years [...] care for your loved ones. For example, summer child caregiver or elderly care for an older adult? [...] 4:25 PM EST Office Visit Pulmonology - [place] 175 [facility] 200 [place] [address] Madeleine Pizano NP 230 [place] [address] 09/13/2025 3:20 PM EST Consult Gastroenterology - [address] [place] [address] Mary Alfonso PA 299 [facility] 419 [place] [address] 10/03/2025 3:30 PM EST Office Visit [facility] Hematology Oncology [address] [place] [phone] Suzanne Mejia PA 271 [place] [address] 03/06/2026 1:45 PM EDT Appointment Radiology Department [address] [phone] documented as of this encounter Visit Diagnoses Not on filedocumented in this encounter Additional Health Concerns Assessment Noted Time PHQ-9 Depression Total Score: 17 025 9:25 AM EDT documented as of this encounter Care Teams Drift Miner Relationship Specialty Start Date End Date Jerod Lopez PA [address] [place] [address] PCP - General Internal Medicine 07/24/21 documented as of this encounter
--- OUTSIDE RECORDS SUMMARY | 2025-09-05 19:03 | XMS_ITS | Encounter Summary ---
Author Organization [facility] Address [address] [place] [address] Care Team Providers Care Risk And Compliance Analytics Director Name Role Phone Jerod Lopez Primary Care Provider [phone] [phone] Reason for Visit * Reason Onset Date Comments provider call back 08/22/2025 Encounter Details Date Type Department Care Team ([facility] st Contact Info) Description 08/22/2025 Telephone Pulmonology - [address] 200 [place] [address] Madeleine Pizano, DENYS [address] [place] [address] Social History Tobacco Use Types Packs/Day Years [...] for your loved ones. For example, child care attendant or elderly care for an older [...] of Assessment Author No 01/22/2025 1:11 AM Ara Adams RN * Because of a physical, [...] documented in this encounter Progress Notes * Madeleine Pizano NP - 08/22/2025 2:54 PM EST Reviewed and [employer] message sent to patient. * Alondra Ortiz MA - 08/22/2025 2:11 PM EST Please review message below * Dottie Lujan - 08/22/2025 11:56 AM EST Patient called and stated that she got a CT scan done that was ordered by her PCP she is asking that Madeleine look over the results and follow up with patient. documented in this encounter Plan of Treatment Upcoming Encounters Date Type Department Care Team (Late st Contact Info) Description 09/12/2025 4:25 PM EST Office Visit Pulmonology - [address] [place] [address] Madeleine Pizano NP [address] [place] [phone] 09/13/2025 3:20 PM EST Consult Gastroenterology - 299 [facility] [address] [phone] Mary Alfonso PA [address] [address] 10/03/2025 3:30 PM EST Office Visit [facility] Hematology Oncology 271 [place] [phone] Suzanne Mejia PA 271 [place] [address] 03/06/2026 1:45 PM EDT Appointment Radiology Department - [address] [address] documented as of this encounter Visit Diagnoses Not on filedocumented in this encounter Additional Health Concerns Assessment Noted Time PHQ-9 Depression Total Score: 17 08/2 025 9:25 AM EDT documented as of this encounter Care Teams Risk And Compliance Analytics Director Relationship Specialty Start Date End Date Jerod Lopez PA [address] [place] [address] PCP - General Internal Medicine 07/24/21 documented as of this encounter
--- OUTSIDE RECORDS SUMMARY | 2025-09-05 19:03 | XMS_ITS | Encounter Summary ---
Author Organization [facility] Address [address] [place] [address] Care Team Providers Care Plasterer Apprentice Name Role Phone Jerod Lopez Primary Care Provider [phone] [phone] Encounter Details Date Type Department Care Team (Late st Contact Info) Description 08/24/2025 Telephone [facility] - [address] [place] [address] [place] [address] Oralia Vázquez MA Social History Tobacco Use Types Packs/Day Years [...] for your loved ones. For example, children's zoo caretaker or elderly care for an older adult? [...] documented in this encounter Progress Notes * Oralia Vázquez MA - 08/24/2025 3:15 PM EST The patient came in for EKG and stated she missed a vascular ultrasound bilateral that was ordered by back in February. Please call her to reschedule. documented in this encounter Plan of Treatment Upcoming Encounters Date Type Department Care Team (Late st Contact Info) Description 09/12/2025 4:25 PM EST Office Visit Pulmonology [facility] 175 [facility] 200 [place] [phone] Madeleine Pizano NP 230 [place] [phone] 09/13/2025 3:20 PM EST Consult Gastroenterology - 299 [facility] 299 [facility] 419 [place] [address] Mary Alfonso PA 299 [facility] 419 [place] [address] 10/03/2025 3:30 PM EST Office Visit [facility] Hematology Oncology 271 [place] [phone] Suzanne Mejia PA 271 [place] [address] 03/06/2026 1:45 PM EDT Appointment Radiology Department - [place] 444 [place] [address] documented as of this encounter Visit Diagnoses Not on filedocumented in this encounter Additional Health Concerns Assessment Noted Time PHQ-9 Depression Total Score: 17 025 9:25 AM EDT documented as of this encounter Care Teams Plasterer Apprentice Relationship Specialty Start Date End Date Jerod Lopez PA 4 [place] [address] PCP - General Internal Medicine 07/24/21 documented as of this encounter
--- OUTSIDE RECORDS SUMMARY | 2025-09-05 19:03 | XMS_ITS | Encounter Summary ---
Author Organization [facility] Address [address] [place] [address] Care Team Providers Care Caustic Plant Worker Name Role Phone Jerod Lopez Primary Care Provider [phone] [phone] Encounter Details Date Type Department Care Team (Late st Contact Info) Description 08/25/2025 Results Follow-Up Adult Medicine [facility] 444 [place], [place] [phone] Judah Mckenzie MD 444 [place], [place] Social History Tobacco Use Types Packs/Day [...] your loved ones. For example, child care center administrator or elderly care for an older adult? [...] 09/12/2025 4:25 PM EST Office Visit Pulmonology [facility] 175 [facility] 200 [place] [address] Madeleine Pizano NP 230 [place] [address] 09/13/2025 3:20 PM EST Consult Gastroenterology - [address] [place] [address] Mary Alfonso PA 299 [facility] 419 [place] [address] 10/03/2025 3:30 PM EST Office Visit [facility] Hematology Oncology 271 [place] [phone] Suzanne Mejia PA 271 [place] [address] 03/06/2026 1:45 PM EDT Appointment Radiology Department [address] [address] documented as of this encounter Visit Diagnoses Not on filedocumented in this encounter Additional Health Concerns Assessment Noted Time PHQ-9 Depression Total Score: 17 025 9:25 AM EDT documented as of this encounter Care Teams Caustic Plant Worker Relationship Specialty Start Date End Date Jerod Lopez PA [address] [place] [address] PCP - General Internal Medicine 07/24/21 documented as of this encounter
--- OUTSIDE RECORDS SUMMARY | 2025-09-05 19:03 | XMS_ITS | Encounter Summary ---
Author Organization [facility] Address [address] [place] [address] Care Team Providers Care Electronic Equipment Trades Worker Name Role Phone Jerod Lopez Primary Care Provider [phone] [phone] Reason for Visit * Reason Onset Date Comments Med Refill 09/01/2025 Encounter Details Date Type Department Care Team (Late st Contact Info) Description 09/01/2025 Telephone Adult Medicine [address] [phone] Silvia Uribe [place] Social History Tobacco Use Types Packs/Day [...] care for your loved ones. For example, early childhood services coordinator or elderly care for an older adult? [...] Refills Last Filled Start Date End Date LORazepam (ATIVAN) 0.5 mg tablet Take 1 tablet (0.5 mg total) by mouth 2 (two) times a day if needed for anxiety. Max Daily Amount: 1 mg 30 tablet 09/01/2025 11/30/2025 documented in this encounter Progress Notes * Zack Trivedi MA - 09/02/2025 12:03 PM EST iForm[employer] message sent to pt - rx sent 09/01 * Zack Trivedi MA - 09/02/2025 12:00 PM EST Rx was sent to pharmacy 09/01 * Ernestina Knott - 09/02/2025 9:52 AM EST Patient calling to check on the status of medication being sent to pharmacy. Patient requesting call back before the end of day. Please advise. * Haritha Malave MA - 09/01/2025 2:37 PM EST Jak It looks like this was originally given by chaitanya on 05/24/25 since then pt has been seen a few times med was dc'd off her list should pt be taking it? * Silvia Uribe MA - 09/01/2025 9:02 AM EST Refills not on Current Medication List Patient would like script to be: E-PRESCRIBED/FAXED TO PHARMACY [facility] WHEN WAS THE PATIENT'S LAST APPOINTMENT IN ADULT MEDICINE? 08/15/25 WHEN WAS THE LAST TIME THE PATIENT SAW THEIR PCP? 08/15/25 Does patient have an upcoming appointment? No- patient refused to book appointment (THE MEDICATION REQUESTED IS NOT ON THE MED LIST ABOVE) NOT ON THE LIST WAS PRESCIBED LAST ON 05/24/25 PREFERRED PHARMACY: [facility] [address] [place] [address] [address] [facility] [address] Med name: LORAZAPAM Dosage: 0.5 # of tablets: 30 Instructions: TAKE 1 NEEDED Patient wants: 30-day supply Is this a mail order prescription request?: no Did you check the Pharmacy information above?: yes Patients current insurance carrier is: Payor: [employer] / Plan: [facility] MEDICAID / Product Type: *No Product type* / Insurance ID #: @[id number]@ documented in this encounter Plan of Treatment Upcoming Encounters Date Type Department Care Team ([facility] st Contact Info) Description 09/12/2025 4:25 PM EST Office Visit Pulmonology - [address] 200 [place] [phone] Madeleine Pizano, DENYS 230 [place] [address] 09/13/2025 3:20 PM EST Consult Gastroenterology - [address] [phone] Mary Alfonso PA [address] [address] 10/03/2025 3:30 PM EST Office Visit [facility] Hematology Oncology 271 [place] [phone] Suzanne Mejia PA 271 [place] [address] 03/06/2026 1:45 PM EDT Appointment Radiology Department - [address] [phone] documented as of this encounter Visit Diagnoses Not on filedocumented in this encounter Additional Health Concerns Assessment Noted Time PHQ-9 Depression Total Score: 17 025 9:25 AM EDT documented as of this encounter Care Teams Electronic Equipment Trades Worker Relationship Specialty Start Date End Date Jerod Lopez PA [address] [place] [address] PCP - General Internal Medicine 07/24/21 documented as of this encounter
--- OUTSIDE RECORDS SUMMARY | 2025-09-05 19:03 | XMS_ITS | Encounter Summary ---
Author Organization [facility] Address [address] [place] [address] Care Team Providers Care Speech Therapist Technician Name Role Phone Jerod Lopez Primary Care Provider [phone] [phone] Reason for Visit * Reason Onset Date Comments Results 08/30/2025 Encounter Details Date Type Department Care Team (Late st Contact Info) Description 08/30/2025 Telephone Adult Medicine [address] [phone] Jerod Lopez PA [address] [place] [phone] Social History Tobacco Use Types Packs/Day Years [...] your loved ones. For example, child care leader or elderly care for an older adult? [...] Assessment Author No 01/22/2025 1:11 AM Rain Adams, EVA * Are you blind or do you [...] documented in this encounter Progress Notes * Ernestina Knott - 08/30/2025 11:57 AM EST Inform patient: ANY URGENT OR ABNORMAL RESULTS WIILL RESULT IN A CALL BACK TO THE PATIENT [facility]. Type of test: :Labs Date test was performed: 08/22/2026 Where was the test performed: [facility] Who ordered this test? Jerod Lopez Is the doctor here today?: yes Can the message wait until the doctor returns?: yes IF PATIENT'S PCP IS NOT IN INSTRUCT PATIENT THAT THEY WILL RECEIVE A CALL BACK WHEN THE PCP IS IN THE OFFICE NEXT. documented in this encounter Plan of Treatment Upcoming Encounters Date Type Department Care Team (Late st Contact Info) Description 09/12/2025 4:25 PM EST Office Visit Pulmonology - [place] 175 [facility] 200 [place] [phone] Madeleine Pizano, DENYS 230 [place] [phone] 09/13/2025 3:20 PM EST Consult Gastroenterology - 299 [facility] 299 [facility] 419 [place] [phone] Mary Alfonso PA 299 [facility] 419 [place] [address] 10/03/2025 3:30 PM EST Office Visit [facility] Hematology Oncology 271 [place] [phone] Suzanne Mejia PA 271 [place] [address] 03/06/2026 1:45 PM EDT Appointment Radiology Department - [address] [address] documented as of this encounter Visit Diagnoses Not on filedocumented in this encounter Additional Health Concerns Assessment Noted Time PHQ-9 Depression Total Score: 17 08/2 025 9:25 AM EDT documented as of this encounter Care Teams Speech Therapist Technician Relationship Specialty Start Date End Date Jerod Lopez PA [address] [place] [address] PCP - General Internal Medicine 07/24/21 documented as of this encounter
--- OUTSIDE RECORDS SUMMARY | 2025-09-05 19:03 | XMS_ITS | Encounter Summary ---
Author Organization [facility] Address [address] [place] [address] Care Team Providers Care Document Restorer Name Role Phone Jerod Lopez Primary Care Provider [phone] [phone] Encounter Details Date Type Department Care Team (Late st Contact Info) Description 07/12/2025 Results Follow-Up Adult Medicine [facility] 444 [place], [place] [phone] Judah Mckenzie MD 444 [place], [place] Social History Tobacco Use Types Packs/Day [...] your loved ones. For example, child care centre director or elderly care for an older adult? [...] Author No 01/22/2025 1:11 AM Rain Adams, RN * Are you blind or do [...] 09/12/2025 4:25 PM EST Office Visit Pulmonology [facility] 175 [facility] 200 [place] [address] Madeleine Pizano NP 230 [place] [phone] 09/13/2025 3:20 PM EST Consult Gastroenterology - 299 [facility] 299 [facility] 419 [place] [address] Mary Alfonso PA 299 [facility] 419 [place] [address] 10/03/2025 3:30 PM EST Office Visit [facility] Hematology Oncology 271 [place] [phone] Suzanne Mejia PA 271 [place] [address] 03/06/2026 1:45 PM EDT Appointment Radiology Department [address] [phone] documented as of this encounter Results * Vitamin B6 (08/22/2025 10:51 AM EST) Vitamin B6 (Pyridoxine) Level 14 5 - 50 ug/L 08/25/2025 7:05 AM EST [facility] Comment: This test was developed and the performance characteristics determined by [facility]. It has not been cleared or approved by the FDA. The laboratory is regulated under CLIA as qualified to perform high-complexity testing. This test is used for patient testing purposes. It should not be regarded as investigational or for research. Test performed at [facility], [address], [place] [address] Orquidea Gomez MD, PhD - Shipyard Supervisor Blood Venous blood specimen / Unknown Venipuncture / Unknown 08/22/2025 10:51 AM EST 08/22/2025 11:46 AM EST us Judah Mckenzie MD LAB BLOOD ORDERABLES F inal Result [facility] [address] [place] [address] documented in this encounter Visit Diagnoses Diagnosis Encounter for vitamin deficiency screening- Primary documented in this encounter Additional Health Concerns Assessment Noted Time PHQ-9 Depression Total Score: 17 04/28/ 025 9:25 AM EDT documented as of this encounter Care Teams Document Restorer Relationship Specialty Start Date End Date Jerod Lopez PA [address] [place] [address] PCP - General Internal Medicine 07/24/21 documented as of this encounter
--- OUTSIDE RECORDS SUMMARY | 2025-09-05 19:03 | XMS_ITS | Encounter Summary ---
Author Organization [facility] Address [address] [place] [address] Care Team Providers Care Civil Engineering Intern Name Role Phone Jerod Lopez Primary Care Provider [phone] Reason for Referral * Consultation (Urgent) - Authorized Specialty Diagnoses / Procedures Referred By Alphonse t Referred To Contact Gastroenterology Diagnoses Constipation, unspecified constipation type Dysphagia, unspecified type Abdominal pain, unspecified abdominal location Jerod Lopez PA [address] [place] [address] Phone: tel: fax: Gastroenterology - [address] [place] [phone] Phone: tel: fax: Referral ID Status Reason Start Date Expiration Date Visits Requested Visits Authorized [id number] Authorized Specialty Services Required 08/25/2026 1 1 Reason for Visit * Reason Onset Date Comments GI Problem 08/25/2025 Encounter Details Date Type Department Care Team ([facility] Contact Info) Description 08/25/2025 Telephone Adult Medicine [address] [phone] Jerod Lopez PA [address] [place] [address] Social History Tobacco Use Types Packs/Day Years [...] documented in this encounter Progress Notes * Lacey Fields RN - 08/25/2025 12:09 PM EST Called and informed pt. * LUCILA Sorensen - 08/25/2025 12:03 PM EST Ok I'll change to urgent also could try [facility] instead * Lacey Fields RN - 08/25/2025 11:04 AM EST Pt. States her symptoms have been going on since April she has intermittent pressure and gas abovethe naval and cramping below the naval . She is not aware of a fever because she is having hot flashes maybe menopause that she has had for awhile . No chest pain , no sob, no weakness or dizziness . She is having intermittent nausea , no vomiting . She is having a small bowel movement every day in am . She states it is not hard , no black stoolsand urinating without issue . She does not a lump in the rectum that enlarges and then goes down , not painful unless it is enlarged and stst she has reported this to the provider this has bleed in the recent past but she sts not much and is not at present time . Pt. Was recently seen in office with the same symptoms and is requesting not to be seen again but to have her referral changes to urgent instead of routine . I advised if she develops worsening symptoms cp, sob, abd. Pain and distention , rectal bleeding to be evaluated in the ER. Pt. Agrees Will send to PCP for review. * Ernestina Knott - 08/25/2025 10:33 AM EST Patient call requires triage: Symptoms patient is presenting: Patient has referral to Gastroenterology and appointment is scheduled in April of 2026. Patient states symptoms are worsening - Stomach pain, stomach is gassy, trouble eating, unable to use the restroom (patient stated she has small bowl movements straining). Patient states she has a lump on bottom area that increases and decreases in size. Patient would like gastroenterology referral to be Urgent/ STAT. Please advise How long has patient had these symptoms?: 3 months For ALL patients calling to schedule [...] traveled recently to another state outside of [place], [place], [place], [place], [place], [place], [place]? no o If yes, did you quarantine [...] of accident/Injury: No If yes, gather 3rd libertarian insurance information Third Libertarian Information: not applicable PCP: LUCILA West Payor: [employer] PLAN / Plan: [place] MEDICAID / Product Type: *No Product type* / documented in this encounter Plan of Treatment Upcoming Encounters Date Type Department Care Team (Late st Contact Info) Description 09/12/2025 4:25 PM EST Office Visit Pulmonology - [place] [address] [facility] [address] [place] [phone] Madeleine Pizano NP [address] [place] [phone] 09/13/2025 3:20 PM EST Consult Gastroenterology - [address] [facility] [address] [facility] [address] [place] [phone] Mary Alfonso PA [address] [facility] [address] [place] [address] 10/03/2025 3:30 PM EST Office Visit [facility] Hematology Oncology [address] [place] [phone] Suzanne Mejia PA [address] [place] [address] 03/06/2026 1:45 PM EDT Appointment Radiology Department [address] [phone] Scheduled Referrals Name Type Priority Associated Diagnoses Order Schedule Ambulatory referral to Gastroenterology Outpatient Referral Routine Constipation, unspecified constipation type Dysphagia, unspecified type Abdominal pain, unspecified abdominal location 1 Occurrences starting 08/25/2025 until 08/25/2026 documented as of this encounter Visit Diagnoses Diagnosis Constipation, unspecified constipation type- Primary Dysphagia, unspecified type Abdominal pain, unspecified abdominal location documented in this encounter Additional Health Concerns Assessment Noted Time PHQ-9 Depression Total Score: 17 025 9:25 AM EDT documented as of this encounter Care Teams Civil Engineering Intern Relationship Specialty Start Date End Date Jerod Lopez PA [address] [place] [phone] PCP - General Internal Medicine 07/24/21 documented as of this encounter
[2025-09-05 20:21] VITALS: BP 101/49; PULSE 76; RESP 18; TEMP 36.7; O2SAT 96
[2025-09-05 22:50] VITALS: BP 104/62; PULSE 69; RESP 16; TEMP 36.6; O2SAT 96
--- NOTE | 2025-09-05 23:10 | PM.IMHP ---
History of Present Illness Date of Service: 09/05/25 Chief Complaint: neck weakness, rash 50-year-old female with a past medical history significant for anxiety, depression, asthma, COPD, and active tobacco use, who presents to the emergency department with progressive inability to hold her head upright. 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 Over the past several days, she states she has been leaning her head to the left due to inability to support her neck. She reports that her neurologist and primary provider advised this may be a medication-related effect and recommended ED evaluation. No change in speech, double vision, swallowing ability or breathing pattern. The patient has had an extensive recent neurologic workup, including CT head, MRI brain, and EEG, and has been evaluated by Neurology on three recent occasions, including prior visits for unexplained crying spells and behavioral changes. Neurology follow-up occurred after imaging, and MRI/EEG reportedly demonstrated abnormalities, prompting initiation of lamotrigine. She also reports development of a mild pruritic rash, which appears excoriated from scratching. The patient is concerned this represents Rosales?Nestor syndrome based on internet searches, though no mucosal involvement or systemic symptoms are reported. On observation in the ED, the patient was seen ambulating to the bathroom with a normal gait and was able to hold her head upright without apparent difficulty; however, she subsequently reported inability to support her neck. Given the fluctuating nature of symptoms, significant anxiety, and extensive prior negative evaluations, there is concern for a functional neurologic (conversion) component, though medication effect and underlying neurologic pathology remain in the differential given prior MRI and EEG abnormalities. She is being admitted for further evaluation, medication review, neurology input, and management of her symptoms in a monitored setting. Review of Systems Review of Systems: Yes all other systems are reviewed and are negative [facility] Medical History Vision disturbance Headache Depression Polycythemia Thyroid nodule Social History Patient Tobacco Use Status: Current everyday Tobacco user Meds Allergies Allergy/AdvReac Type Severity Reaction Status Date / Time iodine Allergy Unknown Verified 09/05/25 17:50 Home Medications ?Medication ?Instructions ?Recorded ?Confirmed ?Last Taken ?Type albuterol sulfate 90 mcg/actuation 2 puff inhalation Q4H PRN wheezing 08/03/25 08/04/25 Unknown History aerosol inhaler (Ventolin HFA) escitalopram oxalate 5 mg tablet 5 mg PO DAILY 08/03/25 08/04/25 08/03/25 History cetirizine 10 mg tablet 10 mg PO DAILY 08/04/25 08/04/25 08/03/25 History diclofenac sodium 1 % topical gel 4 g topical TID PRN pain 08/04/25 08/04/25 Unknown History (Arthritis Pain (diclofenac)) estradiol 0.01% (0.1 mg/gram) 1 g vaginal 2XW 08/04/25 08/04/25 Unknown History vaginal cream furosemide 20 mg tablet 20 mg PO DAILY PRN Swelling 08/04/25 08/04/25 Unknown History lactulose 10 gram/15 mL oral 30 ml PO DAILY PRN Constipation 08/04/25 08/04/25 Unknown History solution lorazepam 0.5 mg tablet 0.5 mg PO DAILY PRN anxiety 08/04/25 08/04/25 Unknown History multivitamin 1 tab PO DAILY 08/04/25 08/04/25 08/03/25 History triamcinolone acetonide 55 mcg 2 spray intranasal DAILY 08/04/25 08/04/25 08/03/25 History nasal spray aerosol Physical Exam Vital Signs and Narrative: Vital Signs: Last Vital Signs Temp 97.9 F 09/05/25 22:50 Pulse 69 09/05/25 22:50 Resp 16 09/05/25 22:50 BP 104/62 09/05/25 22:50 Pulse Ox 96 09/05/25 22:50 O2 Del Method Room Air 09/05/25 22:50 BMI result Body Mass Index 27.1 Const: Other: Constitutional : Awake, interactive, not in distress Neck : Normal inspection, Supple Cardiovascular : RRR, no JVP, no lower extremity edema Respiratory : good bilateral air entry, no crackles, wheezes or rhonchi Gastrointestinal: soft, lax, Normal bowel sounds, Non tender Skin : Warm, Dry, maculopapular rash scattered in back and abdomen Neurological : Alert & oriented x3, No focal deficit , CN 2-12 within normal, neck muscles stiffness, speech fluent Results Labs 09/05/25 18:09 09/05/25 18:09 Labs: Laboratory Results - last 24 hr 09/05/25 18:09 MCV 90.5 MCH 30.6 MCHC 33.8 RDW 13.5 Plt Count 252 MPV 10.5 Immature Gran % (Auto) 0.2 Neut % (Auto) 47.6 Lymph % (Auto) 41.2 H [place] % (Auto) 7.2 Eos % (Auto) 2.5 Baso % (Auto) 1.3 Lymph # (Auto) 3.5 [place] # (Auto) 0.6 Eos # (Auto) 0.2 Baso # (Auto) 0.1 Abs Immat Gran (auto) 0.02 Absolute Neuts (auto) 4.0 Absolute Nucleated RBC 0.000 Nucleated RBC % (auto) 0.0 Anion Gap 12 Estim Creat Clear Calc 97.8 Estimated GFR > 60 Random Glucose 100 Calcium 9.0 Magnesium 1.9 Total Bilirubin 0.2 AST 15 ALT 11 Alkaline Phosphatase 92 Total Creatine Kinase 55 Total Protein 6.7 Albumin 4.2 Assessment and Plan (1) Anxiety: Status: Acute (2) Muscle weakness: Status: Acute (3) Maculopapular rash, generalized: Status: Acute (4) Neck muscle weakness: Status: Acute Plan a 50-year-old female with a past medical history significant for anxiety, depression, asthma, COPD, and active tobacco use, who presents to the emergency department with progressive inability to hold her head upright. # Neck weakness / head drop ? subacute, fluctuating Reports inability to hold head up since starting lamotrigine; exam notable for inconsistent findings with preserved gait and intermittent ability to maintain head position. No focal neurologic deficits, no bowel/bladder dysfunction. Recent MRI brain without acute pathology; EEG mildly abnormal but does not explain symptoms. High suspicion for functional neurologic disorder (conversion disorder) vs medication side effect. 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 No witnessed generalized seizure activity during this admission. Reported (spacing out) at home and having tremors afterward Continue seizure precautions Defer escalation of antiepileptic therapy pending neurology input Monitor for clinical seizure activity # Anxiety disorder with somatic symptom amplification History of anxiety, depression, multiple prior ED visits, and significant health-related anxiety : Fixation on Rosales?Nestor syndrome despite lack of clinical features. Behavioral changes and emotional lability reported. Psychiatry consult if symptoms persist or worsen Reassurance and clear communication regarding diagnostic findings Avoid reinforcing illness behavior with repeated testing # Maculopapular Rash mild, non-specific, no mucosal involvement, no systemic signs. Not consistent with Rosales?Nestor syndrome. Monitor skin exam Topical emollient or antihistamine PRN for pruritus Discontinue lamotrigine if rash progresses or per neurology recommendation # COPD / Asthma with hx of active smoking No acute respiratory distress. Continue home inhalers Smoking cessation counseling NRT DVT PPx Lovenox Quality Stroke Does the patient have a stroke diagnosis?: No VTE Prior VTE?: No VTE Risk Level:: Medical - moderate - high VTE Device Contraindication: Treatment Not Indicated VTE Drug Contraindication: N/A - Med Ordered
[2025-09-05 23:20] LABS: Appearance Urine Clear; Glucose Urine UA Negative (Negative); PH 5.5 (5.0-9.0); Specific Gravity - Urine <= 1.005 (1.005-1.025)
[2025-09-05 23:25] LABS: Cannabinoid Screen Urine Not Detected (Not Detect)
[2025-09-05] MEDS: Nicotine 14 MG PATCH.TD24 TRANSDERMA (23:43)
[2025-09-05 23:51] LABS: Resp Syncy Virus RNA Qual PCR NEGATIVE (Negative); SARS COV2 PCR INHOUSE NEGATIVE (Negative)
--- NOTE | 2025-09-06 00:01 | PC.NURSE ---
Pt declines baclofen as she has concerns it will decrease her heart rate and respirations. MD made aware and okayed not to give at this time. Monitoringins ongoing.
[2025-09-06 00:15] VITALS: BP 95/42; PULSE 70; RESP 17; TEMP 36.7; O2SAT 95
[2025-09-06 04:10] VITALS: BP 106/51; PULSE 57; RESP 15; TEMP 36.8; O2SAT 97
[2025-09-06 04:28] VITALS: BP 103/58; PULSE 59; RESP 18; TEMP 36.7; O2SAT 97
[2025-09-06 04:31] VITALS: BMI 27.8
[2025-09-06 07:32] VITALS: BP 116/55; PULSE 67; RESP 16; TEMP 36.9; O2SAT 98
[2025-09-06] MEDS: Nicotine 14 MG PATCH.TD24 TRANSDERMA (07:47)
[2025-09-06] MEDS: 0.9 % Sodium Chloride Flush 3 ML SYRINGE IVFLUSH (07:47)
--- NOTE | 2025-09-06 08:17 | PHA.MEDREC ---
Pharmacy Consult ? Medication Reconciliation Pharmacy has completed the medication reconciliation. Spoke with patient to confirm medications. She is no longer taking escitalopram, stopped about 1 week ago. She is not taking any hormonal replacement therapy right now. She is not taking the Breo inhaler and she is not taking atorvastatin. She takes furosemide as needed for swelling and doxycycline only when she has a cyst. She has been taking lamotrigine 25 mg once daily, last taken yesterday morning around 6 am. Her titration regimen is as follows: Week 1-2:Take 1 tablet by mouth daily (25mg daily) Week 3-4:Take 1 tablet by mouth twice daily(25mg twice daily) Week 5-6:Take 2 tablet by mouth twice daily( (50mg twice daily) Week 7:Take 4 tablets by mouth in the morning and 2 tablets by mouth before bed (100mg am and 50mg pm) Week 8:Take 4 tablets by mouth twice daily (100mg twice daily)
--- NOTE | 2025-09-06 09:32 | HO.PM.IMPN ---
Subjective Subjective Date of Service: 09/06/25 Interval History: feels tingling on back, abdominal pain, difficulty holding up head Physical Exam Exam: Exam: General: AO X 3, anxious appearing, sitting with stooped posture Resp: CTA bilateral, no accessory muscles used CVS: S1,S2,RRR GI: soft, non tender, non distended no appreciable rash Vital Signs: Vital Signs: Last Vital Signs Temp 98.4 F 09/06/25 07:32 Pulse 67 09/06/25 07:32 Resp 16 09/06/25 07:32 BP 116/55 L 09/06/25 07:32 Pulse Ox 98 09/06/25 07:32 O2 Del Method Room Air 09/06/25 07:32 BMI result Body Mass Index 27.8 Objective Data Active Medications Acetaminophen (Acetaminophen 325 Mg Tablet) 650 mg PO Q6H PRN PRN Reason: Pain, Mild 1-3,fever,headache Baclofen (Baclofen 10 Mg Tablet) 10 mg PO BID [facility] Last Admin: 09/06/25 07:47 Dose: Not Given Documented By: DAT Non-Admin Reason: pt refused Calcium Carbonate (Calcium Carbonate 750 Mg Tab.Chew) 750 mg PO Q4H PRN PRN Reason: Heartburn Diphenhydramine HCl (Diphenhydramine Hcl 50 Mg/Ml Vial) 25 mg IVPUSH Q6H PRN PRN Reason: Allergic Reaction Enoxaparin Sodium (Enoxaparin Sodium 40 Mg/0.4 Ml Syringe) 40 mg SUBCUT Q24H [facility] Last Admin: 09/05/25 23:42 Dose: 40 mg Documented By: SENAIT Lorazepam (Lorazepam 0.5 Mg Tablet) 0.5 mg PO Q8H PRN PRN Reason: anxiety/restlessness Magnesium Hydroxide (Milk Of Magnesia 30 Ml Oral.Susp) 30 ml PO DAILY PRN PRN Reason: Constipation Melatonin (Melatonin 3 Mg Tablet) 6 mg PO BEDTIME PRN PRN Reason: Insomnia Nicotine (Nicotine 14 Mg Patch.Td24) 14 mg TRANSDERMA DAILY [facility] Last Admin: 09/06/25 07:47 Dose: 14 mg Documented By: DAT Ondansetron HCl (Ondansetron Hcl 4 Mg/2 Ml Vial) 4 mg IVPUSH Q8H PRN PRN Reason: Nausea and Vomiting Polyethylene Glycol (Polyethylene Glycol 3350 17 Gm Powd.Pack) 17 gm PO DAILY PRN PRN Reason: Constipation Senna (Sennosides 8.6 Mg Tablet) 17.2 mg PO BEDTIME [facility] Last Admin: 09/05/25 23:42 Dose: 17.2 mg Documented By: SENAIT Sodium Chloride (0.9 % Sodium Chloride Flush 3 Ml Syringe) 3 ml IVFLUSH QSHIFT [facility] Last Admin: 09/06/25 07:47 Dose: 3 ml Documented By: DAT Labs 09/05/25 18:09 09/05/25 18:09 Labs: Laboratory Results - last 24 hr 09/05/25 09/05/25 18:09 23:07 MCV 90.5 MCH 30.6 MCHC 33.8 RDW 13.5 Plt Count 252 MPV 10.5 Immature Gran % (Auto) 0.2 Neut % (Auto) 47.6 Lymph % (Auto) 41.2 H [place] % (Auto) 7.2 Eos % (Auto) 2.5 Baso % (Auto) 1.3 Lymph # (Auto) 3.5 [place] # (Auto) 0.6 Eos # (Auto) 0.2 Baso # (Auto) 0.1 Abs Immat Gran (auto) 0.02 Absolute Neuts (auto) 4.0 Absolute Nucleated RBC 0.000 Nucleated RBC % (auto) 0.0 Anion Gap 12 Estim Creat Clear Calc 97.8 Estimated GFR > 60 Random Glucose 100 Calcium 9.0 Magnesium 1.9 Total Bilirubin 0.2 AST 15 ALT 11 Alkaline Phosphatase 92 Total Creatine Kinase 55 Total Protein 6.7 Albumin 4.2 Urine Color Yellow Urine Appearance Clear Urine pH 5.5 Ur Specific [place] <= 1.005 Urine Protein Negative Urine Glucose (UA) Negative Urine Ketones Negative Urine Blood Negative Urine Nitrite Negative Ur Leukocyte Esterase Negative Urine Opiates Screen Not Detected Ur Buprenorphine Scrn Not Detected Ur Oxycodone Screen Not Detected Urine Methadone Screen Not Detected Urine Fentanyl Screen Not Detected Ur Barbiturates Screen Not Detected Ur Phencyclidine Scrn Not Detected Ur Amphetamines Screen Not Detected U Benzodiazepines Scrn Not Detected Urine Cocaine Screen Not Detected U Marijuana (THC) Screen Not Detected Influenza Type A (PCR) NEGATIVE Influenza Type B (PCR) NEGATIVE RSV RNA Qual (PCR) NEGATIVE SARS-CoV-2 RNA (RT-PCR) NEGATIVE Assessment and Plan (1) Maculopapular rash, generalized: Status: Acute Plan 50F PMH mood disorder, COPD presented with reports of maculopapular rash and difficulty holding up head after starting lamotrigine for positive EEG Concern for drug reaction Holding lamotrigine, follow up Neurology, no signs of Anup Nestor Neck weakness Follow up Neurology Positive EEG with question of focal seizure disorder Lamotrigine on hold, follow up neuro Mood disorder Ativan, Atarax COPD Inhalers as needed DVT prophylaxis Lovenox Full code reason for continued hospitalization: Neuro eval pending Quality Stroke Does the patient have a stroke diagnosis?: No VTE Prior VTE?: No VTE Risk Level:: Medical - moderate - high VTE Device Contraindication: Treatment Not Indicated VTE Drug Contraindication: N/A - Med Ordered
--- NOTE | 2025-09-06 09:55 | PC.NURSE ---
Patient refused scheduled baclofen this AM. Patient asked this RN what the medication was for and what the side effects are. RN provided education on the medication and patient refused med and stated that she wanted to wait until she talks to her neurologist before taking it. Patient was also complaining about an itchy rash to abdomen and back and stated that benadryl was ordered for it. Patent was offered prn IV benadryl as ordered and patient refused/denied need for it at this time.
--- NOTE | 2025-09-06 10:52 | P.CNNE_ITS ---
History of Present Illness Data of Consult Service Date: 09/06/25 Primary Care Provider: LUCILA Sorensen MILTON Infante is a 50-year-old female patient with a past medical history of anxiety, depression, asthma, and COPD who is a patient of the [facility] and is currently admitted to the hospital with a progressive inability to hold her head in an upright position and feelings of muscle weakness. She was last week started on lamotrigine at 25 mg daily with slow taper up. She also stopped taking her lorazepam about a week ago as well. Over the course of the last several days she feels as though she is leaning her head to the left due to inability to support her neck. She has also developed a rash which is predominantly to her back and itchy. Her prior workup has consisted of a CT of the head, MRI of the brain, and EEG. She does have notable frontal and parietal lobe atrophy on imaging and her EEG suggested possible tendency for seizure disorder with notable bifrontall sharp waves. The intent of the lamotrigine was to evaluate for any reduction in symptoms possibly seizure related. Some of the more concerning symptoms she was experiencing included sudden episodes of hysteria associated with amnesia as well as sudden outbursts of crying without any obvious triggers. The crying episodes were sudden and brief. Review of Systems 2 Review of Systems: Yes all other systems are reviewed and are negative PMFSH Past Medical History Medical History Vision disturbance Headache Depression Polycythemia Thyroid nodule Social History Social History Patient Tobacco Use Status: Current everyday Tobacco user Tobacco use type: Cigarette Cigarette Packs Per Day: 1 Cigarettes Per Day: 20.0 Years Smoked: many Smoked in Last 30 Days: Yes e-Cigarette/Vaping Use: Never Used Patient Interested in Nicotine Replacement: Yes Patient Given Instructions on How to Stop Smoking: No Second Hand Smoke Exposure: No Use of substances other than those prescribed or required for medical reasons: No Currently Displaying Signs/Symptoms of Drug Intoxication Withdrawal: No Advance Directives: No Advance Directives Information Provided: Yes Do you have a plan to hurt others: No Plan Nutrition Risks: No Nutritional Risk Patient : No Meds Allergies Allergy/AdvReac Type Severity Reaction Status Date / Time iodine Allergy Unknown Verified 09/05/25 17:50 Active Medications: Current Medications Acetaminophen (Acetaminophen 325 Mg Tablet) 650 mg PO Q6H PRN PRN Reason: Pain, Mild 1-3,fever,headache Albuterol Sulfate (Albuterol Sulfate 90 Mcg 8 Gm Inhaler) 2 puff INHALE Q4H PRN PRN Reason: Wheezing Baclofen (Baclofen 10 Mg Tablet) 10 mg PO BID [facility] Last Admin: 09/06/25 07:47 Dose: Not Given Calcium Carbonate (Calcium Carbonate 750 Mg Tab.Chew) 750 mg PO Q4H PRN PRN Reason: Heartburn Diphenhydramine HCl (Diphenhydramine Hcl 50 Mg/Ml Vial) 25 mg IVPUSH Q6H PRN PRN Reason: Allergic Reaction Enoxaparin Sodium (Enoxaparin Sodium 40 Mg/0.4 Ml Syringe) 40 mg SUBCUT Q24H [facility] Last Admin: 09/05/25 23:42 Dose: 40 mg Hydroxyzine HCl (Hydroxyzine Hcl 50 Mg Tablet) 50 mg PO Q6H PRN PRN Reason: Anxiety Lorazepam (Lorazepam 0.5 Mg Tablet) 0.5 mg PO BID PRN PRN Reason: Anxiety Magnesium Hydroxide (Milk Of Magnesia 30 Ml Oral.Susp) 30 ml PO DAILY PRN PRN Reason: Constipation Melatonin (Melatonin 3 Mg Tablet) 6 mg PO BEDTIME PRN PRN Reason: Insomnia Multivitamins/Vitamin C (Multivitamin Tablet) 1 tab PO DAILY [facility] Nicotine (Nicotine 14 Mg Patch.Td24) 14 mg TRANSDERMA DAILY [facility] Last Admin: 09/06/25 07:47 Dose: 14 mg Ondansetron HCl (Ondansetron Hcl 4 Mg/2 Ml Vial) 4 mg IVPUSH Q8H PRN PRN Reason: Nausea and Vomiting Polyethylene Glycol (Polyethylene Glycol 3350 17 Gm Powd.Pack) 17 gm PO DAILY PRN PRN Reason: Constipation Senna (Sennosides 8.6 Mg Tablet) 17.2 mg PO BEDTIME [facility] Last Admin: 09/05/25 23:42 Dose: 17.2 mg Sodium Chloride (0.9 % Sodium Chloride Flush 3 Ml Syringe) 3 ml IVFLUSH QSHIFT [facility] Last Admin: 09/06/25 07:47 Dose: 3 ml Home Medications ?Medication ?Instructions ?Recorded ?Confirmed ?Last Taken ?Type albuterol sulfate 90 mcg/actuation 2 puff inhalation Q 4H PRN wheezing 08/03/25 09/06/25 Unknown History aerosol inhaler (Ventolin HFA) cetirizine 10 mg tablet 10 mg PO DAILY 08/04/2508/1608/03/25 History diclofenac sodium 1 % topical gel 4 g topical TID PRN pain 08/04/25 09/06/25 Unknown History (Arthritis Pain (diclofenac)) furosemide 20 mg tablet 20 mg PO DAILY PRN Swelling 08/04/25 09/06/25 Unknown History lactulose 10 gram/15 mL oral 30 ml PO DAILY PRN Consti pation 08/04/25 09/06/25 Unknown History solution lorazepam 0.5 mg tablet 0.5 mg PO BID PRN anxiety 09/06/25 Unknown History multivitamin 1 tab PO DAILY 08/04/2508/1609/05/25 History triamcinolone acetonide 55 mcg 2 spray intranasal DEVONTE Y 08/04/25 09/06/25 08/03/25 History nasal spray aerosol doxycycline hyclate 50 mg capsule 50 mg PO BID PRN cys ts 09/06/25 09/06/25 Unknown History hydroxyzine pamoate 50 mg capsule 50 mg PO Q6H PRN anx iety 09/06/25 09/06/25 Unknown History lamotrigine 25 mg tablet 25 mg PO DAILY 09/06/2508/1609/05/25 06:00 History nicotine (polacrilex) 2 mg gum 2 mg PO Q2H PRN Nicotin e Cravings 09/06/25 09/06/25 Unknown History nicotine 14 mg/24 hr daily 1 patch topical DAILY 09/0609/06/25 Unknown History transdermal patch Physical Exam 2 Vital Signs: Vital Signs: Last Vital Signs Temp 98.4 F 09/06/25 07:32 Pulse 67 09/06/25 07:32 Resp 16 09/06/25 07:32 BP 116/55 L 09/06/25 07:32 Pulse Ox 98 09/06/25 07:32 O2 Del Method Room Air 09/06/25 07:32 BMI result Body Mass Index 27.8 Const: General: cooperative, healthy appearing, comfortable and no acute distress Nutritional Appearance: well nourished Orientation/consciousness: patient oriented x3 Limitations: no limitations HEENT: Head: Yes normal to inspection and Yes normocephalic Eyes: General: appearance normal, both eyes and all related structures V isual Jaimes: normal visual jaimes by confrontation Alignment and Position: a lignment normal Periorbital: periorbital findings normal Eyelids: Yes eyelids normal Conjunctivae: conjunctivae normal Sclerae: sclerae normal Neck: Neck: Yes normal visual inspection and Yes full ROM : General: Yes no CVA tenderness Back/Spine/Pelvis: Back: no CVA tenderness Cervical Spine: normal cervical lordosis Thoracic/Lumbar Spine: thoracic and lumbar spine normal to inspection Neuro: General: patient oriented x3, tone normal and deep tendon reflexes 2+ bilaterally Cranial nerves: Yes CN's II-XII intact bilaterally and Yes Facial sensation intact/muscles of mastication intact Cognition (Neuro): normal cognition Gait exam (Neuro): Normal gait present Motor exam (neuro): 5/5 motor strength present throughout and no tremor noted Sensory Exam: Normal double simultaneous stimulation for sensation Romberg Test: Negative P upils: Normal pupillary reactivity/response: bilateral Psych: Affect: Anxious affect present Results Labs 09/05/25 18:09 09/05/25 18:09 Labs: Short CBC 09/05/25 Range/Units 18:09 WBC 8.4 (4.8-10.8) X10*3/uL Hgb 15.5 (12.0-16.0) g/dl Hct 45.8 (37.0-47.0) % Plt Count 252 (160-400) X10*3/uL BMP 09/05/25 18:09 Sodium 141 Potassium 4.1 Chloride 108 Carbon Dioxide 25 BUN 13 Creatinine 0.75 Calcium 9.0 Cardiac Enzymes 09/05/25 Range/Units 18:09 Total Creatine Kinase 55 (26-140) U/L Liver Function 09/05/25 Range/Units 18:09 Total Bilirubin 0.2 (0.0-1.0) mg/dL AST 15 (5-31) U/L ALT 11 (0-31) U/L Alkaline Phosphatase 92 (39-117) U/L Albumin 4.2 (3.5-5.0) g/dL Urine 09/05/25 Range/Units 23:07 Urine Color Yellow Urine Appearance Clear Urine pH 5.5 (5.0-9.0) Ur Specific [place] <= 1.005 (1.005-1.025) Urine Protein Negative (Neg-Trace) mg/dL Urine Glucose (UA) Negative (Negative) mg/dL Assessment and Plan (1) Neck muscle weakness: Status: Acute (2) Maculopapular rash, generalized: Status: Acute (3) Muscle weakness: Status: Acute (4) Anxiety: Status: Acute Plan Naresh is a 50-year-old female patient with a past medical history of anxiety, depression, asthma, and COPD who is a patient of the [facility] and is currently admitted to the hospital with a progressive inability to hold her head in an upright position and feelings of muscle weakness. The symptoms which led her to the hospital including feelings of neck weakness I more than likely functional in nature possibly representing a conversion disorder. She does note that she stopped her lorazepam about 1 week ago around the time that her symptoms started to arise. She also does admit to feeling very anxious lately. Her exam today was without any change compared to prior exams here in the office. I do think that there is still some underlying concern for possible focal seizure activity though I do not believe that the symptoms leading up to her admission are consistent with seizure. I am recommending a 48 hour ambulatory EEG upon discharge from the hospital and to remain off of antiepileptics for now. I will follow up with her in the clinic in regards to decision making on any need or indication for antiepileptics moving forward. Procedures Date of Service Date of Service: 09/06/25
--- NOTE | 2025-09-06 11:09 | P.DS_ITS ---
DS: Providers Provider Date of admission: 09/05/25 23:05 Date of discharge: 09/06/25 Primary care physician: LUCILA Sorensen Consults: 09/05/25 23:05 Consult to Neurology Routine Consulting Provider: [facility] Reason for consultation: Neck weakness , Rash on New Lamotrigine, Conversion disorder? DS: Diagnosis Discharge Diagnosis (1) Neck muscle weakness: Status: Acute (2) Maculopapular rash, generalized: Status: Acute (3) Muscle weakness: Status: Acute (4) Anxiety: Status: Acute DS: Summary Hospital Course Hospital Course: from initial hpi: 50-year-old female with a past medical history significant for anxiety, depression, asthma, COPD, and active tobacco use, who presents to the emergency department with progressive inability to hold her head upright. 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 Over the past several days, she states she has been leaning her head to the left due to inability to support her neck. She reports that her neurologist and primary provider advised this may be a medication-related effect and recommended ED evaluation. No change in speech, double vision, swallowing ability or breathing pattern. The patient has had an extensive recent neurologic workup, including CT head, MRI brain, and EEG, and has been evaluated by Neurology on three recent occasions, including prior visits for unexplained crying spells and behavioral changes. Neurology follow-up occurred after imaging, and MRI/EEG reportedly demonstrated abnormalities, prompting initiation of lamotrigine. She also reports development of a mild pruritic rash, which appears excoriated from scratching. The patient is concerned this represents Rosales?Nestor syndrome based on internet searches, though no mucosal involvement or systemic symptoms are reported. On observation in the ED, the patient was seen ambulating to the bathroom with a normal gait and was able to hold her head upright without apparent difficulty; however, she subsequently reported inability to support her neck. Given the fluctuating nature of symptoms, significant anxiety, and extensive prior negative evaluations, there is concern for a functional neurologic (conversion) component, though medication effect and underlying neurologic pathology remain in the differential given prior MRI and EEG abnormalities. She is being admitted for further evaluation, medication review, neurology input, and management of her symptoms in a monitored setting. hospital course: patient was admitted for concern of drug reaction to lamictal and neck weakness, she had no clear rash, was seen by neuro who felt this was more likely somatic disorder, recommended holding lamictal and obtaining ambulatory 48hr eeg. for mood disorder ocnitnue on ativan and atarx. for copd remained stable on inhalers Time Attestation Discharge Coordination Time (in mins): 32 Quality: Safe Use of Opioids Does Pt have an Active Cancer Diagnosis on the Problem List?: No Quality: Stroke Does the patient have a stroke diagnosis?: No Physical Exam Vital Signs: Vital Signs: Last Vital Signs Temp 98.4 F 09/06/25 07:32 Pulse 67 09/06/25 07:32 Resp 16 09/06/25 07:32 BP 116/55 L 09/06/25 07:32 Pulse Ox 98 09/06/25 07:32 O2 Del Method Room Air 09/06/25 07:32 BMI result Body Mass Index 27.8 Const: General: cooperative, healthy appearing, comfortable and no acute distress Nutritional Appearance: well nourished Orientation/consciousness: patient oriented x3 Limitations: no limitations HEENT: Head: Yes normal to inspection and Yes normocephalic Eyes: General: appearance normal, both eyes and all related structures Visual Jaimes: normal visual jaimes by confrontation Alignment and Position: alignment normal Periorbital: periorbital findings normal Eyelids: Yes eyelids normal Conjunctivae: conjunctivae normal Sclerae: sclerae normal Neck: Neck: Yes normal visual inspection and Yes full ROM : General: Yes no CVA tenderness Back/Spine/Pelvis: Back: no CVA tenderness Cervical Spine: normal cervical lordosis Thoracic/Lumbar Spine: thoracic and lumbar spine normal to inspection Neuro: General: patient oriented x3, tone normal and deep tendon reflexes 2+ bilaterally Cranial nerves: Yes CN's II-XII intact bilaterally and Yes Facial sensation intact/muscles of mastication intact Cognition (Neuro): normal cognition Gait exam (Neuro): Normal gait present Motor exam (neuro): 5/5 motor strength present throughout and no tremor noted Sensory Exam: Normal double simultaneous stimulation for sensation Romberg Test: Negative Pupils: Normal pupillary reactivity/response: bilateral Psych: Affect: Anxious affect present DS: Data Data Completed and Pending Labs on day of discharge: Laboratory Results - last 24 hr 09/05/25 09/05/25 18:09 23:07 WBC 8.4 RBC 5.06 Hgb 15.5 Hct 45.8 MCV 90.5 MCH 30.6 MCHC 33.8 RDW 13.5 Plt Count 252 MPV 10.5 Immature Gran % (Auto) 0.2 Neut % (Auto) 47.6 Lymph % (Auto) 41.2 H [place] % (Auto) 7.2 Eos % (Auto) 2.5 Baso % (Auto) 1.3 Lymph # (Auto) 3.5 [place] # (Auto) 0.6 Eos # (Auto) 0.2 Baso # (Auto) 0.1 Abs Immat Gran (auto) 0.02 Absolute Neuts (auto) 4.0 Absolute Nucleated RBC 0.000 Nucleated RBC % (auto) 0.0 Sodium 141 Potassium 4.1 Chloride 108 Carbon Dioxide 25 Anion Gap 12 BUN 13 Creatinine 0.75 Estim Creat Clear Calc 97.8 Estimated GFR > 60 Random Glucose 100 Calcium 9.0 Magnesium 1.9 Total Bilirubin 0.2 AST 15 ALT 11 Alkaline Phosphatase 92 Total Creatine Kinase 55 Total Protein 6.7 Albumin 4.2 Urine Color Yellow Urine Appearance Clear Urine pH 5.5 Ur Specific [place] <= 1.005 Urine Protein Negative Urine Glucose (UA) Negative Urine Ketones Negative Urine Blood Negative Urine Nitrite Negative Ur Leukocyte Esterase Negative Urine Opiates Screen Not Detected Ur Buprenorphine Scrn Not Detected Ur Oxycodone Screen Not Detected Urine Methadone Screen Not Detected Urine Fentanyl Screen Not Detected Ur Barbiturates Screen Not Detected Ur Phencyclidine Scrn Not Detected Ur Amphetamines Screen Not Detected U Benzodiazepines Scrn Not Detected Urine Cocaine Screen Not Detected U Marijuana (THC) Screen Not Detected Influenza Type A (PCR) NEGATIVE Influenza Type B (PCR) NEGATIVE RSV RNA Qual (PCR) NEGATIVE SARS-CoV-2 RNA (RT-PCR) NEGATIVE Discharge Plan Discharge Anticipated Discharge Date/Time: 09/06/25 11:07 Patient Disposition: Home, Self-Care Discharge Diagnosis: anxiety, rash Referrals: Juma Peña MD [Physician, Neurology] - 1 Week Jerod Lopez PA [Primary Care Provider, Internal Medicine] - 1 Week Discharge Medications: Continued albuterol sulfate [Ventolin HFA] 90 mcg/actuation HFA aerosol inhaler 2 puff INHALATION Q4H PRN (Reason: wheezing) cetirizine 10 mg tablet 10 mg PO DAILY lorazepam 0.5 mg tablet 0.5 mg PO BID PRN (Reason: anxiety) triamcinolone acetonide 55 mcg aerosol,spray 2 spray intranasal DAILY furosemide 20 mg tablet 20 mg PO DAILY PRN (Reason: Swelling) lactulose 10 gram/15 mL solution 30 ml PO DAILY PRN (Reason: Constipation) diclofenac sodium [Arthritis Pain (diclofenac)] 1 % gel 4 g topical TID PRN (Reason: pain) multivitamin Tablet 1 tab PO DAILY nicotine 14 mg/24 hr patch 24 hour 1 patch topical DAILY nicotine (polacrilex) 2 mg gum 2 mg PO Q2H PRN (Reason: Nicotine Cravings) doxycycline hyclate 50 mg capsule 50 mg PO BID PRN (Reason: cysts) hydroxyzine pamoate 50 mg capsule 50 mg PO Q6H PRN (Reason: anxiety) Discontinued lamotrigine 25 mg tablet 25 mg PO DAILY Rx Instructions: orally; Week 1-2:Take 1 tablet by mouth daily (25mg daily) Week 3-4:Take 1 tablet by mouth twice daily(25mg twice daily) Week 5-6:Take 2 tablet by mouth twice daily( (50mg twice daily) Week 7:Take 4 tablets by mouth in the morning and 2 tablets by mouth before bed (100mg am and 50mg pm) Week 8:Take 4 tablets by mouth twice daily (100mg twice daily) Discharge Orders: Discharge Order (Routine); Ordered 09/06/25 Ordered By: Florian Anaya Diet: Advance to usual diet Activity on Discharge: As tolerated Stand Alone Forms: Patient Portal Discharge page Print Language: Kazakh Other Ambulatory Orders: EEG 48hr Ambulatory (Routine) Timeframe: 1 Day Facility: [facility] - Location: Radiology Ordered By: Florian Anaya Care Plan Goals: recovery Health Concerns: somatic disorder, siezure Plan of Treatment: hold lamictal for now, follow up with neuro for 48hr eeg Assessment: see above
--- NOTE | 2025-09-06 11:33 | MHC.CM.PN ---
[facility] delivered. Patient lives at home w/ son and . Independent. Denies use of services or DME. PCP Jerod GAYTAN Completed HCP naming her son, Jin, as HCA. DP: Medically cleared for dc home self care. Daughter will provide transport ~12:30pm. RN aware.
[2025-09-06 12:26] VITALS: BP 112/61; PULSE 66; RESP 16; TEMP 36.6; O2SAT 95
== END 2025-09-06 12:49 | disposition home or self-care (01) ==
LOC: HO.ED 22:48 → HO.EDOVER 09-06 00:47 → HO.S3 09-06 02:42
PROVIDERS: Physician Assistant; Admitting Provider Student in an Organized Health Care Education/Training Program; Emergency Provider Emergency Medicine; PCP Physician Assistant Medical; Visit Provider Internal Medicine
DX: F41.9 Anxiety disorder, unspecified (principal); M62.81 Muscle weakness (generalized); R21 Rash and other nonspecific skin eruption; M53.82 Other specified dorsopathies, cervical region; Z03.818 Encounter for observation for suspected exposure to other biological agents ruled out; R51.9 Headache, unspecified; R20.2 Paresthesia of skin; H53.8 Other visual disturbances; G40.909 Epilepsy, unspecified, not intractable, without status epilepticus; J45.909 Unspecified asthma, uncomplicated; J44.9 Chronic obstructive pulmonary disease, unspecified; F17.200 Nicotine dependence, unspecified, uncomplicated; Z71.6 Tobacco abuse counseling; Z79.51 Long term (current) use of inhaled steroids; Z79.899 Other long term (current) drug therapy
CPT/HCPCS: 36415; 80053; 80307; 81003; 82550; 83735; 85025; 87637; 96372; 96374; 97166; 99221; 99285; J1200; J1650

== ENCOUNTER → 2025-09-05 18:15 | Outpatient (BNV) | payer OTHER, SELFPAY | PROVIDERS: Emergency Provider Emergency Medicine; PCP Physician Assistant Medical; Visit Provider Student in an Organized Health Care Education/Training Program | DX: M53.82 Other specified dorsopathies, cervical region (principal); M62.81 Muscle weakness (generalized); F41.9 Anxiety disorder, unspecified; R21 Rash and other nonspecific skin eruption | CPT/HCPCS: 99222; 99239; 99499 ==